=== PATIENT | female | born 1950 | race Caucasian/White ===

== ENCOUNTER → 2017-11-04 14:02 | Outpatient (CLI) | payer MEDICARE, BC, SELFPAY ==
--- NOTE | 2017-11-04 14:14 | CI_ITS ---
Cerebrovascular Exam Indications: 780.4 Dizziness and giddiness. IMPRESSIONS 1. The bilateral internal carotid arteries reveal no evidence of plaque or stenosis. 2. The bilateral common and external carotid arteries reveal no significant stenosis. 3. The bilateral vertebral arteries are patent with normal antegrade flow. History: Risk factors: Hypertension. Carotid duplex study. Complete study and Doppler flow study including spectral analysis, color and herrmann scale imaging. Height: Height: 152.4cm. Height: 60in. Weight: Weight: 122.5kg. Weight: 269.4lb. Body mass index: BMI: 52.7kg/m^2. Body surface area: BSA: 2.36m^2. Location: Vascular laboratory. Patient status: Outpatient. Tables: Arterial flow: + +--------+--------+ Location V sys V ed + +--------+--------+ Right CCA - proximal 86.4cm/s 23.6cm/s + +--------+--------+ Right CCA - distal 71.5cm/s 19.6cm/s + +--------+--------+ Right ECA 58.9cm/s -------- + +--------+--------+ Right ICA - proximal 77cm/s 17.3cm/s + +--------+--------+ Right ICA - mid 54.2cm/s 18.9cm/s + +--------+--------+ Right ICA - distal 112cm/s 28.3cm/s + +--------+--------+ Right vertebral 35.4cm/s -------- + +--------+--------+ Left CCA - proximal 123cm/s 18.7cm/s + +--------+--------+ Left CCA - distal 59.9cm/s 15.7cm/s + +--------+--------+ Left ECA 72.3cm/s -------- + +--------+--------+ Left ICA - proximal 39.3cm/s 13.4cm/s + +--------+--------+ Left ICA - mid 77cm/s 28.3cm/s + +--------+--------+ Left ICA - distal 81.4cm/s 26.6cm/s + +--------+--------+ Left vertebral 46.4cm/s -------- + +--------+--------+ Velocity ratios: + + + + + + Right, V sys Right, V ed Left, V sys Left, V ed + + + + + + Max ICA/dist CCA 1.57 1.44 1.36 1.8 + + + + + + (Report amended ) Electronically signed by: Marcus Haque [id number]
== END ==
PROVIDERS: Family Provider Family Medicine; PCP Nurse Practitioner Family; Visit Provider Nurse Practitioner Family
DX: R42 Dizziness and giddiness (principal)
CPT/HCPCS: 93880

== ENCOUNTER → 2017-12-03 10:27 | Outpatient (CLI) | payer MEDICARE, BC, SELFPAY ==
--- NOTE | 2017-12-03 10:30 | CA_ITS ---
PROCEDURE: 2-D M-mode and color Doppler study INDICATIONS FOR THE TEST: Chest pain COPD Heart MurmurX Tobacco Smoking Palpitations Fatigue Syncope Edema HypertensionXDiabetes Mellitus Rheumatic FeverX SOBXDOEXObesityXHyperlipidemiaX Family History HD Additional History TDS OBESITY PATIENT INFORMATION HEIGHT: 60 WEIGHT:260 GENDER: Female B/P:138/82 2-D/M-MODE INTERPRETATION: 2-D MEASUREMENTS OBSERVED VALUES IN CMS Right Ventricular Dimension (RVDd) 2.6 Interventricular Septum (Thickness)(IVsd) 1.2 Left Ventricular Internal Dimensions(LVIDd) 5.3 Left Ventricular Posterior Wall (Thickness)(LVPWd) .9 Aortic Root 3.7 Aortic Cusp Separation 1.4 Left Atrial Dimensions (LAD) 3.8 2D 1. Left atrium is qualitatively mildly enlarged, left ventricle is normal size, mild concentric left ventricular hypertrophy, visually estimated ejection fraction of 55% with no obvious regional wall motion abnormality. 2. The right atrium and right ventricle are normal size and contractility. 3. The aortic valve is minimally thickened and fibrosed. 4. The mitral and tricuspid valve leaflets are minimally thickened. 5. The pulmonic valve is poorly visualized. 6. No significant pericardial effusion noted. DOPPLER INTERROGATION: Doppler interrogation of the aortic, mitral and tricuspid valvular presence of mild mitral and tricuspid regurgitation, tricuspid regurgitant jet velocity is insufficient for acquisition of the right ventricular systolic pressure, grade 1 diastolic dysfunction seen with tissue Doppler evidence of raised left atrial pressure. CONCLUSION: 1. Mildly enlarged left atrium, normal left ventricular size, mild concentric left ventricular hypertrophy, visually estimated ejection fraction 55% with no obvious regional wall motion abnormality, grade 1 diastolic dysfunction seen with tissue Doppler evidence of raised left atrial pressure. 2. Mild mitral and tricuspid regurgitation 3. No significant pericardial effusion noted.
== END ==
PROVIDERS: Family Provider Family Medicine; PCP Nurse Practitioner Family; Visit Provider Physician Assistant
DX: R01.1 Cardiac murmur, unspecified (principal); R06.00 Dyspnea, unspecified
CPT/HCPCS: 93306

== ENCOUNTER → 2017-12-09 10:47 | Outpatient (CLI) | payer MEDICARE, BC, SELFPAY ==
--- NOTE | 2017-12-09 10:59 | XR_ITS ---
XR knee RT 3V HISTORY: ITS.REASON: RT KNEE PAIN ORDERING PHYSICIAN: Sheri Godfrey PATIENT AGE: 67 years FINDINGS: Moderate osteoarthritic changes are present involving the right knee involving all 3 compartments worse at the medial compartment. No fracture or dislocation. No lytic or blastic change. IMPRESSION: Moderate osteoarthritis of the right knee
== END ==
PROVIDERS: PCP Nurse Practitioner; Visit Provider Nurse Practitioner
DX: M25.561 Pain in right knee (principal)
CPT/HCPCS: 73562

== ENCOUNTER → 2017-12-16 10:39 | Outpatient (CLI) | payer MEDICARE, BC, SELFPAY ==
--- NOTE | 2017-12-16 10:41 | US_ITS ---
US transvaginal HISTORY: ITS.REASON: post bony bleeding ORDERING PHYSICIAN: Chad Whelan MD PATIENT AGE: 67 years Comparison: 01/18/2017 FINDINGS: The uterus is 8.4 x 5.8 x 7.1 cm with a combined endometrial thickness of 2 cm. There is a 2 cm heterogeneous echogenicity in the body the uterus anteriorly consistent with fibroid. The previously noted fibroid in the fundus of uterus is not well demonstrated on today's images. The left ovary is 1.7 x 1.3 cm. There is a small left ovarian cyst of 1 cm. The right ovary is 1.8 x 1.6 cm. No cul-de-sac fluid evident. IMPRESSION: 1. Thickened endometrium at 2 cm 2. No change uterine fibroid in the anterior aspect of the body the uterus
== END ==
PROVIDERS: Family Provider Family Medicine; PCP Nurse Practitioner; Visit Provider Obstetrics & Gynecology
DX: N95.0 Postmenopausal bleeding (principal)
CPT/HCPCS: 76830

== ENCOUNTER → 2018-01-03 09:59 | Outpatient (CLI) | payer MEDICARE, BC, SELFPAY ==
[2018-01-03 10:03] LABS: Microscopic, Urine URINE MICROSCOPIC (MICROSCOPIC)
--- NOTE | 2018-01-03 10:16 | XR_ITS ---
XR chest 2V HISTORY: ITS.REASON: HTN ORDERING PHYSICIAN: Chad Whelan MD PATIENT AGE: 67 years COMPARISON: 01/22/2017 FINDINGS: The cardiomediastinal silhouette and pulmonary vascularity are within normal limits. The lungs are clear without infiltrates, suspicious nodules, or pleural effusions. Chronic changes left lung base. No acute bony abnormalities. There are degenerative changes of the thoracic spine IMPRESSION: No change with no acute finding
[2018-01-03 10:25] LABS: Basophils % 0.3 % (0.1-2.0); Eosinophils # 0.2 K/mm3 (0.0-0.4); Eosinophils % 2.6 % (0.1-12.0); Hematocrit 39.2 % (37.0-47.0); Hemoglobin 12.7 g/dL (12.2-16.2); Lymphocytes # 2.4 K/mm3 (0.7-4.5); Lymphocytes % 26.9 K/mm3 (10-50); Mean Corpuscular HGB Conc 32.4 g/dL (31.8-35.4); Mean Corpuscular Hemoglobin 26.6 pg (27.0-31.2); Mean Corpuscular Volume 82.3 fl (81-99); Mean Platelet Volume 7.5 fl (7.4-10.4); Monocytes # 0.5 K/mm3 (0.1-1.0); Monocytes % 5.7 % (1.7-9.3); Neutrophils # 5.7 K/mm3 (1.8-7.8); Neutrophils % 64.5 % (37.0-80.0); Platelet Count 295 K/mm3 (142-424); Red Blood Count 4.76 M/mm3 (4.20-5.40); Red Cell Distribution Width 15.2 % (11.5-17.5); White Blood Count 8.8 K/mm3 (4.8-10.8)
[2018-01-03 10:34] LABS: Appearance,Urine SL CLOUDY (Clear); Bilirubin,Urine Negative (Negative); Blood, Urine Negative (Negative); Color,Urine YELLOW (Yellow); Glucose,Urine (UA) Negative (Negative); Ketones,Urine Negative (Negative); Leukocyte Esterase,Urine Negative (Negative); Nitrate,Urine Negative (Negative); PH,Urine 5.5 (5.0-8.5); Protein,Urine Negative (Negative); Specific Gravity, Urine 1.025 (1.005-1.030); Urobilinogen,Urine 0.2 EU/dl (0.2)
[2018-01-03 10:51] LABS: Bacteria,Urine 3+ /lpf; Squamous Epithelial Cell,Urine TNTC #/hpf (0-5); WBC,Urine Occasional #/hpf (0-3)
[2018-01-03 10:56] LABS: Alanine Aminotransferase 37 U/L (12-78); Albumin Level 3.8 gm/dL (3.4-5.0); Alkaline Phosphatase 91 U/L (46-116); Anion Gap 16.3 mEq/L (5-15); Aspartate Amino Transferase 20 U/L (15-37); Bilirubin,Total 0.3 mg/dL (0.2-1.0); Blood Urea Nitrogen 27 mg/dL (7-18); Calcium 9.4 mg/dL (8.5-10.1); Carbon Dioxide 22 mmol/L (21.0-32.0); Chloride 104 mmol/L (98-107); Creatinine,Serum 1.14 mg/dL (0.55-1.02); Estimated Glomerular Filt Rate 48 ml/min (>60); GFR (African American) 58 ML/MIN (>60); Globulin 3.8 gm/dl (1.3-3.2); Glucose 115 mg/dL (74-106); Potassium 4.3 mmoL/L (3.5-5.1); Sodium 138 mmol/L (136-145); Total Protein,Serum 7.6 gm/dL (6.4-8.2)
== END ==
PROVIDERS: Visit Provider Obstetrics & Gynecology
DX: Z01.818 Encounter for other preprocedural examination (principal); N95.0 Postmenopausal bleeding; D25.9 Leiomyoma of uterus, unspecified; R82.90 Unspecified abnormal findings in urine
CPT/HCPCS: 36415; 71046; 80053; 81001; 85025; 87086; 93005

== ENCOUNTER 2018-01-08 11:00 | Outpatient (RCR) | payer MEDICARE, BC, SELFPAY ==
--- NOTE | 2017-12-19 16:27 | HMH.PTOPEV ---
PT Outpatient Evaluation Rehab PT Outpatient Evaluation Start: 12/19/17 16:16 Freq: Status: Active Protocol: Document 12/19/17 16:17 LUMAMICHAEL (Rec: 12/19/17 16:27 KENNYCLOVIS [id number]) Electronically Signed By Nico Gee PT 12/19/17 16:17 Outpatient Therapy Subjective History Subjective History This is the initial Physical Therapy evaluation for Neeta Ashford. Pt is a 67 y/o female referred to PT for c/o B knee pain R>L. Pt reports pain for years but recent increase in pain w/ insidious onset. Chief Complaint Pain Stiff Catches/Locks Symptom Type Ache Throb Dull Symptoms Relieved By Rest/Positioning Prescription Meds Symptoms Aggravated By Standing Physical Activity Walking Prior Functional Limitations None Current Functional Limitations Housework Recreation Activity Walking Stairs Symptom Description Intermittent Level of pain today (0-10) 0 Pain scale - at its best (0-10) 0 Pain scale - at its worst (0-10) 5 Hip/Knee Eval Gait Observation General Gait Pattern Observation No Deviations/Normal Wide Based Gait Assistive Device Assistive Devices None / NA Palpation Tenderness bilateral Knee Palpation Finding Tenderness Knee Palpation Overall Comment B pes anserines, Medial HS tendons, and MPFL MMT Hip External Rotation Strength Grade 4- Good- Hip Internal Rotation Strength Grade 4 Good Knee Extension Strength Grade 4- Good- Knee Flexion Strength Grade 4- Good- ROM Knee ROM Reason Not Measured Within Functional Limits Special Tests Knee Apley Compression Test Negative Left Negative Right Knee Medial-Lateral Grind Test Negative Left Negative Right Knee Valgus Stress Test Negative Left Negative Right Knee Varus Stress Test Negative Left Negative Right Patellar Grind Test Negative Left Negative Right Patellar Compression Test Negative Left Negative Right Outpatient Therapy Assessment Impairments Problems/Impairmments Palpation Tenderness
== END 2018-01-08 11:01 | disposition home or self-care (01) ==
LOC: PT 11:00
PROVIDERS: Family Provider Family Medicine; PCP Nurse Practitioner; Visit Provider Nurse Practitioner
DX: M17.11 Unilateral primary osteoarthritis, right knee (principal); M70.51 Other bursitis of knee, right knee
CPT/HCPCS: 97010; 97014; 97033; 97110; 97163; G0283

== ENCOUNTER 2018-01-09 06:01 | Observation (INO) ==
--- NOTE | 2018-01-09 07:10 | Progress Note ---
[facility] Anesthesia Checklist - Patient Identification Patient Identification: Arm Band, Verbal (Name & ) - Structural Data Admitted From: Home Planned Operative Procedure/s: tvh Consent for Planned Operative Procedure(s) Verified: Yes Verified Documents: Surgical Consent, History and Physical - NPO Status Verified Time NPO: 00:00 - Chart Verification Results Verified: CBC, BMP - Additional verifications Patient : No Anesthesia Reactions: No Hx Blood Transfusions: No Blood Transfusion Reaction: No Cephalosporin Allergy: No Previous Colonoscopy: No - Cardiovascular Assessment Heart Sounds: S1 & S2 Pulse Strength: Baseline Pulse Rhythm: Regular Peripheral Edema: No - Airway Assessment C-Spine Mobility Assessed: Yes TMJ Mobility Assessed: Yes Dentition: Good Dentition - Neurological Assessment Level of Consciousness: Awake, Alert, Appropriate Hx Seizures: No Numbness or tingling in extremities: No - Anesthesia Plan Anesthesia Risk discussed: Yes Anesthesia Plan: Verified ASA Class: III Anesthesia Type: General [facility] Anesthesia HX I have reviewed the patient's past medical history: Yes Medical History: Reports:: Gall Bladder Disease, Hyperlipidemia, Hypertension, Kidney Stones Denies:: Cancer, Diabetes Mellitus Type 1, Diabetes Mellitus Type 2, Internal Pacemaker, MRSA, Seizures Other Medical History: Reports: Other. Denies: Blood Transfusion Reaction Laterality Cases: Bilateral: Lumpectomy Other Surgeries: Yes: Cholecystectomy, Tubal Ligation, Other. No: Pacemaker Amputation: No Fractures: No *Family Hx:: Coronary Artery Disease
--- NOTE | 2018-01-09 08:45 | Operative Note ---
Date of procedure: 01/27/18 Pre-op Diagnosis:: Postmenopausal bleeding Post-op Diagnosis:: 1. Postmenopausal bleeding. 2. Leiomyomata uteri. Procedure performed:: Total vaginal hysterectomy, enterocele repair. Surgeon:: Chad Whelan MD Machine Filler Servicer(s):: Dr. Longoria PIG STICKER:: Salinas Velasco Anesthesia: GETA Estimated blood loss (mL): 300 Operative findings:: 1. Postmenopausal bleeding. 2. Leiomyomata uteri. Operative note:: After the patient was prepped and draped in usual fashion and history, a weighted speculum was placed within the posterior fourchette of the vagina, and the cervix was grasped with a double-tooth tenaculum. The posterior vagina was adherent to the posterior aspect of the cervix. The cervix was carefully circumcised with a knife, and the vaginal mucosa was sharply and bluntly dissected free. A posterior colpotomy incision was made with Jenaro scissors, and the long lip of the weighted speculum was placed within the posterior peritoneum. The uterosacral ligaments on either side were Vicky clamped, cut, and Vicky suture with #1 Vicryl, as were the cardinal ligaments and uterine vessels. The anterior peritoneum was entered with Jenaro scissors, being careful to avoid the bladder flap scar. This was successfully done. The uterus was then flipped anteriorly. It was myomatous. The ovarian pedicles were crossclamped and cut, thus removing the uterine specimen. These pedicles were Vicky sutured, and then free tied with #1 Vicryl. The right ovary was visualized and atrophic. The left ovary could not be visualized but was palpated as atrophic. Both adnexa were adherent to the pelvic sidewalls and the decision was made to leave them in situ. The posterior vaginal cuff was then run unlocked with #1 Vicryl, to include the uterosacral ligament pedicles, and a Wong fashion, to reduce the enterocele. The peritoneal closure was incorporated in the cuff closure with a running unlocked suture of #1 Vicryl. A vaginal pack of 2 inch iodoform gauze was placed as a pressure dressing, and the urine was noted to be clear in the Ramirez catheter. The sponge and needle counts correct. The estimated blood loss was 300 cc. The patient tolerated the procedure well, and was taken to PACU in excellent condition. She will be admitted postoperatively. Condition: stable Disposition: floor Specimens:: Uterus Complications:: None
--- NOTE | 2018-01-09 08:51 | Progress Note ---
[facility] Anesthesia Record Part I Intake, IV Amount: 600 Estimated blood loss (mL): 300 Urine output (mL): 100 Blood Products used (#): none Blood Pressure: 110/59 SaO2: 96 Pulse Rate: 66 Respiratory Rate: 18 Temperature: 98.0 F Patient is:: Drowsy, Nasal O2, Stable Stable to PACU at:: 08:46
--- NOTE | 2018-01-09 08:52 | Progress Note ---
[facility] Anesthesia Record Part II Discharge Time: 09:16 Destination: Obstetric Gynecology Dept PACU nurse assessment reviewed?: Yes Patient Condition:: Good Anesthesia Complications:: None
[2018-01-09 10:39] LABS: Hematocrit 34.9 % (37.0-47.0); Hemoglobin 11.1 g/dL (12.2-16.2)
--- NOTE | 2018-01-09 12:51 | Progress Note ---
Internal Medicine - PN: Subj *Date: 01/09/18 *Time: 12:50 (This is day of surgery. The patient is afebrile. Vital signs stable. Abdomen soft. Surgery has been explained to the patient. She is tolerating liquids, and her urine output is good. Vaginal pack remains in situ. Impression: Stable.) Exam Vital signs and Labs for Last 24 Hours: Temp Pulse Resp BP Pulse Ox 98.0 F 68 17 119/65 99 01/09/18 12:15 01/09/18 12:15 01/09/18 12:15 01/09/18 12:15 01/09/18 12:15 Laboratory Results - last 24 hr 01/09/18 10:15: Hgb 11.1 L, Hct 34.9 L I & O for Last 24 hours: Intake & Output 01/07/18 01/08/18 01/09/18 01/10/18 11:59 11:59 11:59 11:59 Intake Total 600 / 600 Balance 600 / 600 Weight 260 lb
--- NOTE | 2018-01-10 07:35 | Progress Note ---
Internal Medicine - PN: Subj *Date: 01/10/18 *Time: 07:34 (This is postop day #1. The patient is afebrile. Vital signs stable. Abdomen soft. Bowel sounds present. SHASHANK globin 11.1 g, but clinically stable. Her Ramirez and vaginal pack have been removed. Plan is to observe, ambulate. Possible discharge later today.) Exam Vital signs and Labs for Last 24 Hours: Temp Pulse Resp BP Pulse Ox 98.1 F 67 18 114/56 95 01/10/18 03:45 01/10/18 03:45 01/10/18 03:45 01/10/18 03:45 01/10/18 03:45 Laboratory Results - last 24 hr 01/09/18 07:35: Urine Color Yellow, Urine Appearance Clear, Urine pH 6.0, Ur Specific [place] 1.025, Urine Protein Negative, Urine Glucose (UA) Negative, Urine Ketones Negative, Urine Blood Trace-i, Urine Nitrate Negative, Urine Bilirubin Negative, Urine Urobilinogen 0.2, Ur Leukocyte Esterase Negative, Urine RBC 5-10, Urine WBC Occasional, Ur Squamous Epith Cells 3-5, Urine Bacteria 1+, Hyaline Casts 3-5 01/09/18 10:15: Hgb 11.1 L, Hct 34.9 L I & O for Last 24 hours: Intake & Output 01/07/18 01/08/18 01/09/18 01/10/18 11:59 11:59 11:59 11:59 Intake Total 600 / 600 2561 / 2561 Output Total 600 / 600 Balance 600 / 600 196 / 1960 Weight 260 lb
--- NOTE | 2018-01-10 09:59 | Progress Note ---
Internal Medicine - PN: Subj *Date: 01/10/18 *Time: 09:59 (The patient is doing well. She she is voided without her Ramirez. She will be discharged today.) Exam Vital signs and Labs for Last 24 Hours: Temp Pulse Resp BP Pulse Ox 98.4 F 69 16 111/48 100 01/10/18 07:38 01/10/18 07:38 01/10/18 07:38 01/10/18 07:38 01/10/18 07:38 Laboratory Results - last 24 hr 01/09/18 07:35: Urine Color Yellow, Urine Appearance Clear, Urine pH 6.0, Ur Specific [place] 1.025, Urine Protein Negative, Urine Glucose (UA) Negative, Urine Ketones Negative, Urine Blood Trace-i, Urine Nitrate Negative, Urine Bilirubin Negative, Urine Urobilinogen 0.2, Ur Leukocyte Esterase Negative, Urine RBC 5-10, Urine WBC Occasional, Ur Squamous Epith Cells 3-5, Urine Bacteria 1+, Hyaline Casts 3-5 01/09/18 10:15: Hgb 11.1 L, Hct 34.9 L I & O for Last 24 hours: Intake & Output 01/07/18 01/08/18 01/09/18 01/10/18 11:59 11:59 11:59 11:59 Intake Total 600 / 600 2881 / 2881 Output Total 750 / 750 Balance 600 / 600 2131 / 2131 Weight 260 lb
--- NOTE | 2018-01-10 10:03 | Discharge Summary ---
General - General Admission date:: 01/09/18 Discharge date: 01/10/18 (This 67-year-old white female was admitted for definitive treatment of postmenopausal bleeding. On the date of admission, she was taken to the operating room, where she underwent a total vaginal hysterectomy. Her adnexa remain in situ. Her uterus was myomatous, and pathology report is pending. Postoperatively, the patient is done well. She is eating and ambulating, and passing flatus. Her Ramirez catheter and vaginal packing been removed, and she is voiding well. Her hemoglobin is 11.1 g, but she is clinically stable. She is discharged home on the first postoperative day , to resume her normal medications. She is given appropriate instructions as to diet and exercise. She is not a smoker. She is given a prescription for Percocet 5/325 (#20), 1 p.o. q. 4-6h as needed pain. She is to return the office in 2 weeks for follow-up.) Objective Vital signs: Temp Pulse Resp BP Pulse Ox 98.4 F 69 16 111/48 100 01/10/18 07:38 01/10/18 07:38 01/10/18 07:38 01/10/18 07:38 01/10/18 07:38 Results Labs on day of discharge: Labs from last 24 hours 01/09/18 01/09/18 10:15 07:35 Hgb 11.1 L Hct 34.9 L Urine Color Yellow Urine Appearance Clear Urine pH 6.0 Ur Specific [place] 1.025 Urine Protein Negative Urine Glucose (UA) Negative Urine Ketones Negative Urine Blood Trace-i Urine Nitrate Negative Urine Bilirubin Negative Urine Urobilinogen 0.2 Ur Leukocyte Esterase Negative Urine RBC 5-10 Urine WBC Occasional Ur Squamous Epith Cells 3-5 Urine Bacteria 1+ Hyaline Casts 3-5 Discharge Plan - Patient Discharge Instructions - Follow up Plan Home Medications: Home Medications Medication Instructions Recorded Confirmed Type lisinopril 20 1 tab PO DAILY tab 11/04/17 01/09/18 History mg-hydrochlorothiazide 12.5 mg tablet atorvastatin 40 mg tablet 40 mg PO DAILY tab 12/10/17 01/09/18 History estradiol 1 mg tablet 0.5 mg PO DAILY tab 12/10/17 01/09/18 History Chlorhexidine Gluconate 1 applic TOPICAL ONCE 01/08/18 01/09/18 History Medroxyprogesterone Acetate 2.5 mg PO QDAY 01/08/18 01/09/18 History Prescriptions/Medication Reconciliation: No Action estradiol 1 mg tablet 0.5 mg PO DAILY tab lisinopril 20 mg-hydrochlorothiazide 12.5 mg tablet 1 tab PO DAILY tab atorvastatin 40 mg tablet 40 mg PO DAILY tab Chlorhexidine Gluconate 1 applic TOPICAL ONCE Medroxyprogesterone Acetate 2.5 mg PO QDAY
--- NOTE | 2018-01-10 10:51 | Pharmacy Consult Notes ---
[facility] Pharmacy VTE Monitoring - Patient Demographics Admission date: 01/10/18 Report Date: 01/10/18 Time: 10:51 Allergies/Adverse Reactions: Patient Allergies No Known Allergies Allergy (Verified 01/08/18 12:50) Height: 1.52 m Weight: 117.934 kg - VTE Risk Labs: VTE Related Lab Results Hgb 11.1 g/dL (12.2-16.2) L 01/09/18 10:15 Hct 34.9 % (37.0-47.0) L 01/09/18 10:15 - Prophylaxis Types of VTE Prophylaxis: IPCS Thigh High (ICDS ORDERED) Location of Applied Device: Bilateral Lower Extremeties
== END 2018-01-10 11:30 | disposition home or self-care (01) ==
LOC: OR 06:01 → OB 06:01
PROVIDERS: ADMIT Obstetrics & Gynecology; ATTEND Obstetrics & Gynecology

== ENCOUNTER 2018-02-05 12:54 | Outpatient (RCR) | payer MEDICARE, BC, SELFPAY ==
--- NOTE | 2018-02-05 14:08 | HMH.PTOPEV ---
PT Outpatient Evaluation Rehab PT Outpatient Evaluation Start: 02/05/18 13:34 Freq: Status: Active Protocol: Document 02/05/18 13:34 YVESDERIK (Rec: 02/05/18 14:07 MEMO [id number]) Electronically Signed By Santana Rojas, PT 02/05/18 13:34 Outpatient Therapy Subjective History Subjective History Pt is a 67 year old female presenting to outpatient PT with reports of B knee pain staring approximatley 1 year ago after a fall on the R knee . Pt reports L knee pain started shortly after initial injury. Pt reports previous episonde of PT approximately 6 months ago that provided some significant relief. Comorbidities include HTN, hyperlipidemia, hx of cholecystectomy and hysterectomy. Chief Complaint Pain Stiff Clicks Gives out/Unstable Symptom Type Ache Sharp Symptoms Relieved By Rest/Positioning Heat Ice Prior Functional Limitations None Current Functional Limitations Housework Standing Sitting Squatting Recreation Activity Walking Stairs Bending/Stooping Level of pain today (0-10) 3 Pain scale - at its best (0-10) 0 Pain scale - at its worst (0-10) 8 Hip/Knee Eval Gait Observation General Gait Pattern Observation Antalgic Gait Assistive Device Assistive Devices None / NA Palpation Tenderness bilateral Knee Palpation Finding Tenderness Knee Palpation Overall Comment medial joint line MMT Hip Flexion Strength Grade 4 Good Hip Abduction Strength Grade 4- Good- Hip Adduction Strength Grade 4 Good Hip Extension Strength Grade 4- Good- Hip External Rotation Strength Grade 4- Good- Hip Internal Rotation Strength Grade 4- Good- Knee Extension Strength Grade 4 Good Knee Flexion Strength Grade 4 Good ROM right Hip ROM Reason Not Measured Within Functional Limits Knee Extension Active Range of Motion ( -10 degrees) Knee Flexion Active Range of Motion ( 116 degrees)
== END 2018-02-05 12:55 | disposition home or self-care (01) ==
LOC: PT 12:54
PROVIDERS: Family Provider Family Medicine; PCP Nurse Practitioner; Visit Provider Nurse Practitioner
DX: M17.0 Bilateral primary osteoarthritis of knee (principal)
CPT/HCPCS: 97010; 97014; 97163; G0283

== ENCOUNTER → 2018-02-11 10:49 | Outpatient (CLI) | payer MEDICARE, BC, SELFPAY ==
--- NOTE | 2018-02-11 10:52 | MM_ITS ---
MM Dig screening mamm BI w/CAD ORDERING PHYSICIAN : Stephan Back MD PATIENT AGE: 67 years GENDER: Female COMPARISON: December 2016, May 2014, March 2013. INDICATION: ITS.REASON: SCREENING patient does take estrogen. Patient data sheet states Previous excisional biopsy benign at both right and left breast Noncontributory family history TECHNIQUE: Standard CC and MLO images were obtained. R2 CAD reviewed. FINDINGS: Moderate density breast. Scattered moderate fibroglandular elements.. Is show diffuse increased prominence with compared to 2013 and 2016 throughout both breast-. This is compatible with exogenous hormone effect. . Right breast. No significant new focal findings A small round density seen at the central breast towards 12:00 is unchanged significantly since previous studies. Vaguely evident roughly 7 mm diameter. The L just towards the lateral left breast are more pronounced but again this appears to be compatible with the diffuse exogenous hormonesEstrogen effects ...... With A similar pattern is seen most evident towards lateral left breast Left breast. No significant new findings Minimal nodularity, small 4.5 mm nodule at central left breast is similar to previous study as well. & Can be followed. IMPRESSION: ...... Increased prominence of fibroglandular elements throughout both breast reflects exogenous hormone,/ estrogen effect No discrete new focal area of significant concern. However the interval increased density due to estrogen effect does slightly decreased sensitivity Stable areas of nodularity bilaterally BI-RADS Category: 2 Benign Finding(s) RECOMMENDED FOLLOW-UP: 1YR 1 YEAR FOLLOW-UP All (A letter has been sent to the patient regarding results of the study.)
== END ==
PROVIDERS: Family Provider Family Medicine; PCP Nurse Practitioner; Visit Provider Family Medicine
DX: Z12.31 Encounter for screening mammogram for malignant neoplasm of breast (principal)
CPT/HCPCS: 77067

== ENCOUNTER → 2018-05-20 13:06 | Outpatient (POV) | payer MEDICARE, BC, SELFPAY | PROVIDERS: Visit Provider Dermatology | DX: Z00.00 Encounter for general adult medical examination without abnormal findings (principal) ==

== ENCOUNTER → 2018-07-15 13:04 | Outpatient (POV) | payer MEDICARE, BC, SELFPAY | PROVIDERS: Visit Provider Dermatology | DX: Z00.00 Encounter for general adult medical examination without abnormal findings (principal) ==

== ENCOUNTER → 2018-08-11 08:43 | Outpatient (CLI) | payer MEDICARE, BC, SELFPAY ==
--- NOTE | 2018-08-11 08:46 | CA_ITS ---
PROCEDURE: 2-D M-mode and color Doppler study INDICATIONS FOR THE TEST: Chest pain COPD Heart Murmur Tobacco Smoking Palpitations Fatigue Syncope Edema HypertensionXDiabetes Mellitus Rheumatic Fever SOBXDOE ObesityXHyperlipidemia X Family History HDX Additional History PATIENT INFORMATION HEIGHT: 60 WEIGHT:263 GENDER: Female B/P:124/67 2-D/M-MODE INTERPRETATION: 2-D MEASUREMENTS OBSERVED VALUES IN CMS Right Ventricular Dimension (RVDd) 2.6 Interventricular Septum (Thickness)(IVsd) 1.0 Left Ventricular Internal Dimensions(LVIDd) 5.6 Left Ventricular Posterior Wall (Thickness)(LVPWd) 1.0 Aortic Root 3.6 Aortic Cusp Separation 1.6 Left Atrial Dimensions (LAD) 3.3 2D 1. Left atrium is mildly enlarged, left ventricle is normal size, mild concentric left ventricular hypertrophy, visually estimated ejection fraction 55% with no regional wall motion abnormality. 2. The right atrium and right ventricle are normal size and contractility. 3. The aortic valve is thickened and calcified leaflet continue to display mobility. 4. The mitral and tricuspid valve leaflets are minimally thickened, 5. The pulmonic valve is poorly present. 6. No significant pericardial effusion noted. DOPPLER INTERROGATION: Doppler interrogation of the aortic, mitral and tricuspid valvular presence of mild mitral and tricuspid regurgitation, tricuspid regurgitation jet velocity is inadequate for calculation of the right ventricular systolic pressure, grade 1 diastolic dysfunction seen with tissue Doppler evidence of raised left atrial pressure. CONCLUSION: 1. Mildly enlarged left atrium, normal left ventricular size, mild concentric left ventricular hypertrophy, visually estimated ejection fraction 55% with no regional wall motion abnormality, grade 1 diastolic dysfunction seen with tissue Doppler evidence of raised left atrial pressure. 2. Mild mitral and tricuspid regurgitation 3. No significant pericardial effusion noted.
== END ==
PROVIDERS: PCP Family Medicine; Visit Provider Internal Medicine
DX: R06.02 Shortness of breath (principal)
CPT/HCPCS: 93306

== ENCOUNTER → 2019-02-16 07:55 | Outpatient (CLI) | payer MEDICARE, BC, SELFPAY ==
--- NOTE | 2019-02-16 07:56 | MM_ITS ---
PROCEDURE: MM DIG SCREENING MAMM BI W/CAD CLINICAL INDICATION: SCREENING There is no personal or family history of breast cancer. There have been previous biopsies on each breast for benign disease. COMPARISON: [facility] DIG MAMM-SCREEN BRADLEY W/CAD from 01/25/2017 DMDXUAVR DIG MAMM-DX UNI A/VW-RT W/CAD from 02/06/2017 [facility] MM Dig screening mamm BI w/CAD from 02/11/2018 TECHNIQUE: Standard CC and MLO images were obtained. R2 CAD reviewed. FINDINGS: Scattered fibroglandular densities are seen in both breasts and the findings of bladder and symmetrical. There are mole markers on each breast. There are a couple of benign-appearing microcalcifications left breast. There is no suspicious lesion and no suspicious microcalcifications. IMPRESSION: Fibrofatty parenchyma with no suspicious lesions seen BI-RAD Category: 2 Benign Finding(s) FOLLOW-UP: 1YR 1 Year Follow-up (A letter has been sent to the patient regarding results of the study.) Dictated by: Dr. Haim Mathews MD 02/18/2019 09:48 Signed by: <Electronically signed by Dr. Haim Mathews MD in [place]> 02/18/2019 09:48
--- NOTE | 2019-02-16 07:56 | XR_ITS ---
PROCEDURE: XR DEXA AXIAL SKELETON CLINICAL INDICATION: screening COMPARISON: No exams were available for comparison FINDINGS: L1-L4 density has a bone density of 1.226 grams/centimeters sq with a T-score of 0.4. The lowest density in the hips is at the left femoral neck at 0.930 grams/centimeters sq with a T-score of -0.8 IMPRESSION: Normal bone density with low fracture risk. Suggest follow-up exam in 2 years Dictated by: Marcus Haque MD 02/16/2019 11:13 Signed by: <Electronically signed by Marcus Haque MD in [facility]> 02/16/2019 11:13
== END ==
PROVIDERS: PCP Internal Medicine; Visit Provider Obstetrics & Gynecology
DX: Z78.0 Asymptomatic menopausal state (principal); Z12.31 Encounter for screening mammogram for malignant neoplasm of breast
CPT/HCPCS: 77067; 77080

== ENCOUNTER → 2019-03-09 14:02 | Outpatient (POV) | payer MEDICARE, BC, SELFPAY | PROVIDERS: PCP Nurse Practitioner Family; Visit Provider Nurse Practitioner Family | DX: Z00.00 Encounter for general adult medical examination without abnormal findings (principal) ==

== ENCOUNTER → 2020-02-19 09:26 | Outpatient (CLI) | payer MEDICARE, BC, SELFPAY ==
--- NOTE | 2020-02-19 09:26 | MM_ITS ---
PROCEDURE: MM DIG SCREENING MAMM BI W/CAD Digital Breast Tomosynthesis Included CLINICAL INDICATION: Routine Screening Mammogram There is no personal or family history of breast cancer. There have been previous biopsies on each breast for benign disease. Patient is currently on estrogen. COMPARISON: MG DMDXUAVR DIG MAMM-DX UNI A/VW-RT W/CAD from 02/06/2017 MG [facility] MM Dig screening mamm BI w/CAD from 02/11/2018 MG MM DIG SCREENING MAMM BI W/CAD from 02/16/2019 TECHNIQUE: Standard CC and MLO images and 3D Tomosynthesis was obtained. R2 CAD reviewed. FINDINGS: Moderate diffuse fibroglandular densities are seen in the central portions of both breasts slightly more prominent right breast than left. There are mole markers on each breast. There is a couple of benign-appearing microcalcifications left breast. IMPRESSION: Moderate breast density with no suspicious lesions seen BI-RAD Category: 2 Benign Finding(s) FOLLOW-UP: 1YR 1 Year Follow-up (A letter has been sent to the patient regarding results of the study.) Dictated by: Dr. Haim Mathews MD 02/19/2020 14:11 Dr. Haim Mathews MD in [place] 02/19/2020 14:11
== END ==
PROVIDERS: PCP Nurse Practitioner Family; Visit Provider Obstetrics & Gynecology
DX: Z12.31 Encounter for screening mammogram for malignant neoplasm of breast (principal)
CPT/HCPCS: 77063; 77067

== ENCOUNTER 2020-04-30 08:01 | Emergency (ER) | payer MEDICARE, BC, SELFPAY ==
[2020-04-30 08:02] VITALS: BP 154/84; PULSE 95; RESP 20; TEMP 36.9; O2SAT 96; BMI 50.8
--- NOTE | 2020-04-30 08:20 | XR_ITS ---
PROCEDURE: XR ACUTE ABDOMEN SERIES CLINICAL INDICATION: obstipation Constipation COMPARISON: CR CXR CHEST(2 VIEWS-NOT PORTABLE) from 01/22/2017 FINDINGS: Frontal view of the chest shows no acute finding. Nonspecific nonobstructive bowel gas pattern. Surgical clips are present in the right upper quadrant. There is a mild amount of retained colonic feces throughout the colon. Other findings:None. IMPRESSION: Constipation Dictated by: Marcus Haque MD 04/30/2020 09:23 Marcus Haque MD in [place] 04/30/2020 09:23
--- NOTE | 2020-04-30 08:27 | HMH.EDGENADL ---
ED Disposition Clinical Impression: Constipation Qualifiers: Constipation type: unspecified constipation type Qualified Code(s): K59.00 - Constipation, unspecified Disposition: Home, Self-Care Condition on Discharge: Good Additional Instructions: And Colace once per day for soft stools and follow-up with your primary care for continued constipation. Prescriptions: Docusate Sodium [Colace] 100 mg PO DAILY 14 Days #14 cap Prescription Printed polyethylene glycoL 3350 [Miralax Powder] 17 gm PO DAILY 14 Days #240 gm Prescription Printed Referrals: Judy Parry APRN [Primary Care Provider] - - Critical Care Critical Care Time: No Attestation: On 04/30/20, the high probability of a clinically significant, sudden or life threatening deterioration of the following system(s) required my full and direct attention, intervention and personal management. The time I documented below is in addition to time spent performing reported procedures but includes the following listed in this critical care notation. Medical Decision Making - Medical Records Medical records reviewed: Yes: I reviewed the patient's medical records. MR Comment: To be in March 2019 demonstrated polyps with polypectomy and internal hemorrhoids. Patient has a history of an open cholecystectomy. - Amado Inquiry Pt receiving controlled substance: No Vital Signs: 04/30/20 08:02 04/30/20 08:42 Temperature 98.5 F Temperature Source Oral Pulse Rate [Left Radial] 95 H 87 Respiratory Rate 20 Blood Pressure [Right Arm] 154/84 H 147/78 H Blood Pressure Mean [Right Arm] 107 101 Blood Pressure Source [Right Arm] Automatic Cuff Automatic Cuff Blood Pressure Position [Right Arm] Sitting Sitting 02 Sat by Pulse Oximetry 96 95 Oxygen Delivery Method Room Air Room Air - Lab Data Lab Results 04/30/20 08:25: WBC 11.1 H, RBC 4.60, Hgb 13.2, Hct 39.8, MCV 86.6, MCH 28.7, MCHC 33.1, RDW 14.8, Plt Count 311, MPV 7.5, Neut % (Auto) 64.6, Lymph % (Auto) 29.3, [place] % (Auto) 4.5, Eos % (Auto) 1.4, Baso % (Auto) 0.3, Neut # (Auto) 7.2, Lymph # (Auto) 3.3, [place] # (Auto) 0.5, Eos # (Auto) 0.2, Baso # (Auto) 0.0 04/30/20 08:25: Sodium 138, Potassium 3.8, Chloride 104, Carbon Dioxide 26, Anion Gap 11.8, BUN 20 H, Creatinine 1.10 H, Estimated Creat Clear 35, Estimated GFR 49 L, Est GFR ( Amer) 60, Glucose 118 H, Calcium 9.4, Total Bilirubin 0.6, AST 26, ALT 29, Alkaline Phosphatase 115, Total Protein 7.9, Albumin 4.2, Globulin 3.7 H, Albumin/Globulin Ratio 1.1 04/30/20 08:25: Lactate 1.3 Result diagrams: 04/30/20 08:25 04/30/20 08:25 Orders (Tests/Meds): ED MEDICATIONS Discontinued Medications Generic Name Dose Route Start Last Admin Trade Name Freq PRN Reason Stop Dose Admin Sodium Phosphate 133 ml 04/30/20 09:08 04/30/20 09:51 Fleet 133ml Enema RC 04/30/20 09:09 Not Given ONCE ONE - Radiology Data #1 Image(s): Chest, Abdomen Image Reviewed: Yes I reviewed the patient's radiology results, Yes I reviewed the patient's radiology image Patient is noted to have mild to moderate stool burden throughout the colon with nonobstructive bowel gas pattern. No abnormalities on chest x-ray. - Reevaluation(s) Time: 10:33 (Pt feels better with large bowel movement. ) Medical Decision Narrative: 69-year-old female who presents with complaints of subjective constipation. Patient is in no obvious distress and has moderate distention of the abdomen with no tenderness is not currently vomiting however has a history of an open surgery is obese and has had minimal passage of gas. X-ray will be obtained with acute abdominal series to evaluate for obstructive gas pattern and further stratify the amount of constipation. X-ray demonstrates mild to moderate stool burden throughout the colon and no evidence of acute abnormality including free air or obstructive gas pattern. Laboratory data is unremarkable with no change in her baseline renal functio
[2020-04-30 08:42] VITALS: BP 147/78; PULSE 87; O2SAT 95
[2020-04-30 08:42] LABS: Basophils % 0.3 % (0.1-2.0); Eosinophils # 0.2 K/mm3 (0.0-0.4); Eosinophils % 1.4 % (0.1-12.0); Hematocrit 39.8 % (37.0-47.0); Hemoglobin 13.2 g/dL (12.2-16.2); Lymphocytes # 3.3 K/mm3 (0.7-4.5); Lymphocytes % 29.3 % (10-50); Mean Corpuscular HGB Conc 33.1 g/dL (31.8-35.4); Mean Corpuscular Hemoglobin 28.7 pg (27.0-31.2); Mean Corpuscular Volume 86.6 fl (81-99); Mean Platelet Volume 7.5 fl (7.4-10.4); Monocytes # 0.5 K/mm3 (0.1-1.0); Monocytes % 4.5 % (1.7-9.3); Neutrophils # 7.2 K/mm3 (1.8-7.8); Neutrophils % 64.6 % (37.0-80.0); Platelet Count 311 K/mm3 (142-424); Red Cell Distribution Width 14.8 % (11.5-17.5); White Blood Count 11.1 K/mm3 (4.8-10.8)
--- NOTE | 2020-04-30 08:43 | PC.NURSE ---
Pt to rad.
[2020-04-30 08:47] LABS: Chloride 104 mmol/L (98-107); Potassium 3.8 mmoL/L (3.5-5.1); Sodium 138 mmol/L (136-145)
[2020-04-30 08:50] LABS: Alanine Aminotransferase 29 U/L (12-78); Albumin Level 4.2 g/dl (3.5-5.0); Albumin/Globulin Ratio 1.1 (1.1-1.8); Alkaline Phosphatase 115 U/L (38-126); Anion Gap 11.8 mEq/L (5-15); Aspartate Amino Transferase 26 U/L (14-36); Bilirubin,Total 0.6 mg/dl (0.2-1.3); Blood Urea Nitrogen 20 mg/dl (7-17); Carbon Dioxide 26 mmol/L (22.0-30.0); Creatinine Clearance Estimated 35 mL/min (50-200); Estimated Glomerular Filt Rate 49 ml/min (>60); GFR (African American) 60 ML/MIN (>60); Globulin 3.7 g/dL (1.3-3.2); Total Protein,Serum 7.9 g/dl (6.3-8.2)
[2020-04-30 08:51] LABS: Calcium 9.4 mg/dl (8.4-10.2); Glucose 118 mg/dl (74-100); Lactic Acid 1.3 mmol/L (0.7-2.1)
--- NOTE | 2020-04-30 09:51 | PC.NURSE ---
Pt placed in gown, turned to left side, soap suds enema administered into rectum, pt tolerated well.
--- NOTE | 2020-04-30 10:31 | PC.NURSE ---
Pt states that she was successful with a BM and she feels better. MD aware and at bedside
[2020-04-30 11:02] VITALS: BP 150/77; PULSE 74; RESP 18; TEMP 36.9; O2SAT 98
== END 2020-04-30 11:03 | disposition home or self-care (01) ==
PROVIDERS: Emergency Provider Student in an Organized Health Care Education/Training Program; PCP Nurse Practitioner Family
DX: K59.00 Constipation, unspecified (principal); E78.5 Hyperlipidemia, unspecified; I10 Essential (primary) hypertension; E03.9 Hypothyroidism, unspecified; Z87.442 Personal history of urinary calculi; Z79.899 Other long term (current) drug therapy
CPT/HCPCS: 74021; 80053; 83605; 85025; 99283

== ENCOUNTER → 2020-08-04 11:31 | Outpatient (CLI) | payer MEDICARE, BC, SELFPAY ==
--- NOTE | 2020-08-04 11:52 | XR_ITS ---
PROCEDURE: XR ELBOW LT MIN 3V CLINICAL INDICATION: LEFT ELBOW PAIN COMPARISON: No exams were available for comparison FINDINGS: No fracture or dislocation. No lytic or blastic change. There is normal mineralization. Nonspecific well-circumscribed ossicles at the lateral and medial epicondyle. Small calcific density is present along the dorsal and proximal aspect of the ulna within the soft tissues. There is minimal spurring along the capitellum laterally. Other findings:None. IMPRESSION: Mild degenerative changes as described above, no acute finding Dictated by: Marcus Haque MD 08/04/2020 12:49 Marcus Haque MD in [place] 08/04/2020 12:49
== END ==
PROVIDERS: PCP Nurse Practitioner Family; Visit Provider Nurse Practitioner
DX: M25.522 Pain in left elbow (principal); R60.9 Edema, unspecified
CPT/HCPCS: 73080

== ENCOUNTER → 2020-08-15 09:55 | Outpatient (CLI) | payer MEDICARE, BC, SELFPAY ==
--- NOTE | 2020-08-15 10:02 | CA_ITS ---
APPROVED REPORT Left Upper Extremity Venous Study for DVT. Hydrologic Engineer: Fabiana Martienz RVT Indications Upper Extremity Pain: Left Upper Extremity Edema: Left PAIN/SWELLING LT ELBOW,NKI Risk Factors Obesity Vein Imaging IJV (L): Normal phasic flow is seen. Normal flow, augmentation and compression is seen. No evidence of Deep Vein Thrombosis. No abnormalities are demonstrated. SCV (L): Normal phasic flow is seen. Normal flow, augmentation and compression is seen. No evidence of Deep Vein Thrombosis. No abnormalities are demonstrated. Axillary (L): Normal phasic flow is seen. Normal flow, augmentation and compression is seen. No evidence of Deep Vein Thrombosis. No abnormalities are demonstrated. Brachial (L): Compressible,Normal phasic flow is seen. Normal flow, augmentation and compression is seen. No evidence of Deep Vein Thrombosis. No abnormalities are demonstrated. Basilic (L): Compressible Cephalic (L): Compressible Radial (L): Compressible Ulnar (L): Compressible Findings Study suggests no evidence of DVT of the left upper extrremity. Study suggests no evidence of SVT of the left upper extremity. Conclusion Study suggests no evidence of DVT of the left upper extrremity. Study suggests no evidence of SVT of the left upper extremity. Electronically signed by : Sonia Lawson MD 08/19/2020 09:29:28
== END ==
PROVIDERS: PCP Nurse Practitioner Family; Visit Provider Nurse Practitioner
DX: M25.522 Pain in left elbow (principal); R60.1 Generalized edema
CPT/HCPCS: 93971

== ENCOUNTER → 2021-02-28 10:19 | Outpatient (CLI) | payer MEDICARE, BC, SELFPAY ==
--- NOTE | 2021-02-28 10:21 | MM_ITS ---
PROCEDURE: MM DIG SCREENING MAMM BI W/CAD Digital Breast Tomosynthesis Included CLINICAL INDICATION: SCREENING There is no personal or family history of breast cancer. There have been previous biopsies on each breast benign disease. Patient currently is on estrogen COMPARISON: MG [facility] MM Dig screening mamm BI w/CAD from 02/11/2018 MG MM DIG SCREENING MAMM BI W/CAD from 02/16/2019 MG MM DIG SCREENING MAMM BI W/CAD from 02/19/2020 TECHNIQUE: Standard CC and MLO images and 3D Tomosynthesis was obtained. R2 CAD reviewed. FINDINGS: Throughout both breasts there are mole markers on each there are couple of benign-appearing microcalcifications left breast there is a stable small benign-appearing round density just deep to the nipple right breast likely a small cyst. There is no suspicious lesion and no suspicious microcalcifications. IMPRESSION: Moderate breast density with no suspicious lesions seen BI-RAD Category: 2 Benign Finding(s) FOLLOW-UP: 1YR 1 Year Follow-up (A letter has been sent to the patient regarding results of the study.) Dictated by: Dr. Haim Mathews MD 03/03/2021 08:29 Dr. Haim Mathews MD in [place] 03/03/2021 08:29
== END ==
PROVIDERS: PCP Nurse Practitioner Family; Visit Provider Family Medicine
DX: Z12.31 Encounter for screening mammogram for malignant neoplasm of breast (principal)
CPT/HCPCS: 77063; 77067

== ENCOUNTER 2021-03-12 14:41 | Emergency (ER) | payer MEDICARE, BC, SELFPAY ==
[2021-03-12 14:44] VITALS: BP 176/99; PULSE 111; RESP 22; TEMP 36.5; O2SAT 98; BMI 45.3
--- NOTE | 2021-03-12 14:57 | CT_ITS ---
PROCEDURE INFORMATION: Exam: CT Head Without Contrast Exam date and time: 03/12/2021 2:57 PM Age: 70 years old Clinical indication: Speech disturbance; Patient HX: No pain or discomfort just difficulty with speech and a little confused; Additional info: Speech difficulty TECHNIQUE: Imaging protocol: Computed tomography of the head without contrast. Radiation optimization: All CT scans at this facility use at least one of these dose optimization techniques: automated exposure control; mA and/or kV adjustment per patient size (includes targeted exams where dose is matched to clinical indication); or iterative reconstruction. COMPARISON: US CA carotid duplex BI 11/04/2017 2:47 PM FINDINGS: Brain: Prominent sulci. Patchy hypodensity of the cerebral white matter which are nonspecific but likely secondary to microangiopathic changes. Cerebral ventricles: The ventricles are prominent secondary to diffuse volume loss/atrophy. Paranasal sinuses: Visualized sinuses are unremarkable. No fluid levels. Mastoid air cells: Visualized mastoid air cells are well aerated. Bones/joints: Unremarkable. No acute fracture. Soft tissues: Unremarkable. IMPRESSION: Chronic age related changes but no evidence of acute intracranial pathology.
--- NOTE | 2021-03-12 14:57 | ECG_ITS ---
APPROVED REPORT Exam: Resting ECG HR:84 bpm ECG Measurements Heart Rate 84 AXES OK 164 P 18 QRSd 84 QRS 28 QT 366 T 41 QTc 432 Conclusion Normal sinus rhythm Normal ECG Electronically signed by : Salinas Cruz MD 03/13/2021 18:09:15
--- NOTE | 2021-03-12 15:17 | CT_ITS ---
PROCEDURE INFORMATION: Exam: CT Angiography Neck With Contrast Exam date and time: 03/12/2021 3:17 PM Age: 70 years old Clinical indication: Speech disturbance; Patient HX: Slurred speech and difficult talking brought to er; Additional info: Speech difficulty TECHNIQUE: Imaging protocol: Computed tomography angiography of the neck with contrast. 3D rendering (Not supervised by radiologist): MIP and/or 3D reconstructed images were created by the technologist. Radiation optimization: All CT scans at this facility use at least one of these dose optimization techniques: automated exposure control; mA and/or kV adjustment per patient size (includes targeted exams where dose is matched to clinical indication); or iterative reconstruction. Contrast material: ISOVUE 370; Contrast volume: 100 ml; Contrast route: INTRAVENOUS (IV); COMPARISON: US CA carotid duplex BI 11/04/2017 2:47 PM FINDINGS: Right common carotid artery: No stenosis. No dissection or occlusion. Right internal carotid artery: No stenosis of the extracranial segment. No dissection or occlusion. Right external carotid artery: No occlusion or stenosis of the origin. Left common carotid artery: No stenosis. No dissection or occlusion. Left internal carotid artery: No stenosis of the extracranial segment. No dissection or occlusion. Left external carotid artery: No occlusion or stenosis of the origin. Right vertebral artery: No stenosis. No dissection or occlusion. Left vertebral artery: No stenosis. No dissection or occlusion. Soft tissues: Normal. No significant soft tissue swelling. Bones/joints: No acute fracture. IMPRESSION: No stenosis or occlusion. REFERENCES: NASCET CRITERIA. The degree of internal carotid artery stenosis is based on NASCET criteria. Normal is no stenosis. Mild is less than 50% stenosis. Moderate is 50-69% stenosis. Severe is 70% to 99% stenosis. Total occlusion is no detectable patent lumen.
--- NOTE | 2021-03-12 15:17 | CT_ITS ---
PROCEDURE INFORMATION: Exam: CT Angiography Head With Contrast, Arteriography Exam date and time: 03/12/2021 3:17 PM Age: 70 years old Clinical indication: Speech disturbance; Slurred speech; Patient HX: Difficulty with speech brought to er; Additional info: Speech difficulty TECHNIQUE: Imaging protocol: Computed tomography angiography of the head with contrast. Exam focused on the arteries. 3D rendering (Not supervised by radiologist): MIP and/or 3D reconstructed images were created by the technologist. Radiation optimization: All CT scans at this facility use at least one of these dose optimization techniques: automated exposure control; mA and/or kV adjustment per patient size (includes targeted exams where dose is matched to clinical indication); or iterative reconstruction. Contrast material: ISOVUE 370; Contrast volume: 100 ml; Contrast route: INTRAVENOUS (IV); COMPARISON: CT HEAD/BRAIN WO CON 03/12/2021 3:12 PM FINDINGS: ANTERIOR CIRCULATION: Right internal carotid artery: Unremarkable. Intracranial segment is patent with no significant stenosis. No aneurysm. Right middle cerebral artery: Unremarkable. No occlusion or significant stenosis. No aneurysm. Right anterior cerebral artery: Unremarkable. No occlusion or significant stenosis. No aneurysm. Left internal carotid artery: Unremarkable. Intracranial segment is patent with no significant stenosis. No aneurysm. Left middle cerebral artery: Unremarkable. No occlusion or significant stenosis. No aneurysm. Left anterior cerebral artery: Unremarkable. No occlusion or significant stenosis. No aneurysm. POSTERIOR CIRCULATION: Right vertebral artery: Unremarkable. No occlusion or significant stenosis. No aneurysm. Left vertebral artery: Unremarkable. No occlusion or significant stenosis. No aneurysm. Basilar artery: Unremarkable. No occlusion or significant stenosis. No aneurysm. Right posterior cerebral artery: Unremarkable. No occlusion or significant stenosis. No aneurysm. Left posterior cerebral artery: Unremarkable. No occlusion or significant stenosis. No aneurysm. Brain: No definite mass, mass effect, or midline shift. Cerebral ventricles: No ventriculomegaly. Bones/joints: Unremarkable. No acute fracture. Soft tissues: Unremarkable. IMPRESSION: No large vessel stenosis or occlusion.
[2021-03-12 15:19] LABS: Basophils % 0.4 % (0.1-2.0); Eosinophils # 0.2 K/mm3 (0.0-0.4); Eosinophils % 2.5 % (0.1-12.0); Hematocrit 38.8 % (37.0-47.0); Hemoglobin 12.8 g/dL (12.2-16.2); Lymphocytes # 3.2 K/mm3 (0.7-4.5); Mean Corpuscular HGB Conc 32.9 g/dL (31.8-35.4); Mean Corpuscular Hemoglobin 28.5 pg (27.0-31.2); Mean Corpuscular Volume 86.7 fl (81-99); Mean Platelet Volume 7.4 fl (7.4-10.4); Monocytes # 0.6 K/mm3 (0.1-1.0); Monocytes % 6.2 % (1.7-9.3); Neutrophils # 4.8 K/mm3 (1.8-7.8); Neutrophils % 54.9 % (37.0-80.0); Platelet Count 257 K/mm3 (142-424); Red Blood Count 4.48 M/mm3 (4.20-5.40); Red Cell Distribution Width 15.2 % (11.5-17.5); White Blood Count 8.8 K/mm3 (4.8-10.8)
[2021-03-12 15:21] LABS: Chloride 106 mmol/L (98-107); Sodium 140 mmol/L (136-145)
[2021-03-12 15:23] LABS: Blood Urea Nitrogen 21 mg/dl (7-17); Creatinine Clearance Estimated 40 mL/min (50-200); Estimated Glomerular Filt Rate 55 ml/min (>60); GFR (African American) 67 ML/MIN (>60)
[2021-03-12 15:24] LABS: Alanine Aminotransferase 29 U/L (12-78); Albumin Level 4.1 g/dl (3.5-5.0); Albumin/Globulin Ratio 1.2 (1.1-1.8); Alkaline Phosphatase 107 U/L (38-126); Aspartate Amino Transferase 27 U/L (14-36); Bilirubin,Total 0.3 mg/dl (0.2-1.3); Calcium 9.4 mg/dl (8.4-10.2); Carbon Dioxide 23 mmol/L (22.0-30.0); Globulin 3.5 g/dL (1.3-3.2); Glucose 117 mg/dl (74-100); Total Protein,Serum 7.6 g/dl (6.3-8.2)
--- NOTE | 2021-03-12 15:47 | HMH.EDGENADL ---
ED Disposition Clinical Impression: TIA (transient ischemic attack) Disposition: Home, Self-Care Condition on Discharge: Good Instructions: DI for Transient Ischemic Attack Additional Instructions: Start taking aspirin 81 mg daily, begin tomorrow. Start taking Plavix 75 mg daily as prescribed, begin tomorrow. Turn to the emergency department if your symptoms worsen or any new symptoms such as visual problems or numbness or weakness. Follow-up with your primary care doctor this week. Call tomorrow to make an appointment to be seen. Prescriptions: Clopidogrel Bisulfate [Plavix 75mg Tab] 75 mg PO DAILY #21 tab Transmission Status: Pending to [id number] Referrals: Judy Parry APRN [Primary Care Provider] - - Critical Care Critical Care Time: No Attestation: On 03/12/21, the high probability of a clinically significant, sudden or life threatening deterioration of the following system(s) required my full and direct attention, intervention and personal management. The time I documented below is in addition to time spent performing reported procedures but includes the following listed in this critical care notation. Medical Decision Making - Amado Inquiry Pt receiving controlled substance: No Vital Signs: 03/12/21 14:44 Temperature 97.7 F Temperature Source Oral Pulse Rate [Radial] 111 H Respiratory Rate 22 Blood Pressure [Right Arm] 176/99 H Blood Pressure Mean [Right Arm] 124 02 Sat by Pulse Oximetry 98 Oxygen Delivery Method Room Air - Lab Data Lab Results 03/12/21 15:03: WBC 8.8, RBC 4.48, Hgb 12.8, Hct 38.8, MCV 86.7, MCH 28.5, MCHC 32.9, RDW 15.2, Plt Count 257, MPV 7.4, Neut % (Auto) 54.9, Lymph % (Auto) 36.0, [place] % (Auto) 6.2, Eos % (Auto) 2.5, Baso % (Auto) 0.4, Neut # (Auto) 4.8, Lymph # (Auto) 3.2, [place] # (Auto) 0.6, Eos # (Auto) 0.2, Baso # (Auto) 0.0 03/12/21 15:03: Sodium 140, Potassium 4.0, Chloride 106, Carbon Dioxide 23, Anion Gap 15.0, BUN 21 H, Creatinine 1.00, Estimated Creat Clear 40, Estimated GFR 55 L, Est GFR ( Amer) 67, Glucose 117 H, Calcium 9.4, Total Bilirubin 0.3, AST 27, ALT 29, Alkaline Phosphatase 107, Total Protein 7.6, Albumin 4.1, Globulin 3.5 H, Albumin/Globulin Ratio 1.2 Result diagrams: 03/12/21 15:03 03/12/21 15:03 Orders (Tests/Meds): ED MEDICATIONS Discontinued Medications Generic Name Dose Route Start Last Admin Trade Name Miguel Ángel PRN Reason Stop Dose Admin Aspirin 324 mg 03/12/21 17:30 03/12/21 17:37 Aspirin 81mg Chewable Tablet PO 03/12/21 17:31 324 mg ONCE ONE Administration Clopidogrel Bisulfate 300 mg 03/12/21 17:30 03/12/21 17:37 Clopidogrel 300mg Tablet PO 03/12/21 17:31 300 mg ONCE ONE Administration Iopamidol 100 ml 03/12/21 16:15 03/12/21 16:17 Iopamidol-370 (76%);100ml Bottle IV 03/12/21 16:16 100 ml ONCE ONE Administration Sodium Chloride 10 ml 03/12/21 16:15 03/12/21 16:17 Sodium Chloride 0.9% 10ml Syr (Rad Only) IV 03/12/21 16:16 10 ml ONCE ONE Administration ORDERS Category Date Time Status Rapid PCR Covid and Flu A/B Stat Lab 03/12/21 16:41 Ordered Urinalysis and Microscopic Stat Lab 03/12/21 15:30 Ordered - CT Data CT Scan: Head, Other (CTA head and neck) Time Received: 17:[address] Reviewed: Yes: I have viewed the radiologist's interpretation Findings Narrative: PROCEDURE INFORMATION: Exam: CT Angiography Neck With Contrast Exam date and time: 03/12/2021 3:17 PM Age: 70 years old Clinical indication: Speech disturbance; Patient HX: Slurred speech and difficult talking brought to er; Additional info: Speech difficulty TECHNIQUE: Imaging protocol: Computed tomography angiography of the neck with contrast. 3D rendering (Not supervised by radiologist): MIP and/or 3D reconstructed images were created by the technologist. Radiation optimization: All CT scans at this facility use at least one of these dose optimizati
[2021-03-12 16:00] VITALS: BP 160/78; PULSE 87; RESP 16; O2SAT 98
[2021-03-12 17:00] VITALS: BP 152/78; PULSE 87; RESP 16; O2SAT 98
--- NOTE | 2021-03-12 17:31 | PC.NURSE ---
spoke with dr leblanc who is covering for Dr Teixeira regarding pt
[2021-03-12 17:56] VITALS: BP 139/79; PULSE 87; RESP 16; TEMP 36.6; O2SAT 98
== END 2021-03-12 18:03 | disposition home or self-care (01) ==
PROVIDERS: Emergency Provider Emergency Medicine; PCP Nurse Practitioner Family
DX: G45.8 Other transient cerebral ischemic attacks and related syndromes (principal); I10 Essential (primary) hypertension; E78.5 Hyperlipidemia, unspecified; R01.1 Cardiac murmur, unspecified; E03.9 Hypothyroidism, unspecified; Z79.899 Other long term (current) drug therapy
CPT/HCPCS: 70450; 70496; 70498; 80053; 85025; 93005; 99283; Q9967

== ENCOUNTER → 2021-07-18 06:17 | Outpatient (CLI) | payer MEDICARE, BC, SELFPAY ==
--- NOTE | 2021-07-18 | CA_ITS ---
APPROVED REPORT Exam: Pharmacologic Technologist: Melissa Ward, Ht: 5 ft 1 in Wt: 274 lbs BSA: 2.16 m2 HR: 72 bpm BP: 151/76 mmHg Rhythm: NSR, NORMAL Indications: Chest pain Medical History Medical History: HTN, Hyperlipidemia Medications: Aspirin,,,,, Atorvastatin,,,,, Estradiol,,,,, PolyethYLENE,,,,, TriMethoprim,,,,, Lisinopri/HCTZ,,,,, OxYbutynin chloride,,,,, PolyethYLENE GLYCOL,,,,, Allergies: No known drug allergies Cardiac Risk Factors: HTN, Hyperlipidemia, FHX of CAD Stress Test Details Test: LEXISCAN HR Resting HR: 71 bpm Max Heart Rate (APMHR): 150.018678 bpm Max HR Achieved: 103 bpm Target HR (85% APMHR): 127.484922 bpm % of APMHR: 68.67 Recovery HR: 90 bpm BP Resting BP: 151/76 mmHg Max BP: 151/76 mmHg Recovery BP: 128.0/65.0 mmHg ECG Resting ECG: NSR,NORMAL Clinical Exercise duration: 04:00 min Highest Stage Achieved: Exercise capacity: 1.0 METs Stress ECG Conclusion PT HAD MILD SOA AND MALAISE. NO SIGNIFICANT CHANGES. UMREMARKABLE LEXISCAN STRESS. MYOVIEW IMAGES REPORTED SEPARATELY. Test Summary REST 03:55 . . 71 . 151/ 76 . . Stage 1 01:00 . . 100 . . . . Stage 2 01:00 . . 102 . 125/ 71 . . Stage 3 01:00 . . 98 . 126/ 64 . . Stage 4 01:00 . . 95 . 123/ 71 . Stop exercise at 04:00 RECOVERY 01:00 . . 97 . . . . RECOVERY 02:00 . . 93 . 118/ 70 . . RECOVERY 03:00 . . 92 . 118/ 70 . . RECOVERY 04:00 . . 89 . 123/ 66 . . RECOVERY 04:26 . . 99 . 128/ 65 . . Electronically signed by : Miguel Ernst MD 07/18/2021 20:02:02
--- NOTE | 2021-07-18 07:14 | NM_ITS ---
APPROVED REPORT Exam: Nuclear Stress Test Indication: STROKE, HTN, HYPERLIPIDEMIA, C.P. Patient Location: Outpatient Stress Tech: Melissa Ward [facility] Tech:JEWEL Monge RT(R)(N) Ht: 5 ft 0 in Wt: 270 lbs Bra Size: 40D HR: 72 bpm BP: 151/76 mmHg BSA: 2.12 m2 History: STROKE, HTN, HYPERLIPIDEMIA, C.P. Procedure: Patient received a 0.4 mg of intravenous Lexiscan, resting heart rate 72 bpm, resting blood pressure 151/76 mmHg, with Lexiscan maximum heart rate achived was 103 bpm which is Less than 85 % of the maximum predicted heart rate and blood pressure was 125/71 mmHg. With Lexiscan, patient denied any complaint of chest pain. Electrocardiogram Resting electrocardiogram showed sinus rhythm, with Lexiscan there is less than 1.[address] segment depression noted from the baseline EKG. The EKG portion of the Lexiscan is nondiagnostic. Cardiac Stress and Resting SPECT Images: Cardiac Stress and Resting SPECT images were obtained using technetium 99m Myoview 30.8 mCi stress and 10.88 mCi at rest. Gated SPECT for analysis of segmental wall motion and calculation of the ejection fraction also done. Cardiac stress and rest SPECT images show uniform myocardial activity without segmental perfusion abnormality, computer derived ejection fraction is 64% with no regional wall motion abnormality, right ventricle is normal size and contractility. Conclusion: 1. The EKG portion of the Lexiscan is nondiagnostic. 2. No scintigraphic evidence of reversible ischemia seen, computer derived ejection fraction is 64% with no regional wall motion abnormality, right ventricle is normal size and contractility. 3. Normal Lexiscan Myoview study. Electronically signed by : Miguel Ernst MD 07/18/2021 20:18:23
--- NOTE | 2021-07-18 08:25 | CA_ITS ---
APPROVED REPORT EXAM: Comprehensive 2D, Doppler, and color-flow Echocardiogram Vehicle Inspector: IBAN Kuo, RVS Ht: 5 ft 1 in Wt: 274lbs BSA: 2.16 BP: 147/72 mmHg Indications: CP, Obesity, Murmur, diastolic dysfunction, HTN, HLD 2D Dimensions LVDd 5.23 cm LA Volume 72.70 mL Aortic Root 3.12 cm LA Volume Index 33.70 mL/m2 (M/F) 16-34 Left Atrium 3.40 cm LVOT 2.03 cm (M/F) 1.5-2.5 M-Mode Dimensions RVDd 1.53 cm (0.9-2.6) LA Diam 3.91 cm (1.9-4.0) LVDd 5.18 cm (3.5-5.7) Ao Diam 3.49 cm (2.0-3.7) LVDs 3.58 cm (3.5-5.7) IVSd 1.25 cm (0.6-1.1) PWd 1.09 cm (0.6-1.1) EF (Teich) 58.20% EPSs 1.17 cm FS 30.90% EDV (Teich) 128.40 mL TAPSE 1.88 (<1.7) ESV (Teich) 53.70 mL LV Diastology E Decel Time 230.00 (160-240 msec) E/A Ratio 0.86 MED E' 4.10 (< 7 cm/sec) MED A' 8.20 cm/s E'/MED E' Ratio 30.41 (>14) LAT E' 5.80 (<10 cm/sec) LAT A' 7.30 cm/s E/LAT E' Ratio 21.50 (>14) Aortic Valve LVOT Max 103.00 (70-110 cm/s) LVOT VTI 19.34 cm AoV Peak Sundar. 258.00 (50-130 cm/s) AO Peak GR. 26.70 mmHg AO Mean GR. 14.20 (<5 mmHg) AO VTI 48.57 (18-25 cm) JULIANA (VTI) 1.29 (2.5-4.5 cm2) Mitral Valve MV A Velocity 145.00 (40-130 cm/s) E/A Ratio 0.86 MV Decel. Time 230.00 (160-240 ms) MV Mean Gr. 4.70 (<2mmHg) Pulmonary Valve PV Peak Velocity 84.00 (50-150 cm/s) Tricuspid Valve TR P. Velocity 170.00 cm/s RAP Estimate 10.00 mmHg RVSP 21.60 mmHg Left Ventricle Left atrium is mildly enlarged, left ventricle is normal size, visually estimated ejection fraction 55% with no regional wall motion abnormality, Doppler evidence of impaired LV relaxation with increased left atrial pressure seen. Right Ventricle Right atrium and right ventricle are normal size and contractility. Aortic Valve Aortic valve is thickened and calcified with mean gradient across valve of 15 mmHg, valve area is not accurately calculated, there is likely mild aortic stenosis. There is no significant aortic insufficiency seen. Mitral Valve Mitral valve leaflets are minimally thickened with restriction in the mitral leaflet mobility, the mean gradient across mitral valve is 4.7 mmHg, valve area was not calculated, repeat study with better Doppler technique is recommended for calculation of the aortic and mitral valve. Tricuspid Valve Tricuspid valve grossly normal, there is trace tricuspid regurgitation, tricuspid regurgitation jet velocity is inadequate for calculation of the right ventricular systolic pressure. Pulmonic Valve Pulmonic valve is poorly visualized. Great Vessels Aortic root is normal size. Inferior vena cava is poorly visualized. Pericardium No significant pericardial effusion noted. Conclusion 1. Mildly enlarged left atrium, normal left ventricular size, mild concentric left ventricular hypertrophy, visually estimated ejection fraction 55% with no regional wall motion abnormality, Doppler evidence of impaired LV relaxation seen with raise left atrial pressure. 2. Abnormal aortic valve, there is aortic stenosis present which is likely mild range. The valve area is not accurately calculated. 3. Abnormal mitral valve as described above with mean gradient across valve is 4.7 mmHg, valve area is not accurately calculated. 4. Repeat study with better Doppler technique for aortic and mitral valve is recommended for assessment of the valvular abnormalities. 5. No significant pericardial effusi
== END ==
PROVIDERS: PCP Family Medicine; Visit Provider Family Medicine
DX: R07.9 Chest pain, unspecified (principal); I10 Essential (primary) hypertension; E78.2 Mixed hyperlipidemia; Z86.73 Personal history of transient ischemic attack (TIA), and cerebral infarction without residual deficits
CPT/HCPCS: 78452; 93017; 93306; A9502; J2785

== ENCOUNTER → 2021-07-20 12:57 | Outpatient (CLI) | payer MEDICARE, BC, SELFPAY ==
--- NOTE | 2021-07-20 | CA_ITS ---
APPROVED REPORT EXAM: Comprehensive 2D, Doppler, and color-flow Echocardiogram Front Desk Person: Luanne Yo RT(R) Ht: 5 ft 1 in Wt: 274lbs BSA: 2.16 BP: 147/72 mmHg Indications: ordered as repeat echo from 07/18/21 with better doppler technique of AV and MV with Definity contrast. Echo Enhancing Agent Indication: Endocardial border delineation Agent(s) / Amount(s) Used: Definity 2 cc 2D Dimensions LVOT 2.01 cm (M/F) 1.5-2.5 LV Diastology E Decel Time 263.00 (160-240 msec) E/A Ratio 1.4 Aortic Valve LVOT Max 119.00 (70-110 cm/s) LVOT VTI 24.54 cm AoV Peak Sundar. 326.00 (50-130 cm/s) AO Peak GR. 48.10 mmHg AO Mean GR. 23.60 (<5 mmHg) AO VTI 65.46 (18-25 cm) JULIANA (VTI) 1.19 (2.5-4.5 cm2) Mitral Valve MV E Max Sundar. 173.00 (40-130 cm/s) MV A Velocity 128.00 (40-130 cm/s) E/A Ratio 1.35 MV Decel. Time 263.00 (160-240 ms) MV PHT 77.00 ms Conclusion 1. Limited echocardiogram was performed to evaluate mitral and aortic valve as well as left ventricular systolic function. Definity contrast was utilized to delineate the endocardial surfaces. Left ventricle is normal size preserved left ventricular systolic function, visually estimated ejection fraction 55% with no obvious regional wall motion abnormality, there is no left ventricular thrombus seen. 2. The aortic valve is thickened and calcified with mean gradient across aortic valve is 11 mmHg, valve area is 1.6 cm??? represents mild aortic stenosis. There is no significant aortic insufficiency. 3. The mitral valve leaflets are thickened with mild restriction to leaflet mobility, the mean gradient across mitral valve is 5 mmHg, the valve area is 2.8 cm??? represents mild mitral stenosis, there is mild mitral regurgitation. 4. No significant pericardial abnormality. Electronically signed by : Miguel Ernst MD 07/21/2021 12:57:39
== END ==
PROVIDERS: PCP Family Medicine; Visit Provider Physician Assistant
DX: R06.02 Shortness of breath (principal); I06.0 Rheumatic aortic stenosis; I10 Essential (primary) hypertension; R93.1 Abnormal findings on diagnostic imaging of heart and coronary circulation
CPT/HCPCS: Q9957

== ENCOUNTER → 2021-10-24 09:12 | Outpatient (POV) | payer MEDICARE, BC, SELFPAY | PROVIDERS: Visit Provider Dermatology | DX: Z00.00 Encounter for general adult medical examination without abnormal findings (principal) ==

== ENCOUNTER 2022-02-11 05:52 | Emergency (ER) | payer MEDICARE, BC, SELFPAY ==
[2022-02-11] VITALS (8 sets, daily range): BP systolic 110–139; BP diastolic 55–76; PULSE 70–100; RESP 16–19; TEMP 36.5–36.6; O2SAT 95–100; BMI 40.3
--- NOTE | 2022-02-11 06:03 | CT_ITS ---
PROCEDURE INFORMATION: Exam: CT Abdomen And Pelvis Without Contrast Exam date and time: 02/11/2022 6:11 AM Age: 71 years old Clinical indication: Abdominal pain; Right; Prior surgery; Surgery date: 6+ months; Surgery type: Cholecystectomy; Patient HX: RT flank pain w nausea x hours, HX kidney stones; Additional info: R flank pain radiating to pelvic, HX stones TECHNIQUE: Imaging protocol: Computed tomography of the abdomen and pelvis without contrast. Radiation optimization: All CT scans at this facility use at least one of these dose optimization techniques: automated exposure control; mA and/or kV adjustment per patient size (includes targeted exams where dose is matched to clinical indication); or iterative reconstruction. COMPARISON: CT ABDOMEN PELVIS WO CON 03/15/2019 8:38 AM FINDINGS: Lungs: There is basilar atelectasis. There is a 3 mm noncalcified right middle lobe nodule (image 10 series 3). Heart: There are coronary artery calcifications. Diaphragm: There is a small hiatal hernia. Liver: Normal. No mass. Gallbladder and bile ducts: The gallbladder is surgically absent. Pancreas: Normal. No ductal dilation. Spleen: Normal. No splenomegaly. Adrenal glands: There is a stable 12 mm non hyperfunctioning right adrenal adenoma. Kidneys and ureters: There is mild right hydronephrosis and hydroureter. There two 3 mm nonobstructing right renal calculi in the upper and mid zones with 1-2 mm calculi in the lower zone. There is a 4 mm right UVJ calculus. This is not identified on the automotive production worker radiograph. Stomach and bowel: No obstruction. Appendix: No evidence of appendicitis. Intraperitoneal space: No free air. No significant fluid collection. Vasculature: There is athrosclerotic disease involving the abdominal aorta and pelvis vessels without an aneurysm. Lymph nodes: No enlarged lymph nodes. Urinary bladder: Unremarkable as visualized. Reproductive: The uterus is surgically absent. Bones/joints: There are degenerative changes of the spine. Soft tissues: There is a small fat containing periumbilical hernia. IMPRESSION: 1. There is mild obstruction of the right kidney from a 4 mm right UVJ calculus. 2. Nonobstructing right renal calculi. 3. 3 mm noncalcified right middle lobe nodule. As per Fleischner Society guidelines for follow-up and management of pulmonary nodules: For patients at low risk (minimal or absent history of smoking and of other known risk factors), no follow-up needed. For patient at high risk (history of smoking or of other known risk factors), recommend follow-up chest CT at 12 months; if unchanged, no further follow-up needed.
[2022-02-11 06:06] LABS: Appearance,Urine CLEAR (Clear); Bilirubin,Urine Negative (Negative); Blood, Urine 1+ (Negative); Color,Urine YELLOW (Yellow); Glucose,Urine (UA) Negative (Negative); Ketones,Urine Negative (Negative); Leukocyte Esterase,Urine Negative (Negative); Microscopic, Urine URINE MICROSCOPIC (MICROSCOPIC); Nitrate,Urine Negative (Negative); Protein,Urine Negative (Negative); Specific Gravity, Urine >= 1.030 (1.005-1.030); Urobilinogen,Urine 0.2 EU/dl (0.2)
[2022-02-11 06:08] LABS: Squamous Epithelial Cell,Urine Occasional #/hpf (0-5)
[2022-02-11 06:20] LABS: Basophils % 0.3 % (0.1-2.0); Eosinophils # 0.4 K/mm3 (0.0-0.4); Hematocrit 39.8 % (37.0-47.0); Hemoglobin 12.6 g/dL (12.2-16.2); Lymphocytes # 2.6 K/mm3 (0.7-4.5); Lymphocytes % 22.2 % (10-50); Mean Corpuscular HGB Conc 31.7 g/dL (31.8-35.4); Mean Corpuscular Hemoglobin 28.1 pg (27.0-31.2); Mean Corpuscular Volume 88.7 fl (81-99); Mean Platelet Volume 7.8 fl (7.4-10.4); Monocytes # 0.6 K/mm3 (0.1-1.0); Monocytes % 4.7 % (1.7-9.3); Neutrophils # 8.2 K/mm3 (1.8-7.8); Neutrophils % 69.7 % (37.0-80.0); Platelet Count 438 K/mm3 (142-424); Red Blood Count 4.49 M/mm3 (4.20-5.40); Red Cell Distribution Width 15.9 % (11.5-17.5); White Blood Count 11.8 K/mm3 (4.8-10.8)
[2022-02-11 06:46] LABS: Chloride 105 mmol/L (98-107)
[2022-02-11 06:47] LABS: Potassium 3.8 mmoL/L (3.5-5.1); Sodium 138 mmol/L (136-145)
[2022-02-11 06:49] LABS: Alanine Aminotransferase 40 U/L (12-78); Alkaline Phosphatase 142 U/L (38-126); Amylase 55 U/L (30-110); Anion Gap 11.8 mEq/L (5-15); Aspartate Amino Transferase 38 U/L (14-36); Bilirubin,Total 0.3 mg/dl (0.2-1.3); Blood Urea Nitrogen 31 mg/dl (7-17); Carbon Dioxide 25 mmol/L (22.0-30.0); Creatinine Clearance Estimated 83 mL/min (50-200); Estimated Glomerular Filt Rate 44 ml/min (>60); GFR (African American) 54 ML/MIN (>60)
[2022-02-11 06:50] LABS: Albumin Level 4.3 g/dl (3.5-5.0); Albumin/Globulin Ratio 1.2 (1.1-1.8); Globulin 3.5 g/dL (1.3-3.2); Glucose 154 mg/dl (74-100); Lipase 57 U/L (23-300); Total Protein,Serum 7.8 g/dl (6.3-8.2)
[2022-02-11 06:55] LABS: C-Reactive Protein 19.9 mg/L (0-4)
[2022-02-11 07:18] LABS: Erythrocyte Sedimentation Rate 57 mm/hr (0-30)
--- NOTE | 2022-02-11 07:20 | HMH.EDNVD ---
ED Disposition Clinical Impression: Renal colic on right side Disposition: Home, Self-Care Condition on Discharge: Good Instructions: DI for Kidney Stones Additional Instructions: fluids and see pcp for follow up Prescriptions: Tamsulosin HCl [Flomax 0.4mg capsule] 0.4 mg PO HS #10 cap Transmission Status: Pending to [id number] Referrals: Stephan Back MD [Primary Care Provider] - - Critical Care Critical Care Time: No Attestation: On 02/11/22, the high probability of a clinically significant, sudden or life threatening deterioration of the following system(s) required my full and direct attention, intervention and personal management. The time I documented below is in addition to time spent performing reported procedures but includes the following listed in this critical care notation. Medical Decision Making - Medical Records Medical records reviewed: Yes: I reviewed the patient's medical records. - Amado Inquiry Pt receiving controlled substance: No Vital Signs: 02/11/22 05:53 02/11/22 06:00 02/11/22 06:30 Temperature 97.7 F Temperature Source Oral Pulse Rate 89 75 Pulse Rate [Right] 100 H Respiratory Rate 19 Blood Pressure 118/56 L 134/76 Blood Pressure [Right Arm] 118/56 L Blood Pressure Mean 79 92 Blood Pressure Mean [Right Arm] 76 Blood Pressure Source [Right Arm] Automatic Cuff 02 Sat by Pulse Oximetry 95 95 97 Oxygen Delivery Method Room Air Room Air Room Air 02/11/22 07:00 02/11/22 07:30 02/11/22 08:01 Temperature Temperature Source Pulse Rate 70 73 74 Pulse Rate [Right] Respiratory Rate Blood Pressure 110/55 L 135/71 139/65 Blood Pressure [Right Arm] Blood Pressure Mean 74 86 89 Blood Pressure Mean [Right Arm] Blood Pressure Source [Right Arm] 02 Sat by Pulse Oximetry 97 100 99 Oxygen Delivery Method - Lab Data Lab results reviewed: Yes: I reviewed the patient's lab results. Lab Results 02/11/22 05:58: Urine Color Yellow, Urine Appearance Clear, Urine pH 6.0, Ur Specific [place] >= 1.030, Urine Protein Negative, Urine Glucose (UA) Negative, Urine Ketones Negative, Urine Blood 1+, Urine Nitrate Negative, Urine Bilirubin Negative, Urine Urobilinogen 0.2, Ur Leukocyte Esterase Negative, Urine RBC 3-5, Ur Squamous Epith Cells Occasional 02/11/22 06:10: WBC 11.8 H, RBC 4.49, Hgb 12.6, Hct 39.8, MCV 88.7, MCH 28.1, MCHC 31.7 L, RDW 15.9, Plt Count 438 H, MPV 7.8, Neut % (Auto) 69.7, Lymph % (Auto) 22.2, Morrison % (Auto) 4.7, Eos % (Auto) 3.0, Baso % (Auto) 0.3, Neut # (Auto) 8.2 H, Lymph # (Auto) 2.6, Morrison # (Auto) 0.6, Eos # (Auto) 0.4, Baso # (Auto) 0.0, ESR 57 H 02/11/22 06:10: Sodium 138, Potassium 3.8, Chloride 105, Carbon Dioxide 25, Anion Gap 11.8, BUN 31 H, Creatinine 1.20 H, Estimated Creat Clear 83, Estimated GFR 44 L, Est GFR ( Amer) 54 L, Glucose 154 H, Calcium 10.0, Total Bilirubin 0.3, AST 38 H, ALT 40, Alkaline Phosphatase 142 H, C-Reactive Protein 19.9 H, Total Protein 7.8, Albumin 4.3, Globulin 3.5 H, Albumin/Globulin Ratio 1.2, Amylase 55, Lipase 57, Procalcitonin 0.057 Result diagrams: 02/11/22 06:10 02/11/22 06:10 Orders (Tests/Meds): ED MEDICATIONS Generic Name Dose Route Start Last Admin Trade Name Freq PRN Reason Stop Dose Admin Tamsulosin HCl 0.4 mg 02/11/22 21:00 Tamsulosin 0.4mg Capsule PO 03/13/22 20:59 HS GILDARDO Discontinued Medications Generic Name Dose Route Start Last Admin Trade Name Freq PRN Reason Stop Dose Admin Acetaminophen/Codeine Phosphate 1 packet 02/11/22 08:15 Acetaminophen 300mg W/Codeine 30mg Take Home Pack (6) PO 02/11/22 08:16 ONCE ONE Sodium Chloride 1,000 mls @ 999 mls/hr 02/11/22 06:15 02/11/22 06:08 Sod Chlor 0.9% 1000ml Bag IV 02/11/22 07:15 999 mls/hr .Q1H1M GILDARDO Administration Ketorolac Tromethamine 30 mg 02/11/22 06:03 02/11/22 06:09 Ketorolac 30mg/Ml Vial IV 02/11/22 06:04 30 mg ONCE ONE Administration Simone
[2022-02-11 07:35] LABS: Procalcitonin 0.057 ng/mL (0.0-2.0)
--- NOTE | 2022-02-11 08:02 | PC.NURSE ---
rounded on pt, given warm blanket at this time, no other needs noted
== END 2022-02-11 08:54 | disposition home or self-care (01) ==
PROVIDERS: Emergency Provider Emergency Medicine; PCP Family Medicine
DX: N20.2 Calculus of kidney with calculus of ureter (principal); Z87.442 Personal history of urinary calculi; Z79.82 Long term (current) use of aspirin; Z79.890 Hormone replacement therapy; Z79.899 Other long term (current) drug therapy; I10 Essential (primary) hypertension; E78.5 Hyperlipidemia, unspecified; R01.1 Cardiac murmur, unspecified; Z87.19 Personal history of other diseases of the digestive system; E03.9 Hypothyroidism, unspecified
CPT/HCPCS: 74176; 80053; 81001; 82150; 83690; 84145; 85025; 85651; 86140; 96365; 96375; 99285; J2405

== ENCOUNTER → 2022-02-22 10:01 | Outpatient (CLI) | payer MEDICARE, BC, SELFPAY ==
--- NOTE | 2022-02-22 10:11 | XR_ITS ---
FINAL REPORT CLINICAL HISTORY: kidney ston FINDINGS: A single supine view the abdomen was obtained. The bowel gas pattern is nonspecific but nonobstructive. There is a moderate amount of stool. A left abdominal calcification is outside the renal shadow. There may be punctate right renal stones. Osseous structures are within normal limits. IMPRESSION: Probable punctate right renal stones. Reviewed, Interpreted and Dictated by Sandhya Mckinley MD Transcribed by Doris Beltran Authenticated and [facility]
== END ==
PROVIDERS: PCP Family Medicine; Visit Provider Urology
DX: N20.0 Calculus of kidney (principal)
CPT/HCPCS: 74018

== ENCOUNTER → 2022-03-13 13:06 | Outpatient (CLI) | payer MEDICARE, BC, SELFPAY ==
--- NOTE | 2022-03-13 13:09 | MM_ITS ---
PROCEDURE INFORMATION: Exam: MG Bilateral Screening 3D Mammography Exam date and time: 03/13/2022 1:11 PM Age: 71 years old Clinical indication: Screening examination TECHNIQUE: Imaging protocol: Bilateral Screening tomosynthesis and 2D mammography including computer-aided detection (CAD) when performed. COMPARISON: 1. MG MM DIG SCREENING MAMM BI W/CAD 02/28/2021 10:49 AM 2. MG MM DIG SCREENING MAMM BI W/CAD 02/19/2020 9:52 AM 3. MG MM DIG SCREENING MAMM BI W/CAD 02/16/2019 8:38 AM 4. MG SCBI MM Dig screening mamm BI w/CAD 02/11/2018 11:03 AM FINDINGS: MAMMOGRAPHY: Breast composition: There are scattered areas of fibroglandular density. Mass: None. Architectural distortion: No new or suspicious architectural distortion. Calcifications: Stable benign-appearing calcifications are present. No new or suspicious cluster of microcalcifications have developed. Asymmetric density: No new or suspicious asymmetric density is present Skin thickening: None. Axillary adenopathy: None. IMPRESSION: No mammographic evidence of malignancy. Recommend annual screening mammography unless otherwise clinically indicated. ASSESSMENT: BI-RADS category 2: Benign
== END ==
PROVIDERS: PCP Family Medicine; Visit Provider Family Medicine
DX: Z12.31 Encounter for screening mammogram for malignant neoplasm of breast (principal)
CPT/HCPCS: 77063; 77067

== ENCOUNTER → 2022-07-17 14:51 | Outpatient (POV) | payer MEDICARE, BC, SELFPAY | PROVIDERS: Visit Provider Dermatology | DX: Z00.00 Encounter for general adult medical examination without abnormal findings (principal) ==

== ENCOUNTER → 2022-11-13 09:38 | Outpatient (POV) | payer MEDICARE, BC, SELFPAY | PROVIDERS: Visit Provider Dermatology | DX: Z00.00 Encounter for general adult medical examination without abnormal findings (principal) ==

== ENCOUNTER 2023-02-06 08:31 | Inpatient (IN) | payer MEDICARE, BC, SELFPAY ==
[2023-02-06] VITALS (11 sets, daily range): BP systolic 120–175; BP diastolic 64–86; PULSE 73–100; RESP 16–22; TEMP 36.4–36.7; O2SAT 95–97; BMI 53.2; BMI 49.9
--- NOTE | 2023-02-06 08:20 | XR_ITS ---
FINAL REPORT CLINICAL HISTORY: r.o stroke FINDINGS: SINGLE-VIEW CHEST The heart size is normal. The mediastinum is normal. The lungs are clear. There is no pneumothorax. IMPRESSION: No acute cardiopulmonary process. Reviewed, Interpreted and Dictated by Aneesh Elmore III, MD Transcribed by Leslie Mendoza Authenticated and [facility]
--- NOTE | 2023-02-06 08:29 | ECG_ITS ---
APPROVED REPORT Exam: Resting ECG HR:87 bpm ECG Measurements Heart Rate 87 AXES IL 153 P 14 QRSd 90 QRS 3 QT 363 T 31 QTc 408 Conclusion SINUS RHYTHM WITH OCCASIONAL SUPRAVENTRICULAR PREMATURE COMPLEXES BORDERLINE ECG UNCONFIRMED REPORT Electronically signed by : Salinas Cruz MD 02/06/2023 18:32:00
--- NOTE | 2023-02-06 08:31 | CT_ITS ---
FINAL REPORT CLINICAL HISTORY: stroke protocol FINDINGS: Axial images of the head were obtained without contrast. Coronal reformatted images were also obtained. This study was performed with techniques to keep radiation doses as low as reasonably achievable (ALARA). Individualized dose reduction techniques using automated exposure control or adjustment of mA and/or kV according to the patient''s size were employed. There is generalized age-appropriate atrophy. Periventricular low-attenuation areas are seen consistent with mild chronic ischemic changes. There are bilateral small foci of encephalomalacia. There is no evidence of intracranial hemorrhage or mass. There is no evidence of acute infarct. There is no evidence of shift of the midline structures. No skull abnormality is seen on the bone window images. IMPRESSION: Atrophy and mild periventricular chronic ischemic changes. No acute intracranial abnormality identified. Reviewed, Interpreted and Dictated by Aneesh Elmore III, MD Transcribed by Leslie Mendoza Authenticated and [facility]
--- NOTE | 2023-02-06 08:33 | CT_ITS ---
FINAL REPORT TECHNIQUE: Thin section axial CT with IV contrast supplemented with multiplanar reconstruction under CT angiogram protocol. This study was performed with techniques to keep radiation doses as low as reasonably achievable (ALARA). Individualized dose reduction techniques using automated exposure control or adjustment of mA and/or kV according to the patient''s size were employed. NASCET criteria was utilized during interpretation. CLINICAL HISTORY: r/o stroke FINDINGS: Aortic arch: Arch shows no significant narrowing. Great vessel origins are widely patent. Right carotid: No significant stenosis is seen of the cervical common or internal carotid artery. Left carotid: No significant stenosis is seen of the cervical common or internal carotid artery. Vertebral: The vertebral arteries are codominant. No significant stenosis is present. IMPRESSION: No significant stenosis identified. Reviewed, Interpreted and Dictated by Aneesh Elmore III, MD Transcribed by Leslie Mendoza Authenticated and [facility]
--- NOTE | 2023-02-06 08:33 | CT_ITS ---
FINAL REPORT TECHNIQUE: Thin section axial CT with IV contrast supplemented with multiplanar reconstruction under CT angiogram protocol. 3-D reconstructions were performed. This study was performed with techniques to keep radiation doses as low as reasonably achievable (ALARA). Individualized dose reduction techniques using automated exposure control or adjustment of mA and/or kV according to the patient''s size were employed. CLINICAL HISTORY: r/o stroke FINDINGS: The distal vertebral, basilar and distal internal carotid arteries have an unremarkable appearance. No aneurysm is seen. Major intracranial vessels are patent without significant stenosis. IMPRESSION: No evidence of significant stenosis. Reviewed, Interpreted and Dictated by Aneesh Elmore III, MD Transcribed by Leslie Mendoza Authenticated and . [facility]
--- NOTE | 2023-02-06 08:39 | HMH.EDGENADL ---
Discharge Plan Disposition Chief Complaint: Neuro Symptoms/Deficit Clinical Impressions Clinical Impression: Acute CVA (cerebrovascular accident), Expressive aphasia Discharge ED Provider: Christina Braswell General Adult HPI General Chief complaint: Neuro Symptoms/Deficit Stated complaint: possible cva Time Seen by Provider: 02/06/23 08:35 History of Present Illness HPI narrative: Patient is a 72-year-old female brought in by EMS for possible stroke. History is severely limited from the patient secondary to the patient's aphasic state. Last known normal from historical standpoint is about 9:30 PM last night when her saw her. She lives at home and is normally alert able to speak has normal motor function. However patient is keenly alert interactive able to follow commands and through this form of communication she states her symptoms began within the last few hours shaking her head or nodding or giving a thumbs up in response to questions. She is unable to speak therefore history from last known normal is severely limited. She denies with yes or no questions any history of cancer specifically intracranial cancer any recent surgeries any anticoagulation any recent bleeding. She denies having any deficits at baseline from old strokes. She denies any pain. She denies any other neurologic symptoms other than an inability to speak. Related Data Home Medications Medication Instructions Recorded Confirmed aspirin 81 mg tablet,delayed 81 mg PO DAILY CAD 04/14/21 02/06/23 release lisinopril 20 1 tab PO DAILY High blood pressure 07/20/21 02/06/23 mg-hydrochlorothiazide 25 mg tablet estradiol 1 mg tablet 1 mg PO DAILY hormone 02/11/22 02/06/23 atorvastatin 80 mg tablet 80 mg PO DAILY Cholesterol 02/06/23 02/06/23 Allergies Allergy/AdvReac Type Severity Reaction Status Date / Time No Known Allergies Allergy Verified 02/06/23 09:02 [facility] Disclaimer: The information contained in this section may have been updated after the patient was seen, as this information can be updated by other users. Medical History Abnormal echocardiogram Aortic stenosis Family history of coronary artery disease Family history of MN (myocardial infarction) HLD (hyperlipidemia) HTN (hypertension) Hx of rheumatic fever SOB (shortness of breath) Social History Smoking Status: Never smoker second hand exposure: No alcohol intake: never counseling provided: none substance use type: denies use current occupational status: retired Travel in the last 8 weeks: None household members: spouse housing: house current occupational exposures/hazards: No caffeine: No ROS Obtained: Yes All systems reviewed & no additional complaints except as documented Physical Exam General General appearance: alert and in no apparent distress Respiratory Respiratory exam: Present normal lung sounds bilaterally; Absent respiratory distress Cardiovascular Cardiovascular exam: Present regular rate; Absent tachycardia Neurological Exam Neurological exam: Present alert and other (Patient has intact comprehension is following commands has a normal motor and sensory exam has a complete expressive aphasia only other deficit is what appears to be a mild right-sided facial droop) Expanded Neurological Exam Cranial nerves: Normal: EOM function (II, III, IV, ), facial sensation (V), facial palsy (VII) (Possibly mild right-sided facial droop), gag reflex (IX), spinal accessory function (XI) and tongue deviation (XII) Cerebellar function: Normal: finger to nose and heel to tamez Motor strength - LUE: 5/5 Motor strength - RUE: 5/5 Motor strength - LLE: 5/5 Motor strength - RLE: 5/5 Upper motor neuron exam: Normal: nolan neglect, pronator drift and sensory extinction Sensory exam upper extremity: Normal: light touch Sensory exam lower extremity: Nor
[2023-02-06 08:45] LABS: Basophils % 0.4 % (0.1-2.0); Eosinophils # 0.2 K/mm3 (0.0-0.4); Eosinophils % 2.2 % (0.1-12.0); Hematocrit 39.7 % (37.0-47.0); Hemoglobin 12.6 g/dL (12.2-16.2); Lymphocytes # 2.7 K/mm3 (0.7-4.5); Mean Corpuscular HGB Conc 31.8 g/dL (31.8-35.4); Mean Corpuscular Hemoglobin 27.4 pg (27.0-31.2); Mean Corpuscular Volume 86.3 fl (81-99); Mean Platelet Volume 7.9 fl (7.4-10.4); Monocytes # 0.5 K/mm3 (0.1-1.0); Monocytes % 5.3 % (1.7-9.3); Neutrophils # 5.6 K/mm3 (1.8-7.8); Neutrophils % 62.1 % (37.0-80.0); Platelet Count 351 K/mm3 (142-424); Red Cell Distribution Width 15.7 % (11.5-17.5)
[2023-02-06 08:51] LABS: Alanine Aminotransferase 34 U/L (12-78); Albumin Level 4.1 g/dl (3.5-5.0); Albumin/Globulin Ratio 1.1 (1.1-1.8); Alkaline Phosphatase 125 U/L (38-126); Anion Gap 12.1 mEq/L (5-15); Aspartate Amino Transferase 34 U/L (14-36); Bilirubin,Total 0.6 mg/dl (0.2-1.3); Blood Urea Nitrogen 30 mg/dl (7-17); Calcium 9.9 mg/dl (8.4-10.2); Carbon Dioxide 28 mmol/L (22.0-30.0); Chloride 104 mmol/L (98-107); Creatinine Clearance Estimated 46 mL/min (50-200); Estimated Glomerular Filt Rate 55 ml/min (>60); GFR (African American) 66 ML/MIN (>60); Globulin 3.7 g/dL (1.3-3.2); Glucose 122 mg/dl (74-100); Magnesium 1.7 mg/dl (1.6-2.3); Potassium 4.1 mmoL/L (3.5-5.1); Sodium 140 mmol/L (136-145); Total Protein,Serum 7.8 g/dl (6.3-8.2)
--- NOTE | 2023-02-06 08:53 | PC.NURSE ---
Calling [facility] stroke team
--- NOTE | 2023-02-06 08:58 | PC.NURSE ---
call made to belinda to power share images to [facility]
[2023-02-06 08:59] LABS: Activated Partial Thrombo Time 25.7 seconds (22.8-30.6); INR 0.93 (0.9-1.1); Prothrombin Time 10.1 seconds (10.1-12.5)
[2023-02-06 09:03] LABS: Microscopic, Urine URINE MICROSCOPIC (MICROSCOPIC)
[2023-02-06 09:04] LABS: Appearance,Urine CLEAR (Clear); Bilirubin,Urine Negative (Negative); Blood, Urine Negative (Negative); Color,Urine YELLOW (Yellow); Glucose,Urine (UA) Negative (Negative); Ketones,Urine Negative (Negative); Leukocyte Esterase,Urine Negative (Negative); Nitrate,Urine Negative (Negative); PH,Urine 6.5 (5.0-8.5); Protein,Urine Negative (Negative)
[2023-02-06 09:06] LABS: Troponin I < 0.01 ng/ml (0.00-0.034)
--- NOTE | 2023-02-06 09:07 | PC.NURSE ---
Dr. Braswell s/w [facility] Stroke team- they are on divert
--- NOTE | 2023-02-06 09:22 | PC.NURSE ---
Dr. Braswell s/w [facility] Hospitalist Dr. Vaughn, MDs agreed to look elsewhere for Stroke Neuro transfer
--- NOTE | 2023-02-06 09:24 | PC.NURSE ---
Dr. Braswell at bedside s/w pt & family
--- NOTE | 2023-02-06 09:24 | PC.NURSE ---
contacting [facility] stroke navigator team at this time.
--- NOTE | 2023-02-06 09:26 | PC.NURSE ---
Dr. Braswell speaking with stroke navigator with [facility]
--- NOTE | 2023-02-06 09:40 | PC.NURSE ---
Dr. Braswell speaking with Dr. Dewitt with [facility]
--- NOTE | 2023-02-06 09:48 | PC.NURSE ---
Dr Braswell s/w Dr Vaughn, agrees to admit
--- NOTE | 2023-02-06 09:54 | PC.NURSE ---
call made to care management for bed placement
[2023-02-06 09:55] LABS: Bacteria,Urine Trace /lpf; Hyaline Casts,Urine Occasional #/lpf (0)
--- NOTE | 2023-02-06 10:18 | PC.NURSE ---
report called to danika gutierrez, on second floor
--- NOTE | 2023-02-06 10:20 | EXP.HP ---
History of Present Illness *Admission Date: 02/06/23 *Reason for visit:: loss of ability to speak *History of present illness: Mrs. Ashford is a 72-year-old female brought in by EMS for possible stroke. History obtained from as patient is non-verbal/unable to speak. states that last time he remembers hearing the patient speak was last night before bed. She woke up this morning and was able to get out of bed but did not feel right. asked her question and she did not respond. He also noted some minor weakness in her right leg but none in her arms. He asked if she felt okay and she shook her head. He asked if she wanted to go the hospital and she shook her head yes. On arrival to the ER, patient was found to be interactive, alert, following commands. Unable to speak however and give further history. She was able to shake her head, give thumbs up in response to questions. CT was obtained showing no acute findings. CTAs of neck and head obtained with no significant occlusions. Patient denied any pain, shortness of breath, or chest pain. Labs obtained that were essentially normal. Initial concern on history in the ER for symptoms beginning this morning when she woke up. Both and [facility] were contacted as patient potentially met criteria for tPA but would be a high risk patient. After communication with neuro at both facilities, decision was made the patient was outside the window for therapy and risk was too high for benefit. It was recommended that patient be loaded with aspirin and Plavix and admitted for further management and therapy evaluations. Medicine was consulted for further admission. After arriving to the floor, patient has had some mild nausea. She is able to nod to questions, appears oriented to self and situation. Answers appropriately with head nods. Denies any FAUSTIN, pain, SOA, weakness in arms and legs. Denies any loss of vision. Afebrile. [facility] Disclaimer: The information contained in this section may have been updated after the patient was seen, as this information can be updated by other users. Medical History Abnormal echocardiogram Aortic stenosis CVA (cerebral vascular accident) Family history of coronary artery disease Family history of AL (myocardial infarction) H/O cholecystitis HLD (hyperlipidemia) HTN (hypertension) Hx of rheumatic fever SOB (shortness of breath) Surgical History H/O: hysterectomy Family History FH: CABG (coronary artery bypass surgery) Social History Smoking Status: Never smoker second hand exposure: No alcohol intake: never counseling provided: none substance use type: denies use current occupational status: retired Travel in the last 8 weeks: None household members: spouse housing: house current occupational exposures/hazards: No caffeine: No Review of Systems Review of Systems Review of systems (narrative): 14 point review of systems performed, pertinent positives and negatives as per [facility] Meds Home Medications and Allergies Home Medications Medication Instructions Recorded Confirmed Type aspirin 81 mg tablet,delayed 81 mg PO DAILY Heart Disease 04/14/21 02/06/23 History release lisinopril 20 1 tab PO DAILY High blood pressure 07/20/21 02/06/23 History mg-hydrochlorothiazide 25 mg tablet estradiol 1 mg tablet 1 mg PO DAILY hormone replacement 02/11/22 02/06/23 History therapy acetaminophen 300 mg-codeine 30 mg 1 tab PO HS PRN Pain 02/06/23 02/06/23 History tablet atorvastatin 80 mg tablet 80 mg PO DAILY Cholesterol 02/06/23 02/06/23 History trimethoprim 100 mg tablet 100 mg PO DAILY Infection 02/06/23 02/06/23 History New Prescriptions to Start Prescriptions: Allergies Allergy/AdvReac T
--- NOTE | 2023-02-06 10:29 | PC.NURSE ---
arrived by stretcher from ED
--- NOTE | 2023-02-06 10:45 | MR_ITS ---
FINAL REPORT CLINICAL HISTORY: STROKE, EXPRESSIVE APHASIA COMPARISON: None FINDINGS: Multiplanar MR imaging of the brain was performed without contrast. There is age-appropriate atrophy. There are scattered foci of increased T2 signal in the cerebral white matter that have a nonspecific appearance but likely represent moderate chronic ischemic/gliotic changes. There is no evidence of intracranial hemorrhage or mass. No abnormal ventricular dilatation is identified. No abnormal extra-axial fluid collection is seen. Focus of restricted diffusion left posterior frontal lobe measuring 28 mm transverse diameter consistent with acute infarct. The posterior fossa and brainstem are unremarkable. Normal major vessel vascular flow voids are seen. IMPRESSION: Findings consistent with acute infarct left posterior frontal lobe. Age-appropriate atrophy and moderate chronic ischemic/gliotic changes. Reviewed, Interpreted and Dictated by Aneesh Elmore III, MD Transcribed by Serina Johnston Authenticated and [facility]
[2023-02-06 11:42] LABS: Troponin I < 0.01 ng/ml (0.00-0.034)
--- NOTE | 2023-02-06 11:42 | HMH.SLDYSPHA ---
Speech & Language Evaluation Speech/Language Dysphagia Evaluation Start: 02/06/23 11:23 Freq: ONCE Status: Active Protocol: Document 02/06/23 11:23 PAUL (Rec: 02/06/23 11:42 PAUL [id number]) Dysphagia Assess/Goals/Plan Assessment Date of Evaluation: 02/06/23 Evaluation Type Initial Certification Assessment/Problems Dysphagia per MD order Does Patient Qualify for Service Yes Qualify/Failure Comment The CSE analyzes the safety and efficiency of the orophryngeal swallow. Based on the results of the CSE, Mrs. Ashford does qualify for further skilled ST services. Recommendations PHYSICIAN CERTIFICATION: The specified therapy services are required, authorized, and reviewed every 30 days. Pt will be seen # times/week 1 for # weeks 1 Diet Recommendations Mechanical Soft Liquid Type Recommendations Normal/Thin SL Swallow Guidelines Standard Aspiration Prec.,Eat at slow rate,Reflux precautions Dysphagia Swallow Precautions/Strategies Sitting Upright (90 deg),No Straw,Small Bites and Sips, Alternate Liquids/Solids Place Food on Right side of Mouth Plan Anticipate reaching STG in # weeks 1 Anticipate reaching LTG in # weeks 1 Pt/Guardian verbally ack understanding Yes of dx/prognosis/goals Pt/Guardian verbally ack understanding Yes of/consent to tx prog G -code Required No STG-Other Comment/Non-Specific 1. Pt will tolerate diet of [facility] soft ground and thin liquids via cup with 100% accuracy and no s/sx of aspiration. Platform Stapler Goals Diet LRD with Liquids Thin Liquids Pt will be able to eat foods w/more Yes normal consistency Pt will maintain nutrition/hydration via No alternative means Qual of life will be enhanced by eating/ Yes drinking small amts Education Instructions provided Results of the CSE were discussed with pt, family, nursing, and care management who all expressed understanding. Pt/Caregiver able to recall information Able to recall/restate Reinforcement needed No Speech & Language HPI History Present Illness Description of Patient Problem Mrs. Ashford is presenting to [facility] for
[2023-02-06 11:57] LABS: Thyroid Stimulating Hormone 4.29 uIU/mL (0.465-4.68)
[2023-02-06 12:17] LABS: Chol/HDL Ratio 4.2 (1-3.5); Cholesterol 171 mg/dl (140-200); HDL Cholesterol 41 mg/dl (40-60); Triglycerides 127 mg/dl (30-150); VLDL Cholesterol 25 mg/dL (0-40)
[2023-02-06 12:28] LABS: Direct LDL Cholesterol 87.58 mg/dL (100-129)
--- NOTE | 2023-02-06 12:35 | HMH.PHAINT1 ---
Pharmacy Intervention Comments: Patient's home medication list confirmed with fill history, Spouse and Patient at bedside. Sirisha Miller, PharmD Candidate 2023
[2023-02-06 12:51] LABS: Hemoglobin A1C 5.6 % (4.0-6.0)
--- NOTE | 2023-02-06 12:54 | CA_ITS ---
APPROVED REPORT EXAM: Comprehensive 2D, Doppler, and color-flow Echocardiogram Silverware Supervisor: Fabiana Martinez RVT Ht: 5 ft 0 in Wt: 300lbs BSA: 2.22 BP: 156/72 mmHg Indications: CVA,,MS,MURMUR,HX RHEUMATIC FEVER,SOA,DM,HTN,HLD,OBESITY TDS-PT FLAT ON BACK,PT BODY HABITUS 2D Dimensions LVOT 2.29 cm (M/F) 1.5-2.5 LA Volume 79.90 mL LA Volume Index 35.99 mL/m2 (M/F) 16-34 M-Mode Dimensions RVDd 1.41 cm (0.9-2.6) LA Diam 4.86 cm (1.9-4.0) LVDd 5.52 cm (3.5-5.7) Ao Diam 3.37 cm (2.0-3.7) LVDs 3.95 cm (3.5-5.7) IVSd 1.17 cm (0.6-1.1) PWd 0.64 cm (0.6-1.1) EF (Teich) 54.30% FS 28.40% EDV (Teich) 148.70 mL TAPSE 2.45 (<1.7) ESV (Teich) 67.90 mL LV Diastology E Decel Time 367.00 (160-240 msec) E/A Ratio 1.1 MED E' 5.40 (< 7 cm/sec) E'/MED E' Ratio 27.74 (>14) LAT E' 6.90 (<10 cm/sec) E/LAT E' Ratio 21.71 (>14) Aortic Valve LVOT Max 112.00 (70-110 cm/s) LVOT VTI 25.15 cm AoV Peak Sundar. 276.00 (50-130 cm/s) AO Peak GR. 30.60 mmHg AO Mean GR. 16.90 (<5 mmHg) AO VTI 57.90 (18-25 cm) JULIANA (VTI) 1.79 (2.5-4.5 cm2) Mitral Valve MV E Max Sundar. 150.00 (40-130 cm/s) MV A Velocity 139.00 (40-130 cm/s) E/A Ratio 1.08 MV Decel. Time 367.00 (160-240 ms) MV Mean Gr. 6.00 (<2mmHg) MV PHT 107.00 ms Pulmonary Valve PV Peak Velocity 79.00 (50-150 cm/s) Left Ventricle The left ventricle is normal size. The left ventricular systolic function is normal. The left ventricular ejection fraction is within the normal range. There is increased LV wall thickness. There is normal LV segmental wall motion. There is grade II diastolic dysfunction. LVEF is 55%. Right Ventricle Right ventricle is mildly dilated. The right ventricular systolic function is normal. Atria Left atrium is mildly dilated. Right atrium is mildly dilated. There is no Doppler evidence of interatrial shunt. Aortic Valve The aortic valve leaflets are thickened. Mild aortic stenosis. JULIANA is 2.3 cm2 by continuity equation. Mean AV gradient is 15 mmHg. Peak AV gradient is 28 mmHg. Peak velocity is 2.7 m/s. Mild aortic regurgitation. Mitral Valve The mitral valve leaflets appear thickened. There are possible rheumatic MV changes. Systolic doming of the MV leaflets is present. Mild mitral stenosis. Mean MV gradient 6 mmHg (HR 67 bpm). MVA by PHT is 2.0 cm2. Trace mitral regurgitation. Tricuspid Valve The tricuspid valve leaflets are thin and pliable. Trace tricuspid regurgitation. There is insufficient TR jet to estimate RVSP. Pulmonic Valve The pulmonary valve is normal in structure. Trace pulmonic regurgitation. Great Vessels The aortic root is normal in size. The ascending aorta is normal in size. IVC is normal in size and collapses >50% with inspiration. Pericardium There is small anterior pericardial effusion. No echo indications of cardiac tamponade. Other Information Study Quality: Adequate Conclusion Normal biventricular systolic function. Grade II diastolic dysfunction. Mild RV dilation. Rheumatic-appearing MV leaflets. Mild MS. No significant MR. Mild . Mild AI. Small anterior pericardial effusion. Electronically signed by : Arabella Lawson, 02/07/2023 20:04:56
--- NOTE | 2023-02-06 13:55 | HMH.OTEV ---
OT Inpatient Evaluation Rehab OT IP Evaluation Start: 02/06/23 10:45 Freq: ONCE Status: Active Protocol: Document 02/06/23 13:48 [facility] (Rec: 02/06/23 13:55 [facility] [id number]) Rehab OT IP Assessment Subjective History Pt aphasic upon evaluation; pt able to answer yes and no questions appropriately. Pt was admitted on 02/06/23 due to a CVA. Mrs. Ashford is a 72-year- old female brought in by EMS for possible stroke. History obtained from as patient is non-verbal/unable to speak. states that last time he remembers hearing the patient speak was last night before bed. She woke up this morning and was able to get out of bed but did not feel right. asked her question and she did not respond. He also noted some minor weakness in her right leg but none in her arms . He asked if she felt okay and she shook her head. He asked if she wanted to go the hospital and she shook her head yes. Prior to being in the hosptial, pt lived with her . Pt claims she was independent with all ADLs and IADLs. Pt did not require any type of AE during functional transfers. Subjective Pt able to nod head yes or no and answered questions appropriately per . Objective Patient Orientation Person,Place,Birthday Upper Extremity Gross ROM WFL Bed Mobility bed mobility-scooting,bed mobility - supine/sit,bed mobility - rolling Assist Level Contact Guard/Hand Hold Transfer Training Sit/Stand Transfer Assist Level Contact Guard/Hand Hold Lower Body Dressing Ability Assistance X1 Performing Toilet Hygiene Ability Assistance X1 Overall Commode/Toilet Transfer Ability Standby Assistance Commode/Toilet Transfer Technique Sit to/from Ambulatory Commode/Toilet Transfer Assistive Grab Bars Devices
[2023-02-06 14:42] LABS: Troponin I < 0.01 ng/ml (0.00-0.034)
--- NOTE | 2023-02-06 15:23 | HMH.PTEV ---
Physical Therapy Evaluation Rehab PT IP Evaluation Start: 02/06/23 10:17 Freq: ONCE Status: Active Protocol: Document 02/06/23 13:05 PHORSEAN (Rec: 02/06/23 15:23 PHORNE [id number]) Subjective/History History History 72 yowf adm to [facility] with CVA with R side affect and expressive aphasia. She is able to nod head to yes/no questions appropriately. Her spouse is present in the room and reports they have 1 step to enter the home and she was independent with all ADLs and mobility prior to adm. Subjective Subjective Pt with no c/o pain this pm. Rehab PT IP Eval Objective Appearance Patient Behavior Appropriate Patient Orientation Person Speech Pattern Aphasic Ambulation Patient Able to Ambulate Yes Ambulation Observation IP General Gait Pattern Observation Wide Based Gait Ambulation Distance (feet) 30 Ambulation Assistive Device None Ambulation Ability Contact Guard/Hand Hold Balance Ability to Arise Able, uses arms to help Sitting Balance Steady, safe Standing Balance Steady, wide stance Dynamic Sitting Balance Ability Good Dynamic Standing Balance Ability Good Transfers Bed Transfer Ability Contact Guard/Hand Hold Chair Transfer Ability Contact Guard/Hand Hold Sit to Stand Bed Transfer Ability Contact Guard/Hand Hold Sit to Stand Chair Transfer Ability Contact Guard/Hand Hold ROM All Extremities PT ROM Status WFL MMT All Extremities PT MMT WFL Rehab PT IP prob,goals,plan Problems Date of Evaluation: 02/06/23 PT IP Problems Bed Mobility,Transfers,Gait Rehab Potential Rehab Potential Good Plan PT Intervention Plan Bed Mobility,Transfers,Gait, Therapeutic Exercise PT Plan Frequency Daily Duration LOS Discharge Goals Bed Transfer Ability Supervision/Stand by Sit to Stand Chair Transfer Ability Supervision/Stand by Ambulation Assistive Device None Ambulation Distance (feet) 40 Discharge Plan PT Discharge Plan Pt is currently most appropriate for acute rehab placement due to significant communication issues and mild confusion at times. She may return home with outpatient treatm
--- NOTE | 2023-02-06 15:43 | HMH.SLAPHASI ---
Speech & Language Evaluation Speech/Language Aphasia Evaluation Start: 02/06/23 15:16 Freq: once Status: Complete Protocol: Document 02/06/23 15:16 PAUL (Rec: 02/06/23 15:43 PAUL [id number]) Aphasia Assessment/Goals/Plan Assessment Date of Evaluation: 02/06/23 Evaluation Type Initial Certification Assessment/Problems Expressive Aphasia per MD order Does Patient Qualify for Service Yes Qualify/Failure Comment Based on the results of the language assessment, Ms. Ashford would benefit from skilled ST services to improve expressive and receptive language skills to that of her baseline. Plan Pt will be seen # times/week 3 for # weeks 4 Anticipate reaching STG in # weeks 2 Anticipate reaching LTG in # weeks 4 Pt/Guardian verbally ack understanding Yes of dx/prognosis/goals Pt/Guardian verbally ack understanding Yes of/consent to tx prog G -code Required No STG-Reading Comprehension Matching Printed Words to Spoken Words 80 Reading Sentences & Ans Questions 60 STG-Verbal Expressive Language Automatic Speech 60 Sentence Completion 60 Repetitive Abilities 60 Word Naming 70 Residential Goals Increase auditory comprehension skills Yes to communicate w/family & friends Increase verbal expression skills to Yes communicate w/family & friends. Speech & Language HPI History Present Illness Description of Patient Problem Mrs. Ashford is presenting to [facility] for suspected acute CVA. Her medical hx includes abnormal echocardiogram, aortic stenosis, HLD, HTN, past rheumatic fever, and SOB. Medications include aspirin, lisinopril, estradiol, and atorvatatin. Mrs. Ashford is currently nonverbal and communicates through head nods . She is currently NPO. Pt/Caregiver Concerns Expressive language/aphasia per MD order Rehab Services Assessed Speech therapy Aphasia Evaluations Communication Speech Intelligibility Speech intelligibility was severely impaired. Mrs. Ashford was able to say the words hand , thumb , and pen ,
--- NOTE | 2023-02-06 17:57 | PC.NURSE ---
PT IS A&OX4, TOLERATING RA WELL. PT HAS EXPRESSIVE APHASIA, UNABLE TO FIND WORDS, BUT KNOWS WHAT SHE WANTS TO SAY. IS ABLE TO WRITE. UNDERSTANDS AND FOLLOWS COMMANDS. RIGHT SIDED DROOP TO SMILE, AND TONGUE SHIFTS TO LEFT. NO OTHER REAL ISSUES. PT ABLE TO GET UP AND WALK TO BATHROOM INDEPENDENTLY. ABLE TO FEED HERSELF WELL, STATES SHE IS HAVING NO TROUBLE SWALLOWING. HAS HAD GOOD APPETITE. FAMILY HAS BEEN AT BEDSIDE MAJORITY OF SHIFT. NO OTHER NEEDS OR C/O NOTED AT THIS TIME, VSS.
[2023-02-07] VITALS: BP 102/54; PULSE 79; PULSE 80; RESP 16; TEMP 36.6; O2SAT 95
[2023-02-07 04:00] VITALS: BP 111/65; PULSE 60; PULSE 80; RESP 16; TEMP 36.5; O2SAT 96; BMI 47.7
--- NOTE | 2023-02-07 04:51 | ECG_ITS ---
APPROVED REPORT Exam: Resting ECG HR:81 bpm ECG Measurements Heart Rate 81 AXES SC 175 P 56 QRSd 89 QRS 26 QT 411 T 38 QTc 449 Conclusion SINUS RHYTHM NORMAL ECG UNCONFIRMED REPORT Electronically signed by : Salinas Cruz MD 02/07/2023 13:45:17
[2023-02-07 07:14] LABS: Basophils % 0.2 % (0.1-2.0); Eosinophils # 0.2 K/mm3 (0.0-0.4); Eosinophils % 2.1 % (0.1-12.0); Hematocrit 36.7 % (37.0-47.0); Lymphocytes # 1.7 K/mm3 (0.7-4.5); Lymphocytes % 21.7 % (10-50); Mean Corpuscular HGB Conc 32.6 g/dL (31.8-35.4); Mean Corpuscular Volume 85.7 fl (81-99); Mean Platelet Volume 8.3 fl (7.4-10.4); Monocytes # 0.5 K/mm3 (0.1-1.0); Monocytes % 6.6 % (1.7-9.3); Neutrophils # 5.6 K/mm3 (1.8-7.8); Neutrophils % 69.4 % (37.0-80.0); Platelet Count 316 K/mm3 (142-424); Red Blood Count 4.29 M/mm3 (4.20-5.40); Red Cell Distribution Width 15.9 % (11.5-17.5)
[2023-02-07 07:25] LABS: Chloride 104 mmol/L (98-107); Potassium 3.8 mmoL/L (3.5-5.1); Sodium 137 mmol/L (136-145)
[2023-02-07 07:27] LABS: Blood Urea Nitrogen 23 mg/dl (7-17); Creatinine Clearance Estimated 45 mL/min (50-200); Estimated Glomerular Filt Rate 71 ml/min (>60); GFR (African American) 86 ML/MIN (>60)
[2023-02-07 07:28] LABS: Alanine Aminotransferase 31 U/L (12-78); Albumin Level 3.4 g/dl (3.5-5.0); Alkaline Phosphatase 111 U/L (38-126); Anion Gap 10.8 mEq/L (5-15); Aspartate Amino Transferase 32 U/L (14-36); Bilirubin,Total 0.6 mg/dl (0.2-1.3); Calcium 9.6 mg/dl (8.4-10.2); Carbon Dioxide 26 mmol/L (22.0-30.0); Globulin 3.3 g/dL (1.3-3.2); Glucose 107 mg/dl (74-100); Magnesium 1.8 mg/dl (1.6-2.3); Total Protein,Serum 6.7 g/dl (6.3-8.2)
[2023-02-07 08:00] VITALS: BP 132/66; PULSE 86; PULSE 90; RESP 18; TEMP 36.4; O2SAT 96
--- NOTE | 2023-02-07 08:53 | SW/DCPLANNER ---
Addendum entered by Aniyah Talbot 02/07/23 13:10: Jaylyn w/ [facility] stated that services will begin tomorrow for this patient. Original Note: I spoke with this patient regarding plans once medically stable for discharge. PT/OT evaluated this patient and stated that physically patient is safe to return home but will need speech therapy. Patient is unable to speak and was present during my visit. After a lengthy discussion with patient, her communicating via white board and speaking with the plan is for patient to return home w/ and set up home health services. Patient/ prefer to use local agency: I will set up home health services w/ [facility] once patient is medically stable for discharge.
[2023-02-07 12:00] VITALS: BP 167/89; PULSE 100; PULSE 83; RESP 20; TEMP 36.4; O2SAT 97
--- NOTE | 2023-02-07 12:22 | EXP.DC.SUM ---
General Admission date:: 02/06/23 Discharge date: 02/07/23 HPI HPI HPI: Mrs. Ashford is a 72-year-old female brought in by EMS for possible stroke. History obtained from as patient is non-verbal/unable to speak. states that last time he remembers hearing the patient speak was last night before bed. She woke up this morning and was able to get out of bed but did not feel right. asked her question and she did not respond. He also noted some minor weakness in her right leg but none in her arms. He asked if she felt okay and she shook her head. He asked if she wanted to go the hospital and she shook her head yes. On arrival to the ER, patient was found to be interactive, alert, following commands. Unable to speak however and give further history. She was able to shake her head, give thumbs up in response to questions. CT was obtained showing no acute findings. CTAs of neck and head obtained with no significant occlusions. Patient denied any pain, shortness of breath, or chest pain. Labs obtained that were essentially normal. Initial concern on history in the ER for symptoms beginning this morning when she woke up. [facility] and [facility] as patient potentially met criteria for tPA but would be a high risk patient. After communication with neuro at both facilities, decision was made the patient was outside the window for therapy and risk was too high for benefit. It was recommended that patient be loaded with aspirin and Plavix and admitted for further management and therapy evaluations. Medicine was consulted for further admission. After arriving to the floor, patient has had some mild nausea. She is able to nod to questions, appears oriented to self and situation. Answers appropriately with head nods. Denies any FAUSTIN, pain, SOA, weakness in arms and legs. Denies any loss of vision. Afebrile. Hospital Course Hospital Course Hospital Course: Mrs. Ashford is a 72-year-old female with history obese, diabetes, mild aortic stenosis, and hypertension/hyperlipidemia who presents with onset of expressive aphasia and right-sided facial weakness this morning when she woke up. On arrival to the ER, after much discussion, last known normal was last night before bed. Patient able to ambulate but unable to speak. Aware of something being wrong. Has been brought her to the ER for evaluation. CT with no acute findings. As she is outside the window for therapy with tPA and high risk for bleed if administered, case was discussed with both and [facility]. Recommendation was for a loading dose of Plavix and aspirin (300 mg Plavix, 325 mg aspirin). ER consulted medicine for admission and further management as there is no acute intervention or large vessel obstruction noted on imaging. Medicine agreed to admit for further management, therapy eval's. Patient did well during admission. Showed some marginal improvement in her deficits. Meeting criteria for discharge home to continue treatment as an outpatient. Problems addressed as follows Acute left posterior frontal lobe ischemic stroke Expressive aphasia Right-sided facial weakness -Outside the window for tPA or TNK therapy at time of presentation to the ER. Patient was loaded with Plavix 300 mg and aspirin 325 mg. Her home blood pressure medication was held. Continued aspirin and Plavix daily. Recommend continuing these for at least a month. She is already on high intensity statin which we continued with Lipitor 80 mg daily. Therapy services were consulted. PT, OT, speech all evaluated. Patient is independent from PT and OT standpoint. Regarding speech, they recommended modifications to her diet with mechanical soft and thin liquids. She would benefit from continued therapy to help with improvement in her speech and swallowing. Will refer her to home health for this. MRI was obtained during admission showing acute ischemic stroke with restriction of diffusion in
--- NOTE | 2023-02-11 13:12 | CARE MANAGER ---
Contacted patient related to hospital stay. She states she is doing better. She has her new medication and is aware of following up with the doctor tomorrow. LYDIA Baca
== END 2023-02-07 15:05 | disposition home health service (06) | DRG 65 ==
LOC: ER 09:21 → 2ND 10:12
PROVIDERS: Admitting Provider Internal Medicine Adolescent Medicine; Emergency Provider Student in an Organized Health Care Education/Training Program; PCP Family Medicine; Visit Provider Internal Medicine Adolescent Medicine
DX: I63.9 Cerebral infarction, unspecified (principal); Z68.42 Body mass index [BMI] 45.0-49.9, adult; R47.01 Aphasia; I10 Essential (primary) hypertension; E78.5 Hyperlipidemia, unspecified; I35.0 Nonrheumatic aortic (valve) stenosis; E66.9 Obesity, unspecified
CPT/HCPCS: 36415; 70450; 70496; 70498; 70551; 71045; 80053; 80061; 81001; 83036; 83735; 84443; 84484; 85025; 85610; 85730; 92507; 92523; 92526; 92610; 93005; 93306; 97163; 97166; 97530; 99291; J2405; Q9967

== ENCOUNTER → 2023-04-03 10:37 | Outpatient (CLI) | payer MEDICARE, BC, SELFPAY ==
--- NOTE | 2023-04-03 10:41 | MM_ITS ---
PROCEDURE INFORMATION: Exam: MG Bilateral Screening 3D Mammography Exam date and time: 04/03/2023 10:39 AM Age: 72 years old Clinical indication: Screening mammogram. No personal or family history of breast cancer TECHNIQUE: Imaging protocol: Bilateral Screening tomosynthesis and 2D mammography including computer-aided detection (CAD) when performed. COMPARISON: 1. MG MM DIG SCREENING MAMM BI W/CAD 03/13/2022 1:11 PM 2. MG MM DIG SCREENING MAMM BI W/CAD 02/28/2021 10:49 AM 3. MG MM DIG SCREENING MAMM BI W/CAD 02/19/2020 9:52 AM FINDINGS: MAMMOGRAPHY: Breast composition: There are scattered areas of fibroglandular density. Mass: Stable benign-appearing subcentimeter nodules are present in the right breast. No new or morphologically suspicious nodule has developed to suggest malignancy. Architectural distortion: No new or suspicious architectural distortion. Calcifications: No new or suspicious calcifications are present Asymmetric density: No new or suspicious asymmetric density is present Skin thickening: None. Axillary adenopathy: None. IMPRESSION: No mammographic evidence of malignancy. Recommend annual screening mammography unless otherwise clinically indicated. ASSESSMENT: BI-RADS category 2: Benign
== END ==
PROVIDERS: PCP Family Medicine; Visit Provider Family Medicine
DX: Z12.31 Encounter for screening mammogram for malignant neoplasm of breast (principal)
CPT/HCPCS: 77063; 77067

== ENCOUNTER 2023-05-20 10:00 | Outpatient (RCR) | payer MEDICARE, BC, SELFPAY | END 2023-05-20 11:15 | disposition home or self-care (01) | LOC: OT 10:00 | PROVIDERS: PCP Family Medicine; Visit Provider Family Medicine | DX: I63.9 Cerebral infarction, unspecified (principal) | CPT/HCPCS: 97110; 97140; 97165; 97530 ==

== ENCOUNTER 2023-05-21 16:14 | Emergency (ER) | payer MEDICARE, BC, SELFPAY ==
[2023-05-21 16:14] VITALS: BP 157/75; PULSE 96; RESP 18; TEMP 36.6; O2SAT 99; BMI 53.6
--- NOTE | 2023-05-21 16:18 | ECG_ITS ---
APPROVED REPORT Exam: Resting ECG HR:94 bpm ECG Measurements Heart Rate 94 AXES ME 180 P 69 QRSd 89 QRS 38 QT 371 T 67 QTc 423 Conclusion SINUS RHYTHM NORMAL ECG UNCONFIRMED REPORT Electronically signed by : Salinas Cruz MD 05/22/2023 17:11:52
[2023-05-21 16:26] LABS: POC Glucose,Bedside 128 (70-110)
[2023-05-21 16:52] LABS: Basophils % 0.3 % (0.1-2.0); Eosinophils # 0.2 K/mm3 (0.0-0.4); Eosinophils % 2.4 % (0.1-12.0); Hemoglobin 12.9 g/dL (12.2-16.2); Lymphocytes # 2.4 K/mm3 (0.7-4.5); Mean Corpuscular Hemoglobin 29.1 pg (27.0-31.2); Mean Corpuscular Volume 85.6 fl (81-99); Monocytes # 0.6 K/mm3 (0.1-1.0); Monocytes % 6.5 % (1.7-9.3); Neutrophils # 5.5 K/mm3 (1.8-7.8); Neutrophils % 62.8 % (37.0-80.0); Platelet Count 298 K/mm3 (142-424); Red Blood Count 4.44 M/mm3 (4.20-5.40); Red Cell Distribution Width 16.4 % (11.5-17.5); White Blood Count 8.7 K/mm3 (4.8-10.8)
--- NOTE | 2023-05-21 16:52 | CT_ITS ---
PROCEDURE INFORMATION: Exam: CT Head Without Contrast Exam date and time: 05/21/2023 5:15 PM Age: 73 years old Clinical indication: Right sided drift; Additional info: Right sided drift, history of L stroke TECHNIQUE: Imaging protocol: Computed tomography of the head without contrast. Radiation optimization: All CT scans at this facility use at least one of these dose optimization techniques: automated exposure control; mA and/or kV adjustment per patient size (includes targeted exams where dose is matched to clinical indication); or iterative reconstruction. REPORTING DATA: Count of CT and Cardiac NM exams in prior 12 months: This patient has received 3 known CTs and 0 known cardiac nuclear medicine studies in the 12 months prior to the current study. COMPARISON: No relevant prior studies available. FINDINGS: Brain: Age-related involutional changes and chronic microvascular ischemic disease. Chronic lacunar infarct involving the left cerebellum. Chronic infarct involving the posterior left frontal lobe. No evidence for acute transcortical infarct. No mass effect or midline shift. No extra-axial collection. No acute intracranial hemorrhage. Basal cisterns are patent. Cerebral ventricles: No ventriculomegaly. Paranasal sinuses: Visualized sinuses are unremarkable. No fluid levels. Mastoid air cells: Visualized mastoid air cells are well aerated. Bones/joints: Unremarkable. No acute fracture. Soft tissues: Unremarkable. IMPRESSION: No evidence for acute transcortical infarct, acute intracranial hemorrhage, or mass effect.
[2023-05-21 16:54] LABS: Chloride 102 mmol/L (98-107); Potassium 3.7 mmoL/L (3.5-5.1); Sodium 138 mmol/L (136-145)
[2023-05-21 16:57] LABS: Alanine Aminotransferase 51 U/L (12-78); Albumin Level 4.3 g/dl (3.5-5.0); Albumin/Globulin Ratio 1.2 (1.1-1.8); Alkaline Phosphatase 97 U/L (38-126); Anion Gap 12.7 mEq/L (5-15); Aspartate Amino Transferase 39 U/L (14-36); Bilirubin,Total 0.4 mg/dl (0.2-1.3); Blood Urea Nitrogen 25 mg/dl (7-17); Calcium 9.2 mg/dl (8.4-10.2); Carbon Dioxide 27 mmol/L (22.0-30.0); Creatinine Clearance Estimated 24 mL/min (50-200); Estimated Glomerular Filt Rate 34 ml/min (>60); GFR (African American) 41 ML/MIN (>60); Globulin 3.6 g/dL (1.3-3.2); Glucose 116 mg/dl (74-100); Total Protein,Serum 7.9 g/dl (6.3-8.2)
[2023-05-21 17:00] VITALS: BP 131/67; PULSE 84; O2SAT 96
--- NOTE | 2023-05-21 17:05 | HMH.EDGENADL ---
Discharge Plan Disposition Patient Disposition: Home, Self-Care Prescriptions Prescriptions: No Action aspirin 81 mg tablet,delayed release (DR/EC) 81 mg PO DAILY atorvastatin 80 mg tablet 80 mg PO DAILY Patient Comments: TAKE 1 TABLET BY MOUTH ONCE DAILY acetaminophen-codeine 300-30 mg tablet 1 tab PO HS PRN (Reason: Pain) Patient Comments: TAKE 1 TABLET BY MOUTH AT BEDTIME NEEDED FOR PAIN FOR 30 DAYS clopidogrel 75 mg Tablet 75 mg PO DAILY 30 Days Qty: 30 0RF Referrals Follow up/Referrals: Stephan Back MD [Primary Care Provider] - See instructions Activity Restrictions/Add. Instructions Additional Instructions/Restrictions: Call your family doctor to establish care for this visit to the emergency department and schedule follow-up within 48 hours to ensure improvement. If you have any worsening of your condition or any other concerning signs or symptoms, return to the emergency department or your primary care doctor for further evaluation. Clinical Impressions Clinical Impression: Facial twitching Discharge ED Provider: Anderson Horowitz General Adult HPI General Chief complaint: Neuro Symptoms/Deficit Stated complaint: sent by Dr. Back, stroke symptoms Time Seen by Provider: 05/21/23 16:17 Mode of Arrival: Wheelchair Source of Information: Patient Limitations: No Limitations Description of Symptoms (Recalled from ER Triage Doc. by RN): c/o high bp, twitching in left jaw, MD wanted pt to come over for further evaluation for a stroke, hx of stroke in January, denies any speech or weakness at this time, NIHSS 0 History of Present Illness HPI narrative: 73-year-old female history of hypertension, hyperlipidemia, previous CVA with residual speech deficits, but no known right-sided weakness deficits or vision deficits presenting with jaw twitching. Happened twice today. Patient went to her family doctor, Dr. Back, who deemed her appropriate for emergency department and sent her here. Denies left-sided deficits, vision changes, further difficulty speaking, chest pain, shortness of breath, nausea or vomiting, sick symptoms or contacts, or any other concerns. Not currently symptomatic. History was obtained via conversation with patient and family. Related Data Home Medications Medication Instructions Recorded Confirmed aspirin 81 mg tablet,delayed 81 mg PO DAILY Heart Disease 04/14/21 04/02/23 release acetaminophen 300 mg-codeine 30 mg 1 tab PO HS PRN Pain 02/06/23 04/02/23 tablet atorvastatin 80 mg tablet 80 mg PO DAILY Cholesterol 02/06/23 04/02/23 Previous Rx's Medication Instructions Recorded clopidogrel 75 mg tablet 75 mg PO DAILY 30 days #30 tabs 02/07/23 Allergies Allergy/AdvReac Type Severity Reaction Status Date / Time No Known Allergies Allergy Verified 04/02/23 10:59 [facility] Disclaimer: The information contained in this section may have been updated after the patient was seen, as this information can be updated by other users. Medical History Abnormal echocardiogram Aortic stenosis CVA (cerebral vascular accident) Family history of coronary artery disease Family history of GA (myocardial infarction) H/O cholecystitis HLD (hyperlipidemia) HTN (hypertension) Hx of rheumatic fever SOB (shortness of breath) Surgical History H/O: hysterectomy Family History Other FH: CABG (coronary artery bypass surgery) Social History Smoking Status: Never smoker second hand exposure: No alcohol intake: never counseling provided: none substance use type: denies use current occupational status: retired Travel in the last 8 weeks: None household members: spouse housing: house current occupational exposures/haz
--- NOTE | 2023-05-21 18:42 | PC.NURSE ---
PT SISTER N LAW LEFT PHONE NUMBER FOR WHEN PT WAS DISCHARGED TO CALL HER PHONE # [phone] HER NAME IS MICHELE HENNESSYLIN
[2023-05-21 19:36] VITALS: BP 149/72; PULSE 96; RESP 16; TEMP 36.7; O2SAT 96
== END 2023-05-21 19:39 | disposition home or self-care (01) ==
PROVIDERS: Emergency Provider Emergency Medicine; PCP Family Medicine
DX: G51.4 Facial myokymia (principal); R29.818 Other symptoms and signs involving the nervous system; I10 Essential (primary) hypertension; E78.5 Hyperlipidemia, unspecified; Z86.73 Personal history of transient ischemic attack (TIA), and cerebral infarction without residual deficits
CPT/HCPCS: 70450; 80053; 82962; 85025; 93005; 96360; 99285

== ENCOUNTER → 2023-05-28 08:16 | Outpatient (CLI) | payer MEDICARE, BC, SELFPAY ==
[2023-05-28 17:52] LABS: Chloride 101 mmol/L (98-107); Potassium 4.6 mmoL/L (3.5-5.1); Sodium 137 mmol/L (136-145)
[2023-05-28 17:54] LABS: Alanine Aminotransferase 47 U/L (12-78); Aspartate Amino Transferase 34 U/L (14-36); Blood Urea Nitrogen 25 mg/dl (7-17); Estimated Glomerular Filt Rate 49 ml/min (>60); GFR (African American) 59 ML/MIN (>60)
[2023-05-28 17:55] LABS: Albumin Level 4.4 g/dl (3.5-5.0); Albumin/Globulin Ratio 1.2 (1.1-1.8); Alkaline Phosphatase 134 U/L (38-126); Anion Gap 12.6 mEq/L (5-15); Bilirubin,Total 0.6 mg/dl (0.2-1.3); Calcium 9.7 mg/dl (8.4-10.2); Carbon Dioxide 28 mmol/L (22.0-30.0); Globulin 3.6 g/dL (1.3-3.2); Glucose 83 mg/dl (74-100)
[2023-05-28 18:12] LABS: Free T4 (Free Thyroxine) 0.95 ng/dl (0.78-2.19)
== END ==
PROVIDERS: PCP Internal Medicine; Visit Provider Internal Medicine
DX: Z00.00 Encounter for general adult medical examination without abnormal findings (principal); I10 Essential (primary) hypertension; Z13.29 Encounter for screening for other suspected endocrine disorder; Z79.899 Other long term (current) drug therapy
CPT/HCPCS: 80053; 84439

== ENCOUNTER → 2023-06-18 08:38 | Outpatient (CLI) | payer MEDICARE, BC, SELFPAY ==
--- NOTE | 2023-06-18 08:39 | XR_ITS ---
FINAL REPORT TECHNIQUE: Bone densitometry calculations of the lumbar spine and left hip were obtained. CLINICAL HISTORY: Screening for bone density COMPARISON: 02/16/2019 FINDINGS: Using L1-4, the bone mineral density of the spine is 1.15 g/cm2, corresponding to T-score of 0.9. Using the left hip, the bone mineral density of the femoral neck is 0.75 g/cm2, corresponding to a T-score of -0.9. NOTE: T-score: Standard deviation compared with peak bone mass of young adult mean. *Following the recommendations of the International Society of Bone densitometry, classification of hip BMD is based on the lower of two T-scores; total hip or femoral neck. IMPRESSION: Normal bone mineral density of the lumbar spine and hip. Reviewed, Interpreted and Dictated by Alistair Orlando MD Transcribed by Shagufta Garland Authenticated and [facility]
== END ==
PROVIDERS: PCP Internal Medicine; Visit Provider Internal Medicine
DX: Z13.820 Encounter for screening for osteoporosis (principal); Z78.0 Asymptomatic menopausal state
CPT/HCPCS: 77080

== ENCOUNTER 2023-07-24 10:39 | Outpatient (CLI) | payer MEDICARE, BC, SELFPAY | END 2023-07-24 23:59 | LOC: RT 10:40 | PROVIDERS: PCP Internal Medicine; Visit Provider Nurse Practitioner | DX: I05.0 Rheumatic mitral stenosis; E78.5 Hyperlipidemia, unspecified; I10 Essential (primary) hypertension; E66.01 Morbid (severe) obesity due to excess calories; Z68.43 Body mass index [BMI] 50.0-59.9, adult; R20.2 Paresthesia of skin; R20.0 Anesthesia of skin; I63.89 Other cerebral infarction; R06.09 Other forms of dyspnea | CPT/HCPCS: 93270 ==

== ENCOUNTER 2023-07-30 15:21 | Outpatient (POV) | payer MEDICARE, BC, SELFPAY | END 2023-07-30 23:59 | disposition home or self-care (01) | LOC: SC 15:22 | PROVIDERS: PCP Internal Medicine; Visit Provider Dermatology | DX: Z00.00 Encounter for general adult medical examination without abnormal findings (principal) ==

== ENCOUNTER 2023-07-31 15:54 | Outpatient (CLI) | payer MEDICARE, BC, SELFPAY ==
[2023-07-31 17:33] LABS: Chloride 104 mmol/L (98-107); Potassium 4.3 mmoL/L (3.5-5.1); Sodium 136 mmol/L (136-145)
[2023-07-31 17:35] LABS: Blood Urea Nitrogen 29 mg/dl (7-17); Estimated Glomerular Filt Rate 44 ml/min (>60); GFR (African American) 53 ML/MIN (>60)
[2023-07-31 17:36] LABS: Alanine Aminotransferase 41 U/L (12-78); Albumin Level 4.1 g/dl (3.5-5.0); Albumin/Globulin Ratio 1.2 (1.1-1.8); Alkaline Phosphatase 120 U/L (38-126); Anion Gap 14.3 mEq/L (5-15); Aspartate Amino Transferase 33 U/L (14-36); Bilirubin,Total 0.6 mg/dl (0.2-1.3); Calcium 9.9 mg/dl (8.4-10.2); Carbon Dioxide 22 mmol/L (22.0-30.0); Globulin 3.3 g/dL (1.3-3.2); Glucose 112 mg/dl (74-100); Total Protein,Serum 7.4 g/dl (6.3-8.2)
== END 2023-07-31 23:59 ==
LOC: LAB 15:55
PROVIDERS: PCP Internal Medicine; Visit Provider Specialist
DX: I63.9 Cerebral infarction, unspecified (principal); Z79.899 Other long term (current) drug therapy; I10 Essential (primary) hypertension
CPT/HCPCS: 36415; 80053

== ENCOUNTER 2023-08-06 13:58 | Outpatient (CLI) | payer MEDICARE, BC, SELFPAY ==
--- NOTE | 2023-08-06 14:05 | MR_ITS ---
FINAL REPORT CLINICAL HISTORY: cva COMPARISON: 02/06/2023 FINDINGS: Multiplanar MR imaging of the brain was performed without and with contrast. There is moderate age-appropriate atrophy. Scattered foci of increased T2 signal are seen in the cerebral white matter that have a nonspecific appearance but likely represent moderate chronic ischemic/gliotic changes. There is left frontal encephalomalacia. There is no evidence of intracranial hemorrhage or mass. No abnormal ventricular dilatation is identified. There is no evidence of shift of the midline structures. No abnormal extra-axial fluid collection is seen. No area of abnormal restricted diffusion is identified. The posterior fossa and brainstem have an unremarkable appearance. There is a 15 mm in diameter extra-axial mass in the right frontal convexity, dural based, consistent with a meningioma. Normal major vessel vascular flow voids are seen. IMPRESSION: Moderate atrophy and chronic ischemic/gliotic changes, with encephalomalacia from a left frontal infarct seen on the prior MR of 02/06/2023. There is a 15 mm extra-axial dural based mass in the right frontal convexity, consistent in appearance with a meningioma. No acute intracranial abnormality. Reviewed, Interpreted and Dictated by Aneesh Elmore III, MD Transcribed by Shagufta Garland Authenticated and [facility]
[2023-08-06] MEDS: SODIUM CHLORIDE 0.9% 10ML SYR (RAD ONLY) 10 ML IV (14:46)
[2023-08-06] MEDS: GADOTERIDOL INJ 17ML SYRINGE 16 ML IV (14:46)
== END 2023-08-06 23:59 ==
LOC: RAD 14:00
PROVIDERS: PCP Internal Medicine; Visit Provider Specialist
DX: I63.9 Cerebral infarction, unspecified (principal)
CPT/HCPCS: 70553; A9576

== ENCOUNTER 2023-08-08 09:48 | Outpatient (CLI) | payer MEDICARE, BC, SELFPAY ==
--- NOTE | 2023-08-08 09:48 | CA_ITS ---
FINAL REPORT TECHNIQUE: Color Doppler, duplex Doppler and herrmann scale sonography of the bilateral neck vasculature was performed. Velocities were measured in the carotid arteries. Stenosis evaluation based on velocity criteria. CLINICAL HISTORY: dizziness, recent stroke COMPARISON: None FINDINGS: The peak systolic velocity of the right common carotid artery is 97 cm/sec and internal carotid artery 130 cm/sec. The diastolic velocity in the internal carotid artery is 34 cm/sec. The ICA/CCA ratio is 1.5. Visually, a small amount of plaque is seen. These findings are consistent with less than 50% stenosis. The external carotid artery is patent. The right vertebral artery is patent with antegrade flow. The peak systolic velocity of the left common carotid artery is 137 cm/sec and internal carotid artery 106 cm/sec. The diastolic velocity in the internal carotid artery is 30 cm/sec. The ICA/CCA ratio is 1.12. Visually, a small amount of plaque is seen. These findings are consistent with less than 50% stenosis. The external carotid artery is patent. The left vertebral artery is patent with antegrade flow. IMPRESSION: No evidence of significant carotid stenosis. Bilateral patent vertebral arteries. If indicated, CTA or MRA could further evaluate. Reviewed, Interpreted and Dictated by Aneesh Elmore III, MD Transcribed by Shagufta Garland Authenticated and [facility]
--- NOTE | 2023-08-08 09:52 | CA_ITS ---
APPROVED REPORT EXAM: Comprehensive 2D, Doppler, and color-flow Echocardiogram Head Loft Worker: Kaity Juarez CRT Ht: 5 ft 0 in Wt: 285lbs BSA: 2.17 BP: 148/74 mmHg Indications: murmur, CVA,, rheumatic fever, MS Echo Enhancing Agent Indication: Endocardial border delineation Agent(s) / Amount(s) Used: Definity 2 cc Comments: Pt had B/S and Definity. 2D Dimensions LA Volume 53.70 mL LA Volume Index 24.20 mL/m2 (M/F) 16-34 M-Mode Dimensions RVDd 2.12 cm (0.9-2.6) LA Diam 4.44 cm (1.9-4.0) LVDd 4.77 cm (3.5-5.7) LVDs 2.83 cm (3.5-5.7) IVSd 1.74 cm (0.6-1.1) PWd 0.85 cm (0.6-1.1) EF (Teich) 71.40% FS 40.70% EDV (Teich) 106.00 mL TAPSE 2.52 (<1.7) ESV (Teich) 30.30 mL LV Diastology E Decel Time 323 (160-240 msec) E/A Ratio 0.90 MED A' 10.50 cm/s LAT A' 6.20 cm/s Aortic Valve JULIANA Index 0.91 cm2/m2 AoV Peak Sundar. 251.0 (50-130 cm/s) AI PHT 478.00 ms AO Peak GR. 25.20 mmHg AO Mean GR. 15.20 (<5 mmHg) AO VTI 55.8 (18-25 cm) JULIANA (VTI) 2.01 (2.5-4.5 cm2) Mitral Valve MV E Max Sundar. 104.0 (40-130 cm/s) MV A Velocity 116.0 (40-130 cm/s) E/A Ratio 0.90 MV PHT 95.0 ms Pulmonary Valve PV Peak Velocity 125.0 (50-150 cm/s) Tricuspid Valve TR P. Velocity 145.00 cm/s RAP Estimate 10.00 mmHg RVSP 18.40 mmHg Left Ventricle The left ventricle is normal size. The left ventricular systolic function is normal. The left ventricular ejection fraction is within the normal range. Proximal septal thickening is noted. There is normal LV segmental wall motion. Transmitral Doppler flow pattern suggests impaired LV relaxation. No left ventricle thrombus noted on this study. LVEF is 60%. Right Ventricle The right ventricle is normal size. The right ventricular systolic function is normal. Atria The left atrium size is normal. The right atrium size is normal. Agitated saline administration demonstrates no evidence of left to right intracardiac shunt. Aortic Valve The aortic valve is mildly thickened. Mild valvular aortic stenosis. Peak velocity 2.6 m/s. Mean AV gradient 15 mmHg. Max AV gradient 26 mmHg. JULIANA by continuity equation is 2.0 cm2. Mild aortic regurgitation. Mitral Valve The mitral valve leaflets are mildly thickened. Mean mitral stenosis. Mean MV gradient 6 mmHg (HR 68 bpm). Mild mitral regurgitation. Tricuspid Valve The tricuspid valve leaflets are thin and pliable. Trace tricuspid regurgitation. There is insufficient TR jet to estimate RVSP. Pulmonic Valve The pulmonary valve is normal in structure. Trace pulmonic regurgitation. Great Vessels The aortic root is normal in size. The ascending aorta is normal in size. The IVC is not well-visualized. Pericardium There is no pericardial effusion. Other Information Study Quality: Fair Conclusion Normal biventricular systolic function. Mild AI, mild MR. Mild MS (mean MV gradient 6 mmHg at HR 68 bpm). Agitated saline administration demonstrates no evidence of left to right intracardiac shunt. Compared to prior study from 01/2023, there are no significant changes Electronically signed by : Arabella Lawson MD 08/12/2023 11:20:51
[2023-08-08] MEDS: DEFINITY US ECHO CONTRAST 2ML INJ 2 MG IV (11:28)
== END 2023-08-08 23:59 ==
LOC: RT 09:48
PROVIDERS: PCP Internal Medicine; Visit Provider Nurse Practitioner
DX: R42 Dizziness and giddiness (principal); I34.0 Nonrheumatic mitral (valve) insufficiency; I35.0 Nonrheumatic aortic (valve) stenosis; I10 Essential (primary) hypertension; E78.5 Hyperlipidemia, unspecified; Z86.79 Personal history of other diseases of the circulatory system
CPT/HCPCS: 93306; 93880; Q9957

== ENCOUNTER 2023-08-20 09:30 | Day surgery (SDC) | payer MEDICARE, BC, SELFPAY ==
[2023-08-20] VITALS (8 sets, daily range): BP systolic 84–149; BP diastolic 31–96; PULSE 82–97; RESP 13–18; TEMP 36.1; O2SAT 94–98; BMI 55.4; BMI 54.6
[2023-08-20 10:13] LABS: Basophils # 0.1 K/mm3 (0-0.2); Basophils % 0.4 % (0.1-2.0); Eosinophils # 0.3 K/mm3 (0.0-0.4); Eosinophils % 2.8 % (0.1-12.0); Hematocrit 37.9 % (37.0-47.0); Hemoglobin 12.9 g/dL (12.2-16.2); Lymphocytes # 3.4 K/mm3 (0.7-4.5); Lymphocytes % 33.1 % (10-50); Mean Corpuscular HGB Conc 34.1 g/dL (31.8-35.4); Mean Corpuscular Hemoglobin 29.5 pg (27.0-31.2); Mean Corpuscular Volume 86.5 fl (81-99); Mean Platelet Volume 7.7 fl (7.4-10.4); Monocytes # 0.4 K/mm3 (0.1-1.0); Monocytes % 4.1 % (1.7-9.3); Neutrophils % 59.6 % (37.0-80.0); Platelet Count 303 K/mm3 (142-424); Red Blood Count 4.39 M/mm3 (4.20-5.40); Red Cell Distribution Width 15.6 % (11.5-17.5); White Blood Count 10.1 K/mm3 (4.8-10.8)
[2023-08-20 10:14] LABS: Chloride 105 mmol/L (98-107); Potassium 4.1 mmoL/L (3.5-5.1); Sodium 139 mmol/L (136-145)
[2023-08-20 10:17] LABS: Anion Gap 7.1 mEq/L (5-15); Blood Urea Nitrogen 23 mg/dl (7-17); Calcium 9.8 mg/dl (8.4-10.2); Carbon Dioxide 31 mmol/L (22.0-30.0); Creatinine Clearance Estimated 28 mL/min (50-200); Estimated Glomerular Filt Rate 40 ml/min (>60); GFR (African American) 49 ML/MIN (>60); Glucose 100 mg/dl (74-100)
--- NOTE | 2023-08-20 11:56 | EXP.ANES.CKL ---
[facility] Disclaimer: The information contained in this section may have been updated after the patient was seen, as this information can be updated by other users. 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 Surgical History H/O lithotripsy H/O: hysterectomy History of cholecystectomy Hx of colonoscopy S/P Botox injection Family History Other FH: CABG (coronary artery bypass surgery) Social History (Updated 08/20/23 @ 10:23 by Mohsen Magallanes RN) Smoking Status: Never smoker second hand exposure: No alcohol intake: never counseling provided: none substance use type: denies use current occupational status: retired Travel in the last 8 weeks: None household members: spouse housing: house current occupational exposures/hazards: No caffeine: No H Anesthesia Checklist Patient Identification Patient Identification: Arm Band Structural Data Admitted From: Home Planned Operative Procedure/s: Dual Chamber Pacemaker Consent for Planned Operative Procedure(s) Verified: Yes Verified Documents: Surgical Consent and History and Physical NPO Status Verified Time NPO: 00:00 Additional verifications Anesthesia Reactions: No Hx Blood Transfusions: No Blood Transfusion Reaction: No Airway Assessment Mallampati Score:: Class II C-Spine Mobility Assessed: Yes TMJ Mobility Assessed: Yes Dentition: Good Dentition Neurological Assessment Level of Consciousness: Awake, Alert and Appropriate Anesthesia Plan Anesthesia Risk discussed: Yes Anesthesia Plan: Verified ASA Class: IV Anesthesia Type: MAC
[2023-08-20] MEDS: CEFAZOLIN SODIUM 1 GM in 0.9 % SODIUM CHLORIDE 50 ML IV (13:22)
[2023-08-20] MEDS: LIDOCAINE 1% W/EPI 1:100,000 20ML VIAL 20 ML SQ (13:22)
[2023-08-20] MEDS: CEFAZOLIN 1GM VIAL 1 GM TP (13:23)
[2023-08-20] MEDS: 0.9 % SODIUM CHLORIDE 500 ML 25 ML IV (13:23)
--- NOTE | 2023-08-20 14:28 | XR_ITS ---
FINAL REPORT CLINICAL HISTORY: pacemaker insertion, pcxr done in [employer]. R/O pneumothorax. FINDINGS: SINGLE-VIEW CHEST There is mild cardiomegaly. Patient is rotated to the right. A pacer is identified. The mediastinum is normal. The lungs are underinflated. There is no pneumothorax. Note is made of skin popeye. IMPRESSION: No acute cardiopulmonary process. Reviewed, Interpreted and Dictated by Alistair Orlando MD Transcribed by Leslie Mendoza Authenticated and [facility]
--- NOTE | 2023-08-20 14:42 | CT_ITS ---
FINAL REPORT TECHNIQUE: Axial images were obtained through the chest without contrast. Sagittal and coronal reformatted images were obtained and reviewed. This study was performed with techniques to keep radiation doses as low as reasonably achievable (ALARA). Individualized dose reduction techniques using automated exposure control or adjustment of mA and/or kV according to the patient's size were employed. CLINICAL HISTORY: possible pneumo COMPARISON: 01/29/2017 FINDINGS: There is moderate coronary artery calcification. There is scar or atelectasis in both upper and lower lobes. The heart size is normal. There is no pericardial or pleural effusion. Limited images of the upper abdomen are unremarkable. No suspicious infiltrate or nodule identified. IMPRESSION: No pneumothorax. Reviewed, Interpreted and Dictated by Alistair Orlando MD Transcribed by Leslie Mendoza Authenticated and . [facility]
--- NOTE | 2023-08-20 14:45 | SUR.PHASEII ---
Pt to CT
== END 2023-08-20 16:11 | disposition home or self-care (01) ==
PROVIDERS: PCP Internal Medicine; Visit Provider Internal Medicine
DX: I49.5 Sick sinus syndrome (principal); I10 Essential (primary) hypertension; E78.5 Hyperlipidemia, unspecified; Z79.899 Other long term (current) drug therapy; I48.0 Paroxysmal atrial fibrillation; I35.0 Nonrheumatic aortic (valve) stenosis; I69.328 Other speech and language deficits following cerebral infarction; E66.01 Morbid (severe) obesity due to excess calories; Z68.43 Body mass index [BMI] 50.0-59.9, adult
CPT/HCPCS: 33208; 36415; 71045; 71250; 80048; 85025; C1785; C1898; J2704

== ENCOUNTER 2023-08-29 10:00 | Outpatient (RCR) | payer MEDICARE, BC, SELFPAY ==
--- NOTE | 2023-02-22 10:15 | HMH.SLAPHASI ---
Speech & Language Evaluation Speech/Language Aphasia Evaluation Start: 02/22/23 09:58 Freq: once Status: Complete Protocol: Document 02/22/23 09:58 SYED (Rec: 02/22/23 10:15 SYED [id number]) Aphasia Assessment/Goals/Plan Assessment Date of Evaluation: 02/22/23 Evaluation Type Initial Certification Assessment/Problems CVA per MD order. Does Patient Qualify for Service Yes Qualify/Failure Comment Based on patient interview, clinical observations, and results of her informal evaluation. Mrs. Neeta Ashford would benefit from skilled speech therapy services 1-2x/ week to address her expressive language and cognitive- linguistic deficits. Plan Pt will be seen # times/week 2 for # weeks 8 Anticipate reaching STG in # weeks 4 Anticipate reaching LTG in # weeks 8 Pt/Guardian verbally ack understanding Yes of dx/prognosis/goals G -code Required No STG-Auditory Comprehension Paragraph Level 80 STG-Verbal Expressive Language Word Naming 80 Make Up Sentences 70 Define Words 70 STG-Attending/Orientation/Memory Delayed Recall 80 STG-Comparative/Linguistic Skills Thought Organization 80 Categorization Ability 80 STG-Intell/Buccal/Labial Strength Intelligibility 80 #Intelligibility Drills Performed/Sesson 10 Labial Strength 80 # Times Exercises Perf/Session 10 Compliance Investigator Goals Increase oral motor tone to improve Yes: 80 intelligibility. Increase verbal expression skills to Yes: 70 communicate w/family & friends. Increase cognitive skills to communicate 80 w/family & friends Education Instructions provided Discussed results of the evaluation and goals to be added to HEP with Mrs. Ashford and she expressed understanding. Pt/Caregiver Able to Recall Information Able to recall/restate Reinforcement needed No Speech & Language HPI History Present Illness Description of Patient Problem Mrs. Ashford is presenting to [facility] following stroke on 02/06/23. After discharge from [facility] inpatient services, Mrs. Ashford received home health speech therapy services and wishes to further pursue speech 2' having difficulty communicating, word finding skills, and some cognitive-linguistic skills as well, per her report. Her medical hx includes abnormal echocardiogram, aortic stenosis, HLD, HTN, past rheumatic fever, and SOB. Rehab Services Assessed Speech therapy Is this evaluation r/t stroke? Yes Aphasia Evaluations Communication Speech Intelligibility Mrs. Ashford is observed to have limited intelligibility 2' slurred speech and facial droop with her tongue deviating to her R side during the oral mechanism exam. She demonstrated multiple neologisms and paraphasias throughout the examination, as well as frequently groping during verbal expression when attempting to complete verbal output tasks and taking part in conversation. Due to this, she has a decreased intelligibility and carries a white board around to make her thoughts/ideas known. Auditory Comprehension Yes: Word Level Sentences Following Directions Conversation No: Paragraph AC Comment She had difficulty answering more detailed questions regarding a paragraph and would respond with I forgot or I don't know. However, accuracy increased when presented with yes/no format. Reading Comprehension Yes: Letter Naming Word Naming Sentences Paragraphs Verbal Expressive Language Yes: Completing Sentences No: Automatic Speech Repetition Abilities Word Level Naming Sentence Level Defining Words CHE Comment She had difficulty with some automatic speech tasks and required prompting to fix error made, 2' lack of self awareness at times. She was unable to formulate complete sentences throughout the evaluation. Increasing complexity of words was also noted to be an area of difficulty for her. Written Language Yes: Signature Copy Shapes Copy Words Attending/Orientation/Memory Yes: Orientation No: Delayed Recall W/ Interference Attention/Concentration Memory AOM Comment She was unable to complete a visuospatial/visuoscanning task without moderate prompting provided, and had difficulty with some immediate /delayed memory tasks involving 3-4 words. Congnitive/Linguistic Skills Yes: Categorization Similarities/Differences Sequencing No: Thought Organization Deductive Reasoning No: Word Deductions PHYSICIAN CERTIFICATION: I certify the specified therapy services for Neeta Ashford are required, authorized, and reviewed every 30 days.
== END 2023-08-29 11:00 | disposition home or self-care (01) ==
LOC: ST 10:00
PROVIDERS: PCP Family Medicine; Visit Provider Family Medicine
DX: I69.328 Other speech and language deficits following cerebral infarction (principal)
CPT/HCPCS: 92507; 92523; 97129; 97130

== ENCOUNTER 2023-09-24 09:12 | Outpatient (POV) | payer MEDICARE, BC, SELFPAY | END 2023-09-24 23:59 | disposition home or self-care (01) | LOC: SC 09:12 | PROVIDERS: PCP Internal Medicine; Visit Provider Dermatology | DX: Z00.00 Encounter for general adult medical examination without abnormal findings (principal) ==

== ENCOUNTER 2023-11-15 06:47 | Outpatient (CLI) | payer MEDICARE, BC, SELFPAY ==
--- NOTE | 2023-11-15 | CA_ITS ---
APPROVED REPORT Exam: Pharmacologic Technologist: Thelma Peoples, Ht: 5 ft 0 in Wt: 283 lbs BSA: 2.16 m2 HR: 72 bpm BP: 142/82 mmHg Rhythm: NSR, NORMAL Indications: Chest pain Medical History Medical History: HTN, Hyperlipidemia Medications: ACETAMINOPHEN-CODEINE, APIXABAN, ATORVASTATIN, LISINOPRIL-HYDROCHLOROTHIAZIDE, METOPROLOL SUCCINATE ER, TRIMETHOPRIM Allergies: No known drug allergies Cardiac Risk Factors: HTN, Hyperlipidemia, FHX of CAD Stress Test Details Test: LEXISCAN HR Resting HR: 67 bpm Max Heart Rate (APMHR): 148 bpm Max HR Achieved: 98 bpm Target HR (85% APMHR): 126 bpm % of APMHR: 66 Recovery HR: 83 bpm BP Resting BP: 142/82 mmHg Max BP: 142/82 mmHg Recovery BP: 133.0/65.0 mmHg ECG Resting ECG: NSR Stress ECG: No significant ST changes Arrhythmia: PVCs, PACs Clinical Exercise duration: 04:29 min Highest Stage Achieved: Stress ECG Conclusion PT HAD HEAD DISCOMFORT NO CP OCC ISOLATED, UNIFOCAL PVCS. RARE PAC NO SIGNIFICANT ST CHANGES CONCLUSION: UNREMARKABLE LEXISCAN STRESS MYOVIEW IMAGES REPORTED SEPARATELY Test Summary REST . . . . . . . Resting REST . . . . . . . Sitting REST 03:52 . . 67 . 142/ 82 . . Stage 1 01:00 . . 96 . . . . Stage 2 01:00 . . 94 . . . . Stage 3 01:00 . . 91 . 133/ 65 . . Stage 4 01:00 . . 90 . 136/ 66 . . Stage 4 01:29 . . 87 . 141/ 65 . Stop exercise at 04:29 RECOVERY 01:00 . . 85 . . . . RECOVERY 02:00 . . 84 . . . . RECOVERY 03:00 . . 83 . 139/ 61 . . RECOVERY 03:29 . . 83 . 133/ 65 . . Electronically signed by : Arabella Lawson MD 11/17/2023 01:26:40
--- NOTE | 2023-11-15 06:51 | NM_ITS ---
APPROVED REPORT Exam: Nuclear Stress Test Indication: OBESITY,HTN, HYPERLIPIDEMIA, PALPITATIONS Patient Location: Outpatient Stress Tech: Thelma Peoples [place] Tech:JEWEL Durbin RT (R)(N)(M) Ht: 5 ft 1 in Wt: 280 lbs Bra Size: 42C HR: 72 bpm BP: 142/82 mmHg BSA: 2.18 m2 Rhythm: NSR TID: 0.99 BMI: 52.9 History: OBESITY,HTN, HYPERLIPIDEMIA, PALPITATIONS Procedure: Patient received 0.4 mg of intravenous Lexiscan, resting heart rate 72 bpm, resting blood pressure 142/82 mmHg, with Lexiscan maximum heart rate achieved was 93 bpm which is % of the maximum predicted heart rate and blood pressure was 133/65 mmHg. With Lexiscan, patient denied any complaint of chest pain. Cardiac Stress and Resting SPECT Images: Cardiac Stress and Resting SPECT images were obtained using technetium 99m Myoview 31.6 mCi stress and 10.31 mCi at rest. Resting and stress imaging in supine positions demonstrate a medium sized, moderate fixed perfusion defect in the inferior LV wall. This is no longer visualized with prone stress imaging this finding is suggestive of diaphragmatic attenuation. There is also a medium sized, moderate, reversible perfusion defect in the basal septal LV wall. This finding is suggestive of reversible ischemia. Gated imaging demonstrates normal global and regional LV systolic function. LVEF is calculated at 66%. Conclusion: Diaphragmatic attenuation is present. There is also a moderate, reversible perfusion defect in the basal septal LV wall. This finding is suggestive of reversible ischemia. Gated imaging demonstrates normal global and regional LV systolic function. LVEF is calculated at 66%. Electronically signed by : Arabella Lawson MD 11/17/2023 01:30:16
[2023-11-15] MEDS: SODIUM CHLORIDE 0.9% 10ML SYR (RAD ONLY) 10 ML IV ×2 (09:08)
[2023-11-15] MEDS: ISOTOPE MYOVIEW (PER STUDY) 1 DOSE IV (09:08)
[2023-11-15] MEDS: REGADENOSON 0.4MG/5ML SYRINGE 0.400000000000000022 MG IV (09:08)
== END 2023-11-15 23:59 | disposition home or self-care (01) ==
LOC: RAD 06:48
PROVIDERS: PCP Internal Medicine; Visit Provider Nurse Practitioner
DX: R07.9 Chest pain, unspecified (principal); R61 Generalized hyperhidrosis; R23.2 Flushing; T50.905A Adverse effect of unspecified drugs, medicaments and biological substances, initial encounter; Z86.73 Personal history of transient ischemic attack (TIA), and cerebral infarction without residual deficits
CPT/HCPCS: 78452; 93017; 93018; A9502; J2785

== ENCOUNTER 2023-12-02 09:55 | Day surgery (SDC) | payer MEDICARE, BC, SELFPAY ==
[2023-11-28 09:51] VITALS: BMI 54.6
[2023-12-02] VITALS (7 sets, daily range): BP systolic 109–151; BP diastolic 70–75; PULSE 87–95; RESP 16–18; TEMP 35.9–36.6; O2SAT 94–100; BMI 54.6
--- NOTE | 2023-12-02 10:31 | CA_ITS ---
APPROVED REPORT EXAM: Comprehensive 2D, Doppler, and color-flow Echocardiogram Information Broker: Fabiana Martinez RVT Ht: 5 ft 0 in Wt: 283lbs BSA: 2.16 BP: 126/78 mmHg Indications: HX,A-FIB,CRYPTOGENIC STROKE,HX,RHEUMATIC FEVER HX,,MS,PACER,PACER,HTN,CP,HLD Procedure After obtaining informed consent, patient underwent transesophageal echo in the [facility]. Type of Sedation : MAC Sedation was administered by Carson SaenzROrlandoN.AOrlando Sedation start time: 11:35 Case end Time: 11:50 The MARLA was performed without complications. Throughout the procedure, the blood pressure, pulse oximetry, cardiac rhythm, and rate were monitored. The patient tolerated the procedure without adverse effects. Recovery from conscious sedation was uneventful and vital signs were stable. Left Ventricle The left ventricle is normal size. The left ventricular systolic function is normal. The left ventricular ejection fraction is within the normal range. There is increased LV wall thickness. There is normal LV segmental wall motion. No left ventricular thrombus noted. LVEF is 55%. Right Ventricle The right ventricle is normal size. The right ventricular systolic function is normal. Device lead is present in the right ventricle. Atria The left atrium is dilated. No thrombus is visualized in the left atrium or appendage. The right atrium size is normal. Device lead is present in the right atrium. No masses or thrombi detected along the lead trajectory Interatrial septum is intact without evidence of ASD or PFO. Agitated saline administration demonstrates no evidence of interatrial shunt. Aortic Valve The aortic valve is trileaflet. The aortic valve is mildly thickened. Mild aortic regurgitation. Mitral Valve The mitral valve leaflets are mildly thickened and have a rheumatic appearance. Mild mitral stenosis is present. Mean MV gradient 5 mmHg (HR 92 bpm). Trace mitral regurgitation. Tricuspid Valve The tricuspid valve leaflets are thin and pliable. Trace tricuspid regurgitation. RVSP is 10 mmHg plus RA pressure. Pulmonic Valve The pulmonary valve is normal in structure. Trace pulmonic regurgitation. Great Vessels The aortic root is normal in size. The ascending aorta is normal in size. Pericardium There is no pericardial effusion. Other Information Study Quality: Fair Conclusion Normal biventricular systolic function. LA dilation. The mitral valve leaflets are mildly thickened and have a rheumatic appearance. Mild MS present (mean MV gradient 5 mmHg, HR 92 bpm). No evidence of LA or LV thrombus or masses. No evidence of interatrial shunt on color Doppler or agitated saline administration. Device lead noted in the RA/RV. No masses or thrombi detected along the lead trajectory. The setting of known history of strokes, no clear embolic source is detected on this MARLA. Nonetheless, the rheumatic MV appearance increases the risk for valvular atrial fibrillation, which may predispose to stroke. Further evaluation for valvular A-fib is recommended. Electronically signed by : Arabella Lawson MD 12/05/2023 01:15:53
[2023-12-02 10:33] LABS: Basophils # 0.1 K/mm3 (0-0.2); Basophils % 0.7 % (0.1-2.0); Eosinophils # 0.2 K/mm3 (0.0-0.4); Hemoglobin 12.5 g/dL (12.2-16.2); Lymphocytes # 2.8 K/mm3 (0.7-4.5); Lymphocytes % 30.8 % (10-50); Mean Corpuscular HGB Conc 32.9 g/dL (31.8-35.4); Mean Corpuscular Hemoglobin 28.4 pg (27.0-31.2); Mean Corpuscular Volume 86.5 fl (81-99); Monocytes # 0.6 K/mm3 (0.1-1.0); Monocytes % 6.1 % (1.7-9.3); Neutrophils # 5.5 K/mm3 (1.8-7.8); Neutrophils % 60.4 % (37.0-80.0); Platelet Count 302 K/mm3 (142-424); Red Cell Distribution Width 15.6 % (11.5-17.5); White Blood Count 9.1 K/mm3 (4.8-10.8)
[2023-12-02 10:35] LABS: Chloride 102 mmol/L (98-107); Sodium 138 mmol/L (136-145)
[2023-12-02 10:36] LABS: Potassium 3.9 mmoL/L (3.5-5.1)
[2023-12-02 10:38] LABS: Blood Urea Nitrogen 24 mg/dl (7-17); Creatinine Clearance Estimated 33 mL/min (50-200); Estimated Glomerular Filt Rate 49 ml/min (>60); GFR (African American) 59 ML/MIN (>60)
[2023-12-02 10:39] LABS: Anion Gap 12.9 mEq/L (5-15); Calcium 10.2 mg/dl (8.4-10.2); Carbon Dioxide 27 mmol/L (22.0-30.0); Glucose 103 mg/dl (74-100)
[2023-12-02] MEDS: LACTATED RINGERS 1000ML 1,000 ML 25 ML IV (10:44)
--- NOTE | 2023-12-02 10:56 | ECG_ITS ---
APPROVED REPORT Exam: Resting ECG HR:76 bpm ECG Measurements Heart Rate 76 AXES DC 189 P 30 QRSd 92 QRS 9 QT 386 T 15 QTc 416 Conclusion SINUS RHYTHM NORMAL ECG UNCONFIRMED REPORT Electronically signed by : Salinas Cruz MD 12/03/2023 17:28:49
[2023-12-02 11:08] LABS: INR 0.99 (0.9-1.1); Prothrombin Time 10.7 seconds (10.1-12.5)
--- NOTE | 2023-12-02 11:22 | EXP.ANES.CKL ---
[facility] Disclaimer: The information contained in this section may have been updated after the patient was seen, as this information can be updated by other users. 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 stroke H/O cholecystitis CVA (cerebral vascular accident) Abnormal echocardiogram Aortic stenosis Hx of rheumatic fever SOB (shortness of breath) Family history of coronary artery disease Family history of VT (myocardial infarction) HLD (hyperlipidemia) HTN (hypertension) Surgical History Status post surgical removal of malignant neoplasm of skin Presence of cardiac pacemaker Hx of colonoscopy S/P Botox injection H/O lithotripsy History of cholecystectomy H/O: hysterectomy Family History Other FH: CABG (coronary artery bypass surgery) Social History Smoking Status: Never smoker second hand exposure: No alcohol intake: never counseling provided: none substance use type: denies use current occupational status: retired Travel in the last 8 weeks: None household members: spouse housing: house current occupational exposures/hazards: No caffeine: No [facility] Anesthesia Checklist Patient Identification Patient Identification: Arm Band and Verbal (Name & ) Structural Data Admitted From: Home Planned Operative Procedure/s: MARLA Consent for Planned Operative Procedure(s) Verified: Yes NPO Status Verified Time NPO: 00:00 Chart Verification Results Verified: CBC and BMP Additional verifications Anesthesia Reactions: No Hx Blood Transfusions: No Blood Transfusion Reaction: No Airway Assessment Mallampati Score:: Class II C-Spine Mobility Assessed: Yes TMJ Mobility Assessed: Yes Dentition: Good Dentition Neurological Assessment Level of Consciousness: Awake Hx Seizures: No Numbness or tingling in extremities: No Anesthesia Plan Anesthesia Risk discussed: Yes Anesthesia Plan: Verified ASA Class: III Anesthesia Type: MAC
== END 2023-12-02 12:38 | disposition home or self-care (01) ==
PROVIDERS: PCP Internal Medicine; Visit Provider Internal Medicine
DX: R07.9 Chest pain, unspecified (principal); I49.5 Sick sinus syndrome; I48.91 Unspecified atrial fibrillation; Z79.01 Long term (current) use of anticoagulants; Z79.899 Other long term (current) drug therapy; I08.0 Rheumatic disorders of both mitral and aortic valves
CPT/HCPCS: 80048; 85025; 85610; 93005; 93270; 93312; 93319; J7120

== ENCOUNTER 2023-12-18 08:51 | Day surgery (SDC) | payer MEDICARE, BC, SELFPAY ==
[2023-12-18] VITALS (12 sets, daily range): BP systolic 91–156; BP diastolic 52–89; PULSE 60–92; RESP 15–18; TEMP 36.9; O2SAT 95–98; BMI 55.4
--- NOTE | 2023-12-18 07:10 | IR_ITS ---
APPROVED REPORT Patient Location: Outpatient Anesthesiology Technologist: JEWEL Hinojosa RT (R) PROCEDURES Left heart catheterization Left ventriculogram Selective coronary angiogram Drug-eluting stent deployment to the proximal and mid ramus intermedius INDICATION Coronary artery disease, High risk abnormal Myoview, Angina pectoris, Informed consent was obtained prior to the procedure. COMPLICATIONS NONE Estimated Blood Loss: LESS THAN 10 ML TECHNIQUE One percent lidocaine used to anesthetize the right anterior aspect of the wrist. The right radial artery was accessed via the Seldinger technique. A 6 Lao sheath was placed in the right radial artery. 2.5 mg of Verapamil, 800 mcg of nitroglycerin, 1mg Lidocaine and 5000 U Heparin were given through the arterial sheath. The papa catheter was also used to perform left heart catheterization, left ventriculogram and selective coronary angiogram. At the end of the diagnostic angiogram therapeutic heparin was administered giving a therapeutic ACT and the guide catheter was placed in the left main artery followed by Choice PT extra-support wire placed on the ramus intermedius. Primary stenting could not be performed therefore 2.5 mm balloon was used to predilate the stenosis. Following this a 3.5 x 12 mm Kountze frontier stent was placed in the proximal segment at 14 ethel reducing the critical stenosis. There was either wire bias or dissection distally which could not be fully elucidated angiographically however due to the angiographic abnormality I felt it appropriate to place a 3 mm x 34 mm Kountze frontier stent at 14 ethel. A 3 mm x 8 mm balloon was then reintroduced and deployed at 24 ethel throughout the midportion of the 3.5 mm stent extending into the proximal two thirds of the 34 mm stent. DOLORES-3 flow was present before and after the procedure. After achieving excellent angiograph results apparatus was removed the sheath was removed good hemostasis was achieved using TR banding patient was transferred to the postop holding area in stable condition. A guide liner was required in order to deliver the stent and provide additional catheter support ANGIOGRAPHIC RESULTS The left main artery Normal The left anterior descending artery Proximally normal with significant tortuosity with wide mid vessel patency The circumflex artery Gives rise to a large caliber ramus intermedius which has proximal concentric 90% stenosis. The remaining circumflex artery is dominant and has mild 10% luminal irregularities The right coronary artery Nondominant normal The WILLIAM ventriculogram reveals Normal 60% The left ventricular end-diastolic pressure 15 mmHg IMPRESSION Critical stenosis in a large ramus intermedius Successful stenting of the proximal to mid ramus intermedius critical disease reduced to 0% with 2 contiguous drug-eluting stents Normal ejection fraction Normal left ventricular end-diastolic pressure PLAN 1. Plavix 75 mg daily plus aspirin 81 mg daily 2. LDL less than 55 to achieve that high intensity statin 3. Avoidance of tobacco products 4. Risk factor modification 5. Cardiac rehabilitation Electronically signed by : Mack Bhakta MD 12/18/2023 12:58:11
[2023-12-18 09:24] LABS: Basophils # 0.1 K/mm3 (0-0.2); Basophils % 0.7 % (0.1-2.0); Eosinophils # 0.2 K/mm3 (0.0-0.4); Eosinophils % 2.4 % (0.1-12.0); Hematocrit 37.4 % (37.0-47.0); Hemoglobin 12.2 g/dL (12.2-16.2); Lymphocytes % 33.8 % (10-50); Mean Corpuscular HGB Conc 32.6 g/dL (31.8-35.4); Mean Corpuscular Hemoglobin 28.2 pg (27.0-31.2); Mean Corpuscular Volume 86.5 fl (81-99); Monocytes # 0.5 K/mm3 (0.1-1.0); Monocytes % 6.1 % (1.7-9.3); Neutrophils # 5.1 K/mm3 (1.8-7.8); Neutrophils % 57.1 % (37.0-80.0); Platelet Count 295 K/mm3 (142-424); Red Blood Count 4.32 M/mm3 (4.20-5.40); Red Cell Distribution Width 15.7 % (11.5-17.5); White Blood Count 8.9 K/mm3 (4.8-10.8)
[2023-12-18 09:34] LABS: Chloride 103 mmol/L (98-107); Potassium 3.7 mmoL/L (3.5-5.1); Sodium 137 mmol/L (136-145)
[2023-12-18 09:36] LABS: Blood Urea Nitrogen 22 mg/dl (7-17)
[2023-12-18 09:37] LABS: Anion Gap 12.7 mEq/L (5-15); Calcium 9.6 mg/dl (8.4-10.2); Carbon Dioxide 25 mmol/L (22.0-30.0); Creatinine Clearance Estimated 33 mL/min (50-200); Estimated Glomerular Filt Rate 49 ml/min (>60); GFR (African American) 59 ML/MIN (>60); Glucose 106 mg/dl (74-100)
[2023-12-18] MEDS: ONDANSETRON 4MG/2ML VIAL 4 MG IV (11:00)
[2023-12-18] MEDS: HEPARIN 1,000 UNITS/ML 10ML VIAL (CATH LAB) 10000 UNIT IV ×2 (11:06→12:02)
[2023-12-18] MEDS: VERAPAMIL 2.5MG/ML 2ML VIAL 2.5 MG IV (11:06)
[2023-12-18] MEDS: diphenhydrAMINE 50MG/ML VIAL 50 MG IV (11:06)
[2023-12-18] MEDS: LIDOCAINE 1% 10ML MDV 20 ML IJ (11:06)
[2023-12-18] MEDS: NITROGLYCERIN 800MCG/8ML SYR (CATH LAB) 800 MCG IA (11:06)
[2023-12-18] MEDS: HEPARIN 1,000 UNITS/500ML NS (CATH LAB) 3000 UNIT IV (11:06)
[2023-12-18] MEDS: 0.9 % SODIUM CHLORIDE 500 ML 25 ML IV (11:06)
[2023-12-18] MEDS: FENTANYL 100MCG/2ML VIAL 50 MCG IV (12:28)
[2023-12-18] MEDS: ASPIRIN 325MG TABLET 325 MG PO (12:28)
[2023-12-18] MEDS: CLOPIDOGREL 300MG TABLET 600 MG PO (12:28)
[2023-12-18] MEDS: MIDAZOLAM HCL 1MG/1ML 5ML VIAL 1 MG IV (12:28)
[2023-12-18] MEDS: IOPAMIDOL-370 (76%);100ML BOTTLE 120 ML IV (14:57)
[2023-12-18 14:59] LABS: CATHL Activated Clotting Time 307 SEC (74-125)
== END 2023-12-18 15:30 | disposition home or self-care (01) ==
PROVIDERS: PCP Internal Medicine; Visit Provider Internal Medicine
DX: I49.5 Sick sinus syndrome; Z95.0 Presence of cardiac pacemaker; I48.0 Paroxysmal atrial fibrillation; E66.01 Morbid (severe) obesity due to excess calories; E78.2 Mixed hyperlipidemia; R94.39 Abnormal result of other cardiovascular function study; R94.31 Abnormal electrocardiogram [ECG] [EKG]; Z79.899 Other long term (current) drug therapy; Z68.43 Body mass index [BMI] 50.0-59.9, adult; I69.328 Other speech and language deficits following cerebral infarction; I11.0 Hypertensive heart disease with heart failure
CPT/HCPCS: 80048; 85025; 85347; 92928; 93458; 99152; 99153; C1725; C1760; C1769; C1874; C9600; J1644; J2250; J2405; J3010; Q9967

== ENCOUNTER 2023-12-23 09:05 | Outpatient (CLI) | payer MEDICARE, BC, SELFPAY ==
[2023-12-23 09:23] LABS: Basophils # 0.1 K/mm3 (0-0.2); Basophils % 0.6 % (0.1-2.0); Eosinophils # 0.3 K/mm3 (0.0-0.4); Eosinophils % 2.7 % (0.1-12.0); Hematocrit 36.7 % (37.0-47.0); Hemoglobin 11.8 g/dL (12.2-16.2); Lymphocytes # 2.9 K/mm3 (0.7-4.5); Lymphocytes % 30.9 % (10-50); Mean Corpuscular HGB Conc 32.1 g/dL (31.8-35.4); Mean Corpuscular Hemoglobin 28.1 pg (27.0-31.2); Mean Corpuscular Volume 87.5 fl (81-99); Monocytes # 0.5 K/mm3 (0.1-1.0); Monocytes % 4.8 % (1.7-9.3); Neutrophils # 5.8 K/mm3 (1.8-7.8); Platelet Count 348 K/mm3 (142-424); Red Blood Count 4.19 M/mm3 (4.20-5.40); White Blood Count 9.4 K/mm3 (4.8-10.8)
[2023-12-23 10:02] LABS: Chloride 106 mmol/L (98-107); Potassium 4.1 mmoL/L (3.5-5.1); Sodium 139 mmol/L (136-145)
[2023-12-23 10:05] LABS: Anion Gap 14.1 mEq/L (5-15); Blood Urea Nitrogen 20 mg/dl (7-17); Carbon Dioxide 23 mmol/L (22.0-30.0); Estimated Glomerular Filt Rate 49 ml/min (>60); GFR (African American) 59 ML/MIN (>60)
[2023-12-23 10:06] LABS: Calcium 9.7 mg/dl (8.4-10.2); Glucose 101 mg/dl (74-100)
== END 2023-12-23 23:59 | disposition home or self-care (01) ==
LOC: LAB 09:06
PROVIDERS: PCP Internal Medicine; Visit Provider Internal Medicine
DX: I25.10 Atherosclerotic heart disease of native coronary artery without angina pectoris (principal); Z95.5 Presence of coronary angioplasty implant and graft
CPT/HCPCS: 36415; 80048; 85025

== ENCOUNTER 2024-01-01 13:41 | Outpatient (RCR) | payer MEDICARE, BC, SELFPAY | END 2024-03-03 14:00 | disposition home or self-care (01) | LOC: PT 13:41 | PROVIDERS: Visit Provider Internal Medicine | DX: Z98.890 Other specified postprocedural states (principal); Z95.5 Presence of coronary angioplasty implant and graft | CPT/HCPCS: 93798 ==

== ENCOUNTER 2024-03-03 09:46 | Outpatient (CLI) | payer MEDICARE, BC, SELFPAY ==
[2024-03-03 09:47] LABS: Basophils # 0.1 K/mm3 (0-0.2); Basophils % 0.5 % (0.1-2.0); Eosinophils # 0.2 K/mm3 (0.0-0.4); Eosinophils % 2.1 % (0.1-12.0); Hematocrit 38.6 % (37.0-47.0); Hemoglobin 12.4 g/dL (12.2-16.2); Lymphocytes # 2.3 K/mm3 (0.7-4.5); Lymphocytes % 24.2 % (10-50); Mean Corpuscular HGB Conc 32.2 g/dL (31.8-35.4); Mean Corpuscular Hemoglobin 27.8 pg (27.0-31.2); Mean Corpuscular Volume 86.5 fl (81-99); Mean Platelet Volume 8.4 fl (7.4-10.4); Monocytes # 0.5 K/mm3 (0.1-1.0); Neutrophils # 6.4 K/mm3 (1.8-7.8); Neutrophils % 68.1 % (37.0-80.0); Platelet Count 377 K/mm3 (142-424); Red Blood Count 4.46 M/mm3 (4.20-5.40); Red Cell Distribution Width 16.5 % (11.5-17.5); White Blood Count 9.3 K/mm3 (4.8-10.8)
[2024-03-03 10:24] LABS: Alanine Aminotransferase 35 U/L (12-78); Albumin Level 3.9 g/dl (3.5-5.0); Albumin/Globulin Ratio 1.1 (1.1-1.8); Alkaline Phosphatase 109 U/L (38-126); Anion Gap 13.1 mEq/L (5-15); Aspartate Amino Transferase 31 U/L (14-36); Bilirubin,Total 0.7 mg/dl (0.2-1.3); Blood Urea Nitrogen 19 mg/dl (7-17); Calcium 9.8 mg/dl (8.4-10.2); Carbon Dioxide 24 mmol/L (22.0-30.0); Chloride 106 mmol/L (98-107); Chol/HDL Ratio 4.5 (1-3.5); Cholesterol 194 mg/dl (140-200); Estimated Glomerular Filt Rate 71 ml/min (>60); GFR (African American) 85 ML/MIN (>60); Globulin 3.5 g/dL (1.3-3.2); Glucose 106 mg/dl (74-100); HDL Cholesterol 43 mg/dl (40-60); Potassium 4.1 mmoL/L (3.5-5.1); Sodium 139 mmol/L (136-145); Total Protein,Serum 7.4 g/dl (6.3-8.2); Triglycerides 219 mg/dl (30-150); VLDL Cholesterol 44 mg/dL (0-40)
[2024-03-03 10:35] LABS: Direct LDL Cholesterol 98.86 mg/dL (100-129)
[2024-03-03 10:40] LABS: 25-OH Vitamin D, Total 36.2 ng/mL (30-100)
[2024-03-03 10:55] LABS: Thyroid Stimulating Hormone 4.21 uIU/mL (0.465-4.68)
[2024-03-03 11:14] LABS: Vitamin B12 570 pg/mL (239-931)
[2024-03-03 13:04] LABS: Iron 55 ug/dL (37-170)
[2024-03-03 13:14] LABS: Total Iron Binding Capacity 312 ug/dL (265-497)
[2024-03-03 13:41] LABS: Ferritin 29.1 ng/ml (11.1-264)
[2024-03-03 14:00] LABS: HIV (1&2) Antibody Rapid NONREACTIVE (NONREACTIVE); Hemoglobin A1C 5.4 % (4.0-6.0)
[2024-03-04 08:31] LABS: HCV Ab Non Reactive (Non Reactive)
== END 2024-03-03 23:59 | disposition home or self-care (01) ==
LOC: LAB.DROPOF 09:47
PROVIDERS: PCP Nurse Practitioner Family; Visit Provider Nurse Practitioner Family
DX: E55.9 Vitamin D deficiency, unspecified (principal); R53.83 Other fatigue; E66.01 Morbid (severe) obesity due to excess calories; D64.9 Anemia, unspecified; Z11.59 Encounter for screening for other viral diseases; E78.2 Mixed hyperlipidemia; R60.0 Localized edema; I10 Essential (primary) hypertension; Z11.4 Encounter for screening for human immunodeficiency virus [HIV]; Z13.1 Encounter for screening for diabetes mellitus; R39.9 Unspecified symptoms and signs involving the genitourinary system; Z68.43 Body mass index [BMI] 50.0-59.9, adult
CPT/HCPCS: 80053; 80061; 82306; 82607; 82728; 83036; 83540; 83550; 84439; 84443; 85025

== ENCOUNTER 2024-03-05 09:53 | Outpatient (CLI) | payer MEDICARE, BC, SELFPAY ==
[2024-03-05 13:42] LABS: Microscopic, Urine URINE MICROSCOPIC (MICROSCOPIC)
[2024-03-05 14:57] LABS: Appearance,Urine CLEAR (Clear); Bilirubin,Urine Negative (Negative); Blood, Urine Negative (Negative); Color,Urine YELLOW (Yellow); Glucose,Urine (UA) Negative (Negative); Ketones,Urine Negative (Negative); Leukocyte Esterase,Urine Negative (Negative); Nitrate,Urine Negative (Negative); Protein,Urine Negative (Negative); Specific Gravity, Urine 1.015 (1.005-1.030); Urobilinogen,Urine 0.2 EU/dl (0.2)
== END 2024-03-05 23:59 | disposition home or self-care (01) ==
LOC: LAB.DROPOF 03-06 09:54
PROVIDERS: PCP Nurse Practitioner Family; Visit Provider Nurse Practitioner Family
DX: R53.83 Other fatigue (principal); Z13.1 Encounter for screening for diabetes mellitus; R39.9 Unspecified symptoms and signs involving the genitourinary system; I10 Essential (primary) hypertension
CPT/HCPCS: 81001; 84156; 87086

== ENCOUNTER 2024-04-09 12:30 | Outpatient (CLI) | payer MEDICARE, BC, SELFPAY ==
--- NOTE | 2024-04-09 12:30 | MM_ITS ---
PROCEDURE INFORMATION: Exam: MG Bilateral Screening 3D Mammography Exam date and time: 04/09/2024 12:58 PM Age: 73 years old Clinical indication: Screening examination. TECHNIQUE: Imaging protocol: Bilateral Screening tomosynthesis and 2D mammography including computer-aided detection (CAD) when performed. COMPARISON: 1. MG MM DIG SCREENING MAMM BI W/CAD 04/03/2023 10:39 AM 2. MG MM DIG SCREENING MAMM BI W/CAD 03/13/2022 1:11 PM FINDINGS: MAMMOGRAPHY: Breast composition: There are scattered areas of fibroglandular density. Mass: None. Architectural distortion: None. Calcifications: No suspicious calcifications. Asymmetric density: None. Skin thickening: None. Axillary adenopathy: None. Other findings: A power pack is noted to overlie the left chest. IMPRESSION: No mammographic evidence of malignancy. Annual screening is recommended unless otherwise clinically indicated. ASSESSMENT: BI-RADS Category 1: Negative.
== END 2024-04-09 23:59 | disposition home or self-care (01) ==
LOC: RAD 12:30
PROVIDERS: PCP Internal Medicine; Visit Provider Internal Medicine
DX: Z12.31 Encounter for screening mammogram for malignant neoplasm of breast (principal)
CPT/HCPCS: 77063; 77067

== ENCOUNTER 2024-05-12 08:52 | Day surgery (SDC) | payer MEDICARE, BC, SELFPAY ==
[2024-05-12 10:40] VITALS: BMI 56.0
[2024-05-12] MEDS: TETRACAINE 0.5% OPTH SOL 15ML OP ×4 (10:55→11:17)
[2024-05-12] MEDS: PHENYLEPHRINE 2.5% OPHTH SOLN 2ML OP ×3 (10:55→11:05)
[2024-05-12] MEDS: CYCLOPENTOLATE 2% OPHTH SOLN 2ML BOTTLE OP ×3 (10:55→11:05)
[2024-05-12 10:57] VITALS: BP 157/90; PULSE 85; RESP 18; TEMP 36.2; O2SAT 96
[2024-05-12 12:22] VITALS: BP 180/94; PULSE 72; RESP 18; O2SAT 96
[2024-05-12] MEDS: SODIUM CHLORIDE 0.9% 10ML FLUSH SYRINGE 10 ML IV (12:22)
[2024-05-12] MEDS: MIDAZOLAM 2MG/2ML VIAL 1 MG IV (12:22)
[2024-05-12 12:27] VITALS: BP 170/79; PULSE 79; RESP 18; O2SAT 94
[2024-05-12] MEDS: TRI-MOXI 15MG/1MG/ML 1ML OPHTH VIAL 1 ML OP (12:30)
[2024-05-12] MEDS: TIMOLOL 0.5% OPTH SOLN 5ML OP (12:30)
[2024-05-12] MEDS: LIDOCAINE 1% PF 2ML AMPULE 2 ML IJ (12:30)
[2024-05-12 12:32] VITALS: BP 168/88; PULSE 82; RESP 18; O2SAT 93
[2024-05-12 12:37] VITALS: BP 157/81; PULSE 72; RESP 18; O2SAT 95
[2024-05-12 12:44] VITALS: BP 149/82; PULSE 79; RESP 18; TEMP 36.4; O2SAT 97
== END 2024-05-12 12:59 | disposition home or self-care (01) ==
PROVIDERS: PCP Internal Medicine; Visit Provider Ophthalmology
PROC: (CPT 66984; principal; 2024-05-12 11:30)
DX: H26.9 Unspecified cataract (principal)
CPT/HCPCS: 66984; J2250; V2632

== ENCOUNTER 2024-06-08 11:34 | Outpatient (CLI) | payer MEDICARE, BC, SELFPAY ==
[2024-06-08 12:33] LABS: Basophils % 0.5 % (0.1-2.0); Eosinophils # 0.1 K/mm3 (0.0-0.4); Eosinophils % 1.4 % (0.1-12.0); Hematocrit 37.2 % (37.0-47.0); Hemoglobin 12.6 g/dL (12.2-16.2); Lymphocytes # 2.4 K/mm3 (0.7-4.5); Lymphocytes % 28.5 % (10-50); Mean Corpuscular HGB Conc 33.9 g/dL (31.8-35.4); Mean Corpuscular Hemoglobin 28.2 pg (27.0-31.2); Mean Corpuscular Volume 83.1 fl (81-99); Mean Platelet Volume 7.6 fl (7.4-10.4); Monocytes # 0.6 K/mm3 (0.1-1.0); Monocytes % 7.1 % (1.7-9.3); Neutrophils # 5.3 K/mm3 (1.8-7.8); Neutrophils % 62.5 % (37.0-80.0); Platelet Count 291 K/mm3 (142-424); Red Blood Count 4.48 M/mm3 (4.20-5.40); Red Cell Distribution Width 16.4 % (11.5-17.5); White Blood Count 8.5 K/mm3 (4.8-10.8)
[2024-06-08 13:07] LABS: Chloride 108 mmol/L (98-107); Potassium 3.9 mmoL/L (3.5-5.1); Sodium 139 mmol/L (136-145)
[2024-06-08 13:10] LABS: Alanine Aminotransferase 34 U/L (12-78); Alkaline Phosphatase 107 U/L (38-126); Anion Gap 10.9 mEq/L (5-15); Aspartate Amino Transferase 30 U/L (14-36); Bilirubin,Direct 0.3 mg/dl (0.0-0.4); Bilirubin,Indirect 0.2 mg/dL (0.0-0.9); Bilirubin,Total 0.5 mg/dl (0.2-1.3); Bilirubin,Unconjugated 0.2 mg/dL (0.0-1.1); Blood Urea Nitrogen 24 mg/dl (7-17); Calcium 9.6 mg/dl (8.4-10.2); Carbon Dioxide 24 mmol/L (22.0-30.0); Cholesterol 190 mg/dl (140-200); Estimated Glomerular Filt Rate 54 ml/min (>60); GFR (African American) 66 ML/MIN (>60); Glucose 102 mg/dl (74-100); Total Protein,Serum 6.9 g/dl (6.3-8.2); Triglycerides 196 mg/dl (30-150); VLDL Cholesterol 39 mg/dL (0-40)
[2024-06-08 13:11] LABS: Chol/HDL Ratio 4.6 (1-3.5); HDL Cholesterol 41 mg/dl (40-60); Magnesium 1.8 mg/dl (1.6-2.3)
[2024-06-08 13:25] LABS: Free T4 (Free Thyroxine) 0.89 ng/dl (0.78-2.19)
[2024-06-08 13:28] LABS: Direct LDL Cholesterol 102.22 mg/dL (100-129)
[2024-06-08 13:39] LABS: Thyroid Stimulating Hormone 3.28 uIU/mL (0.465-4.68)
== END 2024-06-08 23:59 | disposition home or self-care (01) ==
LOC: LAB 11:35
PROVIDERS: PCP Internal Medicine; Visit Provider Nurse Practitioner
DX: I25.10 Atherosclerotic heart disease of native coronary artery without angina pectoris (principal); Z95.5 Presence of coronary angioplasty implant and graft; I10 Essential (primary) hypertension; E78.2 Mixed hyperlipidemia
CPT/HCPCS: 36415; 80048; 80061; 80076; 83735; 84439; 84443; 85025

== ENCOUNTER 2024-06-09 07:54 | Day surgery (SDC) | payer MEDICARE, BC, SELFPAY ==
[2024-06-09 08:46] VITALS: BP 142/84; PULSE 89; RESP 16; TEMP 36.3; O2SAT 97
[2024-06-09] MEDS: CYCLOPENTOLATE 2% OPHTH SOLN 2ML BOTTLE OP ×3 (08:52)
[2024-06-09] MEDS: PHENYLEPHRINE 2.5% OPHTH SOLN 2ML OP ×3 (08:52→08:53)
[2024-06-09] MEDS: TETRACAINE 0.5% OPTH SOL 15ML OP ×3 (08:53→08:54)
[2024-06-09 09:55] VITALS: BP 150/85; PULSE 86; RESP 16; O2SAT 95
[2024-06-09] MEDS: MIDAZOLAM 2MG/2ML VIAL 2 MG (09:55)
[2024-06-09] MEDS: LIDOCAINE 1% PF 2ML AMPULE 2 ML IJ (09:58)
[2024-06-09] MEDS: TIMOLOL 0.5% OPTH SOLN 5ML OP (09:58)
[2024-06-09] MEDS: TRI-MOXI 15MG/1MG/ML 1ML OPHTH VIAL 1 ML OP (09:59)
[2024-06-09] MEDS: SODIUM CHLORIDE 0.9% 10ML FLUSH SYRINGE 10 ML IV (09:59)
[2024-06-09 10:00] VITALS: BP 149/81; PULSE 84; RESP 16; O2SAT 95
[2024-06-09 10:05] VITALS: BP 152/80; PULSE 87; RESP 16; O2SAT 95
[2024-06-09 10:10] VITALS: BP 151/79; PULSE 84; RESP 16; O2SAT 95
[2024-06-09 10:15] VITALS: BP 125/69; PULSE 86; RESP 18; TEMP 36.6; O2SAT 98
== END 2024-06-09 10:25 | disposition home or self-care (01) ==
PROVIDERS: PCP Internal Medicine; Visit Provider Ophthalmology
PROC: (CPT 66984; principal; 2024-06-09 10:00)
DX: H26.9 Unspecified cataract (principal)
CPT/HCPCS: 66984; J2250; V2632

== ENCOUNTER 2024-08-04 09:06 | Outpatient (CLI) | payer MEDICARE, SELFPAY ==
[2024-08-04 09:36] LABS: Basophils % 0.2 % (0.1-2.0); Eosinophils # 0.2 K/mm3 (0.0-0.4); Eosinophils % 1.5 % (0.1-12.0); Hematocrit 37.8 % (37.0-47.0); Hemoglobin 12.4 g/dL (12.2-16.2); Lymphocytes % 20.3 % (10-50); Mean Corpuscular HGB Conc 32.8 g/dL (31.8-35.4); Mean Corpuscular Hemoglobin 27.4 pg (27.0-31.2); Mean Corpuscular Volume 83.4 fl (81-99); Mean Platelet Volume 9.6 fl (7.4-10.4); Monocytes # 0.8 K/mm3 (0.1-1.0); Monocytes % 7.5 % (1.7-9.3); Neutrophils % 70.2 % (37.0-80.0); Platelet Count 315 K/mm3 (142-424); Red Blood Count 4.53 M/mm3 (4.20-5.40); Red Cell Distribution Width 15.5 % (11.5-17.5)
[2024-08-04 10:14] LABS: Free T4 (Free Thyroxine) 0.97 ng/dl (0.78-2.19)
[2024-08-04 10:16] LABS: Albumin Level 4.1 g/dl (3.5-5.0)
[2024-08-04 10:17] LABS: Chloride 101 mmol/L (98-107); Potassium 3.4 mmoL/L (3.5-5.1); Sodium 138 mmol/L (136-145)
[2024-08-04 10:19] LABS: Alanine Aminotransferase 33 U/L (12-78); Anion Gap 16.4 mEq/L (5-15); Aspartate Amino Transferase 28 U/L (14-36); Bilirubin,Unconjugated 0.5 mg/dL (0.0-1.1); Blood Urea Nitrogen 22 mg/dl (7-17); Carbon Dioxide 24 mmol/L (22.0-30.0); Estimated Glomerular Filt Rate 61 ml/min (>60); GFR (African American) 74 ML/MIN (>60)
[2024-08-04 10:20] LABS: Alkaline Phosphatase 112 U/L (38-126); Bilirubin,Indirect 0.5 mg/dL (0.0-0.9); Bilirubin,Total 0.5 mg/dl (0.2-1.3); Calcium 9.5 mg/dl (8.4-10.2); Chol/HDL Ratio 4.9 (1-3.5); Cholesterol 191 mg/dl (140-200); Glucose 129 mg/dl (74-100); HDL Cholesterol 39 mg/dl (40-60); Magnesium 1.5 mg/dl (1.6-2.3); Total Protein,Serum 6.9 g/dl (6.3-8.2); Triglycerides 217 mg/dl (30-150); VLDL Cholesterol 43 mg/dL (0-40)
[2024-08-04 10:31] LABS: Direct LDL Cholesterol 98.13 mg/dL (100-129)
[2024-08-04 10:49] LABS: Thyroid Stimulating Hormone 3.89 uIU/mL (0.465-4.68)
== END 2024-08-04 23:59 | disposition home or self-care (01) ==
LOC: LAB 09:08
PROVIDERS: PCP Internal Medicine; Visit Provider Nurse Practitioner
DX: I48.0 Paroxysmal atrial fibrillation (principal); I25.10 Atherosclerotic heart disease of native coronary artery without angina pectoris; Z95.0 Presence of cardiac pacemaker; I69.328 Other speech and language deficits following cerebral infarction; I63.9 Cerebral infarction, unspecified; E78.2 Mixed hyperlipidemia; I10 Essential (primary) hypertension; R47.01 Aphasia
CPT/HCPCS: 36415; 80048; 80061; 80076; 83735; 84439; 84443; 85025

== ENCOUNTER 2024-08-05 07:58 | Outpatient (CLI) | payer MEDICARE, SELFPAY ==
--- NOTE | 2024-08-05 07:59 | CT_ITS ---
FINAL REPORT TECHNIQUE: Multiple axial CT sections were performed from the foramen magnum to the vertex. Coronal reformatted images were also obtained. Precontrast and postcontrast injection images were obtained. This study was performed with technique to keep radiation doses as low as reasonably achievable, (ALARA). Individualized dose reduction techniques using automated exposure control or adjustment of mA and/or kV according to the patient size were employed. CLINICAL HISTORY: hx CVA, speech deficit FINDINGS: There is mild atrophy. Extensive patchy decreased attenuation is seen in the right matter. There appears to be a small, old cortical infarct in the posterior left frontal lobe. There is encephalomalacia in the right posterior parietal lobe. The ventricles are normal in size. There is no evidence of hemorrhage. No masses are identified. No extra-axial fluid collection is seen. The sinuses demonstrate Chronic Bilateral Maxillary and Ethmoid Sinusitis. No osseous abnormality is seen on the bone window images. Postcontrast images demonstrate no abnormal enhancement. IMPRESSION: Chronic changes without acute intracranial abnormality. Reviewed, Interpreted and Dictated by Alistiar Orlando MD Transcribed by Monique Flores Authenticated and [facility]
[2024-08-05] MEDS: IOPAMIDOL-300 (61%) 100ML VIAL 100 ML IV (08:51)
== END 2024-08-05 23:59 | disposition home or self-care (01) ==
LOC: RAD 07:59
PROVIDERS: PCP Internal Medicine; Visit Provider Nurse Practitioner
DX: R47.01 Aphasia (principal); I69.328 Other speech and language deficits following cerebral infarction
CPT/HCPCS: 70470; Q9967

== ENCOUNTER 2024-08-06 16:52 | Outpatient (CLI) | payer MEDICARE, SELFPAY ==
[2024-08-06 16:51] LABS: Coronavirus 19, PCR Not Detected (NotDetected); Human Rhinovirus Not Detected (NotDetected); Influenza A, PCR Not Detected (NotDetected); Influenza B, PCR Not Detected (NotDetected); Respiratory Syncytial Virus Not Detected (NotDetected)
== END 2024-08-06 23:59 | disposition home or self-care (01) ==
LOC: LAB.DROPOF 16:52
PROVIDERS: PCP Nurse Practitioner Family; Visit Provider Nurse Practitioner Family
DX: R50.9 Fever, unspecified (principal); R09.81 Nasal congestion
CPT/HCPCS: 87631

== ENCOUNTER 2024-10-13 15:18 | Outpatient (CLI) | payer MEDICARE, SELFPAY ==
--- OUTSIDE RECORDS SUMMARY | 2024-10-13 15:20 | XMS_ITS | Continuity of Care Document ---
Author Organization [facility] ([facility], [facility] Address [address] [place] [address] Care Team Providers Care 21 Dealer Name Role Phone TAMEKA CHAUDHRY Urologist [phone] Assessment Encounter Date Assessment Date Assessment LastModified by Organization Details LastModified Time 09/11/2024 09/11/2024 73-year-old female with history of overactive bladder and mixed urinary incontinence. She underwent hysterectomy in 2018. She has tried and failed oxybutynin and Myrbetriq. She underwent cystoscopy with bladder Botox injections (100 units) and Bulkamid injections 08/2022. She had bladder Botox (100 units) repeated 03/2024. She is doing well currently. The UA is negative. I recommend increasing water intake to offset the strong smell of her urine. She admittedly does not drink much water. She will call for follow-up when needed. Plan: Follow-up as needed to repeat Botox. travis Not available 09/11/2024 09:56:33 Plan of Treatment Reminders Order Date Submit Date Provider Last Modified By Organization Details Last Modified Time Details Appointments RECHECK 2024 09:30A M TAMEKA CHAUDHRY METALIZING MACHINE OPERATOR AUTOMATIC Not available Not available Not available Lab urinalys is panel, auto 2024 025 travis [facility], [address] [facility], [place], [address], 09/11/2024 09:54:06 Referral None recorded . Procedures None recorded . Surgeries None recorded . Imaging None recorded . Medication Orders None recorded . Patient TargetsNo targets recorded. Patient InstructionsNo instructions recorded. Reason for Referral None Reported. Results Created Date Observation Date Name Description Value Unit Range Abnormal Flag Note LastModifiedBy Organization Detail LastModifiedTime 09/12/1909/11/2024 urina lysis panel , auto Unknown Analyte Clean Catch Not Available [facility] [address] [place], [address], 09/11/2024 09:21:59 09/12/19 25 09/11/2024 urina lysis panel , auto Unknown Analyte Yellow Not Available [facility] [address] [place], [address], 09/11/2024 09:21:59 09/12/19 25 09/11/2024 urina lysis panel , auto Unknown Analyte Clear Not Available [facility] [address] [place], [address], 09/11/2024 09:21:59 09/12/19 25 09/11/2024 urina lysis panel , auto Unknown Analyte 1.025 Not Available [facility] [address] [place], [address], 09/11/2024 09:21:59 09/12/19 25 09/11/2024 urina lysis panel , auto Unknown Analyte 5.0 Not Available [facility] [address] [place], [address], 09/11/2024 09:21:59 09/12/19 25 09/11/2024 urina lysis panel , auto Unknown Analyte Negati ve Not Available [facility] [address] [place], [address], 09/11/2024 09:21:59 09/12/19 25 09/11/2024 urina lysis panel , auto Unknown Analyte Negati ve Not Available [facility] [address] [place], [address], 09/11/2024 09:21:59 09/12/19 25 09/11/2024 urina lysis panel , auto Unknown Analyte Negati ve Not Available [facility] [address] [place], [address], 09/11/2024 09:21:59 09/12/19 25 09/11/2024 urina lysis panel , auto Unknown Analyte Normal Not Available [facility] [address] [facility], [place], [address], 09/11/2024 09:21:59 09/12/1909/11/2024 urina lysis panel , auto Unknown Analyte Negati ve Not Available [facility] [address] [place], [address], 09/11/2024 09:21:59 09/12/1909/11/2024 urina lysis panel , auto Unknown Analyte Normal Not Available [facility] [address] [facility], [place], [address], 09/11/2024 09:21:59 09/12/1909/11/2024 urina lysis panel , auto Unknown Analyte Negati ve Not Available [facility] [address] [place], [address], 09/11/2024 09:21:59 09/12/1909/11/2024 urina lysis panel , auto Unknown Analyte Negati ve Not Available [facility] [address] [place], [address], 09/11/2024 09:21:59 Result Notes None recorded. Procedures Surgical History Date Name Laterality Status Provider Name and Address Organization Details Recorded Time 09/12/19 Post Void Residual; Ultrasound completed Negar Juares [facility] 09/11/2024 09:51:58 05/11/20 24 Post Void Residual; Ultrasound completed Thelma Knutson [facility] 05/11/2024 10:25:25 04/13/20 24 Urinary Bladder completed LIT TSE MD [address] [place] [address], [address], [facility] 04/15/2024 12:58:19 02/19/20 24 Post Void Residual; Ultrasound completed [facility] 02/19/2024 11:27:21 12/22/19 23 Post Void Residual; Ultrasound completed [facility] 12/21/2022 12:43:35 11/22/19 23 Urinary Bladder completed LIT TSE MD [address] [place] [address] [place], [address], [facility] 11/21/2022 07:55:28 09/01/19 23 Post Void Residual; Ultrasound completed [facility] 08/31/2022 09:44:39 07/01/19 22 Kidney Stone Removal completed [facility] 08/31/2022 09:54:52 07/01/19 19 Hysterectomy completed [facility] 08/31/2022 09:54:25 08/01/19 17 CHOLECYSTECTOMY, LAPAROSCOPIC (SURG) completed [facility] 10/01/2016 10:37:16 Vamp Presser Surgery completed [facility] 07/13/2016 09:49:29 Breast Surgery completed [facility] 07/13/2016 09:49:02 Imaging Results None recorded. Procedure Notes None recorded. Medical Equipment None Reported. Medications Name Sig Start Date Stop Date Status Note LastModified by Organization Details LastModified Time cyclobenzap rine 10 mg tablet 07/13 completed Not Available Not Available Not Available atorvastati n 80 mg tablet TAKE 1 TABLET BY MOUTH ONCE DAILY FOR CHOLESTER OL active Not Available Not Available No t Available lisinopril 20 mg-hydrochl orothiazide 12.5 mg tablet active Not Available Not Available Not Available oxybutynin chloride ER 10 mg tablet,exte nded release 24 hr TAKE 1 TABLET BY MOUTH ONCE DAILY 05/11 completed Not Available Not Available Not Available pravastatin 40 mg tablet active Not Available Not Available Not Available hydrocodone 5 mg-acetamin ophen 325 mg tablet 10/01 completed Not Available Not Available Not Available phentermine 37.5 mg tablet TAKE 1 TABLET BY MOUTH ONCE DAILY FOR 30 DAYS active Not Available Not Available No t Available acetaminoph en 300 mg-codeine 30 mg tablet TAKE 1 TABLET BY MOUTH ONCE DAILY active Not Available Not Available No t Available clopidogrel 75 mg tablet TAKE 1 TABLET BY MOUTH ONCE DAILY active Not Available Not Available No t Available amlodipine 5 mg tablet TAKE 1 TABLET BY MOUTH ONCE DAILY active Not Available Not Available No t Available trimethopri m 100 mg tablet TAKE 1 TABLET BY MOUTH ONCE DAILY FOR 90 DAYS active Not Available Not Available No t Available sulfamethox azole 800 mg-trimetho prim 160 mg tablet 07/13 completed Not Available Not Available Not Available aspirin 81 mg tablet,lois yed release TAKE 1 TABLET BY MOUTH ONCE DAILY FOR HEART DISEASE 02/18 completed Not Available Not Available Not Available oxycodone-a cetaminophe n 5 mg-325 mg tablet TAKE 1 TABLET BY MOUTH EVERY 4 TO 6 HOURS NEEDED FOR SEVERE PAIN (SCALE SCORE 7-10) HOLD TYLENOL #3 WHILE TAKING THIS MEDICATIO N active Not Available Not Available No t Available amoxicillin 875 mg tablet TAKE ONE TABLET BY MOUTH TWICE DAILY FOR 10 DAYS active Not Available Not Available No t Available estradiol 1 mg tablet TAKE 1 TABLET BY MOUTH ONCE DAILY active Not Available Not Available No t Available tamsulosin 0.4 mg capsule TAKE 1 CAPSULE BY MOUTH AT BEDTIME 12/21 completed Not Available Not Available Not Available promethazin e 25 mg tablet active Not Available Not Available Not Available lisinopril 20 mg-hydrochl orothiazide 25 mg tablet TAKE 1 TABLET BY MOUTH ONCE DAILY active Not Available Not Available No t Available estradiol 2 mg tablet TAKE 1 TABLET BY MOUTH ONCE DAILY FOR 30 DAYS active Not Available Not Available No t Available hydrocortis one 2.5 % topical cream APPLY CREAM TO AFFECTED AREA TWICE DAILY FOR 14 DAYS AT A TIME active Not Available Not Available No t Available metoprolol succinate ER 25 mg tablet,exte nded release 24 hr TAKE 1/2 (ONE-HALF ) TABLET BY MOUTH ONCE DAILY active Not Available Not Available No t Available phentermine 37.5 mg capsule TAKE 1 CAPSULE BY MOUTH ONCE DAILY IN THE MORNING FOR 30 DAYS active Not Available Not Available No t Available nitrofurant oin monohydrate /macrocryst als 100 mg capsule TAKE 1 CAPSULE BY MOUTH WITH FOOD EVERY 12 HOURS FOR 7 DAYS 02/18 completed Not Available Not Available Not Available duloxetine 30 mg capsule,del ayed release TAKE 1 CAPSULE BY MOUTH ONCE DAILY FOR 7 DAYS THEN TAKE 2 TABLETS BY MOUTH ONCE DAILY active Not Available Not Available No t Available solifenacin 10 mg tablet Take 1 tablet every day by oral route as directed for 30 days. 05/11 completed Not Available Not Available Not Available Vitamin D3 one daily active Not Available Not Available Not Available FeroSul 325 mg (65 mg iron) tablet active Not Available Not Available Not Available trospium ER 60 mg capsule,ext ended release 24 hr Take by oral route for 30 days. 09/04 completed Not Available Not Available Not Available Vitamin D2 one daily 08/17 completed Not Available Not Available Not Available Eliquis 5 mg tablet TAKE 1 TABLET BY MOUTH TWICE DAILY active Not Available Not Available No t Available BinaxNOW COVID-19 Ag Self Test kit TEST DIRECTED TODAY active Not Available Not Available No t Available Vitals Date Recorded Body height Provider Name an d Address Organization Details Last Updated DateTime 09/11/2024 152[facility] 09/11/2024 09:44:52 Social History Question Answer Notes LastModified by Organizat ion Details LastModified Time Tobacco Smoking Status Never Smoker smokes in house Pily Elliot [facility] 07/13/2016 09:46:48 What Is Your Level Of Alcohol Consumption? 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 Information not available 08/31/2022 Sex: Unknown Functional Status None recorded. Mental Status None recorded. Family History Relationship Description Onset Age of this Age Resolved Age Notes LastModified by Organization Details LastModified Time Unspecified Relation Hypertensive disorder Not available 2022 09:57:38 Unspecified Relation Kidney stone Not available 08/2022 09:57:48 Medical History Condition Response Other Y Kidney Stones Y High Cholesterol Y Liver Disease Gallbladder Disease Hypertension Y Kidney Disease Y Gynecological HistoryNo gynecological history recorded. Obstetrics History GPAL:G 0 P 0 0 0 0 Past Encounters Encounter ID Performer Location Encounter Start Date Encounter Closed Date Diagnosis/Indication Diagnosis SNOMED-CT Code Diagnosis ICD10 Code Diagnosis Note [id number] TAMEKA CHAUDHRY APRN UROLOGY [facility] [address] [facility] [place] [address] 09/11/2024 09:27:55 09/11/2024 09:58:56 Overactive urinary bladder 070899153 N32.81 Mixed urin andrea incontinence 443523855 N39.46 Recurrent urinary tract infection 013968290 N39.0 Health Concerns Section Related Observation LastModified by Organization Detai ls LastModified Time None Recorded Concern Status LastModified by Organization Details LastModified Time None Recorded Payers Encounter Date Sequence Insurance Name Policy Number Policy Chapa Covered Member ID Chapa Member ID Guarantor Name 09/11/2024 1 [place] Neeta Ashford [id number] Neeta Ashford 09/11/2024 2 [employer] - [employer] (MEDICARE SUPPLEMENT) Neeta Ashford [id number] Neeta Ashford Notes Date Note Type Note Provider Name and Address Organization Details Recorded Time 09/11/2024 text/html 73-year-old fema le here for further evaluation of urinary incontinence. She underwent hysterectomy in 2019. She has a history of recurrent UTIs. Her previous urologist prescribed trimethoprim which she takes daily. She had urinary retention 40+ years ago after D&C. She has urinary frequency (q 1 hour), urgency, urge incontinence, nocturia x3 and nocturnal enuresis. She also has female stress incontinence. She says she has been told in the past that she has a bladder prolapse. She wears pads daily and changes them 5-6 times per day. She tried oxybutynin in the past which was prescribed by her risk manager. She tried Myrbetriq for 6-8 months which was prescribed by her pcp. She had only slight improvement in symptoms on these medications. She drinks mostly water with occasional Sprite and tea. She underwent cystoscopy with bladder Botox (100 units) and Bulkamid injections 08/2022 She has never been a smoker but, is exposed to second hand smoke by her . HPI: She returns today for follow-up. She is currently doing well. She feels the Bulkamid and Botox are still very effective in controlling her urinary incontinence. She has noticed a strong odor to her urine and wants to know how this can be improved. TAMEKA CHAUDHRY, WATER MAIN INSPECTOR [address] [place], [address], [facility] 09/11/2024 09:56:45 OBGyn Episode No OBEpisode recorded.
--- OUTSIDE RECORDS SUMMARY | 2024-10-13 15:20 | XMS_ITS | Data Portability ---
Author Organization FRIEDA SHRAVAN White [facility] CLOS[facility] Address [address] [place] [address] Care Team Providers Care Clinical Research Management Associate Name Role Phone TAMEKA CHAUDHRY Urologist [phone] Assessment Encounter Date Assessment Date Assessment LastModified by Organization Details LastModified Time 12/21/2022 12/21/2022 72-year-old female with history of overactive bladder and mixed urinary incontinence. She underwent hysterectomy in 2018. She has tried and failed oxybutynin and Myrbetriq. She underwent cystoscopy with bladder Botox injections (100 units) and Bulkamid injections 10/2022. She has had great results since her procedure. She is very pleased. She will follow-up in 4 months for recheck. She was instructed that she may try stopping her trimethoprim. She was instructed to go to [facility] or call us if she develops dysuria or UTI symptoms. Plan: Stop trimethoprim. Follow-up in 4 months. evickers Not available 12/21/2022 13:32:40 04/18/2023 04/18/2023 72-year-old female with history of overactive bladder and mixed urinary incontinence. She underwent hysterectomy in 2019. She has tried and failed oxybutynin and Myrbetriq. She underwent cystoscopy with bladder Botox injections (100 units) and Bulkamid injections 10/2022. She is doing well and is pleased. She is no longer on any medications for overactive bladder. She has Solifenacin at home she can start if symptoms start to return while waiting to be scheduled again. She will contact us to schedule Botox as needed. She will follow-up as needed. Plan: Continue trimethoprim. Follow-up as needed. evickers Not available 04/19/2023 08:44:03 02/19/2024 02/19/2024 73-year-old female with history of overactive bladder and mixed urinary incontinence. She underwent hysterectomy in 2018. She has tried and failed oxybutynin and Myrbetriq. She underwent cystoscopy with bladder Botox injections (100 units) and Bulkamid injections 10/2022. The UA is negative. PVR is moderate at 105 ml but, is close to her baseline 50-80 ml and was done at least 30 minutes after she voided. She would like to schedule bladder Botox injections again. Due to high BMI, she will need to be scheduled at the hospital. She wants general anesthesia. She has an appointment with her special collections librarian around the mar and I have asked her to get cardiac clearance. She will have them fax cardiac clearance to us. I will ask Dr. Tse if she needs to stop one or both blood thinners for this. We will contact her to schedule. Plan: Schedule cystoscopy with bladder Botox injections (100 units) with general anesthesia at the hospital. evickers Not available 02/19/2024 13:08:58 05/11/2024 05/11/2024 73-year-old female with history of overactive bladder and mixed urinary incontinence. She underwent hysterectomy in 2018. She has tried and failed oxybutynin and Myrbetriq. She underwent cystoscopy with bladder Botox injections (100 units) and Bulkamid injections 08/2022. She had bladder Botox (100 units) repeated 03/2024. She is doing well since bladder Botox injections. She is no longer on bladder medicaton. She is doing well and is pleased. She will follow-up in 4-5 months. Plan: Follow-up in 4 months. evickers Not available 05/11/2024 10:34:21 09/11/2024 09/11/2024 73-year-old female with history of [...] Plan: Follow-up as needed to repeat Botox. evickers Not available 09/11/2024 09:56:33 Plan of Treatment Reminders Order Date Submit Date Provider Last Modified By Organization Details Last Modified Time Details Appointments RECHECK 2024 09:30A M TAMEKA CHAUDHRY ASSISTANT BROKER Not available Not available Not available Lab urinalys is panel, auto 2024 025 evickers [facility], [address] [facility], [place], [address], 09/11/2024 09:54:06 urinalys is panel, auto 2023 024 evickers Cu/ [facility] [address], [address] [facility], [place], [address], 05/11/2024 10:33:43 urinalys is, dipstick 2023 024 evickers Not available 02/19/2024 13:09:00 urinalys is, dipstick 2022 023 evickers Not available 04/19/2023 08:44:06 urinalys is, dipstick 2022 023 evickers Not available 12/21/2022 13:32:35 Referral None recorded . Procedures None recorded . Surgeries None recorded . Imaging None recorded . Medication Orders None recorded . Patient TargetsNo targets recorded. Patient InstructionsNo instructions recorded. Reason for Referral None Reported. Results Created Date Observation Date Name Description Value Unit Range Abnormal Flag Note LastModifiedBy Organization Detail LastModifiedTime 12/22/1912/21/2022 urina lysis , dipst ick Unknown Analyte Yellow Not Available [facility] [address] [place], [address], 12/21/2022 12:42:43 12/22/1912/21/2022 urina lysis , dipst ick Unknown Analyte Clear Not Available [facility] [address] [place], [address], 12/21/2022 12:42:43 12/22/1912/21/2022 urina lysis , dipst ick Unknown Analyte 1.025 Not Available [facility] [address], [address], 12/21/2022 12:42:43 12/22/1912/21/2022 urina lysis , dipst ick Unknown Analyte 5.0 Not Available [facility] [address], [address], 12/21/2022 12:42:43 12/22/1912/21/2022 urina lysis , dipst ick Unknown Analyte Negati ve Not Available [facility] [address], [address], 12/21/2022 12:42:43 12/22/1912/21/2022 urina lysis , dipst ick Unknown Analyte Negati ve Not Available [address], [address], 12/21/2022 12:42:43 12/22/1912/21/2022 urina lysis , dipst ick Unknown Analyte Negati ve Not Available [facility] [address], [address], 12/21/2022 12:42:43 12/22/1912/21/2022 urina lysis , dipst ick Unknown Analyte Normal Not Available [facility] [address], [address], 12/21/2022 12:42:43 12/22/1912/21/2022 urina lysis , dipst ick Unknown Analyte Negati ve Not Available [facility] [address] [place], [address], 12/21/2022 12:42:43 12/22/1912/21/2022 urina lysis , dipst ick Unknown Analyte Normal Not Available [facility] [address] [place] [address], [address], 12/21/2022 12:42:43 12/22/1912/21/2022 urina lysis , dipst ick Unknown Analyte Negati ve Not Available [facility] [address] [place] [address], [address], 12/21/2022 12:42:43 12/22/1912/21/2022 urina lysis , dipst ick Unknown Analyte Negati ve Not Available [facility] [address] [place] [address], [address], 12/21/2022 12:42:43 12/22/1912/21/2022 urina lysis , dipst ick Unknown Analyte Clean Catch Not Available [facility] [address] [place] [address], [address], 12/21/2022 12:42:43 12/22/1912/21/2022 urina lysis , dipst ick Unknown Analyte Visual Not Available [facility] [address] [place] [address], [address], 12/21/2022 12:42:43 04/18/2004/18/2023 urina lysis , dipst ick Unknown Analyte Yellow Not Available [facility] [address] [place] [address], [address], 04/18/2023 08:59:37 04/18/2004/18/2023 urina lysis , dipst ick Unknown Analyte Clear Not Available [facility] [address] [place] [address], [address], 04/18/2023 08:59:37 04/18/2004/18/2023 urina lysis , dipst ick Unknown Analyte 1.010 Not Available [facility] [address] [place], [address], 04/18/2023 08:59:37 04/18/2004/18/2023 urina lysis , dipst ick Unknown Analyte 7.0 Not Available [facility] [address] [place], [address], 04/18/2023 08:59:37 04/18/2004/18/2023 urina lysis , dipst ick Unknown Analyte Negati ve Not Available [facility] [address] [place] [address], [address], 04/18/2023 08:59:37 04/18/2004/18/2023 urina lysis , dipst ick Unknown Analyte Negati ve Not Available [facility] [address] [place] [address], [address], 04/18/2023 08:59:37 04/18/2004/18/2023 urina lysis , dipst ick Unknown Analyte Negati ve Not Available [facility] [address], [address], 04/18/2023 08:59:37 04/18/2004/18/2023 urina lysis , dipst ick Unknown Analyte Normal Not Available [facility] [address] [place] [address], [address], 04/18/2023 08:59:37 04/18/2004/18/2023 urina lysis , dipst ick Unknown Analyte Negati ve Not Available [facility] [address] [place] [address], [address], 04/18/2023 08:59:37 04/18/20 23 04/18/2023 urina lysis , dipst ick Unknown Analyte Normal Not Available [facility] [place], [address], 04/18/2023 08:59:37 04/18/20 23 04/18/2023 urina lysis , dipst ick Unknown Analyte Negati ve Not Available [facility] [address], [address], 04/18/2023 08:59:37 04/18/2004/18/2023 urina lysis , dipst ick Unknown Analyte Negati ve Not Available [facility] [address], [address], 04/18/2023 08:59:37 04/18/2004/18/2023 urina lysis , dipst ick Unknown Analyte Clean Catch Not Available [facility] [address], [address], 04/18/2023 08:59:37 04/18/2004/18/2023 urina lysis , dipst ick Unknown Analyte Visual Not Available [facility] [address] [place] [address], [address], 04/18/2023 08:59:37 02/19/20 24 02/19/2024 urina lysis , dipst ick Unknown Analyte Yellow Not Available [facility] [address] [place] [address], [address], 02/19/2024 08:17:22 02/19/20 24 02/19/2024 urina lysis , dipst ick Unknown Analyte Clear Not Available [facility] [address] [place] [address], [address], 02/19/2024 08:17:22 02/19/20 24 02/19/2024 urina lysis , dipst ick Unknown Analyte 1.015 Not Available [facility] [address] [place], [address], 02/19/2024 08:17:22 02/19/20 24 02/19/2024 urina lysis , dipst ick Unknown Analyte 5.0 Not Available [facility] [address] [place] [address], [address], 02/19/2024 08:17:22 02/19/20 24 02/19/2024 urina lysis , dipst ick Unknown Analyte Negati ve Not Available [facility] [address], [address], 02/19/2024 08:17:22 02/19/20 24 02/19/2024 urina lysis , dipst ick Unknown Analyte Negati ve Not Available [facility] [address], [address], 02/19/2024 08:17:22 02/19/20 24 02/19/2024 urina lysis , dipst ick Unknown Analyte Negati ve Not Available [facility] [address], [address], 02/19/2024 08:17:22 02/19/20 24 02/19/2024 urina lysis , dipst ick Unknown Analyte Normal Not Available [facility] [address], [address], 02/19/2024 08:17:22 02/19/20 24 02/19/2024 urina lysis , dipst ick Unknown Analyte Negati ve Not Available [facility] [address], [address], 02/19/2024 08:17:22 02/19/20 24 02/19/2024 urina lysis , dipst ick Unknown Analyte Normal Not Available [facility] [address] [place], [address], 02/19/2024 08:17:22 02/19/20 24 02/19/2024 urina lysis , dipst ick Unknown Analyte Negati ve Not Available [facility] [address] [place] [address], [address], 02/19/2024 08:17:22 02/19/20 24 02/19/2024 urina lysis , dipst ick Unknown Analyte Negati ve Not Available [facility] [address] [place] [address], [address], 02/19/2024 08:17:22 02/19/20 24 02/19/2024 urina lysis , dipst ick Unknown Analyte Clean Catch Not Available [facility] [address], [address], 02/19/2024 08:17:22 02/19/20 24 02/19/2024 urina lysis , dipst ick Unknown Analyte Visual Not Available [facility] [address] [place], [address], 02/19/2024 08:17:22 05/11/20 24 05/11/2024 urina lysis panel , auto Unknown Analyte Clean Catch Not Available [facility] [address] , [place], [address], 05/11/2024 10:24:22 05/11/20 24 05/11/2024 urina lysis panel , auto Unknown Analyte Yellow Not Available [facility] [address] , [place], [address], 05/11/2024 10:24:22 05/11/20 24 05/11/2024 urina lysis panel , auto Unknown Analyte Clear Not Available [facility] [address] , [place], [address], 05/11/2024 10:24:22 05/11/20 24 05/11/2024 urina lysis panel , auto Unknown Analyte 1.010 Not Available [facility] [address] [facility], [place], [address], 05/11/2024 10:24:22 05/11/20 24 05/11/2024 urina lysis panel , auto Unknown Analyte 5.0 Not Available [facility] [address] [facility], [place], [address], 05/11/2024 10:24:22 05/11/20 24 05/11/2024 urina lysis panel , auto Unknown Analyte Negati ve Not Available [facility] [address] [facility], [place], [address], 05/11/2024 10:24:22 05/11/20 24 05/11/2024 urina lysis panel , auto Unknown Analyte Negati ve Not Available [facility] [address] [facility], [place], [address], 05/11/2024 10:24:22 05/11/20 24 05/11/2024 urina lysis panel , auto Unknown Analyte Negati ve Not Available [facility] [address] [facility], [place], [address], 05/11/2024 10:24:22 05/11/20 24 05/11/2024 urina lysis panel , auto Unknown Analyte Normal Not Available [facility] [address] [facility], [place], [address], 05/11/2024 10:24:22 05/11/20 24 05/11/2024 urina lysis panel , auto Unknown Analyte Negati ve Not Available [facility] [address] [place], [address], 05/11/2024 10:24:22 05/11/20 24 05/11/2024 urina lysis panel , auto Unknown Analyte Normal Not Available [facility] [address] [facility], [place], [address], 05/11/2024 10:24:22 05/11/20 24 05/11/2024 urina lysis panel , auto Unknown Analyte Negati ve Not Available [facility] [address] [facility], [place], [address], 05/11/2024 10:24:22 05/11/20 24 05/11/2024 urina lysis panel , auto Unknown Analyte Negati ve Not Available [facility] [address] [facility], [place], [address], 05/11/2024 10:24:22 09/12/19 25 09/11/2024 urina lysis panel , auto Unknown Analyte Clean Catch Not Available [facility] [address] [facility], [place], [address], 09/11/2024 09:21:59 09/12/19 25 09/11/2024 urina lysis panel , auto Unknown Analyte Yellow Not Available [facility] [address] [facility], [place], [address], 09/11/2024 09:21:59 09/12/1909/11/2024 urina lysis panel , auto Unknown Analyte Clear Not Available [facility] [address] [place], [address], 09/11/2024 09:21:59 09/12/19 25 09/11/2024 urina lysis panel , auto Unknown Analyte 1.025 Not Available [facility] [address] [place], [address], 09/11/2024 09:21:59 09/12/19 25 09/11/2024 urina lysis panel , auto Unknown Analyte 5.0 Not Available [facility] [address] [facility], [place], [address], 09/11/2024 09:21:59 09/12/19 25 09/11/2024 urina lysis panel , auto Unknown Analyte Negati ve Not Available [facility] [address] [facility], [place], [address], 09/11/2024 09:21:59 09/12/19 25 09/11/2024 urina lysis panel , auto Unknown Analyte Negati ve Not Available [facility] [address] [facility], [place], [address], 09/11/2024 09:21:59 09/12/1909/11/2024 urina lysis panel , auto Unknown Analyte Negati ve Not Available [facility] [address] [facility], [place], [address], 09/11/2024 09:21:59 09/12/19 25 09/11/2024 urina lysis panel , auto Unknown Analyte Normal Not Available [facility] [address] [facility], [place], [address], 09/11/2024 09:21:59 09/12/1909/11/2024 urina lysis panel , auto Unknown Analyte Negati ve Not Available [facility] [address] [facility], [place], [address], 09/11/2024 09:21:59 09/12/19 25 09/11/2024 urina lysis panel , auto Unknown Analyte Normal Not Available [facility] [address] [place], [address], 09/11/2024 09:21:59 09/12/19 25 09/11/2024 urina lysis panel , auto Unknown Analyte Negati ve Not Available [facility] [address] [facility], [place], [address], 09/11/2024 09:21:59 09/12/19 25 09/11/2024 urina lysis panel , auto Unknown Analyte Negati ve Not Available [facility] [address] [facility], [place], [address], 09/11/2024 09:21:59 Result Notes None recorded. Procedures Surgical History Date Name Laterality Status Provider Name and Address Organization Details Recorded Time 09/12/19 25 Post Void Residual; Ultrasound completed [facility] 09/11/2024 09:51:58 05/11/20 24 Post Void Residual; Ultrasound completed Thelma Knutson [facility] 05/11/2024 10:25:25 04/13/20 24 Urinary Bladder completed LIT TSE MD [facility] [place], [address], [facility] 04/15/2024 12:58:19 02/19/20 24 Post Void Residual; Ultrasound completed [facility] 02/19/2024 11:27:21 12/22/19 23 Post Void Residual; Ultrasound completed [facility] 12/21/2022 12:43:35 11/22/19 23 Urinary Bladder completed LIT TSE MD [facility] [place], [address], [facility] 11/21/2022 07:55:28 09/01/19 23 Post Void Residual; Ultrasound completed [facility] 08/31/2022 09:44:39 07/01/19 22 Kidney Stone Removal completed [facility] 08/31/2022 09:54:52 07/01/19 19 Hysterectomy completed [facility] 08/31/2022 09:54:25 08/01/19 17 CHOLECYSTECTOMY, LAPAROSCOPIC (SURG) completed [facility] 10/01/2016 10:37:16 Salt Operator Surgery completed [facility] 07/13/2016 09:49:29 Breast Surgery completed [facility] 07/13/2016 09:49:02 Imaging Results None recorded. Procedure [...] t Available Vitals Date Recorded Body height Body mass index (BMI) Body weight Provider Name and Address Organization Details Last Updated DateTime 12/21/2022 152.4 cm 54.7 kg/m2 182901.86 g Negarallison Juares [facility] 12/21/2022 12:30:05 Date Recorded Body height Body mass index (BMI) Body weight Provider Name and Address Organization Details Last Updated DateTime 04/18/2023 152.4 cm 54.7 kg/m2 366750.86 g [facility] 14:34:37 Date Recorded Body height Provider Name an d Address Organization Details Last Updated DateTime 02/19/2024 152[facility]4 [facility] 02/19/2024 11:00:00 Date Recorded Body height Provider Name an d Address Organization Details Last Updated DateTime 05/11/2024 152.4 cm [facility] 1 07/11/2023 10:19:13 Date Recorded Body mass index (BMI) Body weight Heart rate Provider Name and Address Organization Details Last Updated DateTime 05/11/2024 55.7 kg/m2 583568.83 g 87 /min Thelma Rashiditez [facility] 05/11/2024 10:26:12 Date Recorded Body height Provider Name an d Address Organization Details Last Updated DateTime 09/11/2024 152.4 cm Negar [facility] 0 09/11/2024 09:44:52 Social History Question Answer Notes LastModified by Organizat ion Details LastModified Time Tobacco Smoking Status Never Smoker smokes in house [facility] 09:46:48 What Is Your Level Of [...] Condition Response Other Y Kidney Stones Y Kidney Disease Y Gallbladder Disease High Cholesterol Y Liver Disease Hypertension Y Gynecological HistoryNo gynecological history recorded. Obstetrics History GPAL:G 0 P 0 0 0 0 Past Encounters Encounter ID Performer Location Encounter Start Date Encounter Closed Date Diagnosis/Indication Diagnosis SNOMED-CT Code Diagnosis ICD10 Code Diagnosis Note [id number] Rayshawn SANDRA MD [facility] [address] [place], [place] [address] 1 07/13/2016 09:07:42 07/13/2016 10:34:17 Cholelithiasis without obstruction 77766598 K80.20 [id number] Rayshawn SANDRA MD [facility] [address] [place] [address] 1 08/17/2016 08:54:31 08/17/2016 10:40:35 Cholelithiasis without obstruction 39866689 K80.20 [id number] Rayshawn SANDRA MD [facility] [address] [place] [address] 1 10/01/2016 10:12:10 10/01/2016 12:16:27 Gallstone 378929292 K80.20 [id number] TAMEKA CHAUDHRY APRN UROLOGY [facility] [address] [place] [address] 1 08/31/2022 09:10:52 09/03/2022 12:56:20 Overactive urinary bladder 869939270 N32.81 Mixed urin andrea incontinence 625051257 N39.46 [id number] TAMEKA CHAUDHRY APRN UROLOGY [facility] [address] [place] [address] 1 12/21/2022 12:27:26 12/21/2022 13:45:11 Overactive urinary bladder 142554532 N32.81 Mixed urin andrea incontinence 723039287 N39.46 [id number] TAMEKA CHAUDHRY APRN UROLOGY [facility] [place] [address] 1 04/18/2023 13:33:34 04/19/2023 15:47:19 Overactive urinary bladder 159512757 N32.81 Mixed urin andrea incontinence 192960541 N39.46 Recurrent urinary tract infection 385929301 N39.0 [id number] TAMEKA CHAUDHRY APRN UROLOGY [address] [place] [address] 02/19/2024 10:43:43 02/23/2024 19:15:55 Overactive urinary bladder 643648699 N32.81 Mixed urin andrea incontinence 310592988 N39.46 Recurrent urinary tract infection 492491559 N39.0 [id number] TAMEKA CHAUDHRY APRN UROLOGY [facility] [address] [facility] [address] 05/11/2024 10:02:40 05/11/2024 14:02:59 Overactive urinary bladder 023627913 N32.81 Mixed urin andrea incontinence 059874385 N39.46 Recurrent urinary tract infection 850749101 N39.0 [id number] TAMEKA CHAUDHRY APRN UROLOGY [facility] [address] [facility] [address] 09/11/2024 09:27:55 09/11/2024 09:58:56 Overactive urinary bladder 459828587 N32.81 Mixed urin andrea incontinence 592922250 N39.46 Recurrent urinary tract infection 673184245 N39.0 Health Concerns Section Related Observation LastModified by Organization Detai ls LastModified Time None Recorded Concern Status LastModified by Organization Details LastModified Time None Recorded Advance Directives Directive None Recorded Payers Encounter Date Sequence Insurance Name Policy Number Policy Chpaa Covered Member ID Chapa Member ID Guarantor Name 12/21/2022 1 [place] Neeta A Ashford [id number] Neeta Ashford 12/21/2022 2 [place] [id number] Neeta A Ashford [id number] Neeta Ashford 04/18/2023 1 [place] Neeta A Ashford [id number] Neeta Ashford 04/18/2023 2 [id number] Neeta A Ashford [id number] Neeta Ashford 02/19/2024 1 [place] Neeta Rothman Ashford [id number] 65 Neeta Ashford 02/19/2024 2 [id number] Neeta Rothman Ashford [id number] Neeta Ashford 05/11/2024 1 [place] Neeta Rothman Ashford [id number] 65 Neeta Ashford 05/11/2024 2 [id number] Neeta Rothman Ashford [id number] Neeta Ashford 09/11/2024 1 [place] Neeta Rothman Ashford [id number] 65 Neeta Ashford 09/11/2024 2 [employer] SUPPLEMENTAL - [employer] (MEDICARE SUPPLEMENT) Neeta Ashford [id number] Neeta Ashford Notes Date Note Type Note Provider Name and Address Organization Details Recorded Time 12/21/2022 text/html 72-year-old henry le here for further evaluation of urinary [...] the past which was prescribed by her tin plater. She tried Myrbetriq for 6-8 months which was prescribed by her pcp. She had only slight improvement in symptoms on these medications. She drinks mostly water with occasional Sprite and tea. She has never been a smoker but, is exposed to secondhand smoke by her . HPI: She returns today for follow-up after cystoscopy with 100 units of bladder Botox and Bulkamid injections. She is very happy with her results. Her frequency has decreased to every 2 or 3 hours, she has less urgency, she has not had any urinary incontinence episodes and is now sleeping through the night. She denies any dysuria. She stopped her oxybutynin the day of the procedure. She takes trimethoprim for UTI prevention. She is asking if it would be okay to stop this medication as well. TAMEKA CHAUDHRY APRN [address] [place], [address], [facility] 12/21/2022 13:33:14 04/18/2023 text/html 72-year-old henry le here for further evaluation of urinary [...] the past which was prescribed by her tin plater. She tried Myrbetriq for 6-8 months which was prescribed by her pcp. She had only slight improvement in symptoms on these medications. She drinks mostly water with occasional Sprite and tea. She has never been a smoker but, is exposed to secondhand smoke by her . HPI: She returns today for follow-up. She reports her voiding symptoms have not returned and she has no further urinary incontinence since bladder Botox and Bulkamid 10/2022. She has not had a recurrence of UTIs since she was last seen. We had stopped trimethoprim but, her primary doctor recommended going back on it so she is currently still taking trimethoprim at bedtime. She had a stroke 01/2023. She has some difficulty with speech but is in speech therapy now. She did not have any other deficits with her stroke. TAMEKA CHAUDHRY APRN [address] [place], [address], [facility] 04/19/2023 08:44:36 02/19/2024 text/html 73-year-old henry le here for further evaluation of urinary [...] the past which was prescribed by her tin plater. She tried Myrbetriq for 6-8 months which was prescribed by her pcp. She had only slight improvement in symptoms on these medications. She drinks mostly water with occasional Sprite and tea. She underwent cystoscopy with bladder Botox (100 units0 08/2022. She has never been a smoker but, is exposed to secondhand smoke by her . HPI: She returns today for follow-up. She reports increase frequency, urgency and urge incontinence over the past month. She denies female stress incontinence since Bulkamid. She was treated for a UTI, about 3 weeks ago. She says she feels better but, still has the urgency and urge incontinence. She is interested in scheduling bladder Botox again. She has had some health issues since she was last seen. She had a stroke 01/2023 and then had two cardiac stents placed. She is on Plavix and Eliquis. TAMEKA CHAUDHRY, [employer] [address] [place], [address], [facility] 02/19/2024 13:09:29 05/11/2024 text/html 73-year-old fema le here for further [...] the past which was prescribed by her tin plater. She tried Myrbetriq for 6-8 months which was prescribed by her pcp. She had only slight improvement in symptoms on these medications. She drinks mostly water with occasional Sprite and tea. She underwent cystoscopy with bladder Botox (100 units) 08/2022 and again 03/2024. She has never been a smoker but, is exposed to second hand smoke by her . HPI: She returns today for follow-up after cystoscopy with bladder Botox injections (100 units). She is pleased. She has less frequency, urgency and urinary incontinence. She has cataract surgery scheduled in the morning and the other cataract will be done in May. TAMEKA CHAUDHRY APRN [address] [place], [address], [facility] 05/11/2024 10:34:41 09/11/2024 text/html 73-year-old henry le here for further evaluation of urinary [...] the past which was prescribed by her tin plater. She tried Myrbetriq for 6-8 months which [...] know how this can be improved. TAMEKA CHAUDHRY APRN [address] [place], [address], [facility] 09/11/2024 09:56:45 OBGyn Episode No OBEpisode recorded.
--- NOTE | 2024-10-13 15:21 | XR_ITS ---
FINAL REPORT CLINICAL HISTORY: knee pain FINDINGS: LEFT KNEE 2 views of the left knee were obtained. There is no acute fracture or dislocation. There is tricompartmental degenerative joint disease. No joint effusion is seen. Visualized joint spaces are normally aligned. Soft tissues are unremarkable. IMPRESSION: No acute bony abnormality. Reviewed, Interpreted and Dictated by Sandhya Mckinley MD Transcribed by Monique Flores Authenticated and [facility]
--- NOTE | 2024-10-13 15:21 | XR_ITS ---
FINAL REPORT CLINICAL HISTORY: knee pain FINDINGS: RIGHT KNEE 3 views of the right knee were obtained. There is no acute fracture or dislocation. There is tricompartmental degenerative joint disease. No joint effusion is seen. Visualized joint spaces are normally aligned. Soft tissues are unremarkable. IMPRESSION: No acute bony abnormality. Reviewed, Interpreted and Dictated by Sandhya Mckinley MD Transcribed by Monique Flores Authenticated and [facility]
== END 2024-10-13 23:59 | disposition home or self-care (01) ==
LOC: RAD 15:19
PROVIDERS: PCP Internal Medicine; Visit Provider Internal Medicine
DX: M25.561 Pain in right knee (principal); M25.562 Pain in left knee
CPT/HCPCS: 73560

== ENCOUNTER 2024-10-17 09:16 | Outpatient (CLI) | payer MEDICARE, SELFPAY ==
[2024-10-17 20:19] LABS: Coronavirus 19, PCR Not Detected (NotDetected); Influenza A, PCR Not Detected (NotDetected); Influenza B, PCR Not Detected (NotDetected)
--- OUTSIDE RECORDS SUMMARY | 2024-10-19 09:19 | XMS_ITS | Data Portability ---
Author Organization [facility] ADMIN Address [address] [place] [id number] Assessment No assessment recorded. Plan of Treatment Reminders Order Date Submit Date Provider Last Modified By Organization Details Last Modified Time Details Appointments None record ed. Lab None record ed. Referral None record ed. Procedures None record ed. Surgeries None record ed. Imaging None record ed. Medication Orders None record ed. Patient TargetsNo targets recorded. Patient InstructionsNo instructions recorded. Reason for Referral None Reported. Problems Name Problem SNOMED Code Status Onset Date Resolution Date Notes Provider Name and Address Organization Details Recorded Time Cerebrovascula r accident 599304870 Active 2022 Sissy Christiansenantionette stafford [facility] & [place] 14:06:19 Problem Notes None recorded. Procedures Surgical History Date Name Laterality Status Provider Name and Address Organization Details Recorded Time Cholecystectomy completed Sissy Christiansenantionette [facility] [place] 03/26/2023 13:59:27 Partial hysterectomy completed Sissyantionette Ojeda [facility] [place] 03/26/2023 14:10:08 Imaging Results None recorded. Procedure Notes None recorded. Medical Equipment None Reported. Allergies No known drug allergies Medications Name Sig Start Date Stop Date Status Note LastModified by Organization Details LastModified Time atorvastati n 80 mg tablet TAKE 1 TABLET BY MOUTH ONCE DAILY active Not Available Not Available No t Available oxybutynin chloride ER 10 mg tablet,exte nded release 24 hr TAKE 1 TABLET BY MOUTH ONCE DAILY DIRECTED FOR 30 DAYS 03/26 completed Not Available Not Available Not Available phentermine 37.5 mg tablet TAKE 1 TABLET BY MOUTH ONCE DAILY FOR 30 DAYS 03/26 completed Not Available Not Available Not Available acetaminoph en 300 mg-codeine 30 mg tablet TAKE 1 TABLET BY MOUTH AT BEDTIME NEEDED FOR PAIN FOR 30 DAYS active Not Available Not Available No t Available clopidogrel 75 mg tablet TAKE 1 TABLET BY MOUTH ONCE DAILY active Not Available Not Available No t Available trimethopri m 100 mg tablet TAKE 1 TABLET BY MOUTH ONCE DAILY active Not Available Not Available No t Available aspirin 81 mg tablet,lois yed release Take 1 tablet every day by oral route. active Not Available Not Available No t Available estradiol 1 mg tablet TAKE 1 TABLET BY MOUTH ONCE DAILY 03/26 completed Not Available Not Available Not Available lisinopril 20 mg-hydrochl orothiazide 25 mg tablet TAKE 1 TABLET BY MOUTH ONCE DAILY active Not Available Not Available No t Available hydrocortis one 2.5 % topical cream APPLY CREAM TO AFFECTED AREA TWICE DAILY FOR 14 DAYS AT A TIME 03/26 completed Not Available Not Available Not Available phentermine 37.5 mg capsule TAKE 1 CAPSULE BY MOUTH ONCE DAILY IN THE MORNING FOR 30 DAYS 03/26 completed Not Available Not Available Not Available Stool Softener 50 mg capsule Take 1 capsule every day by oral route. active Not Available Not Available No t Available BinaxNOW COVID-19 Ag Self Test kit TEST DIRECTED TODAY 03/26 completed Not Available Not Available Not Available Vitals Date Recorded Heart rate Oxygen saturation Oxygen saturation in Arterial blood by Pulse oximetry Systolic blood pressure Diastolic blood pressure Provider Name and Address Organization Details Last Updated DateTime 3 91 /min 96 % 96 % 138 mm[Hg] 76 mm[Hg] Sissy Lynette MALAVE [facility] & [place] 14:12:16 Date Recorded Body height Body mass index (BMI) Body weight Provider Name and Address Organization Details Last Updated DateTime 03/26/2023 152.4 cm 55.1 kg/m2 760185.05 g Kristin Hester, DO [address] [facility], [place], [address], [facility] [place] 03/26/2023 14:26:25 Social History Question Answer Notes LastModified by Organizat ion Details LastModified Time Tobacco Smoking Status Never Smoker Sissy stafford, [facility] [place] 03/26/2023 13:58:50 What Is Your Level Of Alcohol Consumption? None Information not available 03/26/2023 What Is Your Level Of Caffeine Consumption? None Information not available 03/26/2023 Are You Currently Employed? No Retired Information not available 03/26/2023 Do You Have Any Pets? Yes Information not available 03/26/2023 What Is Your Relationship Status? Lives In House With Information not available 03/26/2023 Do You Use Any Illicit Or Recreational Drugs? No Information not available 03/26/2023 Are You Currently In School? No Diploma Information not available 03/26/2023 Sex: Unknown Functional Status Question Answer Note LastModified by Organizat ion Details LastModified Time Do you have transportation difficulties? No Information not available 03/26/2023 Are you able to care for yourself? Yes Information not available 03/26/2023 Mental Status None recorded. Family History Relationship Description Onset Age of this Age Resolved Age Notes LastModified by Organization Details LastModified Time Father Myocardial infarction 85 ldalla Not available 03/26 13:58:21 Mother Myocardial infarction 77 ldalla Not available 03/26 13:58:21 Medical History Condition Response Valvular Heart Disease Y Hyperlipidemia Y Kidney Stones Y Stroke Y Hypertension Y Gynecological HistoryNo gynecological history recorded. 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 She is making good improvemen ts with speech therapies. She should continue with ASA, plavix and atorvastat in. She is tolerating these well but educated on increased bleeding/b ruising tendencies with dual antiplatel ets.Stroke education reviewed. She is instructed to seek immediate medical attention if any new or worsening stroke symptoms. Health Concerns Section Related Observation LastModified by Organization Detai ls LastModified Time None Recorded Concern Status LastModified by Organization Details LastModified Time None Recorded Advance Directives Directive None Recorded Payers Encounter Date Sequence Insurance Name Policy Number Policy Chapa Covered Member ID Chapa Member ID Guarantor Name 03/26/2023 1 [place] Neeta Ashford [id number] Neeta Ashford 03/26/2023 2 [place] [id number] Neeta Ashford [id number] Neeta Ashford Notes Date Note Type Note Provider Name and Address Organization Details Recorded Time 03/26/2023 text/html 72 y/o right [facility] ded female here for neurologic consultation requested by Dr Back regarding recent stroke. Neeta is accompanied by her sister in law who helps supplement the history. Neeta woke up on 02/06/23 with difficulty getting her words out. She tells me she really couldn't even get a word out but just rather make noises. She had no trouble understand her . She denies any focal weakness or numbness. She had felt fine when she went to bed that night.Her took her to [facility] ER. Initial CT head and CTA head/neck were negative. Per the ER records the stroke team at and were contacted regarding the patient's presentation. She was not found to be a candidate for tpa or interventional procedures. She was given an oral loading dose of ASA and plavix then admitted to [facility] for further workup.MRI brain did reveal acute DWI changes in the left frontal subcortical white matter. Echo did not reveal a PFO. She was discharged on ASA 81mg, Plavix 75mg, and atorvastatin 80mg.HH therapies were arranged upon discharge. Today Neeta reports that she is steadily improving since leaving the hospital. She continues to have speech therapy twice a week. She denies any issues with swallowing.She tells me her bp has been well controlled in recent weeks.She does bruise easily but denies any excessive bleeding with the dual antiplatelets.She is getting around her house well. No falls.Her sister in law does appreciate that her speech is getting easier and easier to understand. Kristin Hester, [address] , [place], [address], [facility] [place] [facility] [place] 03/26/2023 14:50:29 OBGyn Episode No OBEpisode recorded.
--- OUTSIDE RECORDS SUMMARY | 2024-10-19 09:19 | XMS_ITS | Data Portability ---
Author Organization FRIEDA SHRAVAN [place] [facility] Address [address] [facility] [address] [place] [address] Care Team Providers Care Polisher And Buffer Name Role Phone TAMEKA CHAUDHRY Urologist Assessment Encounter Date Assessment Date Assessment LastModified [...] trimethoprim. She was instructed to go to [facility] or call us if she develops dysuria [...] anesthesia. She has an appointment with her supervisor sample around the mar and I have asked [...] Appointments RECHECK 2024 09:30A M TAMEKA CHAUDHRY HIGHWAY INSPECTOR Not available Not available Not available Lab urinalys is panel, auto 2024 025 evickers Cu/ Urology [facility], [address] [facility], [place], [address], 09/11/2024 09:54:06 urinalys is panel, auto 2023 024 evickers Cu/ Urology [address], [address] [facility], [place], [address], 05/11/2024 10:33:43 urinalys is, dipstick 2023 024 [...] dipst ick Unknown Analyte Yellow Not Available [facility] [address] [place], [address], 12/21/2022 12:42:43 12/22/1912/21/2022 urina lysis , dipst ick Unknown Analyte Clear Not Available [facility] [address] [place], [address], 12/21/2022 12:42:43 12/22/1912/21/2022 urina lysis , dipst ick Unknown Analyte 1.025 Not Available [facility] [address], [address], 12/21/2022 12:42:43 12/22/1912/21/2022 urina lysis , dipst ick Unknown Analyte 5.0 Not Available [facility] [address], [address], 12/21/2022 12:42:43 12/22/1912/21/2022 urina lysis , dipst ick Unknown Analyte Negati ve Not Available [facility] [address], [address], 12/21/2022 12:42:43 12/22/1912/21/2022 urina lysis , dipst ick Unknown Analyte Negati ve Not Available [address], [address], 12/21/2022 12:42:43 12/22/1912/21/2022 urina lysis , dipst ick Unknown Analyte Negati ve Not Available [facility] [address], [address], 12/21/2022 12:42:43 12/22/1912/21/2022 urina lysis , dipst ick Unknown Analyte Normal Not Available [facility] [address], [address], 12/21/2022 12:42:43 12/22/1912/21/2022 urina lysis , dipst ick Unknown Analyte Negati ve Not Available [facility] [address] [place], [address], 12/21/2022 12:42:43 12/22/1912/21/2022 urina lysis , dipst ick Unknown Analyte Normal Not Available [facility] [address] [place] [address], [address], 12/21/2022 12:42:43 12/22/1912/21/2022 urina lysis , dipst ick Unknown Analyte Negati ve Not Available [facility] [address] [place] [address], [address], 12/21/2022 12:42:43 12/22/1912/21/2022 urina lysis , dipst ick Unknown Analyte Negati ve Not Available [facility] [address] [place] [address], [address], 12/21/2022 12:42:43 12/22/1912/21/2022 urina lysis , dipst ick Unknown Analyte Clean Catch Not Available [facility] [address] [place] [address], [address], 12/21/2022 12:42:43 12/22/1912/21/2022 urina lysis , dipst ick Unknown Analyte Visual Not Available [facility] [address] [place] [address], [address], 12/21/2022 12:42:43 04/18/2004/18/2023 urina lysis , dipst ick Unknown Analyte Yellow Not Available [facility] [address] [place] [address], [address], 04/18/2023 08:59:37 04/18/2004/18/2023 urina lysis , dipst ick Unknown Analyte Clear Not Available [facility] [address] [place] [address], [address], 04/18/2023 08:59:37 04/18/2004/18/2023 urina lysis , dipst ick Unknown Analyte 1.010 Not Available [facility] [address] [place], [address], 04/18/2023 08:59:37 04/18/2004/18/2023 urina lysis , dipst ick Unknown Analyte 7.0 Not Available [facility] [address] [place], [address], 04/18/2023 08:59:37 04/18/2004/18/2023 urina lysis , dipst ick Unknown Analyte Negati ve Not Available [facility] [address] [place] [address], [address], 04/18/2023 08:59:37 04/18/2004/18/2023 urina lysis , dipst ick Unknown Analyte Negati ve Not Available [facility] [address] [place] [address], [address], 04/18/2023 08:59:37 04/18/2004/18/2023 urina lysis , dipst ick Unknown Analyte Negati ve Not Available [facility] [address], [address], 04/18/2023 08:59:37 04/18/2004/18/2023 urina lysis , dipst ick Unknown Analyte Normal Not Available [facility] [address] [place] [address], [address], 04/18/2023 08:59:37 04/18/2004/18/2023 urina lysis , dipst ick Unknown Analyte Negati ve Not Available [facility] [address] [place] [address], [address], 04/18/2023 08:59:37 04/18/20 23 04/18/2023 urina lysis , dipst ick Unknown Analyte Normal Not Available [facility] [place], [address], 04/18/2023 08:59:37 04/18/20 23 04/18/2023 urina lysis , dipst ick Unknown Analyte Negati ve Not Available [facility] [address], [address], 04/18/2023 08:59:37 04/18/2004/18/2023 urina lysis , dipst ick Unknown Analyte Negati ve Not Available [facility] [address], [address], 04/18/2023 08:59:37 04/18/2004/18/2023 urina lysis , dipst ick Unknown Analyte Clean Catch Not Available [facility] [address], [address], 04/18/2023 08:59:37 04/18/2004/18/2023 urina lysis , dipst ick Unknown Analyte Visual Not Available [facility] [address] [place] [address], [address], 04/18/2023 08:59:37 02/19/20 24 02/19/2024 urina lysis , dipst ick Unknown Analyte Yellow Not Available [facility] [address] [place] [address], [address], 02/19/2024 08:17:22 02/19/20 24 02/19/2024 urina lysis , dipst ick Unknown Analyte Clear Not Available [facility] [address] [place] [address], [address], 02/19/2024 08:17:22 02/19/20 24 02/19/2024 urina lysis , dipst ick Unknown Analyte 1.015 Not Available [facility] [address] [place], [address], 02/19/2024 08:17:22 02/19/20 24 02/19/2024 urina lysis , dipst ick Unknown Analyte 5.0 Not Available [facility] [address] [place] [address], [address], 02/19/2024 08:17:22 02/19/20 24 02/19/2024 urina lysis , dipst ick Unknown Analyte Negati ve Not Available [facility] [address], [address], 02/19/2024 08:17:22 02/19/20 24 02/19/2024 urina lysis , dipst ick Unknown Analyte Negati ve Not Available [facility] [address], [address], 02/19/2024 08:17:22 02/19/20 24 02/19/2024 urina lysis , dipst ick Unknown Analyte Negati ve Not Available [facility] [address], [address], 02/19/2024 08:17:22 02/19/20 24 02/19/2024 urina lysis , dipst ick Unknown Analyte Normal Not Available [facility] [address], [address], 02/19/2024 08:17:22 02/19/20 24 02/19/2024 urina lysis , dipst ick Unknown Analyte Negati ve Not Available [facility] [address], [address], 02/19/2024 08:17:22 02/19/20 24 02/19/2024 urina lysis , dipst ick Unknown Analyte Normal Not Available [facility] [address] [place], [address], 02/19/2024 08:17:22 02/19/20 24 02/19/2024 urina lysis , dipst ick Unknown Analyte Negati ve Not Available [facility] [address] [place] [address], [address], 02/19/2024 08:17:22 02/19/20 24 02/19/2024 urina lysis , dipst ick Unknown Analyte Negati ve Not Available [facility] [address] [place] [address], [address], 02/19/2024 08:17:22 02/19/20 24 02/19/2024 urina lysis , dipst ick Unknown Analyte Clean Catch Not Available [facility] [address], [address], 02/19/2024 08:17:22 02/19/20 24 02/19/2024 urina lysis , dipst ick Unknown Analyte Visual Not Available [facility] [address] [place], [address], 02/19/2024 08:17:22 05/11/20 24 05/11/2024 urina lysis panel , auto Unknown Analyte Clean Catch Not Available [facility] [address] , [place], [address], 05/11/2024 10:24:22 05/11/20 24 05/11/2024 urina lysis panel , auto Unknown Analyte Yellow Not Available [facility] [address] , [place], [address], 05/11/2024 10:24:22 05/11/20 24 05/11/2024 urina lysis panel , auto Unknown Analyte Clear Not Available [facility] [address] , [place], [address], 05/11/2024 10:24:22 05/11/20 24 05/11/2024 urina lysis panel , auto Unknown Analyte 1.010 Not Available [facility] [address] [facility], [place], [address], 05/11/2024 10:24:22 05/11/20 24 05/11/2024 urina lysis panel , auto Unknown Analyte 5.0 Not Available [facility] [address] [facility], [place], [address], 05/11/2024 10:24:22 05/11/20 24 05/11/2024 urina lysis panel , auto Unknown Analyte Negati ve Not Available [facility] [facility], [place], [address], 05/11/2024 10:24:22 05/11/20 24 05/11/2024 urina lysis panel , auto Unknown Analyte Negati ve Not Available [facility] [facility], [place], [address], 05/11/2024 10:24:22 05/11/20 24 05/11/2024 urina lysis panel , auto Unknown Analyte Negati ve Not Available [facility] [facility], [place], [address], 05/11/2024 10:24:22 05/11/20 24 05/11/2024 urina lysis panel , auto Unknown Analyte Normal Not Available [facility] [address] [facility], [place], [address], 05/11/2024 10:24:22 05/11/20 24 05/11/2024 urina lysis panel , auto Unknown Analyte Negati ve Not Available [facility] [place], [address], 05/11/2024 10:24:22 05/11/20 24 05/11/2024 urina lysis panel , auto Unknown Analyte Normal Not Available [facility] [address] [facility], [place], [address], 05/11/2024 10:24:22 05/11/20 24 05/11/2024 urina lysis panel , auto Unknown Analyte Negati ve Not Available [facility] [facility], [place], [address], 05/11/2024 10:24:22 05/11/20 24 05/11/2024 urina lysis panel , auto Unknown Analyte Negati ve Not Available [facility] [facility], [place], [address], 05/11/2024 10:24:22 09/12/19 25 09/11/2024 urina lysis panel , auto Unknown Analyte Clean Catch Not Available [facility] [address] [facility], [place], [address], 09/11/2024 09:21:59 09/12/19 25 09/11/2024 urina lysis panel , auto Unknown Analyte Yellow Not Available [facility] [address] [facility], [place], [address], 09/11/2024 09:21:59 09/12/1909/11/2024 urina lysis panel , auto Unknown Analyte Clear Not Available [facility] [address] [place], [address], 09/11/2024 09:21:59 09/12/19 25 09/11/2024 urina lysis panel , auto Unknown Analyte 1.025 Not Available [facility] [address] [place], [address], 09/11/2024 09:21:59 09/12/19 25 09/11/2024 urina lysis panel , auto Unknown Analyte 5.0 Not Available [facility] [address] [facility], [place], [address], 09/11/2024 09:21:59 09/12/19 25 09/11/2024 urina lysis panel , auto Unknown Analyte Negati ve Not Available [facility] [facility], [place], [address], 09/11/2024 09:21:59 09/12/19 25 09/11/2024 urina lysis panel , auto Unknown Analyte Negati ve Not Available [facility] [address] [facility], [place], [address], 09/11/2024 09:21:59 09/12/1909/11/2024 urina lysis panel , auto Unknown Analyte Negati ve Not Available [facility] [address] [facility], [place], [address], 09/11/2024 09:21:59 09/12/19 25 09/11/2024 urina lysis panel , auto Unknown Analyte Normal Not Available [facility] [address] [facility], [place], [address], 09/11/2024 09:21:59 09/12/1909/11/2024 urina lysis panel , auto Unknown Analyte Negati ve Not Available [facility] [address] [facility], [place], [address], 09/11/2024 09:21:59 09/12/19 25 09/11/2024 urina lysis panel , auto Unknown Analyte Normal Not Available [facility] [address] [place], [address], 09/11/2024 09:21:59 09/12/19 25 09/11/2024 urina lysis panel , auto Unknown Analyte Negati ve Not Available [facility] [address] [facility], [place], [address], 09/11/2024 09:21:59 09/12/19 25 09/11/2024 urina lysis panel , auto Unknown Analyte Negati ve Not Available [facility] [address] [facility], [place], [address], 09/11/2024 09:21:59 Result Notes None recorded. Procedures Surgical History Date Name Laterality Status Provider Name and Address Organization Details Recorded Time 09/12/19 25 Post Void Residual; Ultrasound completed [facility] 09/11/2024 09:51:58 05/11/20 24 Post Void Residual; Ultrasound completed Thelma Knutson [facility] 05/11/2024 10:25:25 04/13/20 24 Urinary Bladder completed LIT TSE MD [facility] [place], [address], [facility] 04/15/2024 12:58:19 02/19/20 24 Post Void Residual; Ultrasound completed [facility] 02/19/2024 11:27:21 12/22/19 23 Post Void Residual; Ultrasound completed [facility] 12/21/2022 12:43:35 11/22/19 23 Urinary Bladder completed LIT TSE MD [facility] [place], [address], [facility] 11/21/2022 07:55:28 09/01/19 23 Post Void Residual; Ultrasound completed [facility] 08/31/2022 09:44:39 07/01/19 22 Kidney Stone Removal completed [facility] 08/31/2022 09:54:52 07/01/19 19 Hysterectomy completed [facility] 08/31/2022 09:54:25 08/01/19 17 CHOLECYSTECTOMY, LAPAROSCOPIC (SURG) completed [facility] 10/01/2016 10:37:16 Hazardous Waste Material Technician Surgery completed [facility] 07/13/2016 09:49:29 Breast Surgery completed [facility] 07/13/2016 09:49:02 Imaging Results None recorded. [...] Updated DateTime 12/21/2022 152.4 cm 54.7 kg/m2 506561.86 g Negarallison Juares [facility] 12/21/2022 12:30:05 Date Recorded Body height Body mass index (BMI) Body weight Provider Name and Address Organization Details Last Updated DateTime 04/18/2023 152.4 cm 54.7 kg/m2 067711.86 g [facility] 04/18/2023 14:34:37 Date Recorded Body height Provider Name an d Address Organization Details Last Updated DateTime 02/19/2024 152.4 cm [facility] 0 02/19/2024 11:00:00 Date Recorded Body height Provider Name an d Address Organization Details Last Updated DateTime 05/11/2024 152.4 cm [facility] 1 07/11/2023 10:19:13 Date Recorded Body mass index (BMI) Body weight Heart rate Provider Name and Address Organization Details Last Updated DateTime 05/11/2024 55.7 kg/m2 279634.83 g 87 /min Thelma Rashiditez [facility] 05/11/2024 10:26:12 Date Recorded Body height Provider Name an d Address Organization Details Last Updated DateTime 09/11/2024 152.4 cm Negar [facility] 0 09/11/2024 09:44:52 Social History Question Answer Notes LastModified by Organizat ion Details LastModified Time Tobacco Smoking Status Never Smoker smokes in house [facility] 07/13/2016 09:46:48 What Is Your Level [...] SNOMED-CT Code Diagnosis ICD10 Code Diagnosis Note [id number] Rayshawn SANDRA MD [facility] [address] [place], [place] [id number] 1 07/13/2016 09:07:42 07/13/2016 10:34:17 Cholelithiasis without obstruction 40588166 K80.20 [id number] Rayshawn SANDRA MD [facility] [address] [place] [address] 1 08/17/2016 08:54:31 08/17/2016 10:40:35 Cholelithiasis without obstruction 21244272 K80.20 [id number] Rayshawn SANDRA MD [facility] [address] [place] [address] 1 10/01/2016 10:12:10 10/01/2016 12:16:27 Gallstone 476068196 K80.20 [id number] TAMEKA CHAUDHRY APRN UROLOGY [address] [place] [address] 1 08/31/2022 09:10:52 09/03/2022 12:56:20 Overactive urinary bladder 381867776 N32.81 Mixed urin andrea incontinence 262915611 N39.46 [id number] TAMEKA CHAUDHRY APRN UROLOGY [address] [place] [address] 1 12/21/2022 12:27:26 12/21/2022 13:45:11 Overactive urinary bladder 440434123 N32.81 Mixed urin andrea incontinence 171644775 N39.46 [id number] TAMEKA CHAUDHRY APRN UROLOGY [address] [place] [address] 1 04/18/2023 13:33:34 04/19/2023 15:47:19 Overactive urinary bladder 305868915 N32.81 Mixed urin andrea incontinence 476371026 N39.46 Recurrent urinary tract infection 198490881 N39.0 [id number] TAMEKA CHAUDHRY APRN UROLOGY [address] [place] [address] 02/19/2024 10:43:43 02/23/2024 19:15:55 Overactive urinary bladder 973271310 N32.81 Mixed urin andrea incontinence 369717419 N39.46 Recurrent urinary tract infection 556554566 N39.0 [id number] TAMEKA CHAUDHRY APRN UROLOGY [facility] [address] [facility] [address] 05/11/2024 10:02:40 05/11/2024 14:02:59 Overactive urinary bladder 333295411 N32.81 Mixed urin andrea incontinence 155173460 N39.46 Recurrent urinary tract infection 468975776 N39.0 [id number] TAMEKA CHAUDHRY APRN UROLOGY [facility] [address] [facility] [address] 09/11/2024 09:27:55 09/11/2024 09:58:56 Overactive urinary bladder 399708064 N32.81 Mixed urin andrea incontinence 596152060 N39.46 Recurrent urinary tract infection 884594474 N39.0 Health Concerns Section Related Observation LastModified by Organization Detai ls LastModified Time None Recorded Concern Status LastModified by Organization Details LastModified Time None Recorded Advance Directives Directive None Recorded Payers Encounter Date Sequence Insurance Name Policy Number Policy Chapa Covered Member ID Chapa Member ID Guarantor Name 12/21/2022 1 [place] Neeta A Ashford [id number] Neeta Ashford 12/21/2022 2 [id number] Neeta A Ashford [id number] Neeta Ashford 04/18/2023 1 [place] Neeta A Ashford [id number] Neeta Ashford 04/18/2023 2 [id number] Neeta A Ashford [id number] Neeta Ashford 02/19/2024 1 [place] Neeta Rothman Ashford [id number] 65 Neeta Ashford 02/19/2024 2 [id number] Neeta Rothman Ashford [id number] Neeta Ashford 05/11/2024 1 [place] Neeta Rothman Ashford [id number] 65 Neeta Ashford 05/11/2024 2 [id number] Neeta Rothman Ashford [id number] Neeta Ashford 09/11/2024 1 [place] Neeta Rothman Ashford [id number] 65 Neeta Ashford 09/11/2024 2 [employer] SUPPLEMENTAL - [employer]URANCE (MEDICARE SUPPLEMENT) Neeta Ashford [id number] Neeta Ashford Notes Date Note Type Note [...] the past which was prescribed by her inspector advanced composite. She tried Myrbetriq for 6-8 months which [...] as well. TAMEKA CHAUDHRY APRN [address] [place], [address], [facility] 12/21/2022 13:33:14 04/18/2023 text/html 72-year-old henry [...] the past which was prescribed by her inspector advanced composite. She tried Myrbetriq for 6-8 months which [...] her stroke. TAMEKA CHAUDHRY APRN [address] [place], [address], [facility] 04/19/2023 08:44:36 02/19/2024 text/html 73-year-old [...] the past which was prescribed by her inspector advanced composite. She tried Myrbetriq for 6-8 months which [...] is on Plavix and Eliquis. TAMEKA CHAUDHRY, AIRPORT RAMP SUPERVISOR [address] [place], [address], [facility] 02/19/2024 13:09:29 05/11/2024 text/html 73-year-old fema [...] the past which was prescribed by her inspector advanced composite. She tried Myrbetriq for 6-8 months which [...] be done in May. TAMEKA CHAUDHRY APRN [address] [place], [address], [facility] 05/11/2024 10:34:41 09/11/2024 text/html 73-year-old henry [...] the past which was prescribed by her inspector advanced composite. She tried Myrbetriq for 6-8 months which [...] this can be improved. TAMEKA CHAUDHRY APRN [address] [place] [place], [address], [facility] 09/11/2024 09:56:45 OBGyn Episode No OBEpisode recorded.
== END 2024-10-17 23:59 | disposition home or self-care (01) ==
LOC: LAB.DROPOF 10-19 09:17
PROVIDERS: PCP Internal Medicine; Visit Provider Student in an Organized Health Care Education/Training Program
DX: J06.9 Acute upper respiratory infection, unspecified (principal)
CPT/HCPCS: 87636

== ENCOUNTER 2024-10-22 09:55 | Outpatient (CLI) | payer MEDICARE, SELFPAY ==
--- NOTE | 2024-10-22 09:58 | XR_ITS ---
FINAL REPORT CLINICAL HISTORY: cough, congestion, sick for 6 days COMPARISON: 08/20/2023 FINDINGS: PA and lateral views of the chest were obtained. The cardiac and mediastinal silhouettes are within normal limits. There is no change in the left pacemaker. Bilateral lower lobe atelectasis is identified. There is no pleural effusion or pneumothorax. No acute osseous abnormality is identified. IMPRESSION: Bilateral lower lobe atelectasis. Reviewed, Interpreted and Dictated by Sandhya Mckinley MD Transcribed by Leslie Mendoza Authenticated and [facility]
--- OUTSIDE RECORDS SUMMARY | 2024-10-22 09:58 | XMS_ITS | Data Portability ---
Author Organization [facility] ADMIN Address [address] [place] [id number] Assessment No assessment recorded. Plan of Treatment [...] Organization Details Recorded Time Cerebrovascula r accident [id number] Active 2022 Sissy Christiansenantionette stafford [facility] [place] 14:06:19 Problem Notes None recorded. Procedures Surgical History Date Name Laterality Status Provider Name and Address Organization Details Recorded Time Cholecystectomy completed Sissy Christiansenantionette [facility] [place] 03/26/2023 13:59:27 Partial hysterectomy completed Sissyantionette Ojeda [facility] [place] 03/26/2023 14:10:08 Imaging Results None recorded. Procedure [...] 138 mm[Hg] 76 mm[Hg] Sissy Lynette MALAVE [facility] [place] 14:12:16 Date Recorded Body height Body mass index (BMI) Body weight Provider Name and Address Organization Details Last Updated DateTime 03/26/2023 152.4 cm 55.1 kg/m2 718868.05 g Kristin Hester, DO [address] [facility], [place], [address], [facility] [place] 03/26/2023 14:26:25 Social History Question Answer Notes LastModified by Organizat ion Details LastModified Time Tobacco Smoking Status Never Smoker Sissy stafford, [facility] [place] 03/26/2023 13:58:50 What Is Your Level Of [...] SNOMED-CT Code Diagnosis ICD10 Code Diagnosis Note [id number] Kristin DO Mir ZZ [facility] Neurology [address] [place] [address] 03/26/2023 13:51:46 03/26/2023 15:06:01 Cerebrovascular accident [id number] I63.9 Acute left frontal stroke with residual [...] Name 03/26/2023 1 [place] Neeta Ashford [id number] Neeta Ashford 03/26/2023 2 [place] [id number] Neeta Ashford [id number] Neeta Ashford Notes Date Note Type [...] to bed that night.Her took her to [facility] ER. Initial CT head and CTA head/neck were negative. Per the ER records the stroke team at and were contacted regarding the patient's presentation. She was not found to be a candidate for tpa or interventional procedures. She was given an oral loading dose of ASA and plavix then admitted to [facility] for further workup.MRI brain did reveal acute [...] easier and easier to understand. Kristin Hester, [address] , [place], [address], [facility] [place] [facility] [place] & [place] 03/26/2023 14:50:29 OBGyn Episode No OBEpisode recorded.
--- OUTSIDE RECORDS SUMMARY | 2024-10-22 09:58 | XMS_ITS | Data Portability ---
Author Organization FRIEDA SHRAVAN White [place] CLOSED Address [address] [facility] [address] [place] [address] Care Team Providers Care Safety Lead Name Role Phone TAMEKA CHAUDHRY Urologist [phone] Assessment Encounter Date Assessment Date Assessment LastModified [...] trimethoprim. She was instructed to go to [facility] or call us if she develops [...] anesthesia. 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 Not available Not available Not available Lab urinalys is panel, auto 2024 025 evickers Cu/ Urology [facility], [address] [facility], [place], [address], 09/11/2024 09:54:06 urinalys is panel, auto 2023 024 evickers Cu/ Urology [address], [address] [facility], [place], [address], 05/11/2024 10:33:43 urinalys is, dipstick 2023 024 [...] dipst ick Unknown Analyte Yellow Not Available [facility] [address] [place], [address], 12/21/2022 12:42:43 12/22/1912/21/2022 urina lysis , dipst ick Unknown Analyte Clear Not Available [facility] [address] [place], [address], 12/21/2022 12:42:43 12/22/1912/21/2022 urina lysis , dipst ick Unknown Analyte 1.025 Not Available [facility] [address], [address], 12/21/2022 12:42:43 12/22/1912/21/2022 urina lysis , dipst ick Unknown Analyte 5.0 Not Available [facility] [address], [address], 12/21/2022 12:42:43 12/22/1912/21/2022 urina lysis , dipst ick Unknown Analyte Negati ve Not Available [facility] [address], [address], 12/21/2022 12:42:43 12/22/1912/21/2022 urina lysis , dipst ick Unknown Analyte Negati ve Not Available [address], [address], 12/21/2022 12:42:43 12/22/1912/21/2022 urina lysis , dipst ick Unknown Analyte Negati ve Not Available [facility] [address], [address], 12/21/2022 12:42:43 12/22/1912/21/2022 urina lysis , dipst ick Unknown Analyte Normal Not Available [facility] [address], [address], 12/21/2022 12:42:43 12/22/1912/21/2022 urina lysis , dipst ick Unknown Analyte Negati ve Not Available [facility] [address] [place], [address], 12/21/2022 12:42:43 12/22/1912/21/2022 urina lysis , dipst ick Unknown Analyte Normal Not Available [facility] [address] [place] [address], [address], 12/21/2022 12:42:43 12/22/1912/21/2022 urina lysis , dipst ick Unknown Analyte Negati ve Not Available [facility] [address] [place] [address], [address], 12/21/2022 12:42:43 12/22/1912/21/2022 urina lysis , dipst ick Unknown Analyte Negati ve Not Available [facility] [address] [place] [address], [address], 12/21/2022 12:42:43 12/22/1912/21/2022 urina lysis , dipst ick Unknown Analyte Clean Catch Not Available [facility] [address] [place] [address], [address], 12/21/2022 12:42:43 12/22/1912/21/2022 urina lysis , dipst ick Unknown Analyte Visual Not Available [facility] [address] [place] [address], [address], 12/21/2022 12:42:43 04/18/2004/18/2023 urina lysis , dipst ick Unknown Analyte Yellow Not Available [facility] [address] [place] [address], [address], 04/18/2023 08:59:37 04/18/2004/18/2023 urina lysis , dipst ick Unknown Analyte Clear Not Available [facility] [address] [place] [address], [address], 04/18/2023 08:59:37 04/18/2004/18/2023 urina lysis , dipst ick Unknown Analyte 1.010 Not Available [facility] [address] [place], [address], 04/18/2023 08:59:37 04/18/2004/18/2023 urina lysis , dipst ick Unknown Analyte 7.0 Not Available [facility] [address] [place], [address], 04/18/2023 08:59:37 04/18/2004/18/2023 urina lysis , dipst ick Unknown Analyte Negati ve Not Available [facility] [address] [place] [address], [address], 04/18/2023 08:59:37 04/18/2004/18/2023 urina lysis , dipst ick Unknown Analyte Negati ve Not Available [facility] [address] [place] [address], [address], 04/18/2023 08:59:37 04/18/2004/18/2023 urina lysis , dipst ick Unknown Analyte Negati ve Not Available [facility] [address], [address], 04/18/2023 08:59:37 04/18/2004/18/2023 urina lysis , dipst ick Unknown Analyte Normal Not Available [facility] [address] [place] [address], [address], 04/18/2023 08:59:37 04/18/2004/18/2023 urina lysis , dipst ick Unknown Analyte Negati ve Not Available [facility] [address] [place] [address], [address], 04/18/2023 08:59:37 04/18/20 23 04/18/2023 urina lysis , dipst ick Unknown Analyte Normal Not Available [facility] [place], [address], 04/18/2023 08:59:37 04/18/20 23 04/18/2023 urina lysis , dipst ick Unknown Analyte Negati ve Not Available [facility] [address], [address], 04/18/2023 08:59:37 04/18/2004/18/2023 urina lysis , dipst ick Unknown Analyte Negati ve Not Available [facility] [address], [address], 04/18/2023 08:59:37 04/18/2004/18/2023 urina lysis , dipst ick Unknown Analyte Clean Catch Not Available [facility] [address], [address], 04/18/2023 08:59:37 04/18/2004/18/2023 urina lysis , dipst ick Unknown Analyte Visual Not Available [facility] [address] [place] [address], [address], 04/18/2023 08:59:37 02/19/20 24 02/19/2024 urina lysis , dipst ick Unknown Analyte Yellow Not Available [facility] [address] [place] [address], [address], 02/19/2024 08:17:22 02/19/20 24 02/19/2024 urina lysis , dipst ick Unknown Analyte Clear Not Available [facility] [address] [place] [address], [address], 02/19/2024 08:17:22 02/19/20 24 02/19/2024 urina lysis , dipst ick Unknown Analyte 1.015 Not Available [facility] [address] [place], [address], 02/19/2024 08:17:22 02/19/20 24 02/19/2024 urina lysis , dipst ick Unknown Analyte 5.0 Not Available [facility] [address] [place] [address], [address], 02/19/2024 08:17:22 02/19/20 24 02/19/2024 urina lysis , dipst ick Unknown Analyte Negati ve Not Available [facility] [address], [address], 02/19/2024 08:17:22 02/19/20 24 02/19/2024 urina lysis , dipst ick Unknown Analyte Negati ve Not Available [facility] [address], [address], 02/19/2024 08:17:22 02/19/20 24 02/19/2024 urina lysis , dipst ick Unknown Analyte Negati ve Not Available [facility] [address], [address], 02/19/2024 08:17:22 02/19/20 24 02/19/2024 urina lysis , dipst ick Unknown Analyte Normal Not Available [facility] [address], [address], 02/19/2024 08:17:22 02/19/20 24 02/19/2024 urina lysis , dipst ick Unknown Analyte Negati ve Not Available [facility] [address], [address], 02/19/2024 08:17:22 02/19/20 24 02/19/2024 urina lysis , dipst ick Unknown Analyte Normal Not Available [facility] [address] [place], [address], 02/19/2024 08:17:22 02/19/20 24 02/19/2024 urina lysis , dipst ick Unknown Analyte Negati ve Not Available [facility] [address] [place] [address], [address], 02/19/2024 08:17:22 02/19/20 24 02/19/2024 urina lysis , dipst ick Unknown Analyte Negati ve Not Available [facility] [address] [place] [address], [address], 02/19/2024 08:17:22 02/19/20 24 02/19/2024 urina lysis , dipst ick Unknown Analyte Clean Catch Not Available [facility] [address], [address], 02/19/2024 08:17:22 02/19/20 24 02/19/2024 urina lysis , dipst ick Unknown Analyte Visual Not Available [facility] [address] [place], [address], 02/19/2024 08:17:22 05/11/20 24 05/11/2024 urina lysis panel , auto Unknown Analyte Clean Catch Not Available [facility] [address] , [place], [address], 05/11/2024 10:24:22 05/11/20 24 05/11/2024 urina lysis panel , auto Unknown Analyte Yellow Not Available [facility] [address] , [place], [address], 05/11/2024 10:24:22 05/11/20 24 05/11/2024 urina lysis panel , auto Unknown Analyte Clear Not Available [facility] [address] , [place], [address], 05/11/2024 10:24:22 05/11/20 24 05/11/2024 urina lysis panel , auto Unknown Analyte 1.010 Not Available [facility] [address] [facility], [place], [address], 05/11/2024 10:24:22 05/11/20 24 05/11/2024 urina lysis panel , auto Unknown Analyte 5.0 Not Available [facility] [address] [facility], [place], [address], 05/11/2024 10:24:22 05/11/20 24 05/11/2024 urina lysis panel , auto Unknown Analyte Negati ve Not Available [facility] [address] [facility], [place], [address], 05/11/2024 10:24:22 05/11/20 24 05/11/2024 urina lysis panel , auto Unknown Analyte Negati ve Not Available [facility] [address] [facility], [place], [address], 05/11/2024 10:24:22 05/11/20 24 05/11/2024 urina lysis panel , auto Unknown Analyte Negati ve Not Available [facility] [address] [facility], [place], [address], 05/11/2024 10:24:22 05/11/20 24 05/11/2024 urina lysis panel , auto Unknown Analyte Normal Not Available [facility] [address] [facility], [place], [address], 05/11/2024 10:24:22 05/11/20 24 05/11/2024 urina lysis panel , auto Unknown Analyte Negati ve Not Available [facility] [address] [place], [address], 05/11/2024 10:24:22 05/11/20 24 05/11/2024 urina lysis panel , auto Unknown Analyte Normal Not Available [facility] [address] [facility], [place], [address], 05/11/2024 10:24:22 05/11/20 24 05/11/2024 urina lysis panel , auto Unknown Analyte Negati ve Not Available [facility] [address] [facility], [place], [address], 05/11/2024 10:24:22 05/11/20 24 05/11/2024 urina lysis panel , auto Unknown Analyte Negati ve Not Available [facility] [address] [facility], [place], [address], 05/11/2024 10:24:22 09/12/19 25 09/11/2024 urina lysis panel , auto Unknown Analyte Clean Catch Not Available [facility] [address] [facility], [place], [address], 09/11/2024 09:21:59 09/12/19 25 09/11/2024 urina lysis panel , auto Unknown Analyte Yellow Not Available [facility] [address] [facility], [place], [address], 09/11/2024 09:21:59 09/12/1909/11/2024 urina lysis panel , auto Unknown Analyte Clear Not Available [facility] [address] [place], [address], 09/11/2024 09:21:59 09/12/19 25 09/11/2024 urina lysis panel , auto Unknown Analyte 1.025 Not Available [facility] [address] [place], [address], 09/11/2024 09:21:59 09/12/19 25 09/11/2024 urina lysis panel , auto Unknown Analyte 5.0 Not Available [facility] [address] [facility], [place], [address], 09/11/2024 09:21:59 09/12/19 25 09/11/2024 urina lysis panel , auto Unknown Analyte Negati ve Not Available [facility] [address] [facility], [place], [address], 09/11/2024 09:21:59 09/12/19 25 09/11/2024 urina lysis panel , auto Unknown Analyte Negati ve Not Available [facility] [address] [facility], [place], [address], 09/11/2024 09:21:59 09/12/1909/11/2024 urina lysis panel , auto Unknown Analyte Negati ve Not Available [facility] [address] [facility], [place], [address], 09/11/2024 09:21:59 09/12/19 25 09/11/2024 urina lysis panel , auto Unknown Analyte Normal Not Available [facility] [address] [facility], [place], [address], 09/11/2024 09:21:59 09/12/1909/11/2024 urina lysis panel , auto Unknown Analyte Negati ve Not Available [facility] [address] [facility], [place], [address], 09/11/2024 09:21:59 09/12/19 25 09/11/2024 urina lysis panel , auto Unknown Analyte Normal Not Available [facility] [address] [place], [address], 09/11/2024 09:21:59 09/12/19 25 09/11/2024 urina lysis panel , auto Unknown Analyte Negati ve Not Available [facility] [address] [facility], [place], [address], 09/11/2024 09:21:59 09/12/19 25 09/11/2024 urina lysis panel , auto Unknown Analyte Negati ve Not Available [facility] [address] [facility], [place], [address], 09/11/2024 09:21:59 Result Notes None recorded. Procedures Surgical History Date Name Laterality Status Provider Name and Address Organization Details Recorded Time 09/12/19 25 Post Void Residual; Ultrasound completed [facility] 09/11/2024 09:51:58 05/11/20 24 Post Void Residual; Ultrasound completed Thelma Knutson [facility] 05/11/2024 10:25:25 04/13/20 24 Urinary Bladder completed LIT TSE MD [facility] [place], [address], [facility] 04/15/2024 12:58:19 02/19/20 24 Post Void Residual; Ultrasound completed [facility] 02/19/2024 11:27:21 12/22/19 23 Post Void Residual; Ultrasound completed [facility] 12/21/2022 12:43:35 11/22/19 23 Urinary Bladder completed LIT TSE MD [facility] [place], [address], [facility] 11/21/2022 07:55:28 09/01/19 23 Post Void Residual; Ultrasound completed [facility] 08/31/2022 09:44:39 07/01/19 22 Kidney Stone Removal completed [facility] 08/31/2022 09:54:52 07/01/19 19 Hysterectomy completed [facility] 08/31/2022 09:54:25 08/01/19 17 CHOLECYSTECTOMY, LAPAROSCOPIC (SURG) completed [facility] 10/01/2016 10:37:16 Silk Worker Surgery completed [facility] 07/13/2016 09:49:29 Breast Surgery completed [facility] 07/13/2016 09:49:02 Imaging Results None [...] Updated DateTime 12/21/2022 152.4 cm 54.7 kg/m2 448485.86 g Negarallison Juares [facility] 12/21/2022 12:30:05 Date Recorded Body height Body mass index (BMI) Body weight Provider Name and Address Organization Details Last Updated DateTime 04/18/2023 152.4 cm 54.7 kg/m2 424792.86 g [facility] 04/18/[facility]23 14:34:37 Date Recorded Body height Provider Name an d Address Organization Details Last Updated DateTime 02/19/2024 152[facility] 02/19/2024 11:00:00 Date Recorded Body height Provider Name an d Address Organization Details Last Updated DateTime 05/11/2024 152.4 cm [facility] 1 07/11/2023 10:19:13 Date Recorded Body mass index (BMI) Body weight Heart rate Provider Name and Address Organization Details Last Updated DateTime 05/11/2024 55.7 kg/m2 874472.83 g 87 /min Thelma Rashiditez [facility] 05/11/2024 10:26:12 Date Recorded Body height Provider Name an d Address Organization Details Last Updated DateTime 09/11/2024 152.4 cm Negar [facility] 0 09/11/2024 09:44:52 Social History Question Answer Notes LastModified by Organizat ion Details LastModified Time Tobacco Smoking Status Never Smoker smokes in house [facility] 07/13/2016 09:46:48 What Is Your Level [...] SNOMED-CT Code Diagnosis ICD10 Code Diagnosis Note [id number] Rayshawn SANDRA MD [facility] [address] [place], [place] [address] 1 07/13/2016 09:07:42 07/13/2016 10:34:17 Cholelithiasis without obstruction 46008431 K80.20 [id number] Rayshawn SANDRA MD [facility] SUR[facility]ERY [address] [place] [address] 1 08/17/2016 08:54:31 08/17/2016 10:40:35 Cholelithiasis without obstruction 99483295 K80.20 [id number] Rayshawn SANDRA MD [facility] [address] [place] [address] 1 10/01/2016 10:12:10 10/01/2016 12:16:27 Gallstone 231279311 K80.20 [id number] TAMEKA CHAUDHRY APRN UROLOGY [address] [place] [address] 1 08/31/2022 09:10:52 09/03/2022 12:56:20 Overactive urinary bladder 678721026 N32.81 Mixed urin andrea incontinence 686812424 N39.46 [id number] TAMEKA CHAUDHRY APRN UROLOGY [address] [place] [address] 1 12/21/2022 12:27:26 12/21/2022 13:45:11 Overactive urinary bladder 767203334 N32.81 Mixed urin andrea incontinence 642579606 N39.46 [id number] TAMEKA CHAUDHRY APRN UROLOGY [address] [place] [address] 1 04/18/2023 13:33:34 04/19/2023 15:47:19 Overactive urinary bladder 756359189 N32.81 Mixed urin andrea incontinence 146458233 N39.46 Recurrent urinary tract infection 236352765 N39.0 [id number] TAMEKA CHAUDHRY APRN UROLOGY [address] [place] [address] 02/19/2024 10:43:43 02/23/2024 19:15:55 Overactive urinary bladder 351050932 N32.81 Mixed urin andrea incontinence 112645083 N39.46 Recurrent urinary tract infection 421748953 N39.0 [id number] TAMEKA CHAUDHRY APRN UROLOGY [facility] [address] [facility] [place] [address] 05/11/2024 10:02:40 05/11/2024 14:02:59 Overactive urinary bladder 885410460 N32.81 Mixed urin andrea incontinence 698253930 N39.46 Recurrent urinary tract infection 570244011 N39.0 [id number] TAMEKA CHAUDHRY APRN UROLOGY [facility] [address] [facility] [place] [address] 09/11/2024 09:27:55 09/11/2024 09:58:56 Overactive urinary bladder 389664102 N32.81 Mixed urin andrea incontinence 869060321 N39.46 Recurrent urinary tract infection 783572940 N39.0 Health Concerns Section Related Observation LastModified by Organization Detai ls LastModified Time None Recorded Concern Status LastModified by Organization Details LastModified Time None Recorded Advance Directives Directive None Recorded Payers Encounter Date Sequence Insurance Name Policy Number Policy Chapa Covered Member ID Chapa Member ID Guarantor Name 12/21/2022 1 [place] Neeta A Ashford [id number] Neeta Ashford 12/21/2022 2 [id number] Neeta A Ashford [id number] Neeta Ashford 04/18/2023 1 [place] Neeta A Ashford [id number] Neeta Ashford 04/18/2023 2 [id number] Neeta A Ashford [id number] Neeta Ashford 02/19/2024 1 [place] Neeta Rothman Ashford [id number] Neeta Ashford 02/19/2024 2 [id number] Neeta Rothman Ashford [id number] Neeta Ashford 05/11/2024 1 [place] Neeta Rothman Ashford [id number] 65 Neeta Ashford 05/11/2024 2 [id number] Neeta Rothman Ashford [id number] Neeta Ashford 09/11/2024 1 [place] Neeta Rothman Ashford [id number] 65 Neeta Ashford 09/11/2024 2 [employer] SUPPLEMENTAL - [employer]UR[employer] (MEDICARE SUPPLEMENT) Neeta Ashford [id number] Neeta Ashford Notes Date Note Type Note [...] 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 She tried Myrbetriq for 6-8 months which [...] as well. 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 She tried Myrbetriq for 6-8 months which [...] her stroke. TAMEKA CHAUDHRY APRN [address] [place], [address], 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 She tried Myrbetriq for 6-8 months which [...] is on Plavix and Eliquis. 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 She tried Myrbetriq for 6-8 months which [...] be done in May. 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 She tried Myrbetriq for 6-8 months which [...] this can be improved. TAMEKA CHAUDHRY APRN [address] [place], [address], [facility] 09/11/2024 09:56:45 OBGyn Episode No OBEpisode recorded.
== END 2024-10-22 23:59 | disposition home or self-care (01) ==
LOC: RAD 09:57
PROVIDERS: PCP Internal Medicine; Visit Provider Student in an Organized Health Care Education/Training Program
DX: R05.9 Cough, unspecified (principal)
CPT/HCPCS: 71046

== ENCOUNTER → 2024-11-03 19:51 | Outpatient (CLI) | payer MEDICARE, SELFPAY ==
--- OUTSIDE RECORDS SUMMARY | 2024-11-03 19:56 | XMS_ITS | Data Portability ---
Author Organization [facility] ADMIN Address [address] [place] [id number] Assessment No assessment recorded. Plan of Treatment [...] Organization Details Recorded Time Cerebrovascula r accident [id number] Active 2022 Sissy Christiansenantionette stafford [facility] [place] 14:06:19 Problem Notes None recorded. Procedures Surgical History Date Name Laterality Status Provider Name and Address Organization Details Recorded Time Cholecystectomy completed Sissy Christiansenantionette [facility] [place] 03/26/2023 13:59:27 Partial hysterectomy completed Sissyantionette Ojeda [facility] [place] 03/26/2023 14:10:08 Imaging Results None recorded. Procedure [...] 138 mm[Hg] 76 mm[Hg] Sissy Lynette MALAVE [facility] & [place] 14:12:16 Date Recorded Body height Body mass index (BMI) Body weight Provider Name and Address Organization Details Last Updated DateTime 03/26/2023 152.4 cm 55.1 kg/m2 839430.05 g Kristin Hester, DO [address] [facility], [place], [address], [facility] [place] 03/26/2023 14:26:25 Social History Question Answer Notes LastModified by Organizat ion Details LastModified Time Tobacco Smoking Status Never Smoker Sissy stafford, [facility] [place] 03/26/2023 13:58:50 What Is Your Level Of [...] available 03/26 13:58:21 Medical History Condition Response Kidney Stones Y Valvular Heart Disease Y Hyperlipidemia Y Stroke Y Hypertension Y Gynecological HistoryNo gynecological history recorded. Obstetrics History GPAL:G 0 P 0 0 0 0 Past Encounters Encounter ID Performer Location Encounter Start Date Encounter Closed Date Diagnosis/Indication Diagnosis SNOMED-CT Code Diagnosis ICD10 Code Diagnosis Note [id number] Kristin DO Mir ZZ [facility] Neurology [address] [facility] [facility],[address] [place] [address] 03/26/2023 13:51:46 03/26/2023 15:06:01 Cerebrovascular accident 371749013 I63.9 Acute left frontal stroke with residual [...] Name 03/26/2023 1 [place] Neeta Ashford [id number] Neeta Ashford 03/26/2023 2 [place] [id number] Neeta Ashford [id number] Neeta Ashford Notes Date Note Type [...] to bed that night.Her took her to [facility] ER. Initial CT head and CTA head/neck were negative. Per the ER records the stroke team at and were contacted regarding the patient's presentation. She was not found to be a candidate for tpa or interventional procedures. She was given an oral loading dose of ASA and plavix then admitted to [facility] for further workup.MRI brain did [...] easier and easier to understand. Kristin Hester, [address] , [place], [address], [facility] [place] [facility] [place] & [place] 03/26/2023 14:50:29 OBGyn Episode No OBEpisode recorded.
--- OUTSIDE RECORDS SUMMARY | 2024-11-03 19:56 | XMS_ITS | Data Portability ---
Author Organization FRIEDA SHRAVAN [place] [facility] Address [address] [place] [address] Care Team Providers Care Rental Counter Clerk Name Role Phone TAMEKA CHAUDHRY Urologist [phone] Assessment Encounter Date Assessment Date Assessment [...] trimethoprim. She was instructed to go to [facility] or call us if she develops [...] anesthesia. She has an appointment with her heat transfer technician around the mar and I have asked [...] Appointments RECHECK 2024 09:30A M TAMEKA CHAUDHRY FWS FACULTY ASSISTANT Not available Not available Not available Lab urinalys is panel, auto 2024 025 evickers Cu/ Urology [facility], [address] [facility], [place], [address], 09/11/2024 09:54:06 urinalys is panel, auto 2023 024 evickers Cu/ Urology [address], [address] [facility], [place], [address], 05/11/2024 10:33:43 urinalys is, dipstick 2023 024 [...] dipst ick Unknown Analyte Yellow Not Available [facility] [address] [place], [address], 12/21/2022 12:42:43 12/22/1912/21/2022 urina lysis , dipst ick Unknown Analyte Clear Not Available [facility] [address] [place], [address], 12/21/2022 12:42:43 12/22/1912/21/2022 urina lysis , dipst ick Unknown Analyte 1.025 Not Available [facility]rology [address], [address], 12/21/2022 12:42:43 12/22/1912/21/2022 urina lysis , dipst ick Unknown Analyte 5.0 Not Available [facility] [address], [address], 12/21/2022 12:42:43 12/22/1912/21/2022 urina lysis , dipst ick Unknown Analyte Negati ve Not Available [facility] [address], [address], 12/21/2022 12:42:43 12/22/1912/21/2022 urina lysis , dipst ick Unknown Analyte Negati ve Not Available [address], [address], 12/21/2022 12:42:43 12/22/1912/21/2022 urina lysis , dipst ick Unknown Analyte Negati ve Not Available [facility] [address], [address], 12/21/2022 12:42:43 12/22/1912/21/2022 urina lysis , dipst ick Unknown Analyte Normal Not Available [facility] [address], [address], 12/21/2022 12:42:43 12/22/1912/21/2022 urina lysis , dipst ick Unknown Analyte Negati ve Not Available [facility] [address] [place], [address], 12/21/2022 12:42:43 12/22/1912/21/2022 urina lysis , dipst ick Unknown Analyte Normal Not Available [facility] [address] [place] [address], [address], 12/21/2022 12:42:43 12/22/1912/21/2022 urina lysis , dipst ick Unknown Analyte Negati ve Not Available [facility]rology [address] [place] [address], [address], 12/21/2022 12:42:43 12/22/1912/21/2022 urina lysis , dipst ick Unknown Analyte Negati ve Not Available [facility] [address] [place] [address], [address], 12/21/2022 12:42:43 12/22/1912/21/2022 urina lysis , dipst ick Unknown Analyte Clean Catch Not Available [facility] [address] [place] [address], [address], 12/21/2022 12:42:43 12/22/1912/21/2022 urina lysis , dipst ick Unknown Analyte Visual Not Available [facility] [address] [place] [address], [address], 12/21/2022 12:42:43 04/18/2004/18/2023 urina lysis , dipst ick Unknown Analyte Yellow Not Available [facility] [address] [place] [address], [address], 04/18/2023 08:59:37 04/18/2004/18/2023 urina lysis , dipst ick Unknown Analyte Clear Not Available [facility] [address] [place] [address], [address], 04/18/2023 08:59:37 04/18/2004/18/2023 urina lysis , dipst ick Unknown Analyte 1.010 Not Available [facility] [address] [place], [address], 04/18/2023 08:59:37 04/18/2004/18/2023 urina lysis , dipst ick Unknown Analyte 7.0 Not Available [facility] [address] [place], [address], 04/18/2023 08:59:37 04/18/2004/18/2023 urina lysis , dipst ick Unknown Analyte Negati ve Not Available [facility] [address] [place] [address], [address], 04/18/2023 08:59:37 04/18/2004/18/2023 urina lysis , dipst ick Unknown Analyte Negati ve Not Available [facility] [address] [place] [address], [address], 04/18/2023 08:59:37 04/18/2004/18/2023 urina lysis , dipst ick Unknown Analyte Negati ve Not Available [facility] [address], [address], 04/18/2023 08:59:37 04/18/2004/18/2023 urina lysis , dipst ick Unknown Analyte Normal Not Available [facility] [address] [place] [address], [address], 04/18/2023 08:59:37 04/18/2004/18/2023 urina lysis , dipst ick Unknown Analyte Negati ve Not Available [facility] [address] [place] [address], [address], 04/18/2023 08:59:37 04/18/20 23 04/18/2023 urina lysis , dipst ick Unknown Analyte Normal Not Available [facility] [place], [address], 04/18/2023 08:59:37 04/18/20 23 04/18/2023 urina lysis , dipst ick Unknown Analyte Negati ve Not Available [facility] [address], [address], 04/18/2023 08:59:37 04/18/2004/18/2023 urina lysis , dipst ick Unknown Analyte Negati ve Not Available [facility] [address], [address], 04/18/2023 08:59:37 04/18/2004/18/2023 urina lysis , dipst ick Unknown Analyte Clean Catch Not Available [facility] [address], [address], 04/18/2023 08:59:37 04/18/2004/18/2023 urina lysis , dipst ick Unknown Analyte Visual Not Available [facility] [address] [place] [address], [address], 04/18/2023 08:59:37 02/19/20 24 02/19/2024 urina lysis , dipst ick Unknown Analyte Yellow Not Available [facility] [address] [place] [address], [address], 02/19/2024 08:17:22 02/19/20 24 02/19/2024 urina lysis , dipst ick Unknown Analyte Clear Not Available [facility] [address] [place] [address], [address], 02/19/2024 08:17:22 02/19/20 24 02/19/2024 urina lysis , dipst ick Unknown Analyte 1.015 Not Available [facility] [address] [place], [address], 02/19/2024 08:17:22 02/19/20 24 02/19/2024 urina lysis , dipst ick Unknown Analyte 5.0 Not Available [facility] [address] [place] [address], [address], 02/19/2024 08:17:22 02/19/20 24 02/19/2024 urina lysis , dipst ick Unknown Analyte Negati ve Not Available [facility] [address], [address], 02/19/2024 08:17:22 02/19/20 24 02/19/2024 urina lysis , dipst ick Unknown Analyte Negati ve Not Available [facility] [address], [address], 02/19/2024 08:17:22 02/19/20 24 02/19/2024 urina lysis , dipst ick Unknown Analyte Negati ve Not Available [facility] [address], [address], 02/19/2024 08:17:22 02/19/20 24 02/19/2024 urina lysis , dipst ick Unknown Analyte Normal Not Available [facility] [address], [address], 02/19/2024 08:17:22 02/19/20 24 02/19/2024 urina lysis , dipst ick Unknown Analyte Negati ve Not Available [facility] [address], [address], 02/19/2024 08:17:22 02/19/20 24 02/19/2024 urina lysis , dipst ick Unknown Analyte Normal Not Available [facility] [address] [place], [address], 02/19/2024 08:17:22 02/19/20 24 02/19/2024 urina lysis , dipst ick Unknown Analyte Negati ve Not Available [facility] [address] [place] [address], [address], 02/19/2024 08:17:22 02/19/20 24 02/19/2024 urina lysis , dipst ick Unknown Analyte Negati ve Not Available [facility]rology [address] [place] [address], [address], 02/19/2024 08:17:22 02/19/20 24 02/19/2024 urina lysis , dipst ick Unknown Analyte Clean Catch Not Available [facility] [address], [address], 02/19/2024 08:17:22 02/19/20 24 02/19/2024 urina lysis , dipst ick Unknown Analyte Visual Not Available [facility] [address] [place], [address], 02/19/2024 08:17:22 05/11/20 24 05/11/2024 urina lysis panel , auto Unknown Analyte Clean Catch Not Available [facility] [address] , [place], [address], 05/11/2024 10:24:22 05/11/20 24 05/11/2024 urina lysis panel , auto Unknown Analyte Yellow Not Available [facility] [address] , [place], [address], 05/11/2024 10:24:22 05/11/20 24 05/11/2024 urina lysis panel , auto Unknown Analyte Clear Not Available [facility] [address] , [place], [address], 05/11/2024 10:24:22 05/11/20 24 05/11/2024 urina lysis panel , auto Unknown Analyte 1.010 Not Available [facility] [address] [facility], [place], [address], 05/11/2024 10:24:22 05/11/20 24 05/11/2024 urina lysis panel , auto Unknown Analyte 5.0 Not Available [facility] [address] [facility], [place], [address], 05/11/2024 10:24:22 05/11/20 24 05/11/2024 urina lysis panel , auto Unknown Analyte Negati ve Not Available [facility] [address] [facility], [place], [address], 05/11/2024 10:24:22 05/11/20 24 05/11/2024 urina lysis panel , auto Unknown Analyte Negati ve Not Available [facility] [address] [facility], [place], [address], 05/11/2024 10:24:22 05/11/20 24 05/11/2024 urina lysis panel , auto Unknown Analyte Negati ve Not Available [facility] [address] [facility], [place], [address], 05/11/2024 10:24:22 05/11/20 24 05/11/2024 urina lysis panel , auto Unknown Analyte Normal Not Available [facility] [address] [facility], [place], [address], 05/11/2024 10:24:22 05/11/20 24 05/11/2024 urina lysis panel , auto Unknown Analyte Negati ve Not Available [facility] [address] [place], [address], 05/11/2024 10:24:22 05/11/20 24 05/11/2024 urina lysis panel , auto Unknown Analyte Normal Not Available [facility] [address] [facility], [place], [address], 05/11/2024 10:24:22 05/11/20 24 05/11/2024 urina lysis panel , auto Unknown Analyte Negati ve Not Available [facility] [address] [facility], [place], [address], 05/11/2024 10:24:22 05/11/20 24 05/11/2024 urina lysis panel , auto Unknown Analyte Negati ve Not Available [facility] [address] [facility], [place], [address], 05/11/2024 10:24:22 09/12/19 25 09/11/2024 urina lysis panel , auto Unknown Analyte Clean Catch Not Available [facility] [address] [facility], [place], [address], 09/11/2024 09:21:59 09/12/19 25 09/11/2024 urina lysis panel , auto Unknown Analyte Yellow Not Available [facility] [address] [facility], [place], [address], 09/11/2024 09:21:59 09/12/1909/11/2024 urina lysis panel , auto Unknown Analyte Clear Not Available [facility] [address] [place], [address], 09/11/2024 09:21:59 09/12/19 25 09/11/2024 urina lysis panel , auto Unknown Analyte 1.025 Not Available [facility] [address] [place], [address], 09/11/2024 09:21:59 09/12/19 25 09/11/2024 urina lysis panel , auto Unknown Analyte 5.0 Not Available [facility] [address] [facility], [place], [address], 09/11/2024 09:21:59 09/12/19 25 09/11/2024 urina lysis panel , auto Unknown Analyte Negati ve Not Available [facility] [address] [facility], [place], [address], 09/11/2024 09:21:59 09/12/19 25 09/11/2024 urina lysis panel , auto Unknown Analyte Negati ve Not Available [facility] [address] [facility], [place], [address], 09/11/2024 09:21:59 09/12/1909/11/2024 urina lysis panel , auto Unknown Analyte Negati ve Not Available [facility] [address] [facility], [place], [address], 09/11/2024 09:21:59 09/12/19 25 09/11/2024 urina lysis panel , auto Unknown Analyte Normal Not Available [facility] [address] [facility], [place], [address], 09/11/2024 09:21:59 09/12/1909/11/2024 urina lysis panel , auto Unknown Analyte Negati ve Not Available [facility] [address] [facility], [place], [address], 09/11/2024 09:21:59 09/12/19 25 09/11/2024 urina lysis panel , auto Unknown Analyte Normal Not Available [facility] [address] [place], [address], 09/11/2024 09:21:59 09/12/19 25 09/11/2024 urina lysis panel , auto Unknown Analyte Negati ve Not Available [facility] [address] [facility], [place], [address], 09/11/2024 09:21:59 09/12/19 25 09/11/2024 urina lysis panel , auto Unknown Analyte Negati ve Not Available [facility] [address] [facility], [place], [address], 09/11/2024 09:21:59 Result Notes None recorded. Procedures Surgical History Date Name Laterality Status Provider Name and Address Organization Details Recorded Time 09/12/19 25 Post Void Residual; Ultrasound completed [facility] 09/11/2024 09:51:58 05/11/20 24 Post Void Residual; Ultrasound completed Thelma Knutson [facility] 05/11/2024 10:25:25 04/13/20 24 Urinary Bladder completed LIT TSE MD [facility] [place], [address], [facility] 04/15/2024 12:58:19 02/19/20 24 Post Void Residual; Ultrasound completed [facility] 02/19/2024 11:27:21 12/22/19 23 Post Void Residual; Ultrasound completed [facility] 12/21/2022 12:43:35 11/22/19 23 Urinary Bladder completed LIT TSE MD [facility] [place], [address], [facility] 11/21/2022 07:55:28 09/01/19 23 Post Void Residual; Ultrasound completed [facility] 08/31/2022 09:44:39 07/01/19 22 Kidney Stone Removal completed [facility] 08/31/2022 09:54:52 07/01/19 19 Hysterectomy completed [facility] 08/31/2022 09:54:25 08/01/19 17 CHOLECYSTECTOMY, LAPAROSCOPIC (SURG) completed [facility] 10/01/2016 10:37:16 Net Technical Architect Surgery completed [facility] 07/13/2016 09:49:29 Breast Surgery completed [facility] 07/13/2016 09:49:02 Imaging Results None recorded. Procedure [...] Updated DateTime 12/21/2022 152.4 cm 54.7 kg/m2 961572.86 g Negarallison Juares [facility] 12/21/2022 12:30:05 Date Recorded Body height Body mass index (BMI) Body weight Provider Name and Address Organization Details Last Updated DateTime 04/18/2023 152.4 cm 54.7 kg/m2 316113.86 g [facility] 04/18/2023 14:34:37 Date Recorded Body height Provider Name an d Address Organization Details Last Updated DateTime 02/19/2024 152.4 [facility] 02/19/2024 11:00:00 Date Recorded Body height Provider Name an d Address Organization Details Last Updated DateTime 05/11/2024 152.4 cm [facility] 1 07/11/2023 10:19:13 Date Recorded Body mass index (BMI) Body weight Heart rate Provider Name and Address Organization Details Last Updated DateTime 05/11/2024 55.7 kg/m2 398223.83 g 87 /min Thelma Rashiditez [facility] 05/11/2024 10:26:12 Date Recorded Body height Provider Name an d Address Organization Details Last Updated DateTime 09/11/2024 152.4 cm [facility] 0 09/11/2024 09:44:52 Social History Question Answer Notes LastModified by Organizat ion Details LastModified Time Tobacco Smoking Status Never Smoker smokes in house [facility] 07/13[facility]2016 09:46:48 What Is Your Level Of [...] SNOMED-CT Code Diagnosis ICD10 Code Diagnosis Note [id number] Rayshawn SANDRA MD [facility] [address] [place], [place] [address] 1 07/13/2016 09:07:42 07/13/2016 10:34:17 Cholelithiasis without obstruction 59814181 K80.20 [id number] Rayshawn SANDRA MD [facility] [address] [place] [address] 1 08/17/2016 08:54:31 08/17/2016 10:40:35 Cholelithiasis without obstruction 37462413 K80.20 [id number] Rayshawn SANDRA MD [facility] [address] [place] [address] 1 10/01/2016 10:12:10 10/01/2016 12:16:27 Gallstone 423334601 K80.20 [id number] TAMEKA CHAUDHRY APRN UROLOGY [address] [place] [address] 1 08/31/2022 09:10:52 09/03/2022 12:56:20 Overactive urinary bladder 217745859 N32.81 Mixed urin andrea incontinence 923010046 N39.46 [id number] TAMEKA CHAUDHRY APRN UROLOGY [address] [place] [address] 1 12/21/2022 12:27:26 12/21/2022 13:45:11 Overactive urinary bladder 898417445 N32.81 Mixed urin andrea incontinence 231707734 N39.46 [id number] TAMEKA CHAUDHRY APRN UROLOGY [address] [place] [address] 1 04/18/2023 13:33:34 04/19/2023 15:47:19 Overactive urinary bladder 874579340 N32.81 Mixed urin andrea incontinence 400463471 N39.46 Recurrent urinary tract infection 809445164 N39.0 [id number] TAMEKA CHAUDHRY APRN UROLOGY [address] [place] [address] 02/19/2024 10:43:43 02/23/2024 19:15:55 Overactive urinary bladder 221865288 N32.81 Mixed urin andrea incontinence 670289252 N39.46 Recurrent urinary tract infection 071012279 N39.0 [id number] TAMEKA CHAUDHRY APRN UROLOGY [facility] [address] [facility] [place] [address] 05/11/2024 10:02:40 05/11/2024 14:02:59 Overactive urinary bladder 597758219 N32.81 Mixed urin andrea incontinence 848699664 N39.46 Recurrent urinary tract infection 045460598 N39.0 [id number] TAMEKA CHAUDHRY APRN UROLOGY [facility] [address] [facility] [place] [address] 09/11/2024 09:27:55 09/11/2024 09:58:56 Overactive urinary bladder 173951363 N32.81 Mixed urin andrea incontinence 489945363 N39.46 Recurrent urinary tract infection 118329224 N39.0 Health Concerns Section Related Observation LastModified by Organization Detai ls LastModified Time None Recorded Concern Status LastModified by Organization Details LastModified Time None Recorded Advance Directives Directive None Recorded Payers Encounter Date Sequence Insurance Name Policy Number Policy Chapa Covered Member ID Chapa Member ID Guarantor Name 12/21/2022 1 [place] Neeta A Ashford [id number] Neeta Ashford 12/21/2022 2 [place] [id number] Neeta A Ashford [id number] Neeta Ashford 04/18/2023 1 [place] Neeta A Ashford [id number] Neeta Ashford 04/18/2023 2 [id number] Neeta A Ashford [id number] Neeta Ashford 02/19/2024 1 [place] Neeta Rothman Ashford [id number] 65 Neeta Ashford 02/19/2024 2 [id number] Neeta Rothman Ashford [id number] Neeta Ashford 05/11/2024 1 [place] Neeta Rothman Ashford [id number] 65 Neeta Ashford 05/11/2024 2 [id number] Neeta Rothman Ashford [id number] Neeta Ashford 09/11/2024 1 [place] Neeta Rothman Ashford [id number] 65 Neeta Ashford 09/11/2024 2 [employer] SUPPLEMENTAL - [employer]UR[employer] (MEDICARE SUPPLEMENT) Neeta Ashford [id number] Neeta Ashford Notes Date Note Type Note [...] the past which was prescribed by her business education instructor. She tried Myrbetriq for 6-8 months which [...] as well. TAMEKA CHAUDHRY APRN [address] [place], [address], [facility] 12/21/2022 13:33:14 04/18/2023 text/html 72-year-old [...] the past which was prescribed by her business education instructor. She tried Myrbetriq for 6-8 months which [...] her stroke. TAMEKA CHAUDHRY APRN [address] [place], [address], [facility] 04/19/2023 08:44:36 02/19/2024 text/html 73-year-old henry [...] the past which was prescribed by her business education instructor. She tried Myrbetriq for 6-8 months which [...] is on Plavix and Eliquis. TAMEKA CHAUDHRY, NURSING AIDE [address] [place], [address], [facility] 02/19/2024 13:09:29 05/11/2024 text/html 73-year-old [...] the past which was prescribed by her business education instructor. She tried Myrbetriq for 6-8 months which [...] be done in May. TAMEKA CHAUDHRY APRN [address] [place], [address], [facility] 05/11/2024 10:34:41 09/11/2024 text/html 73-year-old [...] the past which was prescribed by her business education instructor. She tried Myrbetriq for 6-8 months which [...] this can be improved. TAMEKA CHAUDHRY APRN [address] [place], [address], [facility] 09/11/2024 09:56:45 OBGyn Episode No OBEpisode recorded.
--- OUTSIDE RECORDS SUMMARY | 2024-11-03 19:56 | XMS_ITS | Continuity of Care Document ---
Author Organization [facility] Address [address] [place] [address] Care Team Providers Care Fire Safety Director Name Role Phone TAMEKA CHAUDHRY Urologist Assessment [...] Appointments RECHECK 2024 09:30A M TAMEKA CHAUDHRY TIMBER SPOTTER Not available Not available Not available Lab urinalys is panel, auto 2024 025 travis [facility] Urology [facility], [address] [facility], [place], [address], 09/11/2024 09:54:06 Referral None recorded . Procedures [...] Clean Catch Not Available [facility] [address] [place], [address], 09/11/2024 09:21:59 09/12/19 25 09/11/2024 urina lysis panel , auto Unknown Analyte Yellow Not Available [facility] [address] [place], [address], 09/11/2024 09:21:59 09/12/19 25 09/11/2024 urina lysis panel , auto Unknown Analyte Clear Not Available [facility] [address] [place], [address], 09/11/2024 09:21:59 09/12/19 25 09/11/2024 urina lysis panel , auto Unknown Analyte 1.025 Not Available [facility] [address] [place], [address], 09/11/2024 09:21:59 09/12/19 25 09/11/2024 urina lysis panel , auto Unknown Analyte 5.0 Not Available [facility] [address] [place], [address], 09/11/2024 09:21:59 09/12/19 25 09/11/2024 urina lysis panel , auto Unknown Analyte Negati ve Not Available [facility] [address] [place], [address], 09/11/2024 09:21:59 09/12/19 25 09/11/2024 urina lysis panel , auto Unknown Analyte Negati ve Not Available [facility]rol[facility] [address] [place], [address], 09/11/2024 09:21:59 09/12/19 25 09/11/2024 urina lysis panel , auto Unknown Analyte Negati ve Not Available Cu[facility] [address] [place], [address], 09/11/2024 09:21:59 09/12/19 25 09/11/2024 urina lysis panel , auto Unknown Analyte Normal Not Available [facility] [address] [facility], [place], [address], 09/11/2024 09:21:59 09/12/1909/11/2024 urina lysis panel , auto Unknown Analyte Negati ve Not Available Cu/[facility] Urol[address] [place], [address], 09/11/2024 09:21:59 09/12/1909/11/2024 urina lysis panel , auto Unknown Analyte Normal Not Available [facility] [address] [facility], [place], [address], 09/11/2024 09:21:59 09/12/1909/11/2024 urina lysis panel , auto Unknown Analyte Negati ve Not Available Cu[facility] [place], [address], 09/11/2024 09:21:59 09/12/1909/11/2024 urina lysis panel , auto Unknown Analyte Negati ve Not Available Cu[facility] Urol[address] [place], [address], 09/11/2024 09:21:59 Result Notes None recorded. Procedures Surgical History Date Name Laterality Status Provider Name and Address Organization Details Recorded Time 09/12/19 Post Void Residual; Ultrasound completed Negar Juares [facility] 09/11/2024 09:51:58 05/11/20 24 Post Void Residual; Ultrasound completed Thelma Knutson [facility] 05/11/2024 10:25:25 04/13/20 24 Urinary Bladder completed LIT TSE MD [address] [place] [address], [address], [facility] 04/15/2024 12:58:19 02/19/20 24 Post Void Residual; Ultrasound completed [facility] 02/19/2024 11:27:21 12/22/19 23 Post Void Residual; Ultrasound completed [facility] 12/21/2022 12:43:35 11/22/19 23 Urinary Bladder completed LIT TSE MD [address] [place] [address] [place], [address], [facility] 11/21/2022 07:55:28 09/01/19 23 Post Void Residual; Ultrasound completed [facility] 08/31/2022 09:44:39 07/01/19 22 Kidney Stone Removal completed [facility] 08/31/2022 09:54:52 07/01/19 19 Hysterectomy completed [facility] 08/31/2022 09:54:25 08/01/19 17 CHOLECYSTECTOMY, LAPAROSCOPIC (SURG) completed [facility] 10/01/2016 10:37:16 Teacher Citizenship Surgery completed [facility] 07/13/2016 09:49:29 Breast Surgery completed [facility] 07/13/2016 09:49:02 Imaging Results None recorded. Procedure [...] Last Updated DateTime 09/11/2024 [facility] 09/11/2024 09:44:52 Social History Question Answer Notes LastModified by Organizat ion Details LastModified Time Tobacco Smoking Status Never Smoker smokes in house Pily Elliot [facility] 07/13/2016 09:46:48 What Is Your Level [...] SNOMED-CT Code Diagnosis ICD10 Code Diagnosis Note [id number] TAMEKA CHAUDHRY APRN UROLOGY [facility] [address] [facility] [place] [address] 09/11/2024 09:27:55 09/11/2024 09:58:56 Overactive urinary bladder [id number] N32.81 Mixed urin andrea incontinence [id number] N39.46 Recurrent urinary tract infection [id number] N39.0 Health Concerns Section Related Observation LastModified by Organization Detai ls LastModified Time None Recorded Concern Status LastModified by Organization Details LastModified Time None Recorded Payers Encounter Date Sequence Insurance Name Policy Number Policy Chapa Covered Member ID Chapa Member ID Guarantor Name 09/11/2024 1 MEDICARE-IN (MEDICARE) Neeta Ashford [id number] Neeta Ashford 09/11/2024 2 [employer] SUPPLEMENTAL - [employer]URANCE (MEDICARE SUPPLEMENT) Neeta Ashford [id number] Neeta Ashford Notes Date Note Type Note [...] the past which was prescribed by her angle dozer operator. She tried Myrbetriq for 6-8 months [...] how this can be improved. TAMEKA CHAUDHRY, SHINGLE TRIMMER [address] [place], [address], [facility] 09/11/2024 09:56:45 OBGyn Episode No OBEpisode recorded.
== END ==
LOC: SL 19:54
PROVIDERS: PCP Internal Medicine; Visit Provider Specialist
DX: G47.33 Obstructive sleep apnea (adult) (pediatric) (principal); G47.36 Sleep related hypoventilation in conditions classified elsewhere
CPT/HCPCS: 95810

== ENCOUNTER 2024-12-08 09:35 | Outpatient (CLI) | payer MEDICARE, SELFPAY ==
--- OUTSIDE RECORDS SUMMARY | 2024-12-08 09:42 | XMS_ITS | Clinical Summary ---
Author Organization [employer] Address [address] [place] [address] Care Team Providers Care Professor Of Geology Name Role Phone [facility], Provider Not In The System Primary Care Provider Unavailable Allergies No known active allergies Medications lisinopril-hyd roCHLOROthiazi de (PRINZIDE,ZEST ORETIC) 20-25 mg per tablet Take 1 tablet by mouth daily. 3 Active atorvastatin (LIPITOR) 80 MG tablet Take 1 tablet (80 mg total) by mouth daily. 3 Active aspirin 81 MG EC tablet Take 1 tablet (81 mg total) by mouth daily. Active cholecalcifero l, vitamin D3, 250 mcg (10,000 unit) capsule Take 10,000 Units by mouth in the morning. Active cyanocobalamin (VITAMIN B-12) 1000 MCG tablet Take 1 tablet (1,000 mcg total) by mouth daily. Active estradioL (ESTRACE) 1 MG tablet Take 1 tablet (1 mg total) by mouth daily. Active trimethoprim (TRIMPEX) 100 mg tablet Take 1 tablet (100 mg total) by mouth once. Active acetaminophen- codeine (TYLENOL #3) 300-30 mg per tablet acetaminophen 300 mg-codeine 30 mg tablet TAKE 1 TABLET BY MOUTH AT BEDTIME NEEDED FOR PAIN FOR 30 DAYS Active phentermine 37.5 MG capsule phentermine 37.5 mg capsule TAKE 1 CAPSULE BY MOUTH ONCE DAILY IN THE MORNING FOR 30 DAYS Active apixaban (Eliquis) 5 mg tab tablet Take 1 tablet (5 mg total) by mouth daily. Active clopidogreL (PLAVIX) 75 mg tablet Take 1 tablet (75 mg total) by mouth daily. Active metoprolol succinate (TOPROL-XL) 25 MG 24 hr tablet Take 1 tablet (25 mg total) by mouth daily /2 tab . Active docusate sodium (COLACE) 100 MG capsule Take 1 capsule (100 mg total) by mouth daily. Active Active Problems Problem Noted Date Diagnosed Date TIA (transient ischemic attack) 04/13/2024 PONV (postoperative nausea and vomiting) 024 Incontinence of urine in female 04/13/2024 Hypertension 04/13/2024 High cholesterol 04/13/2024 Arrhythmia 04/13/2024 Class 3 severe obesity in adult 04/13/2024 Stented coronary artery 04/13/2024 Pacemaker 08/01/2023 Overview (04/13/2024): Dr. Livia denton Social History Tobacco Use Types Packs/Day Years Used Date Smoking Tobacco: Never Passive Smoke Exposure: Never Smokeless Tobacco: Never Tobacco Cessation:Counseling Given: No Alcohol Use Standard Drinks/Week Comments Never 0 (1 standard drink = 0.6 oz pur e alcohol) Interpersonal Safety Answer Date Record ed Family or friends hurt you Not on file 07/19 Family or friends insult you Not on file Family or friends threaten you Not on file 0 07/19/2023 Family or friends scream or curse at you Not on file 07/19/2023 Housing Stability Answer Date Recorded Living situation today Not on file Living situation problems Not on file 2023 Food Insecurity Answer Date Recorded Food run out past 12 months Not on file 07/01 Food did not last past 12 months Not on file 07/19/2023 Employment Answer Date Recorded Help finding and keeping a job Not on file 0 07/19/2023 Family and Community Support Answer Rey e Recorded Help with Day to Day Activities Not on file 07/19/2023 Feeling Lonely or Isolated Not on file 07/19 Educational Attainment Answer Date Prince rded Speak language other than [place] at home Not on file 07/19/2023 Want help with school or training Not on file 07/19/2023 Depression Answer Date Recorded PHQ-2 Risk Not on file 07/19/2023 Disabilities Answer Date Recorded Difficulty concentrating Not on file 024 Difficulty doing errands alone Not on file 0 07/19/2023 Substance Use Answer Date Recorded Used prescription meds for non-medical reasons N ot on file 07/19/2023 Used illegal drugs past 12 months Not on file 07/19/2023 Comments Unknown Sex and Gender Information Value Date Recorded Sex Assigned at Not on file Legal Sex Female 5:52 PM CDT Gender Identity Not on file Sexual Orientation Not on file Last Filed Vital Signs Vital Sign Reading Time Taken Comments Blood Pressure 118/74 04/13/2024 8:40 AM EDT Pulse 82 04/13/2024 8:40 AM EDT Temperature 36.1 C (97 F) 04/13/2024 8:10 AM EDT Respiratory Rate 16 04/13/2024 8:25 AM EDT Oxygen Saturation 98% 04/13/2024 8:40 AM EDT Inhaled Oxygen Concentration - - Weight 131.6 kg (290 lb 3.2 oz) 04/13/2024 6:00 AM EDT Height 152.4 cm (5') 04/13/2024 6:00 AM EDT Body Mass Index 56.68 04/13/2024 6:00 AM EDT Plan of Treatment Health Maintenance Due Date Last Done Comments CT Colonography 1951 Colonoscopy 1951 Colorectal Cancer Screening 1951 DXA SCAN 1951 FOBT/FIT 1951 Fit-DNA (Cologuard) 1951 Sigmoidoscopy 1951 Depression Screening (12+) 1963 Hepatitis C Screening 1969 Breast Cancer Screening 1991 Pneumococcal 50+ years (1 of 1 - PCV) 2001 Shingles Vaccine (Zoster) (1 of 2) 2001 Respiratory Syncytial Virus (RSV) Adult or (1 - Risk 60-74 years 1-dose series) 2011 Medicare Initial AWV [id number] 05/02/2017 DTAP/TDAP/TD VACCINES (3 - T d or Tdap) 02/02/2021 02/02/2011, 10/19/1997 COVID-19 VACCINE (2023-2 5 season) 2024 03/14/2022, 04/26/2021, 09/28/2020, Additional history exists Falls Risk Screening 07/01/2024 Influenza Vaccine (Season Ended) 2025 04/17/20, 03/30/2020 Tobacco Cessation Counseling and Screening (12+) 04/13/2025 04/13/2024 Medical Devices Implanted Type Area Fresh Work Inspector Device Identifier Shelf Expiration Date Model / Serial / Lot Bulkamid Urethr Bulking Agent [id number] - [id number] Implanted:Qty : 2 on 11/20/2022 by Salinas Mehta MD at [facility] IMPLANTS N/A: Urethra [employer] 08/28/2025 [id number] / / [id number] Insurance [place] [address] [place] [address] Care Teams Professor Of Geology Relationship Specialty Start Date End Date [facility], Provider Not In The System, [place] [address] PCP - General 04/13/24
--- OUTSIDE RECORDS SUMMARY | 2024-12-08 09:42 | XMS_ITS | Referral Summary ---
Author Organization [employer] Address [address] [place] [address] Care Team Providers Care Funeral Location Manager Name Role Phone [facility], Provider Not In The System Primary Care [...] Date Prince rded Speak language other than Guatemalan at home Not on file 07/19/2023 Want [...] 04/13/2024 6:00 AM EDT Plan of Treatment Not on file Medical Devices Implanted Type Area Supervisor Endless Track Vehicle Device Identifier Shelf Expiration Date Model / Serial / Lot Bulkamid Urethr Bulking Agent [id number] - [id number] Implanted:Qty : 2 on 11/20/2022 by Salinas Metha MD at [facility] IMPLANTS N/A: Urethra [employer] 08/28/2025 [id number] / / [id number] Insurance [facility]ICARE [facility] Care Teams Funeral Location Manager Relationship Specialty Start Date End Date [facility], Provider Not In The System, [place] [address] PCP - General 04/13/24
[2024-12-08 10:36] LABS: Albumin Level 4.2 g/dl (3.5-5.0)
[2024-12-08 10:39] LABS: Alanine Aminotransferase 35 U/L (12-78); Alkaline Phosphatase 115 U/L (38-126); Aspartate Amino Transferase 28 U/L (14-36); Bilirubin,Direct 0.1 mg/dl (0.0-0.4); Bilirubin,Indirect 0.6 mg/dL (0.0-0.9); Bilirubin,Total 0.7 mg/dl (0.2-1.3); Bilirubin,Unconjugated 0.5 mg/dL (0.0-1.1); Chol/HDL Ratio 4.7 (1-3.5); Cholesterol 200 mg/dl (140-200); HDL Cholesterol 43 mg/dl (40-60); Total Protein,Serum 7.3 g/dl (6.3-8.2); Triglycerides 211 mg/dl (30-150); VLDL Cholesterol 42 mg/dL (0-40)
[2024-12-08 10:51] LABS: Direct LDL Cholesterol 90.17 mg/dL (100-129)
== END 2024-12-08 23:59 | disposition home or self-care (01) ==
LOC: LAB 09:36
PROVIDERS: PCP Internal Medicine; Visit Provider Nurse Practitioner
DX: I10 Essential (primary) hypertension (principal)
CPT/HCPCS: 36415; 80061; 80076

== ENCOUNTER 2025-01-30 10:57 | Emergency (ER) | payer MEDICARE, SELFPAY ==
[2025-01-30 11:07] VITALS: BP 142/69; PULSE 95; RESP 14; TEMP 36.6; O2SAT 96; BMI 58.1
--- OUTSIDE RECORDS SUMMARY | 2025-01-30 11:16 | XMS_ITS | Referral Summary ---
Author Organization [employer] ([place], [place], [place], [place]) Address [address] [place] [address] Care Team Providers Care Filtration Supervisor Name Role Phone [facility], Provider Not In The System MD Primary Care Provider Unavailable Allergies No known [...] tablet (25 mg total) by mouth daily 1/2 tab . Active docusate sodium (COLACE) 100 [...] drink = 0.6 oz pur e alcohol) Food Insecurity Answer Date Recorded Food run [...] Date Prince rded Speak language other than Indonesian at home Not on file 07/19/2023 Want help with school or training Not on file 07/19/2023 Substance Use Answer Date Recorded Used [...] on file Medical Devices Implanted Type Area Produce Associate Device Identifier Shelf Expiration Date Model / Serial / Lot Bulkamid Urethr Bulking Agent [id number] - [id number] Implanted:Qty: 2 on 11/20/2022 by Salinas Mehta MD at [facility] IMPLANTS N/A: Urethra [employer] 08/28/2025 [id number] / / [id number] Insurance [place] [address] [address] Care Teams Filtration Supervisor Relationship Specialty Start Date End Date [facility], Provider Not In The System, [place] [address] PCP - General 04/13/24
--- OUTSIDE RECORDS SUMMARY | 2025-01-30 11:16 | XMS_ITS | Clinical Summary ---
Author Organization [facility] ([place], [place], [place], [place]) Address [address] [place] [address] Care Team Providers Care Tomb Maker Helper Name Role Phone [facility], [...] Date Prince rded Speak language other than Surinamese at home Not on file 07/19/2023 Want [...] or Tdap) 02/02/2021 02/02/2011, 10/19/1997 COVID-19 VACCINE ( - 2023-2 5 season) 2024 03/14/2022, 04/26/2021, 09/28/2020, Additional history exists Falls Risk Screening 07/01/2024 Influenza Vaccine (#1) 2025 04/17/2023, 2019 Tobacco Cessation Counseling and Screening (12+) 04/13/2025 04/13/2024 Medical Devices Implanted Type Area Lidar Technician Device Identifier Shelf Expiration Date Model / Serial / Lot Bulkamid Urethr Bulking Agent [id number] - [id number] Implanted:Qty: 2 on 11/20/2022 by Salinas Mehta MD at [facility] IMPLANTS N/A: Urethra [employer] 08/28/2025 [id number] / / [id number] Insurance MEDICARE PART A [place] [address] Care Teams Tomb Maker Helper Relationship Specialty Start Date End Date [facility], Provider Not In The System, [place] [address] PCP - General 04/13/24
[2025-01-30 11:28] VITALS: BP 142/69; PULSE 95; RESP 14; TEMP 36.6; O2SAT 96
--- NOTE | 2025-01-30 11:39 | [facility].EDGENADL ---
Discharge Plan Disposition Patient Disposition: Home, Self-Care Prescriptions Prescriptions: New doxycycline hyclate 100 mg capsule 100 mg PO BID 5 Days Qty: 10 0RF No Action Eliquis 5 mg tablet 5 mg PO BID Qty: 60 5RF clopidogrel [Plavix] 75 mg tablet 75 mg PO DAILY Qty: 90 3RF metoprolol succinate 25 mg tablet extended release 24 hr 12.5 mg PO DAILY Qty: 90 3RF lisinopril-hydrochlorothiazide 20-25 mg tablet 1 tab PO DAILY Qty: 90 3RF atorvastatin 80 mg tablet 80 mg PO DAILY Qty: 90 3RF levocetirizine 5 mg tablet 5 mg PO DAILY Qty: 30 2RF furosemide [Lasix] 20 mg tablet 20 mg PO DAILY PRN (Reason: Swelling) Qty: 30 2RF trazodone 50 mg tablet 50 mg PO DAILY Qty: 30 1RF acetaminophen-codeine 300-30 mg tablet 1 tab PO DAILY Qty: 30 0RF Referrals Follow up/Referrals: Mack Dillon DO [Primary Care Provider, Family Practice] - See instructions Activity Restrictions/Add. Instructions Additional Instructions/Restrictions: Take the antibiotic prescribed to you for the infection of your right foot. Follow-up with Dr. Cruz's office tomorrow. If you develop any new or worsening symptoms, such as worsening redness or swelling, pain or redness streaking up the leg, return to the emergency department for evaluation. Clinical Impressions Clinical Impression: Cellulitis of foot, right Print Language Print Language: Indonesian Discharge ED Provider: Jonathon Harris Adult HPI General Chief complaint: Recheck/Abnormal Lab/Rx Stated complaint: R foot/toes bit by something/swollen Time Seen by Provider: 01/30/25 11:14 Mode of Arrival: Ambulatory Source of Information: Patient Description of Symptoms (Recalled from ER Triage Doc. by RN): pt presents to the ED with a bite on her right foot. pt reports that she went to her PCP on and was prescribed a medication similar to Benadryl per pt. Pt has had no relif and reports that her foot keeps swelling. Pt denies pain. History of Present Illness HPI narrative: Neeta Ashford is a 74-year-old female with past medical history of hypertension, hyperlipidemia, obesity, A-fib, coronary artery disease, who presents to the emergency department for complaints of a bug bite to her right foot near the base of her toes that has increased in redness. Patient states that she woke up on with itchiness to her right foot near the base of her toes and thought she was bitten by a bug. She went to her primary care physician and was prescribed something similar to Benadryl yesterday. Patient states that this has not seemed to help. She states that today, is still itchy and she has noticed some increasing redness to the area and feels that it is mildly swollen. She denies any fevers. Related Data Previous Rx's ?Medication ?Instructions ?Recorded atorvastatin 80 mg tablet 80 mg PO DAILY #90 tabs 06/08/24 apixaban 5 mg tablet (Eliquis) 5 mg PO BID #60 tabs 09/01/24 clopidogrel 75 mg tablet (Plavix) 75 mg PO DAILY #90 tabs 09/01/24 lisinopril 20 1 tab PO DAILY #90 tabs 09/01/24 mg-hydrochlorothiazide 25 mg tablet metoprolol succinate 25 mg 12.5 mg (1/2 x 25 mg) PO DAILY #90 09/01/24 tablet,extended release 24 hr tabs acetaminophen 300 mg-codeine 30 mg 1 tab PO DAILY #30 tabs 01/29/25 tablet furosemide 20 mg tablet (Lasix) 20 mg PO DAILY PRN Swelling #30 01/29/25 tabs levocetirizine 5 mg tablet 5 mg PO DAILY #30 tabs 01/29/25 trazodone 50 mg tablet 50 mg PO DAILY #30 tabs 01/29/25 doxycycline hyclate 100 mg capsule 100 mg PO BID 5 days #10 caps 01/30/25 Allergies Allergy/AdvReac Type Severity Reaction Status Date / Time No Known Allergies Allergy Verified 01/29/25 12:59 [facility] Disclaimer: The information contained in this section may have been updated after the patient was seen, as this information can be updated by other users. 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) Cryptogenic stroke H/O cholecystitis CVA (cerebral vascular accident) Abnormal echocardiogram Aortic stenosis Hx of rheumatic fever SOB (shortness of breath) Family history of coronary artery disease Family history of RI (myocardial infarction) HLD (hyperlipidemia) HTN (hypertension) Surgical History History of coronary artery stent placement Status post surgical removal of malignant neoplasm of skin Presence of cardiac pacemaker Hx of colonoscopy S/P Botox injection botox in bladder H/O lithotripsy History of cholecystectomy H/O: hysterectomy Family History Other Coronary artery disease FH: CABG (coronary artery bypass surgery) Hypertension Social History Smoking Status: Never smoker second hand exposure: No alcohol intake: never counseling provided: none substance use type: denies use current occupational status: retired Travel in the last 8 weeks?: None household members: spouse housing: house current occupational exposures/hazards: No caffeine: No Have you lived/traveled outside [place] in past 30 days?: No Contact w/someone who lives/traveled outside [place] past 30 days?: No Exposure to someone with infectious disease in past 14 days?: No Do you have a fever (greater than 100.4 F or 38 C)?: No Have you tested positive for COVID-19?: No Exposed to someone with COVID-19 in past 14 days?: No Do you have a sore throat?: No Do you have a cough?: No Do you have any weakness?: No Do you have any diarrhea?: No Are you experiencing any unusual bleeding?: No Do you have any muscle aches/pain?: No Do you have any abdominal pain?: No Are you experiencing loss of taste or smell?: No Other Medical History Have you received the Flu Vaccine for this season: No Have you received the Pneumonia Vaccine: Yes ROS Obtained: Yes Systems reviewed as appropriate & no additional complaints except as documented Physical Exam General General appearance: alert, in no apparent distress and obese Head Head exam: atraumatic Eye Eye exam: Present normal appearance ENT ENT exam: Present normal external ear exam Neck Neck exam: Present full ROM Chest Chest inspection: Present symmetric chest wall rise Respiratory Respiratory exam: Present normal lung sounds bilaterally; Absent respiratory distress Cardiovascular Cardiovascular exam: Present regular rate and normal rhythm Abdominal Exam Abdominal exam: Present soft; Absent tenderness or guarding Extremities Exam Extremities exam: Present normal inspection Expanded Lower Extremity Exam Right: Top foot image:  1. Erythema Comment: 2+ DP pulses Back Exam Back exam: Present normal inspection Neurological Exam Neurological exam: Present alert and oriented X3 Psychiatric Psychiatric exam: Present normal affect Skin Skin exam: Present warm and dry Medical Decision Making Medical Records Screening: Per USPSTF and CDC recommendations, given the prevalence of disease in our region, it is our hospital?s policy to screen for HIV and viral Hepatitis for all patients aged 18 and over and those with ongoing risk factors. [place] Inquiry Pt receiving controlled substance: No Vital Signs: 01/30/25 11:07 01/30/25 11:28 01/30/25 11:43 Temperature 98 F 98 F 98 F Temperature Source Oral Oral Pulse Rate 95 H 80 Pulse Rate [Right] 95 H Respiratory Rate 14 14 14 Blood Pressure 142/69 H 109/51 L Blood Pressure [Right Arm] 142/69 H Blood Pressure Mean [Right Arm] 93 Blood Pressure Source Automatic Cuff Blood Pressure Source [Right Arm] Automatic Cuff Blood Pressure Position Supine Blood Pressure Position [Right Arm] Supine 02 Sat by Pulse Oximetry 96 96 Oxygen Delivery Method Room Air Room Air Medical Decision Narrative: Neeta Ashford is a 74-year-old female with past medical history of hypertension, hyperlipidemia, obesity, A-fib, coronary artery disease, who presents to the emergency department for complaints of a bug bite to her right foot near the base of her toes that has increased in redness. Patient states that she woke up on with itchiness to her right foot near the base of her toes and thought she was bitten by a bug. She went to her primary care physician and was prescribed something similar to Benadryl yesterday. Patient states that this has not seemed to help. She states that today, is still itchy and she has noticed some increasing redness to the area and feels that it is mildly swollen. She denies any fevers. On arrival, patient is hemodynamically stable, afebrile, breathing comfortably on room air with appropriate oxygen saturation. Physical exam, as stated above, reveals an overall well-appearing female in no distress. She has an area of redness at the base of her 3rd and 4th toes on the right foot. There is maybe a mild amount of swelling in this area. 2+ DP pulses. No other findings are noted. Differential diagnosis includes, but is not limited to: Cellulitis, ringworm, erythema migrans, spider bite, among others. There is low concern for DVT or arterial occlusion at this time given she has good coloration to her foot, no coolness of her feet, good capillary refill. The swelling is only localized to the area of redness and is felt that this is unlikely to represent a DVT. This is most consistent with a bug bite that has likely developed a component of cellulitis. Given this, will prescribe patient doxycycline. Return precautions were given. She was instructed to follow with her primary care physician. All questions were answered. She demonstrated understanding and was agreement this plan. She was then discharged from the emergency department in stable condition. Critical Care Critical Care Time Critical Care Time: No
[2025-01-30 11:43] VITALS: BP 109/51; PULSE 80; RESP 14; TEMP 36.6; O2SAT 97
== END 2025-01-30 11:48 | disposition home or self-care (01) ==
PROVIDERS: Emergency Provider Student in an Organized Health Care Education/Training Program; PCP Internal Medicine
DX: L03.115 Cellulitis of right lower limb (principal)
CPT/HCPCS: 99282

== ENCOUNTER 2025-04-03 13:35 | Emergency (ER) | payer MEDICARE, SELFPAY ==
[2025-04-03 13:39] VITALS: BP 140/71; PULSE 82; RESP 16; TEMP 36.6; O2SAT 96; BMI 56.7
--- OUTSIDE RECORDS SUMMARY | 2025-04-03 14:16 | XMS_ITS | Data Portability ---
Author Organization SHRAVAN Adams [facility]OS[facility] Address [address] [place] [address] Care Team Providers Care Window Sash Installer Name Role Phone TAMEKA CHAUDHRY Urologist Assessment Encounter Date Assessment Date Assessment LastModified by Organization Details LastModified Time 04/18/2023 04/18/2023 72-year-old female with history of [...] needed. Plan: Continue trimethoprim. Follow-up as needed. travis Not available 04/19/2023 08:44:03 02/19/2024 02/19/2024 73-year-old [...] anesthesia. She has an appointment with her shoe cobbler around the first of Mar and I have asked her to get [...] 4-5 months. Plan: Follow-up in 4 months. [email or web address] Not available 05/11/2024 10:34:21 09/11/2024 09/11/2024 73-year-old [...] repeat Botox. evickers Not available 09/11/2024 09:56:33 03/15/2025 03/15/2025 73-year-old female with history of overactive bladder and mixed urinary incontinence. She underwent hysterectomy in 2018. She has tried and failed oxybutynin and Myrbetriq. She underwent cystoscopy with bladder Botox injections (100 units) and Bulkamid injections 08/2022. She had bladder Botox (100 units) repeated 03/2024. She continues to do well with her Botox and does not need it repeated at this time. She will call if she needs follow-up sooner but, we will plan to follow-up in 6 months. Plan: Follow-up in 6 months. evickers Not available 03/15/2025 10:10:54 Plan of Treatment Reminders Order Date Submit Date Provider Last Modified By Organization Details Last Modified Time Details Appointments RECHECK 2025 09:30A M TAMEKA CHAUDHRY SWISS TYPE SCREW MACHINE OPERATOR Not available Not available Not available Lab urinalys is panel, auto 2024 025 evickers Cu/ Urology [facility], [address] [facility], [place], [address], 03/15/2025 10:10:54 urinalys is panel, auto 2024 025 evickers Cu/ Urology [facility], [address] [facility], [place], [address], 09/11/2024 09:54:06 urinalys is panel, auto 2023 024 evickers Cu/ Urology [facility], [address] [facility], [place], [address], 05/11/2024 10:33:43 urinalys is, dipstick 2023 024 evickers Not available 02/19/2024 13:09:00 urinalys is, dipstick 2022 023 evickers Not available 04/19/2023 08:44:06 Referral None recorded . Procedures None recorded . Surgeries None recorded . Imaging None recorded . Medication Orders None recorded . Patient TargetsNo targets recorded. Patient InstructionsNo instructions recorded. Reason for Referral None Reported. Results Created Date Observation Date Name Description Value Unit Range Abnormal Flag Note LastModifiedBy Organization Detail LastModifiedTime 04/18/20 23 04/18/2023 urina lysis , dipst ick Unknown Analyte Yellow Not Available [facility] [address] [place], [address], 04/18/2023 08:59:37 04/18/2004/18/2023 urina lysis , dipst ick Unknown Analyte Clear Not Available [facility] [address] [place], [address], 04/18/2023 08:59:37 04/18/2004/18/2023 urina lysis , dipst ick Unknown Analyte 1.010 Not Available [facility] [address] [place], [address], 04/18/2023 08:59:37 04/18/2004/18/2023 urina lysis , dipst ick Unknown Analyte 7.0 Not Available [facility] [address] [place] [address], [address], 04/18/2023 08:59:37 04/18/2004/18/2023 urina lysis , dipst ick Unknown Analyte Negati ve Not Available [facility] [address] [place], [address], 04/18/2023 08:59:37 04/18/2004/18/2023 urina lysis , dipst ick Unknown Analyte Negati ve Not Available [facility] [address] [place] [address], [address], 04/18/2023 08:59:37 04/18/2004/18/2023 urina lysis , dipst ick Unknown Analyte Negati ve Not Available [facility] [address] [place], [address], 04/18/2023 08:59:37 04/18/2004/18/2023 urina lysis , dipst ick Unknown Analyte Normal Not Available [facility] [address] [place] [address], [address], 04/18/2023 08:59:37 04/18/20 23 04/18/2023 urina lysis , dipst ick Unknown Analyte Negati ve Not Available [facility] [address] [place], [address], 04/18/2023 08:59:37 04/18/20 23 04/18/2023 urina lysis , dipst ick Unknown Analyte Normal Not Available [facility] [address] [place], [address], 04/18/2023 08:59:37 04/18/2004/18/2023 urina lysis , dipst ick Unknown Analyte Negati ve Not Available [facility] [address] [place] [address], [address], 04/18/2023 08:59:37 04/18/20 23 04/18/2023 urina lysis , dipst ick Unknown Analyte Negati ve Not Available [facility] [address] [place] [address], [address], 04/18/2023 08:59:37 04/18/20 23 04/18/2023 urina lysis , dipst ick Unknown Analyte Clean Catch Not Available [facility] [address] [place] [address], [address], 04/18/2023 08:59:37 04/18/20 23 04/18/2023 urina lysis , dipst ick Unknown Analyte Visual Not Available [facility] [address] [place] [address], [address], 04/18/2023 08:59:37 02/19/20 24 02/19/2024 urina lysis , dipst ick Unknown Analyte Yellow Not Available [facility] [address] [place] [address], [address], 02/19/2024 08:17:22 02/19/20 24 02/19/2024 urina lysis , dipst ick Unknown Analyte Clear Not Available [facility] [address] [place], [address], 02/19/2024 08:17:22 02/19/20 24 02/19/2024 urina lysis , dipst ick Unknown Analyte 1.015 Not Available [facility] [address] [place], [address], 02/19/2024 08:17:22 02/19/20 24 02/19/2024 urina lysis , dipst ick Unknown Analyte 5.0 Not Available [facility] [address], [address], 02/19/2024 08:17:22 02/19/20 24 02/19/2024 urina lysis , dipst ick Unknown Analyte Negati ve Not Available [facility] [address], [address], 02/19/2024 08:17:22 02/19/20 24 02/19/2024 urina lysis , dipst ick Unknown Analyte Negati ve Not Available [facility] [address], [address], 02/19/2024 08:17:22 02/19/20 24 02/19/2024 urina lysis , dipst ick Unknown Analyte Negati ve Not Available [facility] [address], [address], 02/19/2024 08:17:22 02/19/20 24 02/19/2024 urina lysis , dipst ick Unknown Analyte Normal Not Available [facility] [address] [place] [address], [address], 02/19/2024 08:17:22 02/19/20 24 02/19/2024 urina lysis , dipst ick Unknown Analyte Negati ve Not Available [facility] [address] [place], [address], 02/19/2024 08:17:22 02/19/20 24 02/19/2024 urina lysis , dipst ick Unknown Analyte Normal Not Available [facility] [address] [place] [address], [address], 02/19/2024 08:17:22 02/19/20 24 02/19/2024 urina lysis , dipst ick Unknown Analyte Negati ve Not Available [facility] [address] [place], [address], 02/19/2024 08:17:22 02/19/20 24 02/19/2024 urina lysis , dipst ick Unknown Analyte Negati ve Not Available [facility] [address] [place] [address], [address], 02/19/2024 08:17:22 02/19/20 24 02/19/2024 urina lysis , dipst ick Unknown Analyte Clean Catch Not Available [facility] [address] [place] [address], [address], 02/19/2024 08:17:22 02/19/20 24 02/19/2024 urina lysis , dipst ick Unknown Analyte Visual Not Available [facility] [address], [address], 02/19/2024 08:17:22 05/11/20 24 05/11/2024 urina lysis panel , auto Unknown Analyte Clean Catch Not Available [facility] [address] [place], [address], 05/11/2024 10:24:22 05/11/20 24 05/11/2024 urina lysis panel , auto Unknown Analyte Yellow Not Available [facility] [address] [place], [address], 05/11/2024 10:24:22 05/11/20 24 05/11/2024 urina lysis panel , auto Unknown Analyte Clear Not Available [facility] [address] [facility], [place], [address], 05/11/2024 10:24:22 05/11/20 24 05/11/2024 urina lysis panel , auto Unknown Analyte 1.010 Not Available [facility] [address] [facility], [place], [address], 05/11/2024 10:24:22 05/11/20 24 05/11/2024 urina lysis panel , auto Unknown Analyte 5.0 Not Available [facility] [address] [facility], [place], [address], 05/11/2024 10:24:22 05/11/20 24 05/11/2024 urina lysis panel , auto Unknown Analyte Negati ve Not Available [facility] [address] [facility], [place], [address], 05/11/2024 10:24:22 05/11/20 24 05/11/2024 urina lysis panel , auto Unknown Analyte Negati ve Not Available [facility] [address] [facility], [place], [address], 05/11/2024 10:24:22 05/11/20 24 05/11/2024 urina lysis panel , auto Unknown Analyte Negati ve Not Available [facility] [address] [facility], [place], [address], 05/11/2024 10:24:22 05/11/20 24 05/11/2024 urina lysis panel , auto Unknown Analyte Normal Not Available [facility] [address] [facility], [place], [address], 05/11/2024 10:24:22 05/11/20 24 05/11/2024 urina lysis panel , auto Unknown Analyte Negati ve Not Available [facility] [address] [facility], [place], [address], 05/11/2024 10:24:22 05/11/20 24 05/11/2024 urina lysis panel , auto Unknown Analyte Normal Not Available [facility] [address] [facility], [place], [address], 05/11/2024 10:24:22 05/11/20 24 05/11/2024 urina lysis panel , auto Unknown Analyte Negati ve Not Available [facility] [address] [facility], [place], [address], 05/11/2024 10:24:22 05/11/20 24 05/11/2024 urina lysis panel , auto Unknown Analyte Negati ve Not Available [facility] [address] [facility], [place], [address], 05/11/2024 10:24:22 09/12/19 25 09/11/2024 urina lysis panel , auto Unknown Analyte Clean Catch Not Available [facility] [address] [facility], [place], [address], 09/11/2024 09:21:59 09/12/19 25 09/11/2024 urina lysis panel , auto Unknown Analyte Yellow Not Available [facility] [address] [facility], [place], [address], 09/11/2024 09:21:59 09/12/19 25 09/11/2024 urina lysis panel , auto Unknown Analyte Clear Not Available [facility] [address] [facility], [place], [address], 09/11/2024 09:21:59 09/12/19 25 09/11/2024 urina lysis panel , auto Unknown Analyte 1.025 Not Available [facility] [address] [facility], [place], [address], 09/11/2024 09:21:59 09/12/19 25 09/11/2024 urina lysis panel , auto Unknown Analyte 5.0 Not Available [facility] [address] [facility], [place], [address], 09/11/2024 09:21:59 09/12/19 25 09/11/2024 urina lysis panel , auto Unknown Analyte Negati ve Not Available [facility] [address] [facility], [place], [address], 09/11/2024 09:21:59 09/12/19 25 09/11/2024 urina lysis panel , auto Unknown Analyte Negati ve Not Available [facility] [address] [facility], [place], [address], 09/11/2024 09:21:59 09/12/19 25 09/11/2024 urina lysis panel , auto Unknown Analyte Negati ve Not Available [facility] [address] [facility], [place], [address], 09/11/2024 09:21:59 09/12/19 25 09/11/2024 urina lysis panel , auto Unknown Analyte Normal Not Available [facility] [address] [facility], [place], [address], 09/11/2024 09:21:59 09/12/19 25 09/11/2024 urina lysis panel , auto Unknown Analyte Negati ve Not Available [facility] [address] [place], [address], 09/11/2024 09:21:59 09/12/19 25 09/11/2024 urina lysis panel , auto Unknown Analyte Normal Not Available [facility] [address] [facility], [place], [address], 09/11/2024 09:21:59 09/12/19 25 09/11/2024 urina lysis panel , auto Unknown Analyte Negati ve Not Available [facility] [address] [facility], [place], [address], 09/11/2024 09:21:59 09/12/19 25 09/11/2024 urina lysis panel , auto Unknown Analyte Negati ve Not Available [facility] [address] [facility], [place], [address], 09/11/2024 09:21:59 03/15/20 25 03/15/2025 urina lysis panel , auto Unknown Analyte Clean Catch Not Available [facility] [address] [facility], [place], [address], 03/14/2025 14:15:10 03/15/20 25 03/15/2025 urina lysis panel , auto Unknown Analyte Yellow Not Available [facility] [address] [facility], [place], [address], 03/14/2025 14:15:10 03/15/20 25 03/15/2025 urina lysis panel , auto Unknown Analyte Clear Not Available [facility] [address] [facility], [place], [address], 03/14/2025 14:15:10 03/15/20 25 03/15/2025 urina lysis panel , auto Unknown Analyte 1.020 Not Available [facility] [address] [place], [address], 03/14/2025 14:15:10 03/15/20 25 03/15/2025 urina lysis panel , auto Unknown Analyte 6.0 Not Available [facility] [address] [facility], [place], [address], 03/14/2025 14:15:10 03/15/20 25 03/15/2025 urina lysis panel , auto Unknown Analyte Negati ve Not Available [facility] [address] [facility], [place], [address], 03/14/2025 14:15:10 03/15/20 25 03/15/2025 urina lysis panel , auto Unknown Analyte POSITI VE (Abnor mal) Not Available [facility] [address] [facility], [place], [address], 03/14/2025 14:15:10 03/15/20 25 03/15/2025 urina lysis panel , auto Unknown Analyte Negati ve Not Available [facility] [address] [facility], [place], [address], 03/14/2025 14:15:10 03/15/20 25 03/15/2025 urina lysis panel , auto Unknown Analyte Normal Not Available [facility] [address] [facility], [place], [address], 03/14/2025 14:15:10 03/15/20 25 03/15/2025 urina lysis panel , auto Unknown Analyte Negati ve Not Available [facility] [address] [facility], [place], [address], 03/14/2025 14:15:10 03/15/20 25 03/15/2025 urina lysis panel , auto Unknown Analyte Normal Not Available [facility] [address], [place], [address], 03/14/2025 14:15:10 03/15/2003/15/2025 urina lysis panel , auto Unknown Analyte Negati ve Not Available [facility] [address] [facility], [place], [address], 03/14/2025 14:15:10 03/15/2003/15/2025 urina lysis panel , auto Unknown Analyte Negati ve Not Available [facility] [address] [facility], [place], [address], 03/14/2025 14:15:10 Result Notes None recorded. Procedures Surgical History Date Name Laterality Status Provider Name and Address Organization Details Recorded Time 03/15/20 25 Post Void Residual; Ultrasound completed Kathya Velasquez [facility] 03/15/2025 09:48:01 09/12/19 25 Post Void Residual; [facility] 09:51:58 05/11/20 24 Post Void Residual; Ultrasound completed Thelma Knutson [facility] 05/11/2024 10:25:25 04/13/20 24 Urinary Bladder completed LIT TSE MD [address] [place] [address], [address], [facility] 04/15/2024 12:58:19 02/19/20 24 Post Void Residual; [facility] 02/19/2024 11:27:21 12/22/19 23 Post Void Residual; Ultrasound completed Negarallison Juares [facility] 12/21/2022 12:43:35 11/22/19 23 Urinary Bladder completed LIT TSE MD [address] [place] [address], [address], [facility] 11/21/2022 07:55:28 09/01/19 23 Post Void Residual; Ultrasound completed Negar Juares [facility] 08/31/2022 09:44:39 07/01/19 22 Kidney Stone Removal completed [facility] 08/31/2022 09:54:52 07/01/19 19 Hysterectomy completed [facility] 08/31/2022 09:54:25 08/01/19 17 CHOLECYSTECTOMY, LAPAROSCOPIC (SURG) completed [facility] 10/01/2016 10:37:16 Bunch Breaker Machine Operator Surgery completed [facility] 07/13/2016 09:49:29 Breast Surgery completed [facility] 07/13/2016 09:49:02 Imaging Results None [...] Not Available Not Available No t Available doxycycline hyclate 100 mg capsule TAKE 1 CAPSULE BY MOUTH TWICE DAILY FOR 7 DAYS active Not Available Not Available No t Available trazodone 50 mg tablet TAKE 2 TABLETS BY MOUTH ONCE DAILY [...] Not Available Not Available No t Available mupirocin 2 % topical ointment APPLY OINTMENT TOPICALLY TO AFFECTED AREA TWICE DAILY FOR 14 DAYS FOR INFECTION active Not Available Not Available No t Available furosemide 20 mg tablet TAKE 1 TO 2 TABLETS BY MOUTH ONCE DAILY NEEDED FOR FLUID OVERLOAD active Not Available Not Available No t [...] active Not Available Not Available Not Available levocetiriz ine 5 mg tablet TAKE 1 TABLET BY MOUTH ONCE DAILY active Not Available Not Available No t Available trospium ER 60 mg capsule,ext ended [...] Details Last Updated DateTime 09/11/2024 152.4 cm [facility] 0 09/11/2024 09:44:52 Date Recorded Body height Provider Name an d Address Organization Details Last Updated DateTime 02/19/2024 152.4 cm [facility] 0 02/19/2024 11:00:00 Date Recorded Body height Provider Name an d Address Organization Details Last Updated DateTime 03/15/2025 152.4 cm Kathya Ron [facility] 03/15/2025 09:43:16 Date Recorded Body height Body mass index (BMI) Body weight Provider Name and Address Organization Details Last Updated DateTime 04/18/2023 152.4 cm 54.7 kg/m2 285826.86 g [facility] 04/18/2023 14:34:37 Date Recorded Body mass index (BMI) Body weight Heart rate Provider Name and Address Organization Details Last Updated DateTime 05/11/2024 55.7 kg/m2 519088.83 g 87 /min Thelma Knutson [facility] 05/11/2024 10:26:12 Date Recorded Body height Provider Name an d Address Organization Details Last Updated DateTime 05/11/2024 152.4 cm [facility] 1 07/11/2023 10:19:13 Social History Question Answer Notes LastModified by Organizat ion Details LastModified Time Tobacco Smoking Status Never Smoker smokes in house Pily Zarate [facility] 07/13/2016 09:46:48 What Is Your Relationship Status? Information not available 08/31/2022 Sex: Unknown Functional Status Question Answer Note LastModified by Organizat ion Details LastModified Time What is your level of alcohol consumption? 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 Family History Relationship [...] Diagnosis SNOMED-CT Code Diagnosis ICD10 Code Diagnosis IMO Codes Diagnosis Note [id number] [place] [address] [place] [address] 07/13/2016 09:07:42 07/13/2016 10:34:17 Cholelithiasis without obstruction 46357708 K80.20 [id number] [place] [address] [place] [address] 08/17/2016 08:54:31 08/17/2016 10:40:35 Cholelithiasis without obstruction 78459176 K80.20 [id number] [place] [address] [place] [address] 10/01/2016 10:12:10 10/01/2016 12:16:27 Gallstone 318068835 K80.20 [id number] TAMEKA CHAUDHRY APRN UROLOGY [facility] [address] [place] [address] 08/31/2022 09:10:52 09/03/2022 12:56:20 Overactive urinary bladder 444871469 N32.81 Mixed urin andrea incontinence 186190055 N39.46 [id number] TAMEKA CHAUDHRY APRN UROLOGY [facility] [address] [place] [address] 1 12/21/2022 12:27:26 12/21/2022 13:45:11 Overactive urinary bladder 745598606 N32.81 Mixed urin andrea incontinence 472387724 N39.46 [id number] TAMEKA CHAUDHRY APRN UROLOGY [facility] [address] [place] [address] 1 04/18/2023 13:33:34 04/19/2023 15:47:19 Overactive urinary bladder 176956249 N32.81 Mixed urin andrea incontinence 529315396 N39.46 Recurrent urinary tract infection 294171278 N39.0 [id number] TAMEKA CHAUDHRY APRN UROLOGY [facility] [address] [place] [address] 1 02/19/2024 10:43:43 02/23/2024 19:15:55 Overactive urinary bladder 651870318 N32.81 Mixed urin andrea incontinence 745324737 N39.46 Recurrent urinary tract infection 026827575 N39.0 [id number] TAMEKA CHAUDHRY APRN UROLOGY [facility] [address] [place] [address] 05/11/2024 10:02:40 05/11/2024 14:02:59 Overactive urinary bladder 776790949 N32.81 Mixed urin andrea incontinence 123894128 N39.46 Recurrent urinary tract infection 253764959 N39.0 [id number] TAMEKA CHAUDHRY APRN UROLOGY [facility] [address] [address] [place] [address] 09/11/2024 09:27:55 09/11/2024 09:58:56 Overactive urinary bladder 669746786 N32.81 Mixed urin andrea incontinence 626850306 N39.46 Recurrent urinary tract infection 579085122 N39.0 [id number] TAMEKA CHAUDHRY APRN UROLOGY [facility] [address] [place] [address] 03/15/2025 09:30:39 03/15/2025 10:09:26 Overactive urinary bladder 225765420 N32.81 Mixed urin andrea incontinence 927799357 N39.46 Recurrent urinary tract infection 152380404 N39.0 Health Concerns Section Related Observation LastModified by Organization Detai ls LastModified Time None Recorded Concern Status LastModified by Organization Details LastModified Time None Recorded Advance Directives Directive None Recorded Payers Insurance Date Sequence Insurance Name Policy Number Policy Chapa Covered Member ID Chapa Member ID Guarantor Name 03/15/2025 2 [place] [id number] Neeta Stephan Ashford [id number] Neeta Ashford 03/15/2025 1 [place] Neeta Ashford [id number] Neeta Ashford 03/15/2025 3 [employer] (MEDICARE SUPPLEMENT) Neeta Ashford [id number] Neeta Ashford 03/18/2025 2 [employer] SUPPLEMENTAL - [employer]URANCE (MEDICARE SUPPLEMENT) Neeta Ashford [id number] Neeta Ashford Notes Date Note Type Note Provider Name and Address Organization Details Recorded Time 04/18/2023 text/html 72-year-old female here for further evaluation of urinary incontinence. [...] the past which was prescribed by her cold strip feeder. She tried Myrbetriq for 6-8 months which [...] any other deficits with her stroke. TAMEKA CHAUDHRY, DIGITAL ANALYST [address] [place], [address], [facility] 04/19/2023 08:44:36 02/19/2024 text/html 73-year-old female here for further evaluation of urinary incontinence. [...] the past which was prescribed by her cold strip feeder. She tried Myrbetriq for 6-8 months which [...] is on Plavix and Eliquis. TAMEKA CHAUDHRY, RENAN [address] [place], [address], [facility] 02/19/2024 13:09:29 05/11/2024 text/html 73-year-old female here for further evaluation of urinary incontinence. [...] the past which was prescribed by her cold strip feeder. She tried Myrbetriq for 6-8 months which [...] cataract will be done in May. TAMEKA CHAUDHRY, DIGITAL ANALYST [address] [place], [address], [facility] 05/11/2024 10:34:41 09/11/2024 text/html 73-year-old female here for further evaluation of urinary incontinence. [...] the past which was prescribed by her cold strip feeder. She tried Myrbetriq for 6-8 months which [...] this can be improved. TAMEKA CHAUDHRY APRN [address] [place], [place], [address], [facility] 09/11/2024 09:56:45 03/15/2025 text/html 74-year-old female here for further evaluation of urinary incontinence. [...] the past which was prescribed by her cold strip feeder. She tried Myrbetriq for 6-8 months which [...] HPI: She returns today for follow-up. She recently got bit by something in her sleep which caused a lot of swelling of the leg and foot. She went to the ER and was given Lasix to get the fluid off her leg. Despite diuretics, she is able to make it to the bathroom most of the time. TAMEKA CHAUDHRY APRN [address] [place], [address], [facility] 03/15/2025 10:11:13 OBGyn Episode No OBEpisode recorded.
--- OUTSIDE RECORDS SUMMARY | 2025-04-03 14:16 | XMS_ITS | Clinical Summary ---
Author Organization [employer] ([place], [place], [place], [place]) Address [address] [place] [address] Care Team Providers Care Light Cleaner Name Role Phone [facility], Provider Not In The System MD Primary [...] Date Prince rded Speak language other than Mozambican at home Not on file 07/19/2023 Want [...] T d or Tdap) 02/02/2021 02/02/2011, 10/19/1997 Falls Risk Screening 07/01/2024 COVID-19 VACCINE (5 - 2024-2 6 season) 2025 03/14/2022, 04/26/2021, 09/28/2020, Additional history exists Influenza Vaccine (#1) 2025 04/17/2023, 2019 Tobacco Cessation Counseling and Screening (12+) 04/13/2025 04/13/2024 Medical Devices Implanted Type Area Group Therapist Device Identifier Shelf Expiration Date Model / Serial / Lot Bulkamid Urethr Bulking Agent [id number] - [id number] Implanted:Qty: 2 on 11/20/2022 by Salinas Mehta MD at [facility] IMPLANTS N/A: Urethra AXONICS 08/28/2025 [id number] / / [id number] Insurance [place]ICARE [place] [address] [place] [address] Care Teams Light Cleaner Relationship Specialty Start Date End Date [facility], Provider Not In The System, [place] [address] PCP - General 04/13/24
--- OUTSIDE RECORDS SUMMARY | 2025-04-03 14:16 | XMS_ITS | Continuity of Care Document ---
Author Organization [facility] Address [address] [place] [address] Care Team Providers Care Extraction Operator Name Role Phone TAMEKA CHAUDHRY Urologist Assessment Encounter Date Assessment Date Assessment LastModified by Organization Details LastModified Time 03/15/2025 03/15/2025 73-year-old female with history of [...] 6 months. Plan: Follow-up in 6 months. travis Not available 03/15/2025 10:10:54 Plan of Treatment Reminders Order Date Submit Date Provider Last Modified By Organization Details Last Modified Time Details Appointments RECHECK 2025 09:30A M TAMEKA CHAUDHRY ACID CONCENTRATOR Not available Not available Not available Lab urinalys is panel, auto 03/15/ 025 travis [facility] [address], [address] [facility], [place], [address], 03/15/2025 10:10:54 Referral None recorded . Procedures None recorded . Surgeries None recorded . Imaging None recorded . Medication Orders None recorded . Patient TargetsNo targets recorded. Patient InstructionsNo instructions recorded. Reason for Referral None Reported. Results Created Date Observation Date Name Description Value Unit Range Abnormal Flag Note LastModifiedBy Organization Detail LastModifiedTime 03/15/2003/15/2025 urina lysis panel , auto Unknown Analyte Clean Catch Not Available [facility] [address] [place], [address], 03/14/2025 14:15:10 03/15/2003/15/2025 urina lysis panel , auto Unknown Analyte Yellow Not Available [facility] [address] [place], [address], 03/14/2025 14:15:10 03/15/2003/15/2025 urina lysis panel , auto Unknown Analyte Clear Not Available [facility] [address] [place], [address], 03/14/2025 14:15:10 03/15/2003/15/2025 urina lysis panel , auto Unknown Analyte 1.020 Not Available [facility] [address] [place], [address], 03/14/2025 14:15:10 03/15/2003/15/2025 urina lysis panel , auto Unknown Analyte 6.0 Not Available [facility] [address] [place], [address], 03/14/2025 14:15:10 03/15/2003/15/2025 urina lysis panel , auto Unknown Analyte Negati ve Not Available [facility] [address] [place], [address], 03/14/2025 14:15:10 03/15/2003/15/2025 urina lysis panel , auto Unknown Analyte POSITI VE (Abnor mal) Not Available [facility] [address] [facility], [place], [address], 03/14/2025 14:15:10 03/15/2003/15/2025 urina lysis panel , auto Unknown Analyte Negati ve Not Available [facility] [address] [facility], [place], [address], 03/14/2025 14:15:10 03/15/2003/15/2025 urina lysis panel , auto Unknown Analyte Normal Not Available [facility] [address] [facility], [place], [address], 03/14/2025 14:15:10 03/15/2003/15/2025 urina lysis panel , auto Unknown Analyte Negati ve Not Available [facility] [facility], [place], [address], 03/14/2025 14:15:10 03/15/2003/15/2025 urina lysis panel , auto Unknown Analyte Normal Not Available [facility] [address] [facility], [place], [address], 03/14/2025 14:15:10 03/15/2003/15/2025 urina lysis panel , auto Unknown Analyte Negati ve Not Available [facility] [address] [place], [address], 03/14/2025 14:15:10 03/15/2003/15/2025 urina lysis panel , auto Unknown Analyte Negati ve Not Available [facility] [address] [facility], [place], [address], 03/14/2025 14:15:10 Result Notes None recorded. Procedures Surgical History Date Name Laterality Status Provider Name and Address Organization Details Recorded Time 09/15/20 25 Post Void Residual; Ultrasound completed Kathya Ron [facility] 03/15/2025 09:48:01 09/12/19 25 Post Void Residual; [facility] 09/11/[facility] 09:51:58 05/11/20 24 Post Void Residual; Ultrasound completed Thelma Knutson [facility] 05/11/2024 10:25:25 04/13/20 24 Urinary Bladder completed LIT TSE MD [address] [place], [address], [facility] 04/15/2024 12:58:19 02/19/20 24 Post Void Residual; Ultrasound completed [facility] 02/19/2024 11:27:21 12/22/19 23 Post Void Residual; Ultrasound completed [facility] 12/21/2022 12:43:35 11/22/19 23 Urinary Bladder completed LIT TSE MD [address] [place], [address], [facility] 11/21/2022 07:55:28 09/01/19 23 Post Void Residual; Ultrasound completed [facility] 08/31/2022 09:44:39 07/01/19 22 Kidney Stone Removal completed [facility] 08/31/2022 09:54:52 07/01/19 19 Hysterectomy completed [facility] 08/31/2022 09:54:25 08/01/19 17 CHOLECYSTECTOMY, LAPAROSCOPIC (SURG) completed [facility] 10/01/2016 10:37:16 Aircraft Motor Mechanic Surgery completed [facility] 07/13/2016 09:49:29 Breast Surgery completed [facility] 07/13/2016 09:49:02 Imaging Results None recorded. [...] Last Updated DateTime 03/15/2025 152.4 cm [facility] 03/15/2025 09:43:16 Social History Question Answer Notes LastModified by Organizat ion Details LastModified Time Tobacco Smoking Status Never Smoker smokes in house Pily Elliot [facility] 07/13/2016 09:46:48 What Is Your Relationship [...] ICD10 Code Diagnosis IMO Codes Diagnosis Note [id number] TAMEKA CHAUDHRY APRN [facility]OLOGY [facility] [address] [address] [place] [address] 03/15/2025 09:30:39 03/15/2025 10:09:26 Overactive urinary bladder [id number] N32.81 Mixed urin andrea incontinence 294510023 N39.46 Recurrent urinary tract infection 964107892 N39.0 Health Concerns Section Related Observation LastModified by Organization Detai ls LastModified Time None Recorded Concern Status LastModified by Organization Details LastModified Time None Recorded Payers Encounter Date Sequence Insurance Name Policy Number Policy Chapa Covered Member ID Chapa Member ID Guarantor Name 03/15/2025 1 [place] Neeta Ashford [id number] Neeta Ashford 03/15/2025 2 [employer] SUPPLEMENTAL - [employer]URANCE (MEDICARE SUPPLEMENT) Neeta Ashford [id number] Neeta Ashford Notes Date Note Type Note Provider Name and Address Organization Details Recorded Time 03/15/2025 text/html 74-year-old female here for further [...] the past which was prescribed by 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 She tried Myrbetriq for 6-8 months which [...] the bathroom most of the time. TAMEKA CHAUDHRY, CONSULTING PRACTICE MANAGER [address] [place], [address], [facility] 03/15/2025 10:11:13 OBGyn Episode No OBEpisode recorded.
--- OUTSIDE RECORDS SUMMARY | 2025-04-03 14:16 | XMS_ITS | Referral Summary ---
Author Organization [facility] [facility] ([place], [place], [place], [place]) Address [address] [place] [address] Care Team Providers Care Director Of Patient Care Name Role Phone [facility], Provider Not In The System MD Primary [...] Date Prince rded Speak language other than Equatorial Guinean at home Not on file 07/19/2023 Want [...] on file Medical Devices Implanted Type Area Shallot Cleaner Device Identifier Shelf Expiration Date Model / Serial / Lot Bulkamid Urethr Bulking Agent [id number] - [id number] Implanted:Qty: 2 on 11/20/2022 by Salinas Mehta MD at [facility] IMPLANTS N/A: Urethra AXONICS 08/28/2025 [id number] / / [id number] Insurance MEDICARE [place] [address] Care Teams Director Of Patient Care Relationship Specialty Start Date End Date [facility], Provider Not In The System, [place] [address] PCP - General 04/13/24
--- OUTSIDE RECORDS SUMMARY | 2025-04-03 14:17 | XMS_ITS | Data Portability ---
Author Organization [facility] & [place] [facility] Address [address] [place] [address] Assessment No assessment recorded. Plan of Treatment [...] Organization Details Recorded Time Cerebrovascula r accident [id number] Active 2022 Sissy Lynette stafford [facility] & [place] 14:06:19 Problem Notes None recorded. Procedures Surgical History Date Name Laterality Status Provider Name and Address Organization Details Recorded Time Cholecystectomy completed Sissy Ojeda [facility] & [place] 03/26/2023 13:59:27 Partial hysterectomy completed Sissy Ojeda [facility] & [place] 03/26/2023 14:10:08 Imaging Results None recorded. Procedure [...] Not Available Not Available Vitals Date Recorded Body height Body mass index (BMI) Body weight Provider Name and Address Organization Details Last Updated DateTime 03/26/2023 152.4 cm 55.1 kg/m2 559849.05 g Kristin Hester, DO [address] [place], [address], [facility] & [place] 03/26/2023 14:26:25 Date Recorded Heart rate Oxygen saturation Oxygen saturation in Arterial blood by Pulse oximetry Systolic And Diastolic Provider Name and Address Organization Details Last Updated DateTime 03/26/2023 91 /min 96 % 96 % 138/76 mm[Hg] Sissy Ojeda [facility] & [place] 14:12:16 Social History Question Answer Notes LastModified by Organizat ion Details LastModified Time Tobacco Smoking Status Never Smoker Sissy stafford [facility] & [place] 03/26/2023 13:58:50 What Is Your Level Of Caffeine Consumption? None Information not available 03/26/2023 Do You Have Any Pets? Yes Information not available 03/26/2023 What Is Your Relationship Status? Lives In House With Information not available 03/26/2023 Are You Currently In School? No Diploma Information not available 03/26/2023 Sex: Unknown Functional Status Question Answer Note LastModified by Organizat ion Details LastModified Time Do you use any illicit or recreational drugs? No Information not available 03/26/2023 What is your level of alcohol consumption? None Information not available 03/26/2023 Are you currently employed? No retired Information not available 03/26/2023 Do you have transportation difficulties? No Information not available 03/26/2023 Are you able to care for yourself independently? Yes Information not available 03/26/2023 Mental Status None recorded. Family History Relationship Description Onset Age of this Age Resolved Age Notes LastModified by Organization Details LastModified Time Father Myocardial infarction 85 ldalla Not available 03/26 13:58:21 Mother Myocardial infarction 77 ldalla Not available 03/26 13:58:21 Medical History Condition Response Kidney Stones Y Stroke Y Valvular Heart Disease Y Hyperlipidemia Y Hypertension Y Gynecological HistoryNo gynecological history recorded. Obstetrics History GPAL:G 0 P 0 0 0 0 Past Encounters Encounter ID Performer Location Encounter Start Date Encounter Closed Date Diagnosis/Indication Diagnosis SNOMED-CT Code Diagnosis ICD10 Code Diagnosis IMO Codes Diagnosis Note [id number] Kristin DO [facility] [address] [facility],[address] [place] [address] 03/26/2023 13:51:46 03/26/2023 15:06:01 Cerebrovascular accident [id number] I63.9 Acute left frontal stroke with residual [...] Member ID Chapa Member ID Guarantor Name 03/23/2023 1 [place] Neeta Ashford [id number] Neeta Ashford 03/23/2023 2 [place] [id number] Neeta Ashford [id number] Neeta Ashford Notes Date Note Type Note Provider Name and Address Organization Details Recorded Time 03/26/2023 text/html 72 y/o right handed female here for neurologic consultation requested by [...] to bed that night.Her took her to [facility] ER. Initial CT head and CTA head/neck were negative. Per the ER records the stroke team at and were contacted regarding the patient's presentation. She was not found to be a candidate for tpa or interventional procedures. She was given an oral loading dose of ASA and plavix then admitted to [facility] for further workup.MRI brain did reveal [...] easier and easier to understand. Kristin Hester, [address], [place], [address], [facility] [place] & [place] 03/26/2023 14:50:29 OBGyn Episode No OBEpisode recorded.
--- NOTE | 2025-04-03 14:18 | ED_ITS ---
<Statement entered by Will Ca DO - 04/04/25 07:25> I was consulted by the SHANTEL, and we discussed the complexity of problems being addressed. I approved the treatment and management plan for this patient's care in the emergency department, thus performing a substantive portion of the medical decision making. Patient has a history of cryptogenic stroke. She states that in the past she had marked speech deficits including dysarthria and partial aphasia as well as left-sided weakness and numbness. Today she began experiencing numbness and tingling in the ulnar nerve distribution with no associated weakness or speech deficits. After shared decision-making discussion we proceeded with a CTA of the head and neck and a CT head without contrast. The studies were within normal limits. My overall suspicion is that this patient is experiencing a peripheral neuropathy. She was discharged home in stable condition. Will Ca DO Discharge Plan Disposition Patient Disposition: Home, Self-Care Condition: Good Prescriptions Prescriptions: No Action Eliquis 5 mg tablet 5 mg PO BID Qty: 60 5RF clopidogrel [Plavix] 75 mg tablet 75 mg PO DAILY Qty: 90 3RF metoprolol succinate 25 mg tablet extended release 24 hr 12.5 mg PO DAILY Qty: 90 3RF lisinopril-hydrochlorothiazide 20-25 mg tablet 1 tab PO DAILY Qty: 90 3RF furosemide [Lasix] 20 mg tablet 40 mg PO DAILY Rx Instructions: 1 to 2 tablets as needed for fluid overload acetaminophen-codeine 300-30 mg tablet 1 tab PO DAILY Qty: 30 0RF atorvastatin 80 mg tablet 80 mg PO DAILY Qty: 90 3RF mupirocin 2 % ointment 1 applic topical BID 14 Days Qty: 22 1RF levocetirizine 5 mg tablet 5 mg PO DAILY Qty: 30 2RF trazodone 50 mg tablet 100 mg PO DAILY Qty: 60 1RF Referrals Follow up/Referrals: Mack Dillon DO [Primary Care Provider, Family Practice] - See instructions Activity Restrictions/Add. Instructions Additional Instructions/Restrictions: Please return to the emergency department with any worsening signs or symptoms. Please follow-up with your primary doctor and other doctors in the upcoming days/weeks. Please continue to take all your medication as prescribed. Please wear your wrist brace as needed please utilize ibuprofen and Tylenol as needed for symptomatic relief. Could consider nerve conduction study/EMG as outpatient. Clinical Impressions Clinical Impression: Neuropathy of left hand Instructions Patient Instructions: DI for Carpal Tunnel Syndrome, DI for Cubital Tunnel Syndrome, DI for Peripheral Neuropathy Print Language Print Language: Guyanese Discharge ED Provider: Will Ca General Adult HPI <NOEMY Levine - Last Filed: 04/03/25 17:11> General Chief complaint: Extremity Injury, Upper Stated complaint: Left fingers burning & drawing up Time Seen by Provider: 04/03/25 13:46 Mode of Arrival: Ambulatory Source of Information: Patient Limitations: No Limitations Description of Symptoms (Recalled from ER Triage Doc. by RN): Complaint of numbness and weakness of her left middle, ring and pinky finger. States this has been going on for a couple of days off and on. States that her eyes also feel like they are burning. History of Present Illness HPI narrative: 74-year-old female presents to the emergency department with a 2 to 3-day history of numbness and tingling burning , of her left middle, ring and pinky fingers, patient denies any fever chills chest pain shortness of breath, denies any upper or lower extremity weakness, does have some mild dysarthria, and minor facial droop on the left side at baseline, does have prior history of cryptogenic CVA, patient denies any trauma injury per history, denies any neck pain, denies any radicular type symptomatology, denies any numbness or tingling the entire arm, denies any saddle anesthesia, denies urinary bladder or bowel dysfunction, denies abdominal pain, nausea vomiting constipation, diarrhea denies urinary type symptomatology, does state that her face feels flushed , contacted her PCPs office and she was instructed to come to the emergency department for the symptomatologies. 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 Initial triage vitals unremarkable, NIH is 2, aphasia/dysarthria baseline, with minor nasolabial fold on the left. Please note that above description of symptoms, in this electronic medical record under categorization of recalled from ER triage doctor by RN are reflective of an initial nursing assessment, however, is not reflective of my full history and physical exam that was personally taken and clarified. Consequentially, this preceding description of symptoms, which may include the patient's categorized chief complaint in the EMR, do not reflect my personal clinical impression, and the ultimate description of history of present illness and patient stated complaints should be deferred to this section of the note. Unless stated otherwise or congruent with this section of the note, additional signs, symptoms, or incongruence should be interpreted as inaccurate with my clinical impression. Onset (ago): day(s) Related Data Home Medications ?Medication ?Instructions ?Recorded ?Confirmed furosemide 20 mg tablet (Lasix) 40 mg PO DAILY Swellin g 03/26/25 Previous Rx's ?Medication ?Instructions ?Recorded atorvastatin 80 mg tablet 80 mg PO DAILY #90 tabs 03/24 apixaban 5 mg tablet (Eliquis) 5 mg PO BID #60 tabs clopidogrel 75 mg tablet (Plavix) 75 mg PO DAILY #90 t abs 09/01/24 lisinopril 20 1 tab PO DAILY #90 tabs 4/25 mg-hydrochlorothiazide 25 mg tablet metoprolol succinate 25 mg 12.5 mg (1/2 x 25 mg) PO DA GERA #90 09/01/24 tablet,extended release 24 hr tabs levocetirizine 5 mg tablet 5 mg PO DAILY #30 tabs 07/25 mupirocin 2 % topical ointment 1 applic topical BID in fection 14 02/01/25 days #22 grams trazodone 50 mg tablet 100 mg (2 x 50 mg) PO DAILY #60 02/18/25 tabs acetaminophen 300 mg-codeine 30 mg 1 tab PO DAILY #30 tabs 03/26/25 tablet Allergies Allergy/AdvReac Type Severity Reaction Status Date / Time No Known Allergies Allergy Verified 03/26/25 10:12 [facility] <NOEMY Levine - Last Filed: 04/03/25 17:11> [facility] Disclaimer: The information contained in this section may have been updated after the patient was seen, as this information can be updated by other users. 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) Cryptogenic stroke H/O cholecystitis CVA (cerebral vascular accident) Abnormal echocardiogram Aortic stenosis Hx of rheumatic fever SOB (shortness of breath) Family history of coronary artery disease Family history of MN (myocardial infarction) HLD (hyperlipidemia) HTN (hypertension) Surgical History History of coronary artery stent placement Status post surgical removal of malignant neoplasm of skin Presence of cardiac pacemaker Hx of colonoscopy S/P Botox injection botox in bladder H/O lithotripsy History of cholecystectomy H/O: hysterectomy Family History Other Coronary artery disease FH: CABG (coronary artery bypass surgery) Hypertension Social History Smoking Status: Never smoker second hand exposure: No alcohol intake: never counseling provided: none substance use type: denies use current occupational status: retired Travel in the last 8 weeks?: None household members: spouse housing: house current occupational exposures/hazards: No caffeine: No Have you lived/traveled outside [place] in past 30 days?: No Contact w/someone who lives/traveled outside US past 30 days?: No Exposure to someone with infectious disease in past 14 days?: No Do you have a fever (greater than 100.4 F or 38 C)?: No Have you tested positive for COVID-19?: No Exposed to someone with COVID-19 in past 14 days?: No Do you have a sore throat?: No Do you have a cough?: No Do you have any weakness?: No Do you have any diarrhea?: No Are you experiencing any unusual bleeding?: No Do you have any muscle aches/pain?: No Do you have any abdominal pain?: No Are you experiencing loss of taste or smell?: No Other Medical History Have you received the Flu Vaccine for this season: No Have you received the Pneumonia Vaccine: Yes <NOEMY Levine - Last Filed: 04/03/25 17:11> ROS Obtained: Yes All systems reviewed & no additional complaints except as documented Physical Exam <NOEMY Levine - Last Filed: 04/03/25 17:11> General General appearance: alert and in no apparent distress Head Head exam: atraumatic and normocephalic Eye Eye exam: Present PERRL and EOMI ENT ENT exam: Present mucous membranes moist Neck Neck exam: Present normal inspection Chest Chest inspection: Present normal inspection and symmetric chest wall rise Respiratory Respiratory exam: Present normal lung sounds bilaterally; Absent respiratory distress Cardiovascular Cardiovascular exam: Present regular rate and normal rhythm Abdominal Exam Abdominal exam: Present soft; Absent tenderness, guarding, rebound or rigidity Extremities Exam Extremities exam: Present normal inspection Neurological Exam Neurological exam: Present alert, oriented X3 and other (5-5 strength in bilateral lower and upper extremities, no limb drift in the bilateral lower and upper extremities, no gross sensation deficit, there is some mild expressive aphasia noted, that is chronic for her, as well as some mild left facial droop on the left, negative Tinel's test and Phalen's ) Psychiatric Psychiatric exam: Present normal affect Skin Skin exam: Present warm and dry Medical Decision Making <NOEMY Levine - Last Filed: 04/03/25 17:11> Medical Records Medical records reviewed: Yes I reviewed the patient's medical records. Screening: Per USPSTF and CDC recommendations, given the prevalence of disease in our region, it is our hospital?s policy to screen for HIV and viral Hepatitis for all patients aged 18 and over and those with ongoing risk factors. Amado Inquiry Pt receiving controlled substance: No Amado was queried for this patient: No Vital Signs: 04/03/25 13:39 Temperature 97.9 F Temperature Source Oral Pulse Rate [Radial] 82 Respiratory Rate 16 Blood Pressure [Right Arm] 140/71 Blood Pressure Mean [Right Arm] 94 Blood Pressure Source [Right Arm] Automatic Cuff Blood Pressure Position [Right Arm] Sitting 02 Sat by Pulse Oximetry 96 Oxygen Delivery Method Room Air Lab Data Lab results reviewed: Yes I reviewed the patient's lab results. Lab Results 04/03/25 14:33: WBC 7.3, RBC 4.06 L, Hgb 11.5 L, Hct 34.8 L, MCV 85.7, MCH 28.3, MCHC 33.0, RDW 16.1, Plt Count 282, MPV 9.7, Neut % (Auto) 55.7, Lymph % (Auto) 31.6, Wilson % (Auto) 9.7 H, Eos % (Auto) 2.6, Baso % (Auto) 0.1, Neut # (Auto) 4.0, Lymph # (Auto) 2.3, Wilson # (Auto) 0.7, Eos # (Auto) 0.2, Baso # (Auto) 0.0, PT 11.2, INR 1.01, Sodium 137, Potassium 3.6, Chloride 100, Carbon Dioxide 29, Anion Gap 11.6, BUN 32 H, Creatinine 1.20 H, Estimated Creat Clear 32, Estimated GFR 44 L, Est GFR ( Amer) 53 L, Glucose 101 H, Calcium 9.7, Total Bilirubin 0.7, AST 28, ALT 34, Alkaline Phosphatase 127 H, Troponin I < 0.01, N T-Pro-B Natriuret Pep 306 H, Total Protein 7.4, Albumin 3.9, Globulin 3.5 H, Albumin/Globulin Ratio 1.1, TSH 3.57, Thyroxine (T4) 8.4 04/03/25 15:45: Urine Color Yellow, Urine Appearance Clear, Urine pH 6.0, Ur Specific Buda <= 1.005, Urine Protein Negative, Urine Glucose (UA) Negative, Urine Ketones Negative, Urine Blood Negative, Urine Nitrate Negative, Urine Bilirubin Negative, Urine Urobilinogen 0.2, Ur Leukocyte Esterase Negative, Urine RBC None, Urine WBC 5-10, Ur Squamous Epith Cells 5-10, Urine Bacteria 4+ 04/03/25 14:33 04/03/25 14:33 Orders (Tests/Meds): ED MEDICATIONS Discontinued Medications Generic Name Dose Route Start Last Admin Trade Name Jarretq PRN Reason Stop Dose Admin Sodium Chloride 1,000 mls @ 999 mls/hr 04/03/25 16:02 04/03/25 16:33 Sod Chlor 0.9% 1000ml Bag IV 04/03/25 17:02 999 mls/hr .Q1H1M ONE Administration Iopamidol 80 ml 04/03/25 15:53 04/03/25 15:54 Iopamidol-370 (76%);100ml Bottle IV 04/03/25 15:54 80 ml ONCE ONE Administration Sodium Chloride 10 ml 04/03/25 15:53 04/03/25 15:54 Sodium Chloride 0.9% 10ml Syr (Rad Only) IV 04/03/25 15:54 10 ml ONCE ONE Administration Sodium Chloride 50 ml 04/03/25 15:53 04/03/25 15:54 0.9 % Sodium Chloride 50 Ml Vial IV 04/03/25 15:54 50 ml ONCE ONE Administration ORDERS Category Date Time Status CT angio head Stat Cat Scan 04/03/25 14:[address] angio neck Stat Cat Scan 04/03/25 14:[address] head/brain wo con Stat Cat Scan 04/03/25 14:18 Completed Complete Blood Count Auto Diff Stat Lab 04/03/25 14:33 Completed Comprehensive Metabolic Panel Stat Lab 04/03/25 14:33 Completed HIV Combo Stat Lab 04/03/25 14:33 Received Hepatitis C Ab Qual. W/ RFX Stat Lab 04/03/25 14:33 Received NT Pro Brain Natriuretic Pep. Stat Lab 04/03/25 14:33 Completed PT INR [Prothrombin Time INR] Stat Lab 04/03/25 14:33 Completed T4 (Thyroxine) Stat Lab 04/03/25 14:33 Completed TSH [Thyroid Stimulating Hormone] Stat Lab 04/03/25 14:33 Completed Troponin I Q3H Lab 04/03/25 17:30 Ordered Troponin I Q3H Lab 04/03/25 20:30 Ordered Troponin I Stat Lab 04/03/25 14:33 Completed Urinalysis and Microscopic Stat Lab 04/03/25 15:45 Completed Urine Culture Stat Micro 04/03/25 15:45 Received Medical Decision Narrative: 74-year-old female presents the emergency department with numbness and tingling of her 3rd, 4th and 5th digit on her left hand, no other acute symptomatology, this more going on for 2 days, differential diagnose include but not limited to TIA/CVA, peripheral neuropathy, carpal tunnel, ulnar neuropathy, radial neuropathy, cubital tunnel, cardiac arrhythmia, electrolyte disturbance among others. I discussed this patient's case with the attending physician Dr. Ca Will obtain base, laboratory studies, EKG, CT head without contrast, CTA head and neck with and without contrast, proBNP PT/INR T4 TSH troponin UA. CBC unremarkable Coags within normal limits proBNP is minimally elevated at 306 Initial troponin is less than 0.01, T4 is 8.4 within normal limit CMP is notable for elevated BUN at 32, creatinine is elevated at 1.2, which appears to be within line of the patient's acute on chronic kidney injury. UA unremarkable, will give 1 L IV NS for acute kidney injury TSH within normal limits Microscopic analysis of the urine is notable for 5-10 WBCs, 5-10 squamous epithelial cells and 4+ urine bacteria. I reviewed the patient's CTA head and neck with and without contrast along the corresponding radiologic reports, no large vessel stenosis or occlusion, no stenosis or occlusion, I reviewed the patient's CT head without contrast along the corresponding radiologic report, no acute intracranial pathology, stable small meningioma overlying the right medial frontal lobe convexity, patient does have this meningioma diagnosis in her problem list. I discussed all results with the patient at the bedside. Patient is in agreement with the current treatment plan/discharge plan, most likely peripheral neuropathy as a cause of the patient's symptoms, will give the patient a wrist brace as needed for symptomatic relief/support. Patient aware this as needed, recommend ibuprofen Tylenol and other anti-inflammatory medication as needed for pain. Follow-up with PCP and other providers in the upcoming days. Watchful surveillance of the patient's meningioma that was seen on previous scans. Patient voiced understanding and agreement with the current treatment plan/discharge plan. Strict return precaution given. <Will Ca, - Last Filed: 04/03/25 16:52> Vital Signs: 04/03/25 13:39 Temperature 97.9 F Temperature Source Oral Pulse Rate [Radial] 82 Respiratory Rate 16 Blood Pressure [Right Arm] 140/71 Blood Pressure Mean [Right Arm] 94 Blood Pressure Source [Right Arm] Automatic Cuff Blood Pressure Position [Right Arm] Sitting 02 Sat by Pulse Oximetry 96 Oxygen Delivery Method Room Air Lab Data Lab Results 04/03/25 14:33: WBC 7.3, RBC 4.06 L, Hgb 11.5 L, Hct 34.8 L, MCV 85.7, MCH 28.3, MCHC 33.0, RDW 16.1, Plt Count 282, MPV 9.7, Neut % (Auto) 55.7, Lymph % (Auto) 31.6, Wilson % (Auto) 9.7 H, Eos % (Auto) 2.6, Baso % (Auto) 0.1, Neut # (Auto) 4.0, Lymph # (Auto) 2.3, Wilson # (Auto) 0.7, Eos # (Auto) 0.2, Baso # (Auto) 0.0, PT 11.2, INR 1.01, Sodium 137, Potassium 3.6, Chloride 100, Carbon Dioxide 29, Anion Gap 11.6, BUN 32 H, Creatinine 1.20 H, Estimated Creat Clear 32, Estimated GFR 44 L, Est GFR ( Amer) 53 L, Glucose 101 H, Calcium 9.7, Total Bilirubin 0.7, AST 28, ALT 34, Alkaline Phosphatase 127 H, Troponin I < 0.01, N T-Pro-B Natriuret Pep 306 H, Total Protein 7.4, Albumin 3.9, Globulin 3.5 H, Albumin/Globulin Ratio 1.1, TSH 3.57, Thyroxine (T4) 8.4 04/03/25 15:45: Urine Color Yellow, Urine Appearance Clear, Urine pH 6.0, Ur Specific Buda <= 1.005, Urine Protein Negative, Urine Glucose (UA) Negative, Urine Ketones Negative, Urine Blood Negative, Urine Nitrate Negative, Urine Bilirubin Negative, Urine Urobilinogen 0.2, Ur Leukocyte Esterase Negative, Urine RBC None, Urine WBC 5-10, Ur Squamous Epith Cells 5-10, Urine Bacteria 4+ Orders (Tests/Meds): ED MEDICATIONS Discontinued Medications Generic Name Dose Route Start Last Admin Trade Name Freq PRN Reason Stop Dose Admin Sodium Chloride 1,000 mls @ 999 mls/hr 04/03/25 16:02 04/03/25 16:33 Sod Chlor 0.9% 1000ml Bag IV 04/03/25 17:02 999 mls/hr .Q1H1M ONE Administration Iopamidol 80 ml 04/03/25 15:53 04/03/25 15:54 Iopamidol-370 (76%);100ml Bottle IV 04/03/25 15:54 80 ml ONCE ONE Administration Sodium Chloride 10 ml 04/03/25 15:53 04/03/25 15:54 Sodium Chloride 0.9% 10ml Syr (Rad Only) IV 04/03/25 15:54 10 ml ONCE ONE Administration Sodium Chloride 50 ml 04/03/25 15:53 04/03/25 15:54 0.9 % Sodium Chloride 50 Ml Vial IV 04/03/25 15:54 50 ml ONCE ONE Administration ORDERS Category Date Time Status CT angio head Stat Cat Scan 04/03/25 14:[address] angio neck Stat Cat Scan 04/03/25 14:[address] head/brain wo con Stat Cat Scan 04/03/25 14:18 Completed Complete Blood Count Auto Diff Stat Lab 04/03/25 14:33 Completed Comprehensive Metabolic Panel Stat Lab 04/03/25 14:33 Completed HIV Combo Stat Lab 04/03/25 14:33 Received Hepatitis C Ab Qual. W/ RFX Stat Lab 04/03/25 14:33 Received NT Pro Brain Natriuretic Pep. Stat Lab 04/03/25 14:33 Completed PT INR [Prothrombin Time INR] Stat Lab 04/03/25 14:33 Completed T4 (Thyroxine) Stat Lab 04/03/25 14:33 Completed TSH [Thyroid Stimulating Hormone] Stat Lab 04/03/25 14:33 Completed Troponin I Q3H Lab 04/03/25 17:30 Ordered Troponin I Q3H Lab 04/03/25 20:30 Ordered Troponin I Stat Lab 04/03/25 14:33 Completed Urinalysis and Microscopic Stat Lab 04/03/25 15:45 Completed Urine Culture Stat Micro 04/03/25 15:45 Received ECG Data Tracing #1: I reviewed this ECG and interpreted as documented below: EKG personally interpreted by me demonstrates normal sinus rhythm with a rate of 79 bpm, left axis, no GA prolongation, narrow QRS, no QTc prolongation. No ST elevation or depression. No overt signs of ischemia or arrhythmia. There are intermittent atrial pacer spikes. Critical Care <NOEMY Levine - Last Filed: 04/03/25 17:11> Critical Care Time Critical Care Time: No
--- NOTE | 2025-04-03 14:18 | CT_ITS ---
PROCEDURE INFORMATION: Exam: CT Head Without Contrast Exam date and time: 04/03/2025 3:55 PM Age: 74 years old Clinical indication: Other: Numbness and tingling in lrft 3 digits HX TIA TECHNIQUE: Imaging protocol: Computed tomography of the head without contrast. Radiation optimization: All CT scans at this facility use at least one of these dose optimization techniques: automated exposure control; mA and/or kV adjustment per patient size (includes targeted exams where dose is matched to clinical indication); or iterative reconstruction. COMPARISON: CT HEAD/BRAIN WO/W CON 08/05/2024 8:[address] head dated 05/21/2023. CT head dated 02/06/2023. FINDINGS: Brain: Cerebellar tonsils are in normal anatomic position. Dural-based mass, stable dating back to the CT head of 02/06/2023 with mild calcification overlying the medial right frontal lobe convexity, image 1002/23 measuring 13 mm in AP dimension, 13 mm in transverse dimension and 4 mm in thickness. This is consistent with a meningioma. Stable mild periventricular white matter small vessel ischemic changes. The brain is otherwise unremarkable. No hemorrhage. No mass effect. Cerebral ventricles: No ventriculomegaly. Pituitary gland and sella: Sella is unremarkable. Paranasal sinuses: Paranasal sinuses are unremarkable. Mastoid air cells: Mastoid air cells are unremarkable. Orbital cavities: Orbits are unremarkable. Bones: The visible bone anatomy is unremarkable. Soft tissues: The soft tissues are unremarkable. Vasculature: Unremarkable. IMPRESSION: No acute intracranial pathology. Stable small meningioma overlying the medial right frontal lobe convexity.
--- NOTE | 2025-04-03 14:19 | CT_ITS ---
PROCEDURE INFORMATION: Exam: CTA Head With Contrast, Arteriography Exam date and time: 04/03/2025 3:57 PM Age: 74 years old Clinical indication: Numbness; Additional info: Numbness and tingling in lrft 3 digits HX TIA TECHNIQUE: Imaging protocol: Computed tomographic angiography of the head with contrast. Exam focused on the arteries. 3D rendering (Not supervised by radiologist): MIP and/or 3D reconstructed images were created by the technologist. Radiation optimization: All CT scans at this facility use at least one of these dose optimization techniques: automated exposure control; mA and/or kV adjustment per patient size (includes targeted exams where dose is matched to clinical indication); or iterative reconstruction. Contrast material: ISOVUE; Contrast volume: 80 ml; Contrast route: INTRAVENOUS (IV); COMPARISON: CT ANGIO HEAD 02/06/2023 8:38 AM FINDINGS: ANTERIOR CIRCULATION: Right internal carotid artery: Intracranial segment is patent with no significant stenosis. No aneurysm. Right middle cerebral artery: No occlusion or significant stenosis. No aneurysm. Right anterior cerebral artery: No occlusion or significant stenosis. No aneurysm. Left internal carotid artery: Intracranial segment is patent with no significant stenosis. No aneurysm. Left middle cerebral artery: No occlusion or significant stenosis. No aneurysm. Left anterior cerebral artery: No occlusion or significant stenosis. No aneurysm. POSTERIOR CIRCULATION: Right vertebral artery: No occlusion or significant stenosis. No aneurysm. Left vertebral artery: No occlusion or significant stenosis. No aneurysm. Basilar artery: No occlusion or significant stenosis. No aneurysm. Right posterior cerebral artery: No occlusion or significant stenosis. No aneurysm. Left posterior cerebral artery: No occlusion or significant stenosis. No aneurysm. Brain: No definite mass, mass effect, or midline shift. Cerebral ventricles: No ventriculomegaly. Bones/joints: Unremarkable. No acute fracture. Soft tissues: Unremarkable. IMPRESSION: No large vessel stenosis or occlusion.
--- NOTE | 2025-04-03 14:19 | CT_ITS ---
PROCEDURE INFORMATION: Exam: CTA Neck With Contrast Exam date and time: 04/03/2025 3:57 PM Age: 74 years old Clinical indication: Numbness; Additional info: Numbness and tingling in lrft 3 digits HX TIA TECHNIQUE: Imaging protocol: Computed tomographic angiography of the neck with contrast. Exam focused on the cervical segments of the vasculature. 3D rendering (Not supervised by radiologist): MIP and/or 3D reconstructed images were created by the technologist. Radiation optimization: All CT scans at this facility use at least one of these dose optimization techniques: automated exposure control; mA and/or kV adjustment per patient size (includes targeted exams where dose is matched to clinical indication); or iterative reconstruction. Contrast material: ISOVUE; Contrast volume: 80 ml; Contrast route: INTRAVENOUS (IV); COMPARISON: CT ANGIO NECK 02/06/2023 8:38 AM FINDINGS: Right common carotid artery: No significant stenosis. No dissection or occlusion. Right internal carotid artery: No significant stenosis of the extracranial segment. No dissection or occlusion. Right external carotid artery: No occlusion or stenosis of the origin. Left common carotid artery: No significant stenosis. No dissection or occlusion. Left internal carotid artery: No significant stenosis of the extracranial segment. No dissection or occlusion. Left external carotid artery: No occlusion or stenosis of the origin. Right vertebral artery: No stenosis. No dissection or occlusion. Left vertebral artery: No stenosis. No dissection or occlusion. Soft tissues: Normal. No significant soft tissue swelling. Bones/joints: Moderate spondylosis. IMPRESSION: No stenosis or occlusion. REFERENCES: NASCET CRITERIA. The degree of stenosis in the cervical segment of the internal carotid artery is based on NASCET criteria. Normal is no stenosis. Mild is less than 50% stenosis. Moderate is 50-69% stenosis. Severe is 70% to 99% stenosis. Total occlusion is no detectable patent lumen.
--- NOTE | 2025-04-03 14:39 | ECG_ITS ---
APPROVED REPORT Exam: Resting ECG HR:79 bpm ECG Measurements Heart Rate 79 AXES ND 182 P 73 QRSd 95 QRS -6 QT 392 T 30 QTc 427 Conclusion Sinus rhythm Left axis Normal intervals No STEMI Intermittent atrial paced complexes Electronically signed by : Will Ca, 04/04/2025 07:32:45
[2025-04-03 14:48] LABS: Hematocrit 34.8 % (37.0-47.0); Hemoglobin 11.5 g/dL (12.2-16.2); Immature Granulocytes % 0.3 %; Mean Corpuscular HGB Conc 33.0 g/dL (31.8-35.4); Mean Corpuscular Hemoglobin 28.3 pg (27.0-31.2); Mean Corpuscular Volume 85.7 fl (81-99); Nucleated Red Blood Cells % 0 %; Platelet Count 282 K/mm3 (142-424); Red Blood Count 4.06 M/mm3 (4.20-5.40); Red Cell Distribution Width-SD 50.2 fL; White Blood Count 7.3 K/mm3 (4.8-10.8)
[2025-04-03 14:53] LABS: INR 1.01 (0.9-1.1); Prothrombin Time 11.2 seconds (10.1-12.5)
[2025-04-03 15:00] LABS: Albumin Level 3.9 g/dl (3.5-5.0); Chloride 100 mmol/L (98-107); Potassium 3.6 mmoL/L (3.5-5.1); Sodium 137 mmol/L (136-145)
[2025-04-03 15:03] LABS: Alanine Aminotransferase 34 U/L (12-78); Albumin/Globulin Ratio 1.1 (1.1-1.8); Alkaline Phosphatase 127 U/L (38-126); Anion Gap 11.6 mEq/L (5-15); Aspartate Amino Transferase 28 U/L (14-36); Bilirubin,Total 0.7 mg/dl (0.2-1.3); Calcium 9.7 mg/dl (8.4-10.2); Carbon Dioxide 29 mmol/L (22.0-30.0); Globulin 3.5 g/dL (1.3-3.2); Glucose 101 mg/dl (74-100); Total Protein,Serum 7.4 g/dl (6.3-8.2)
[2025-04-03 15:13] LABS: NT Pro Brain Natriuretic Pep. 306 pg/mL (0-125)
[2025-04-03 15:20] LABS: T4 (Thyroxine) 8.4 ug/dl (5.53-11.0)
[2025-04-03 15:35] LABS: Troponin I < 0.01 ng/ml (0.00-0.034)
[2025-04-03 15:42] LABS: Blood Urea Nitrogen 32 mg/dl (7-17); Creatinine Clearance Estimated 32 mL/min (50-200); Creatinine,Serum 1.20 mg/dl (0.52-1.04); Estimated Glomerular Filt Rate 44 ml/min (>60); GFR (African American) 53 ML/MIN (>60)
[2025-04-03 15:52] LABS: Microscopic, Urine URINE MICROSCOPIC (MICROSCOPIC)
[2025-04-03] MEDS: IOPAMIDOL-370 (76%);100ML BOTTLE 80 ML IV (15:54)
[2025-04-03] MEDS: 0.9 % SODIUM CHLORIDE 50 ML VIAL IV (15:54)
[2025-04-03] MEDS: SODIUM CHLORIDE 0.9% 10ML SYR (RAD ONLY) 10 ML IV (15:54)
[2025-04-03 15:57] LABS: Bilirubin,Urine Negative (Negative); Color,Urine YELLOW (Yellow); Glucose,Urine (UA) Negative (Negative); Ketones,Urine Negative (Negative); Leukocyte Esterase,Urine Negative (Negative); PH,Urine 6.0 (5.0-8.5); Protein,Urine Negative (Negative); Specific Gravity, Urine <= 1.005 (1.005-1.030); Urobilinogen,Urine 0.2 EU/dl (0.2)
[2025-04-03 16:14] LABS: Thyroid Stimulating Hormone 3.57 uIU/mL (0.465-4.68)
[2025-04-03 16:20] LABS: Bacteria,Urine 4+ /lpf
[2025-04-03] MEDS: 0.9 % SODIUM CHLORIDE 1000ML 1,000 ML 999 ML IV (16:33)
[2025-04-03 17:15] VITALS: BP 148/76; PULSE 76; O2SAT 98
[2025-04-03 17:55] LABS: Hepatitis C Ab Qual. W/ RFX NEGATIVE (Negative)
[2025-04-03 18:01] VITALS: BP 145/73; PULSE 82; RESP 18; TEMP 37; O2SAT 98
== END 2025-04-03 18:18 | disposition home or self-care (01) ==
PROVIDERS: Physician Assistant; Emergency Provider Student in an Organized Health Care Education/Training Program; PCP Internal Medicine
DX: G56.92 Unspecified mononeuropathy of left upper limb (principal); R20.2 Paresthesia of skin; N39.0 Urinary tract infection, site not specified; I69.354 Hemiplegia and hemiparesis following cerebral infarction affecting left non-dominant side; I69.320 Aphasia following cerebral infarction; I69.322 Dysarthria following cerebral infarction; I10 Essential (primary) hypertension; E78.5 Hyperlipidemia, unspecified
CPT/HCPCS: 70450; 70496; 70498; 80053; 81001; 83880; 84436; 84443; 84484; 85025; 85610; 86803; 87086; 87088; 87186; 87389; 93005; 96360; 99285; J7030; Q9967

== ENCOUNTER 2025-04-28 14:06 | Outpatient (CLI) | payer MEDICARE, SELFPAY ==
--- OUTSIDE RECORDS SUMMARY | 2025-04-28 14:10 | XMS_ITS | Referral Summary ---
Author Organization [employer] ([place], [place], [place], [place]) Address [address] [place] [address] Care Team Providers Care Pattern Mechanic Name Role Phone [facility], Provider Not In The System MD Primary [...] Date Prince rded Speak language other than Tunisian at home Not on file 07/19/2023 Want [...] on file Medical Devices Implanted Type Area Bottomer Operator Device Identifier Shelf Expiration Date Model / Serial / Lot Bulkamid Urethr Bulking Agent [id number] - [id number] Implanted:Qty: 2 on 11/20/2022 by Salinas Mehta MD at [facility] IMPLANTS N/A: Urethra [employer] 08/28/2025 [id number] / / [id number] Insurance MEDICARE PART A [place] [address] Care Teams Pattern Mechanic Relationship Specialty Start Date End Date Sjh, Provider Not In The System, [place] [address] PCP - General 04/13/24
--- OUTSIDE RECORDS SUMMARY | 2025-04-28 14:10 | XMS_ITS | Continuity of Care Document ---
Author Organization [facility] Address [address] [place] [id number] Care Team Providers Care Dining Room Busser Name Role Phone TAMEKA CHAUDHRY Urologist Assessment [...] Appointments RECHECK 2025 09:30A M TAMEKA CHAUDHRY PROGRAM SCHEDULER Not available Not available Not available Lab urinalys is panel, auto 03/15/ 025 travis [facility] [address] [facility], [place], [address], 03/15/2025 10:10:54 Referral None recorded . Procedures [...] Clean Catch Not Available [facility] [address] [place], [address], 03/14/2025 14:15:10 03/15/2003/15/2025 urina lysis panel , auto Unknown Analyte Yellow Not Available [facility] [address] [place], [address], 03/14/2025 14:15:10 03/15/2003/15/2025 urina lysis panel , auto Unknown Analyte Clear Not Available [facility] [address] [place], [address], 03/14/2025 14:15:10 03/15/2003/15/2025 urina lysis panel , auto Unknown Analyte 1.020 Not Available [facility] [address] [place], [address], 03/14/2025 14:15:10 03/15/2003/15/2025 urina lysis panel , auto Unknown Analyte 6.0 Not Available [facility] [address] [place], [address], 03/14/2025 14:15:10 03/15/2003/15/2025 urina lysis panel , auto Unknown Analyte Negati ve Not Available [facility] [address] [place], [address], 03/14/2025 14:15:10 03/15/2003/15/2025 urina lysis panel , auto Unknown Analyte POSITI VE (Abnor mal) Not Available [facility] [address] [facility], [place], [address], 03/14/2025 14:15:10 03/15/2003/15/2025 urina lysis panel , auto Unknown Analyte Negati ve Not Available [facility] [address] [facility], [place], [address], 03/14/2025 14:15:10 03/15/2003/15/2025 urina lysis panel , auto Unknown Analyte Normal Not Available [facility] [address] [facility], [place], [address], 03/14/2025 14:15:10 03/15/2003/15/2025 urina lysis panel , auto Unknown Analyte Negati ve Not Available [facility] [facility], [place], [address], 03/14/2025 14:15:10 03/15/2003/15/2025 urina lysis panel , auto Unknown Analyte Normal Not Available [facility] [address] [facility], [place], [address], 03/14/2025 14:15:10 03/15/2003/15/2025 urina lysis panel , auto Unknown Analyte Negati ve Not Available [facility] [place], [address], 03/14/2025 14:15:10 03/15/2003/15/2025 urina lysis panel , auto Unknown Analyte Negati ve Not Available [facility] [address] [facility], [place], [address], 03/14/2025 14:15:10 Result Notes None recorded. Procedures Surgical History Date Name Laterality Status Provider Name and Address Organization Details Recorded Time 09/15/20 25 Post Void Residual; Ultrasound completed Kathya Ron [facility] 03/15/2025 09:48:01 09/12/19 25 Post Void Residual; [facility] 09:51:58 05/11/20 24 Post Void Residual; Ultrasound completed Thelma Knutson [facility] 05/11/2024 10:25:25 04/13/20 24 Urinary Bladder completed LIT TSE MD [address] [place], [address], [facility] 04/15/2024 12:58:19 02/19/20 24 Post Void Residual; Ultrasound completed [facility] 02/19/2024 11:27:21 12/22/19 23 Post Void Residual; Ultrasound completed [facility] 12/21/2022 12:43:35 11/22/19 23 Urinary Bladder completed LIT TSE MD [address] [place], [address], [facility] 11/21/2022 07:55:28 09/01/19 23 Post Void Residual; Ultrasound completed [facility] 08/31/2022 09:44:39 07/01/19 22 Kidney Stone Removal completed [facility] 08/31/2022 09:54:52 07/01/19 19 Hysterectomy completed [facility] 08/31/2022 09:54:25 08/01/19 17 CHOLECYSTECTOMY, LAPAROSCOPIC (SURG) completed [facility] 10/01/2016 10:37:16 Surgeon/President Surgery completed [facility] 07/13/2016 09:49:29 Breast Surgery completed [facility] 07/13/2016 09:49:02 Imaging Results None recorded. [...] Never Smoker smokes in house Pily Elliot [facility] 07/13/2016 09:46:48 What Is Your Relationship Status? [...] Condition Response Other Y Kidney Stones Y Gallbladder Disease High Cholesterol Y Liver Disease Hypertension Y Kidney Disease Y Gynecological HistoryNo gynecological history recorded. Obstetrics History GPAL:G 0 P 0 0 0 0 Past Encounters Encounter ID Performer Location Encounter Start Date Encounter Closed Date Diagnosis/Indication Diagnosis SNOMED-CT Code Diagnosis ICD10 Code Diagnosis IMO Codes Diagnosis Note [id number] TAMEKA CHAUDHRY APRN UROLOGY [facility] [place] [address] 03/15/2025 09:30:39 03/15/2025 10:09:26 Overactive urinary bladder 017056408 N32.81 Mixed urin andrea incontinence 992905700 N39.46 Recurrent urinary tract infection 462753277 N39.0 Health Concerns Section Related Observation LastModified by Organization Detai ls LastModified Time None Recorded Concern Status LastModified by Organization Details LastModified Time None Recorded Payers Encounter Date Sequence Insurance Name Policy Number Policy Chapa Covered Member ID Chapa Member ID Guarantor Name 03/15/2025 1 [place] Neeta Ashford [id number] Neeta Ashford 03/15/2025 2 [employer] SU[employer]LE[employer]AL - [employer] (MEDICARE SUPPLEMENT) Neeta Ashford [id number] Neeta Ashford Notes Date Note Type Note [...] the past which was prescribed by her spike maker. She tried Myrbetriq for 6-8 months which [...] bathroom most of the time. TAMEKA CHAUDHRY, ACCOUNT SERVICES MANAGER [address] [place], [address], [facility] 03/15/2025 10:11:13 OBGyn Episode No OBEpisode recorded.
--- OUTSIDE RECORDS SUMMARY | 2025-04-28 14:10 | XMS_ITS | Data Portability ---
Author Organization [facility] [place] [facility] Address [address] [place] [address] Care Team Providers Care Route Clerk Name Role Phone TAMEKA CHAUDHRY Urologist Assessment [...] anesthesia. She has an appointment with her case assembler around the first of Mar and I [...] Appointments RECHECK 2025 09:30A M TAMEKA CHAUDHRY [employer] Not available Not available Not available Lab urinalys is panel, auto 2024 025 evickers Cu/ Urology [facility], [address] [facility] [facility] [address], [place], [address], 03/15/2025 10:10:54 urinalys is panel, auto 2024 025 evickers Cu/ Urology [facility], [address] [facility], [place], [address], 09/11/2024 09:54:06 urinalys is panel, auto 2023 024 evickers Cu/ Urology [facility], [address] [facility], [place], [address], 05/11/2024 10:33:43 urinalys is, dipstick 2023 024 [...] dipst ick Unknown Analyte Yellow Not Available [facility] [address] [place], [address], 04/18/2023 08:59:37 04/18/2004/18/2023 urina lysis , dipst ick Unknown Analyte Clear Not Available [facility] [address] [place], [address], 04/18/2023 08:59:37 04/18/2004/18/2023 urina lysis , dipst ick Unknown Analyte 1.010 Not Available [facility] [address] [place], [address], 04/18/2023 08:59:37 04/18/2004/18/2023 urina lysis , dipst ick Unknown Analyte 7.0 Not Available [facility] [address] [place] [address], [address], 04/18/2023 08:59:37 04/18/2004/18/2023 urina lysis , dipst ick Unknown Analyte Negati ve Not Available [facility] [address] [place], [address], 04/18/2023 08:59:37 04/18/2004/18/2023 urina lysis , dipst ick Unknown Analyte Negati ve Not Available [facility] [address] [place] [address], [address], 04/18/2023 08:59:37 04/18/2004/18/2023 urina lysis , dipst ick Unknown Analyte Negati ve Not Available [facility] [address] [place], [address], 04/18/2023 08:59:37 04/18/2004/18/2023 urina lysis , dipst ick Unknown Analyte Normal Not Available [facility] [address] [place] [address], [address], 04/18/2023 08:59:37 04/18/20 23 04/18/2023 urina lysis , dipst ick Unknown Analyte Negati ve Not Available [facility] [address] [place], [address], 04/18/2023 08:59:37 04/18/20 23 04/18/2023 urina lysis , dipst ick Unknown Analyte Normal Not Available [facility] [address] [place], [address], 04/18/2023 08:59:37 04/18/2004/18/2023 urina lysis , dipst ick Unknown Analyte Negati ve Not Available [facility] [address] [place] [address], [address], 04/18/2023 08:59:37 04/18/20 23 04/18/2023 urina lysis , dipst ick Unknown Analyte Negati ve Not Available [facility] [address] [place] [address], [address], 04/18/2023 08:59:37 04/18/20 23 04/18/2023 urina lysis , dipst ick Unknown Analyte Clean Catch Not Available [facility] [address] [place] [address], [address], 04/18/2023 08:59:37 04/18/20 23 04/18/2023 urina lysis , dipst ick Unknown Analyte Visual Not Available [facility] [address] [place] [address], [address], 04/18/2023 08:59:37 02/19/20 24 02/19/2024 urina lysis , dipst ick Unknown Analyte Yellow Not Available [facility] [address] [place] [address], [address], 02/19/2024 08:17:22 02/19/20 24 02/19/2024 urina lysis , dipst ick Unknown Analyte Clear Not Available [facility] [address] [place], [address], 02/19/2024 08:17:22 02/19/20 24 02/19/2024 urina lysis , dipst ick Unknown Analyte 1.015 Not Available [facility] [address] [place], [address], 02/19/2024 08:17:22 02/19/20 24 02/19/2024 urina lysis , dipst ick Unknown Analyte 5.0 Not Available [facility] [address], [address], 02/19/2024 08:17:22 02/19/20 24 02/19/2024 urina lysis , dipst ick Unknown Analyte Negati ve Not Available [facility] [address], [address], 02/19/2024 08:17:22 02/19/20 24 02/19/2024 urina lysis , dipst ick Unknown Analyte Negati ve Not Available [facility] [address], [address], 02/19/2024 08:17:22 02/19/20 24 02/19/2024 urina lysis , dipst ick Unknown Analyte Negati ve Not Available [facility] [address], [address], 02/19/2024 08:17:22 02/19/20 24 02/19/2024 urina lysis , dipst ick Unknown Analyte Normal Not Available [facility] [address] [place] [address], [address], 02/19/2024 08:17:22 02/19/20 24 02/19/2024 urina lysis , dipst ick Unknown Analyte Negati ve Not Available [facility] [address] [place], [address], 02/19/2024 08:17:22 02/19/20 24 02/19/2024 urina lysis , dipst ick Unknown Analyte Normal Not Available [facility] [address] [place] [address], [address], 02/19/2024 08:17:22 02/19/20 24 02/19/2024 urina lysis , dipst ick Unknown Analyte Negati ve Not Available [facility] [address] [place], [address], 02/19/2024 08:17:22 02/19/20 24 02/19/2024 urina lysis , dipst ick Unknown Analyte Negati ve Not Available [facility] [address] [place] [address], [address], 02/19/2024 08:17:22 02/19/20 24 02/19/2024 urina lysis , dipst ick Unknown Analyte Clean Catch Not Available [facility] [address] [place] [address], [address], 02/19/2024 08:17:22 02/19/20 24 02/19/2024 urina lysis , dipst ick Unknown Analyte Visual Not Available [facility] [address], [address], 02/19/2024 08:17:22 05/11/20 24 05/11/2024 urina lysis panel , auto Unknown Analyte Clean Catch Not Available [facility] [address] [place], [address], 05/11/2024 10:24:22 05/11/20 24 05/11/2024 urina lysis panel , auto Unknown Analyte Yellow Not Available [facility] [address] [place], [address], 05/11/2024 10:24:22 05/11/20 24 05/11/2024 urina lysis panel , auto Unknown Analyte Clear Not Available [facility] [address] [facility], [place], [address], 05/11/2024 10:24:22 05/11/20 24 05/11/2024 urina lysis panel , auto Unknown Analyte 1.010 Not Available [facility] [address] [facility], [place], [address], 05/11/2024 10:24:22 05/11/20 24 05/11/2024 urina lysis panel , auto Unknown Analyte 5.0 Not Available [facility] [address] [facility], [place], [address], 05/11/2024 10:24:22 05/11/20 24 05/11/2024 urina lysis panel , auto Unknown Analyte Negati ve Not Available [facility] [address] [facility], [place], [address], 05/11/2024 10:24:22 05/11/20 24 05/11/2024 urina lysis panel , auto Unknown Analyte Negati ve Not Available [facility] [address] [facility], [place], [address], 05/11/2024 10:24:22 05/11/20 24 05/11/2024 urina lysis panel , auto Unknown Analyte Negati ve Not Available [facility] [address] [facility], [place], [address], 05/11/2024 10:24:22 05/11/20 24 05/11/2024 urina lysis panel , auto Unknown Analyte Normal Not Available [facility] [address] [facility], [place], [address], 05/11/2024 10:24:22 05/11/20 24 05/11/2024 urina lysis panel , auto Unknown Analyte Negati ve Not Available [facility] [address] [facility], [place], [address], 05/11/2024 10:24:22 05/11/20 24 05/11/2024 urina lysis panel , auto Unknown Analyte Normal Not Available [facility] [address] [facility], [place], [address], 05/11/2024 10:24:22 05/11/20 24 05/11/2024 urina lysis panel , auto Unknown Analyte Negati ve Not Available [facility] [address] [facility], [place], [address], 05/11/2024 10:24:22 05/11/20 24 05/11/2024 urina lysis panel , auto Unknown Analyte Negati ve Not Available [facility] [address] [facility], [place], [address], 05/11/2024 10:24:22 09/12/19 25 09/11/2024 urina lysis panel , auto Unknown Analyte Clean Catch Not Available [facility] [address] [facility], [place], [address], 09/11/2024 09:21:59 09/12/19 25 09/11/2024 urina lysis panel , auto Unknown Analyte Yellow Not Available [facility] [address] [facility], [place], [address], 09/11/2024 09:21:59 09/12/19 25 09/11/2024 urina lysis panel , auto Unknown Analyte Clear Not Available [facility] [address] [facility], [place], [address], 09/11/2024 09:21:59 09/12/19 25 09/11/2024 urina lysis panel , auto Unknown Analyte 1.025 Not Available [facility] [address] [facility], [place], [address], 09/11/2024 09:21:59 09/12/19 25 09/11/2024 urina lysis panel , auto Unknown Analyte 5.0 Not Available [facility] [address] [facility], [place], [address], 09/11/2024 09:21:59 09/12/19 25 09/11/2024 urina lysis panel , auto Unknown Analyte Negati ve Not Available [facility] [address] [facility], [place], [address], 09/11/2024 09:21:59 09/12/19 25 09/11/2024 urina lysis panel , auto Unknown Analyte Negati ve Not Available [facility] [address] [facility], [place], [address], 09/11/2024 09:21:59 09/12/19 25 09/11/2024 urina lysis panel , auto Unknown Analyte Negati ve Not Available [facility] [address] [facility], [place], [address], 09/11/2024 09:21:59 09/12/19 25 09/11/2024 urina lysis panel , auto Unknown Analyte Normal Not Available [facility] [address] [facility], [place], [address], 09/11/2024 09:21:59 09/12/19 25 09/11/2024 urina lysis panel , auto Unknown Analyte Negati ve Not Available [facility] [address] [place], [address], 09/11/2024 09:21:59 09/12/19 25 09/11/2024 urina lysis panel , auto Unknown Analyte Normal Not Available [facility] [address] [facility], [place], [address], 09/11/2024 09:21:59 09/12/19 25 09/11/2024 urina lysis panel , auto Unknown Analyte Negati ve Not Available [facility] [address] [facility], [place], [address], 09/11/2024 09:21:59 09/12/19 25 09/11/2024 urina lysis panel , auto Unknown Analyte Negati ve Not Available [facility] [address] [facility], [place], [address], 09/11/2024 09:21:59 03/15/20 25 03/15/2025 urina lysis panel , auto Unknown Analyte Clean Catch Not Available [facility] [address] [facility], [place], [address], 03/14/2025 14:15:10 03/15/20 25 03/15/2025 urina lysis panel , auto Unknown Analyte Yellow Not Available [facility] [address] [facility], [place], [address], 03/14/2025 14:15:10 03/15/20 25 03/15/2025 urina lysis panel , auto Unknown Analyte Clear Not Available [facility] [address] [facility], [place], [address], 03/14/2025 14:15:10 03/15/20 25 03/15/2025 urina lysis panel , auto Unknown Analyte 1.020 Not Available [facility] [address] [place], [address], 03/14/2025 14:15:10 03/15/20 25 03/15/2025 urina lysis panel , auto Unknown Analyte 6.0 Not Available [facility] [address] [facility], [place], [address], 03/14/2025 14:15:10 03/15/20 25 03/15/2025 urina lysis panel , auto Unknown Analyte Negati ve Not Available [facility] [address] [facility], [place], [address], 03/14/2025 14:15:10 03/15/20 25 03/15/2025 urina lysis panel , auto Unknown Analyte POSITI VE (Abnor mal) Not Available [facility] [address] [facility], [place], [address], 03/14/2025 14:15:10 03/15/20 25 03/15/2025 urina lysis panel , auto Unknown Analyte Negati ve Not Available [facility] [address] [facility], [place], [address], 03/14/2025 14:15:10 03/15/20 25 03/15/2025 urina lysis panel , auto Unknown Analyte Normal Not Available [facility] [address] [facility], [place], [address], 03/14/2025 14:15:10 03/15/20 25 03/15/2025 urina lysis panel , auto Unknown Analyte Negati ve Not Available [facility] [address] [facility], [place], [address], 03/14/2025 14:15:10 03/15/20 25 03/15/2025 urina lysis panel , auto Unknown Analyte Normal Not Available [facility] [address], [place], [address], 03/14/2025 14:15:10 03/15/2003/15/2025 urina lysis panel , auto Unknown Analyte Negati ve Not Available [facility] [address] [facility], [place], [address], 03/14/2025 14:15:10 03/15/2003/15/2025 urina lysis panel , auto Unknown Analyte Negati ve Not Available [facility] [address] [facility], [place], [address], 03/14/2025 14:15:10 Result Notes None recorded. Procedures Surgical History Date Name Laterality Status Provider Name and Address Organization Details Recorded Time 03/15/20 25 Post Void Residual; Ultrasound completed Kathya Velasquez [facility] 03/15/2025 09:48:01 09/12/19 25 Post Void Residual; [facility] 09:51:58 05/11/20 24 Post Void Residual; Ultrasound completed Thelma Knutson [facility] 05/11/2024 10:25:25 04/13/20 24 Urinary Bladder completed LIT TSE MD [address] [place] [address], [address], [facility] 04/15/2024 12:58:19 02/19/20 24 Post Void Residual; [facility] 02/19/[facility]24 11:27:21 12/22/19 23 Post Void Residual; Ultrasound completed Negarallison Juares [facility] 12/21/2022 12:43:35 11/22/19 23 Urinary Bladder completed LIT TSE MD [address] [place] [address], [address], [facility] 11/21/2022 07:55:28 09/01/19 23 Post Void Residual; Ultrasound completed Negar Juares [facility] 08/31/2022 09:44:39 07/01/19 22 Kidney Stone Removal completed [facility] 08/31/2022 09:54:52 07/01/19 19 Hysterectomy completed [facility] 08/31/2022 09:54:25 08/01/19 17 CHOLECYSTECTOMY, LAPAROSCOPIC (SURG) completed [facility] 10/01/2016 10:37:16 Thresher Broomcorn Surgery completed [facility] 07/13/2016 09:49:29 Breast Surgery completed [facility] 07/13/2016 09:49:02 Imaging Results None [...] Details Last Updated DateTime 09/11/2024 152.4 cm [facility] 0 09/11/2024 09:44:52 Date Recorded Body height Provider Name an d Address Organization Details Last Updated DateTime 02/19/2024 152.4 cm [facility] 0 02/19/2024 11:00:00 Date Recorded Body height Provider Name an d Address Organization Details Last Updated DateTime 03/15/2025 152.4 cm Kathya Ron [facility] 03/15/2025 09:43:16 Date Recorded Body height Body mass index (BMI) Body weight Provider Name and Address Organization Details Last Updated DateTime 04/18/2023 152.4 cm 54.7 kg/m2 922216.86 g [facility] 04/18/2023 14:34:37 Date Recorded Body mass index (BMI) Body weight Heart rate Provider Name and Address Organization Details Last Updated DateTime 05/11/2024 55.7 kg/m2 703935.83 g 87 /min Thelma Knutson [facility] 05/11/2024 10:26:12 Date Recorded Body height Provider Name an d Address Organization Details Last Updated DateTime 05/11/2024 152.4 cm [facility] 1 07/11/2023 10:19:13 Social History Question Answer Notes LastModified by Organizat ion Details LastModified Time Tobacco Smoking Status Never Smoker smokes in house Pily Zarate [facility] 07/13/2016 09:46:48 What Is Your Relationship Status? [...] ICD10 Code Diagnosis IMO Codes Diagnosis Note [id number] [place] [address] [place] [address] 07/13/2016 09:07:42 07/13/2016 10:34:17 Cholelithiasis without obstruction 77486394 K80.20 [id number] [place] [address] [place] [address] 08/17/2016 08:54:31 08/17/2016 10:40:35 Cholelithiasis without obstruction 93527730 K80.20 [id number] [place] [address] [place] [address] 1 10/01/2016 10:12:10 10/01/2016 12:16:27 Gallstone 731438933 K80.20 [id number] TAMEKA CHAUDHRY APRN UROLOGY [facility] [address] [place] [address] 08/31/2022 09:10:52 09/03/2022 12:56:20 Overactive urinary bladder 212168843 N32.81 Mixed urin andrea incontinence 985987331 N39.46 [id number] TAMEKA CHAUDHRY APRN UROLOGY [facility] [address] [place] [address] 1 12/21/2022 12:27:26 12/21/2022 13:45:11 Overactive urinary bladder 865471763 N32.81 Mixed urin andrea incontinence 897987738 N39.46 [id number] TAMEKA CHAUDHRY APRN UROLOGY [facility] [address] [place] [address] 1 04/18/2023 13:33:34 04/19/2023 15:47:19 Overactive urinary bladder 387443981 N32.81 Mixed urin andrea incontinence 826582908 N39.46 Recurrent urinary tract infection 581541822 N39.0 [id number] TAMEKA CHAUDHRY APRN UROLOGY [facility] [address] [place] [address] 1 02/19/2024 10:43:43 02/23/2024 19:15:55 Overactive urinary bladder 112241492 N32.81 Mixed urin andrea incontinence 883120519 N39.46 Recurrent urinary tract infection 826619971 N39.0 [id number] TAMEKA CHAUDHRY APRN UROLOGY [facility] [address] [place] [address] 05/11/2024 10:02:40 05/11/2024 14:02:59 Overactive urinary bladder 090346267 N32.81 Mixed urin andrea incontinence 765318564 N39.46 Recurrent urinary tract infection 801828982 N39.0 [id number] TAMEKA CHAUDHRY APRN UROLOGY [facility] [address] [place] [address] 09/11/2024 09:27:55 09/11/2024 09:58:56 Overactive urinary bladder 833030604 N32.81 Mixed urin andrea incontinence 334223289 N39.46 Recurrent urinary tract infection 476357762 N39.0 [id number] TAMEKA CHAUDHRY APRN UROLOGY [facility] [address] [place] [address] 03/15/2025 09:30:39 03/15/2025 10:09:26 Overactive urinary bladder 709633018 N32.81 Mixed urin andrea incontinence 083014107 N39.46 Recurrent urinary tract infection 749138154 N39.0 Health Concerns Section Related Observation LastModified by Organization Detai ls LastModified Time None Recorded Concern Status LastModified by Organization Details LastModified Time None Recorded Advance Directives Directive None Recorded Payers Insurance Date Sequence Insurance Name Policy Number Policy Chapa Covered Member ID Chapa Member ID Guarantor Name 03/15/2025 2 [place] [id number] Neeta Stephan Ashford [id number] Neeta Ashford 03/15/2025 1 [place] Neeta Ashford [id number] Neeta Ashford 03/15/2025 3 [employer] (MEDICARE SUPPLEMENT) Neeta Ashford [id number] Neeta Ashford 03/18/2025 2 [employer] SUPPLEMENTAL - [employer]URANCE (MEDICARE SUPPLEMENT) Neeta Ashford [id number] Neeta Ashford Notes Date Note Type Note [...] the past which was prescribed by her floor supervisor. She tried Myrbetriq for 6-8 months which [...] other deficits with her stroke. TAMEKA CHAUDHRY, IT SECURITY ENGINEER [address] [place], [address], [facility] 04/19/2023 08:44:36 02/19/2024 text/html 73-year-old female here [...] the past which was prescribed by her floor supervisor. She tried Myrbetriq for 6-8 months which [...] and Eliquis. TAMEKA CHAUDHRY, RENAN [address] [place], [address], [facility] 02/19/2024 13:09:29 05/11/2024 text/html 73-year-old female here [...] the past which was prescribed by her floor supervisor. She tried Myrbetriq for 6-8 months which [...] will be done in May. TAMEKA CHAUDHRY, IT SECURITY ENGINEER [address] [place], [address], [facility] 05/11/2024 10:34:41 09/11/2024 text/html 73-year-old female here [...] the past which was prescribed by her floor supervisor. She tried Myrbetriq for 6-8 months which [...] be improved. TAMEKA CHAUDHRY APRN [address] [place], [address], [facility] 09/11/2024 09:56:45 03/15/2025 text/html 74-year-old female here [...] the past which was prescribed by her floor supervisor. She tried Myrbetriq for 6-8 months which [...] the time. TAMEKA CHAUDHRY APRN [address] [place], [address], [facility] 03/15/2025 10:11:13 OBGyn Episode No OBEpisode recorded.
--- OUTSIDE RECORDS SUMMARY | 2025-04-28 14:10 | XMS_ITS | Clinical Summary ---
Author Organization [employer] ([place], [place], [place], [place]) Address [address] [place] [address] Care Team Providers Care Replanter Name Role Phone [facility], Provider Not In The System MD Primary [...] Date Prince rded Speak language other than Kyrgyz at home Not on file 07/19/2023 Want [...] 04/13/2025 04/13/2024 Medical Devices Implanted Type Area Associate Principal Device Identifier Shelf Expiration Date Model / Serial / Lot Bulkamid Urethr Bulking Agent [id number] - [id number] Implanted:Qty: 2 on 11/20/2022 by Salinas Mehta MD at [facility] IMPLANTS N/A: Urethra [employer] 08/28/2025 [id number] / / [id number] Insurance MEDICARE [place] [address] [address] Care Teams Replanter Relationship Specialty Start Date End Date [facility], Provider Not In The System, [place] [address] PCP - General 04/13/24
--- OUTSIDE RECORDS SUMMARY | 2025-04-28 14:11 | XMS_ITS | Data Portability ---
Author Organization [facility] [place] [facility] ADMIN Address [address] [place] [id number] Assessment No assessment recorded. Plan of Treatment [...] Organization Details Recorded Time Cerebrovascula r accident [id number] Active 2022 Sissy Lynette stafford [facility] [place] 14:06:19 Problem Notes None recorded. Procedures Surgical History Date Name Laterality Status Provider Name and Address Organization Details Recorded Time Cholecystectomy completed Sissy Ojeda [facility] [place] 03/26/2023 13:59:27 Partial hysterectomy completed Sissy Ojeda [facility] [place] 03/26/2023 14:10:08 Imaging Results None recorded. Procedure [...] Updated DateTime 03/26/2023 152.4 cm 55.1 kg/m2 723209.05 g Kristin Hester, DO [address] [place], [id number], [facility] [place] 03/26/2023 14:26:25 Date Recorded Heart rate Oxygen saturation Oxygen saturation in Arterial blood by Pulse oximetry Systolic And Diastolic Provider Name and Address Organization Details Last Updated DateTime 03/26/2023 91 /min 96 % 96 % 138/76 mm[Hg] Sissy Ojeda [facility] [place] 14:12:16 Social History Question Answer Notes LastModified by Organizat ion Details LastModified Time Tobacco Smoking Status Never Smoker Sissy stafford [facility] [place] 03/26/2023 13:58:50 What Is Your Level Of [...] ICD10 Code Diagnosis IMO Codes Diagnosis Note [id number] Kristin DO [facility] Neurology [address] [facility],[address] [place] [address] 03/26/2023 13:51:46 03/26/2023 15:06:01 Cerebrovascular accident [id number] I63.9 Acute left frontal stroke with residual [...] Name 03/23/2023 1 [place] Neeta Ashford [id number] Neeta Ashford 03/23/2023 2 [place] [id number] Neeta Ashford [id number] Neeta Ashford Notes Date Note Type [...] to bed that night.Her took her to [facility] ER. Initial CT head and CTA head/neck were negative. Per the ER records the stroke team at and were contacted regarding the patient's presentation. She was not found to be a candidate for tpa or interventional procedures. She was given an oral loading dose of ASA and plavix then admitted to [facility] for further workup.MRI brain did reveal [...] easier and easier to understand. Kristin Hester, [address], [place], [address], [facility] [place] [facility] [place] 03/26/2023 14:50:29 OBGyn Episode No OBEpisode recorded.
--- NOTE | 2025-04-28 14:15 | MM_ITS ---
PROCEDURE INFORMATION: Exam: MG Bilateral Screening 3D Mammography Exam date and time: 04/28/2025 2:13 PM Age: 74 years old Clinical indication: Screening. No family history of breast cancer. TECHNIQUE: Imaging protocol: Bilateral Screening tomosynthesis and 2D mammography including computer-aided detection (CAD) when performed. COMPARISON: 1. MG MM DIG SCREENING MAMM BI W/CAD 04/09/2024 12:58 PM 2. MG MM DIG SCREENING MAMM BI W/CAD 04/03/2023 10:39 AM 3. MG MM DIG SCREENING MAMM BI W/CAD 03/13/2022 1:11 PM 4. MG MM DIG SCREENING MAMM BI W/CAD 02/28/2021 10:49 AM FINDINGS: MAMMOGRAPHY: Breast composition: There are scattered areas of fibroglandular density. Mass: None. Architectural distortion: None. Calcifications: No suspicious calcifications. Asymmetric density: None. Skin thickening: None. Axillary adenopathy: None. Other findings: Pacemaker in the left axilla, limits evaluation and accentuates the importance of clinical breast exam. IMPRESSION: No mammographic evidence of malignancy. Annual screening is recommended unless otherwise clinically indicated. ASSESSMENT: BI-RADS Category 1: Negative.
== END 2025-04-28 23:59 | disposition home or self-care (01) ==
LOC: RAD 14:07
PROVIDERS: PCP Internal Medicine; Visit Provider Internal Medicine
DX: Z12.31 Encounter for screening mammogram for malignant neoplasm of breast (principal); R92.323 Mammographic fibroglandular density, bilateral breasts; Z95.0 Presence of cardiac pacemaker
CPT/HCPCS: 77063; 77067

== ENCOUNTER 2025-04-30 11:00 | Outpatient (RCR) | payer MEDICARE, SELFPAY ==
--- NOTE | 2025-04-09 17:42 | HMH.OPLYMPH ---
Rehab Lymphedema Evaluation Rehab Lymphedema Evaluation Start: 04/09/25 17:34 Freq: Status: Active Protocol: Document 04/09/25 17:34 YU (Rec: 04/09/25 17:42 PHOSOHAIL [id number]) E-signed By Franklin Mello, PT Subjective/History History History This is the initial PT lymphedema eval for Neeta Ashford, 74 yowf who presents with c/o R LE lymphedema x ~2-3 mos with insidious onset of symptoms. She reports she woke one morning with pain and swelling in her R LE after possible insect bite with no reduction of edema despite medications. She reports intermittent pain that is worse at night. She has PMH of JN, pacemaker, morbid obesity, CAD, rheumatic fever as a child, skin cancer removed from her nose. Subjective Subjective Pain at this time is 0/10, at worst is 10/10. 2/4 TTP to R lower leg noted with MILD erythema. LLIS score: 66 . 1+ pitting edema noted to R lower leg with MODERATE fibrotic edema with palpation. Lymphedema Eval Classification of Lymphedema Secondary Lymphedema Yes Stemmer's sign Stemmer's Sign yes Stage of Lymphedema Lymphedema stages Stage II (Pitting edema, increased fibrosis w/ decreased pitting) Skin Changes Dry Skin Yes Taut, Shiny Skin Yes Skin Folds Yes Redness Yes Discoloration of Yes Skin Other Changes Yes Pain Scale Pain Scale (0-10) 10 Affected Extremities Areas Affected by Right Lower Extremity Lymphedema/Edema Lower Extremity Measurements Right MTP Measurement (cm) 26.1 Heel Measurement (cm 37.8 ) 10 cm Proximal to 43.8 Lateral Malleoli Measurement (cm) 20 cm Proximal to 53.2 Lateral Malleoli Measurement (cm) 30 cm Proximal to 55.5 Lateral Malleoli Measurement (cm) 40 cm Proximal to 58.7 Lateral Malleoli Measurement (cm) 50 cm Proximal to 0 Lateral Malleoli Measurement (cm) 60 cm Proximal to 0 Lateral Malleoli Measurement (cm) Lower Extremity 275.1 Measurement Total ( cm) Manual Lymphatic Drainage Treatment Area MLD Treatment Area Right Lower Extremity Wound Problems/Impairments Impairments Problems/ Palpation Tenderness,Impaired Walking,Impaired Standing Impairmments ,Impaired Dressing,Impaired Shower/Bathing,Impaired Stair Climbing,Subjective C/O Pain,Impaired Self Care/ Self Management Prognosis Rehab Potential Good Comment Skilled therapy is indicated to aid reduction of overall lymphedema in order to assist pt return to improved QOL. Clinical Impression Consistent with Yes Diagnosis Lymphedema Patient Goals Lymphedema Patient Goals Lymphedema Short in 2 wks pt will: Term Patient Goals 1) Reduce pitting edema to 1+ in R LE 2) Reduce circumferential measurements to R LE by 3 cm Lymphedema Retirement in 4 wks pt will: Patient Goals 1) Reduce pitting edema to 0 in R LE 2) Reduce circumferential measurements to R LE by 6 cm 3) Be independent with donning/doffing of compression garments 4) be independent with Lymphedema management via [facility] Outpatient Therapy Plan of Care Treatment Plan May Include Therapeutic Exercise Yes Including Home Exercise Program Manual Therapy Yes Techniques Neuromuscular Re- Yes education Therapeutic Yes Activities to Return to Previous Functional/Work Level ADL/Self Care Yes Education Orthotics/Bracing/ Yes Splinting Manual Lymphatic Yes Drainage Eval/Re-Eval Yes Frequency Times per week 2 Duration Number of Weeks 4 Addendums This patient is a No candidate for social or vocational rehab ? Patient/Guardian Yes verbally acknowledges understanding of treatment program and consents to further treatment? Patient/Guardian Yes verbally acknowledges understanding of diagnosis, prognosis and goals for treatment? Eval Complexity PT Charges 30574 - High Complexity PHYSICIAN CERTIFICATION: I certify the specified therapy services for Neeta Ashford are required, authorized, and reviewed every 30 days.
== END 2025-04-30 23:59 | disposition home or self-care (01) ==
LOC: PT 11:00
PROVIDERS: PCP Internal Medicine; Visit Provider Internal Medicine
DX: I89.0 Lymphedema, not elsewhere classified (principal)
CPT/HCPCS: 97140; 97163; 97760

== ENCOUNTER 2025-05-07 10:54 | Outpatient (RCR) | payer MEDICARE, SELFPAY | END 2025-05-07 23:59 | disposition home or self-care (01) | LOC: PT 10:54 | PROVIDERS: PCP Internal Medicine; Visit Provider Internal Medicine | DX: I89.0 Lymphedema, not elsewhere classified (principal) | CPT/HCPCS: 97140; 97760 ==

== ENCOUNTER 2025-06-04 14:24 | Outpatient (CLI) | payer MEDICARE, SELFPAY ==
[2025-06-04 14:36] LABS: Lyme Ab IgM CIA ND
[2025-06-04 15:13] LABS: Hematocrit 38.0 % (37.0-47.0); Hemoglobin 12.3 g/dL (12.2-16.2); Immature Granulocytes % 0.2 %; Mean Corpuscular HGB Conc 32.4 g/dL (31.8-35.4); Mean Corpuscular Hemoglobin 27.7 pg (27.0-31.2); Mean Corpuscular Volume 85.6 fl (81-99); Nucleated Red Blood Cells % 0 %; Platelet Count 331 K/mm3 (142-424); Red Blood Count 4.44 M/mm3 (4.20-5.40); Red Cell Distribution Width-SD 46.9 fL; White Blood Count 8.4 K/mm3 (4.8-10.8)
[2025-06-04 15:57] LABS: Anion Gap 12.9 mEq/L (5-15); Blood Urea Nitrogen 24 mg/dl (7-17); Calcium 9.9 mg/dl (8.4-10.2); Carbon Dioxide 25 mmol/L (22.0-30.0); Chloride 102 mmol/L (98-107); Creatinine,Serum 1.10 mg/dl (0.52-1.04); Estimated Glomerular Filt Rate 49 ml/min (>60); GFR (African American) 59 ML/MIN (>60); Glucose 100 mg/dl (74-100); Potassium 3.9 mmoL/L (3.5-5.1); Sodium 136 mmol/L (136-145)
[2025-06-04 16:16] LABS: Free T4 (Free Thyroxine) 1.13 ng/dl (0.78-2.19)
[2025-06-04 16:30] LABS: Thyroid Stimulating Hormone 4.20 uIU/mL (0.465-4.68)
[2025-06-06 15:16] LABS: Lyme Ab CIA Negative (Negative)
[2025-06-08 09:13] LABS: O215-IgE Alpha-Gal < 0.10 kU/L (Class 0)
[2025-06-10 10:26] LABS: IgG P18 Ab. ABSENT; IgG P23 Ab. ABSENT; IgG P28 Ab. ABSENT; IgG P30 Ab. ABSENT; IgG P39 Ab. ABSENT; IgG P41 Ab. PRESENT; IgG P45 Ab. ABSENT; IgG P58 Ab. PRESENT; IgG P66 Ab. ABSENT; IgG P93 Ab. ABSENT
[2025-06-10 10:27] LABS: IgM P23 Ab. ABSENT; IgM P39 Ab. ABSENT; IgM P41 Ab. ABSENT
== END 2025-06-04 23:59 | disposition home or self-care (01) ==
LOC: LAB 14:25
PROVIDERS: Nurse Practitioner; PCP Internal Medicine; Visit Provider Nurse Practitioner
DX: E78.2 Mixed hyperlipidemia (principal); I10 Essential (primary) hypertension; T14.8XXA Other injury of unspecified body region, initial encounter; W57.XXXA Bitten or stung by nonvenomous insect and other nonvenomous arthropods, initial encounter
CPT/HCPCS: 36415; 80048; 82785; 84439; 84443; 85025; 86003; 86008; 86617; 86618